=== PATIENT | male | born 1935 | race African-American/Black ===

== ENCOUNTER 2016-05-11 08:54 | Inpatient (IN) ==
--- NOTE | 2016-05-11 09:23 | EKG Report ---
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
[2016-05-11] MEDS ORDERED: FUROSEMIDE 100 MG/10 ML VIAL IV STA (09:38)
[2016-05-11 09:40] LABS: Basophils # 0.1 10*3/uL (0.0-0.2); Basophils % 0.8 % (0.0-0.8); Eosinophils # 0.1 10*3/uL (0.0-0.87); Eosinophils % 1.3 % (0.00-10.9); Hematocrit 25.1 VOL% (42.0-52.0); Hemoglobin 7.2 GM/DL (14.0-18.0); Immature Granulocytes % 0.3 %; Immature Granulocytes Absolute 0.02 #; Lymphocytes # 1.1 10*3/uL (1.4-4.0); Lymphocytes % 13.8 % (21.2-54.2); Mean Corpuscular HGB Conc 28.7 GM/DL (32-36); Mean Corpuscular Hemoglobin 22 PG (27-34); Mean Platelet Volume 9.8 FL (9.6-12.0); Monocytes # 0.7 10*3/uL (0.11-0.8); Monocytes % 9.3 % (1.7-12.7); Neutrophils % 74.5 % (38.7-73.9); Platelet Count 493 T/CUMM (130-400); Red Blood Count 3.22 MC/CUMM (3.8-5.5); Red Cell Distribution Width 18.1 % (9.3-17.3)
--- NOTE | 2016-05-11 09:40 | XRay Report ---
Exam: Chest 2 views Date: May 11, 2016 at 9:31 AM Comparison: Chest 2 views March 19, 2015 Reason: Shortness of breath Findings: The cardiac silhouette is upper normal in size. There are reticulonodular opacities throughout both lungs. This is concerning for pulmonary edema and scarring/fibrosis. Pneumonia is not excluded. No pneumothorax is identified, but there are small bilateral pleural effusions. No acute osseous process is seen. Impression: 1. There are reticulonodular opacities within both lungs. This likely represents a combination of pulmonary edema and scarring/fibrosis. Pneumonia is not excluded. 2. Small bilateral pleural effusions. PROCEDURE INTERPRETED AT [facility] DEPARTMENT OF RADIOLOGY Final Report Signed by: Dr. Kt Gates
[2016-05-11] MEDS: ALBUTEROL 2.5 MG/3 ML NEB RESP TX SCH ×3 (09:48→10:06)
[2016-05-11 09:53] LABS: INR 1.1; PT Patient Result 11.5 SECS; Partial Thromboplastin Time 26.8 SECS (0-40)
[2016-05-11] MEDS ORDERED: FUROSEMIDE 100 MG/10 ML VIAL ONE (09:55)
--- NOTE | 2016-05-11 10:09 | Emergency Department Note ---
Shakir Montelongo Ashley, am scribing for, and in the presence of, Jerod Chau MD 09 :56. Toma Montelongo James D, MD, personally performed the services described in this documentation, ascribed by Summer Schilling in my presence, and it is both accurate and complete . Arrival - Arrival Chief Complaint: Shortness of Breath Stated Complaint: short of breath ED Nursing Triage Note: Pt states that he has been having some SOB Onset x 1 week with worsening this am - pt states that his SOB is worse with excertion. Pt denies any chest pain Mode of Arrival: Wheelchair Limitations: No Limitations Source: Patient, Significant other Time Seen by Provider: 05/11/16 09:25 - History of Present Illness HPI Narrative: Mr. Edmond, an 81 year old AAM with no known history of heart or lung disease , presents with one week history of worsening SOB. He reports being able to walk around yesterday; however, this morning he is unable to walk short distances (i.e. to the bathroom). He denies CP, cough, LE swelling, fever, n/v, OLIVARES, and dizziness. He reports previous tobacco abuse. He smoked ~1.5 packs per day for 40 years, but stopped about 20 years ago. Onset (ago): week(s) (1) Consistency: constant Severity: moderate Quality: other (SOB) Allergies/Adverse Reactions: Allergies Allergy/AdvReac Type Severity Reaction Status Date / Time No Known Allergies Allergy Verified 05/11/16 08:56 Home Medications: Home Medications Medication Instructions Recorded Confirmed Type Brimonidine 0.2% Oph Soln 1 drop BOTH EYES TID 03/19/15 03/19/15 History [Alphagan P 0.2% Oph Soln] Cetirizine HCl [Cetirizine Tab] 5 mg PO DAILY 03/19/15 03/19/15 History Cholecalciferol (Vitamin D3) 2,000 unit PO DAILY 03/19/15 03/19/15 History [Vitamin D3] Ferrous Sulfate [Ferrous Sulfate 325 mg PO TID 03/19/15 03/19/15 History Cap] Hydralazine HCl 50 mg PO Q8HR 03/19/15 03/19/15 History Isosorbide Mononitrate [Imdur] 30 mg PO DAILY 03/19/15 03/19/15 History Magnesium Oxide 420 mg PO DAILY 03/19/15 03/19/15 History Metoprolol Tartrate 25 mg PO BID 03/19/15 03/19/15 History glipiZIDE [Glipizide] 20 mg PO BID W/MEALS 03/19/15 03/19/15 History Review of System - Review of System Constitutional: Absent: chills, fever Eyes: Absent: discharge, vision change Head/Ears/Nose/Throat: Absent: epistaxis, nasal drainage Respiratory: Present: other (SOB). Absent: cough Cardiovascular: Absent: chest pain, palpitations, edema Gastrointestinal: Absent: abdominal pain, nausea, vomiting Genitourinary male: Absent: dysuria, hematuria Musculoskeletal: Absent: back pain, neck pain Skin: Absent: rash, lesions Neurological: Absent: headache, weakness, numbness, paresthesias Psychiatric: Present: as per HPI Endocrine: Present: as per HPI Hematological/Lymphatic: Present: as per HPI Allergic/Immunologic: Present: as per HPI Medical,Surgical,& Family Hx - Medical History Cardio: History of: Hypertension Endocrine: History of: Diabetes Mellitus (NIDDM) - Surgical History Abdominal Surgeries: Surgical HX of: Appendectomy - Family History Family History: Reports;: Family Hypertension - Social History Smoking Status: Never smoker Frequency of Alcohol Use: None Type of Drug Use: None Exam Vital Signs: Vital Signs Temperature 98.1 F 05/11/16 08:56 Pulse Rate 104 H 05/11/16 09:57 Respiratory Rate 20 05/11/16 09:57 Blood Pressure 157/77 05/11/16 08:56 O2 Sat by Pulse Oximetry 98 05/11/16 09:57 - General General appearance: alert, in no apparent distress - Head Head exam: Present: atraumatic, normocephalic, normal inspection - Eye Eye exam: Present: normal appearance, PERRL, EOMI - ENT ENT exam: Present: normal exam, normal oropharynx, mucous membranes moist - Neck Neck exam: Present: full ROM, trachea midline, other (JVD at angle of mandible) - Chest Chest inspection: Present: normal inspection, symmetric chest wall rise, tenderness - Respiratory Respiratory exam: Present: other (Bilateral decreased lung sounds). Absent: rales, respiratory distress, rhonchi, stridor, wheezes - Cardiovascular Cardiovascular exam: Present: regular rate, normal rhythm, JVD (at angle of mandible ) - Abdominal Exam Abdominal exam: Present: soft. Absent: distention, tenderness, ascites - Rectal Exam Rectal exam: Present: normal inspection, normal rectal tone, heme (-) stool. Absent: bloody stool, fecal impaction, hemorrhoids, prostate tenderness, prostate enlargement - Extremities Exam Extremities exam: Present: normal inspection, full ROM. Absent: pedal edema, calf tenderness - Back Exam Back exam: Present: normal inspection, full ROM - Neurological Exam Neurological exam: Present: alert, oriented X3, CN II-XII intact - Psychiatric Psychiatric exam: Present: normal affect, normal mood - Skin Skin exam: Present: warm, dry, intact, normal color Course - Consultations Consultation #1: Discussed with Dr. Curiel. He will see the patient in the CCU and consider left heart cath depending on outcome of stool guaiac. Time: 10:18 Results - Labs CBC & BMP: 05/11/16 09:28 Lab Results: I have reviewed the patients labs Labs: Laboratory Tests 05/11/16 05/11/16 09:28 09:28 WBC 8.0 Hgb 7.2 L Hct 25.1 L Plt Count 493 H INR 1.1 Laboratory Tests 05/11/16 09:28 Troponin I 4.590 H - EKG EKG results: interpreted by ERMD - Impressions EKG: Sinus tachycardia with rate of 104, frequent PVCs, T-wave inversion and ST segment depression laterally consistent with myocardial ischemia. - Diagnostic Findings Procedure: Chest x-ray: image reviewed by me (Increased pulmonary markings bilaterally) Critical Care Time Critical Care Time: No Disposition Clinical Impression: Dyspnea, Anemia, Chronic respiratory failure, Non-ST elevation myocardial infarction (NSTEMI) Case discussed with: patient, patient's family Condition: Stable Time of Disposition: 10:12
[2016-05-11] MEDS ORDERED: ASPIRIN 325 MG TABLET PO STA (10:11)
[2016-05-11] MEDS ORDERED: ENOXAPARIN 80 MG/0.8 ML SYRINGE SUBCUT STA (10:11)
[2016-05-11] MEDS ORDERED: METOPROLOL TARTRATE 5 MG/5 ML VIAL IV STA (10:14)
[2016-05-11] MEDS ORDERED: NITROGLYCERIN 2% OINT 1 INCH/GM PACK TOP STA (10:14)
[2016-05-11] MEDS ORDERED: PANTOPRAZOLE 40 MG VIAL IV STA (10:16)
[2016-05-11 10:19] LABS: Burr Cells Slight; Elliptocytes Few; Hypochromasia Slight; Platelet Estimate Adequate
[2016-05-11] MEDS ORDERED: ENOXAPARIN 100 MG/ML SYRINGE SUBCUT ONE (10:28)
[2016-05-11] MEDS ORDERED: PANTOPRAZOLE 40 MG VIAL IV ONE (10:28)
[2016-05-11] MEDS ORDERED: METOPROLOL TARTRATE 5 MG/5 ML VIAL IV ONE (10:29)
[2016-05-11] MEDS ORDERED: NITROGLYCERIN 2% OINT 1 INCH/GM PACK TOP ONE (10:29)
[2016-05-11] MEDS ORDERED: ASPIRIN 325 MG TABLET ONE (10:29)
[2016-05-11 10:47] LABS: % Iron Saturation 4.6 % (18-50); Ferritin 8.7 ng/ml (26-388)
[2016-05-11 10:59] LABS: Alanine Aminotransferase 35 U/L (16-61); Albumin 3.6 G/DL (3.4-5.0); Alkaline Phosphatase 70 U/L (45-117); Aspartate Amino Transferase 42 U/L (0-37); Bilirubin,Total < 0.39 MG/DL (0.2-1.0); Blood Urea Nitrogen 45 MG/DL (7-18); CKMB % 2.2 %; Calcium 9.3 MG/DL (8.5-10.1); Glucose 179 MG/DL (74-106); Osmolality,Calculated 301.8 MOS/KG (273-304); Potassium 4.1 MMOL/L (3.5-5.1); Sodium 144 MMOL/L (136-145); Total Protein 8.1 G/DL (6.4-8.3)
[2016-05-11 11:06] LABS: Folate 13.4 NG/ML (5.4-24.0)
[2016-05-11 11:39] LABS: ABG Base Excess -9.2 MMOL/L (-2.5-2.5); ABG HCO3 16.9 MMOL/L (20-26); ABG PCO2 25.3 MM HG (35-48); ABG PH 7.381 (7.35-7.45); ABG PO2 69.1 MM HG (80-95); ABG TCO2 14.2 MMOL/L (23-27); Allen Test Positive
--- NOTE | 2016-05-11 12:06 | Cardiology History & Physical ---
<Alejandra Monzon - Last Filed: 05/11/16 11:43> Assessment and Plan - Time spent with patient Time spent with patient: Greater than 30 minutes (due to assessment, plan, and documentation) (1) Non-ST elevation myocardial infarction (NSTEMI) Status: Acute Assessment and plan: 81 y/o BM with hx of hypertension, diabetes. Seen in the Emergency Department today with c/o SOB, worse since yesterday. Found to have NSTEMI, anemia, chronic renal insufficiency with GFR 21, previously 26. -Admit to CCU. -Transfuse 2 units PRBCs slowly over 3-4 hours each unit. 20mg IV Lasix after first unit. -Echocardiogram pending. -Continue to cycle cardiac biomarkers and EKG's. -Given his elevated creatinine, I will hold off on full strength Lovenox and further discuss with Dr. Curiel. -Protonix and ASA daily. -Start Coreg BID. -Monitor daily CBC, BMP, Mg. -Duonebs PRN. -Check heme occult stools. 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 Mr. Edmond is a 81 year old male who denies following regularly with a unloader. We do have records of him seeing Dr. Kingston in the past, but this has been over 3 years ago. He and his are poor historians. Much of his past medical history is obtained from previous records. He has a history of hypertension and diabetes. Risk factors include: diabetes, hypertension, family history of CAD, and former tobacco use. Surgical history includes appendectomy, otherwise noncontributory. 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 He denies a prior history of stroke, MA, or arrhythmia. He presented to the emergency room this morning with complaints of shortness of breath x1 week which worsened last night. He tells me prior to 1 week ago, he had no difficulties performing his daily activities. He denies associated symptoms of chest pain, chest discomfort, jaw pain, neck pain, arm pain, or back pain. Although he tells me he has only felt short of breath for the last week, upon further discussion, he reveals he has home oxygen for the past several months and uses this most afternoons after he arrives home from work. Mr. Edmond tells me last night he was unable to walk from room to room without needing to stop and rest. He continues to have some mild conversational dyspnea. He notes one episode of shortness of breath was accompanied by nausea. He also reports associated epigastric pain with his dyspnea, but is unable to describe this pain further. He also has recent symptoms of leg cramps and episodes where he feels hot and his extremities feel numb. He tells me that he doesn't feel the numbness frequently, but he has to sit down and wait a few minutes before it passes. According to previous records, he has been seen previously for SOB and was found to be in ventricular bigeminy. During workup, a chest x-ray suggested pulmonary fibrosis. He underwent stress testing 12/27/12 which was unremarkable. Previous echocardiogram on 12/26/12 revealed EF 65%, diastolic dysfunction, mild TR, Mild MR, and mild pulmonary hypertension. Echo is currently being done at the bedside. His initial troponin was 4.610 with CPK 463 and CK-MB 10.3. Creatinine 3.6, potassium 4.1. We have one previously documented creatinine of 3.1 in March 2015. Hemoglobin is 7.2, hematocrit is 25.1. Chest x-ray is suggestive of pulmonary edema/scarring/ fibrosis with small bilateral pleural effusions. Mr. Edmond will be admitted to the CCU. Dr. Curiel to see and make further recommendations. Home Medications Medication Instructions Recorded Confirmed Type Brimonidine 0.2% Oph Soln 1 drop BOTH EYES TID 03/19/15 03/19/15 History [Alphagan P 0.2% Oph Soln] Cetirizine HCl [Cetirizine Tab] 5 mg PO DAILY 03/19/15 03/19/15 History Cholecalciferol (Vitamin D3) 2,000 unit PO DAILY 03/19/15 03/19/15 History [Vitamin D3] Ferrous Sulfate [Ferrous Sulfate 325 mg PO TID 03/19/15 03/19/15 History Cap] Hydralazine HCl 50 mg PO Q8HR 03/19/15 03/19/15 History Isosorbide Mononitrate [Imdur] 30 mg PO DAILY 03/19/15 03/19/15 History Magnesium Oxide 420 mg PO DAILY 03/19/15 03/19/15 History Metoprolol Tartrate 25 mg PO BID 03/19/15 03/19/15 History glipiZIDE [Glipizide] 20 mg PO BID W/MEALS 03/19/15 03/19/15 History Allergies Allergy/AdvReac Type Severity Reaction Status Date / Time No Known Allergies Allergy Verified 05/11/16 08:56 Review of systems: - Constitutional: Present: As per HPI. Absent: anorexia, chills, daytime sleepiness, excessive sweating, fever(s), frequent falls, headache(s), increased appetite, lethargy, malaise, night sweats, stops breathing during sleep, weakness, weight gain, weight loss, fatigue. - EENT Eyes: Present: As per HPI. Absent: blurry vision, diplopia, loss of vision Ears: Present: As per HPI. Absent: decreased hearing, ear discharge, ear pain Nose, mouth and throat: Present: As per HPI. Absent: dysphagia, epistaxis, headache(s), hoarseness, lip swelling, nasal congestion, neck mass, neck pain, sinus pressure, sore throat, throat swelling, tongue swelling, vertigo - Cardiovascular: Present: dyspnea, dyspnea on exertion, edema, as per HPI. Absent: chest pain at rest, chest pain with activity, claudication, diaphoresis , radiating jaw, neck or arm pain, lightheadedness, orthopnea, palpitations, PND - Respiratory: Present: dyspnea, dyspnea on exertion, as per HPI. Absent: cough, hemoptysis, wheezing, snoring, pain on inspiration - Gastrointestinal: Present: epigastric pain, As per HPI. Absent: bloating, change in bowel habits, constipation, diarrhea, heartburn, hematemesis, hematochezia, loose stools, melena, nausea, vomiting - Genitourinary: Present: As per HPI. Absent: difficulty urinating, dysuria, flank pain, hematuria, nocturia, urinary frequency, urinary incontinence - Musculoskeletal: Present: As per HPI. Absent: arthralgias, back pain, joint swelling, limited range of motion, muscle cramps, muscle weakness, myalgias - Neurological: Present: As per HPI. Absent: abnormal gait, abnormal speech, behavioral changes, confusion, convulsions, disequilibrium, dizziness, focal weakness, frequent falls, headache(s), memory loss, numbness, paresthesias, radicular pain, syncope, tremor(s) - Psychiatric: Present: As per HPI. Absent: anxiety, confusion, depression, panic attacks - Endocrine: Present: As per HPI. Absent: cold intolerance, fatigue, heat intolerance, polydipsia, polyphagia - Hematologic/Lymphatic: Present: As per HPI. Absent: easy bleeding, easy bruising, lymphadenopathy Medical,Surgical,& Family Hx - Medical History Cardio: History of: Hypertension Endocrine: History of: Diabetes Mellitus (NIDDM) - Surgical History Abdominal Surgeries: Surgical HX of: Appendectomy - Family History Family History: Reports;: Family Hypertension - Social History Smoking Status: Never smoker Frequency of Alcohol Use: None Type of Drug Use: None Marital Status: Lives With:: Spouse Functional capacity: independent ambulation Cardiology Physical Exam - Constitutional Vitals: Vital Signs Temp Pulse Resp BP Pulse Ox 98.1 F 104 H 20 157/77 98 05/11/16 09:10 05/11/16 09:57 05/11/16 09:57 05/11/16 09:10 05/11/16 09:57 Intake and Output 05/10/16 05/11/16 05/11/16 22:59 06:59 14:59 Other: Weight 198 lb Patient Weight 05/12/16 06:59 Weight 198 lb Exam: General appearance: Pleasant and cooperative. Normal weight, Mild conversational dyspnea. - Head Head exam: Present: normal inspection, normocephalic, atraumatic. Absent: hematoma, laceration - Eye Eye exam: Present: EOMI. Absent: conjunctival injection, nystagmus, periorbital swelling, scleral icterus, laceration to eyelids Pupils: Present: PERRL. Absent: constricted, dilated, fixed, irregular, unequal - ENT ENT exam: Present: normal exam, normal external ear exam - Neck Neck exam: Present: normal inspection. Absent: lymphadenopathy, meningismus, tenderness, thyromegaly - Respiratory Respiratory exam: Present: End expiratory wheezes noted more prominently in right lung field, coarse breath sounds with bibasilar crackles posteriorly. Absent: chest wall tenderness - Cardiovascular Cardiovascular exam: Present: regular rate and rhythm. Absent: carotid bruit, gallop, JVD, rubs, murmur - GI/Abdominal GI/Abdominal exam: Present: normal bowel sounds, soft. Absent: distended, firm , guarding, hernia, mass, tenderness, rebound. - Extremities Exam Extremities exam: Present: normal inspection, normal capillary refill. Upper extremity pulses 2+. Diminished peripheral pulses. Absent: calf tenderness, edema - Back Exam Back exam: Present: normal inspection. Absent: muscle spasm, vertebral tenderness - Neurological Exam Neurological exam: Present: alert, oriented X3, grossly intact without resting or essential tremor - Psychiatric Psychiatric exam: Present: normal affect, normal mood - Skin Skin exam: Present: normal color, warm, dry, intact. Absent: cyanosis, diaphoretic, rash, urticaria Result/EKG - Labs CBC & BMP: 05/11/16 09:28 05/11/16 09:28 Lab Results: I have reviewed the past 24 hour labs Labs: Laboratory Results - last 24 hr 05/11/16 05/11/16 05/11/16 09:28 09:28 09:28 WBC 8.0 RBC 3.22 L Hgb 7.2 L Hct 25.1 L MCV 78.0 L MCH 22 L MCHC 28.7 L RDW 18.1 H Plt Count 493 H MPV 9.8 Neut % (Auto) 74.5 H Lymph % (Auto) 13.8 L Greer % (Auto) 9.3 Eos % (Auto) 1.3 Baso % (Auto) 0.8 Neut # (Auto) 6.0 Lymph # (Auto) 1.1 L Greer # (Auto) 0.7 Eos # (Auto) 0.1 Baso # (Auto) 0.1 Immature Gran % 0.3 Nucleated RBC % 0.0 Immature Gran # 0.02 Nucleated RBCs # 0.00 Platelet Estimate Adequate Hypochromasia Slight Carolyn Cells Slight Elliptocytes Few Morphology Comment Absolute Retic Percent Retic Retic Hgb Equivalent INR 1.1 PT Patient/Control Mix 11.5 Circ Anticoag PTT 26.8 ABG pH ABG pCO2 ABG pO2 ABG HCO3 ABG Total CO2 ABG O2 Saturation ABG Base Excess FiO2 Sodium 144 Potassium 4.1 Chloride 114 H Carbon Dioxide 18 L Anion Gap 16.1 H BUN 45 H Creatinine 3.60 H GFR Calculation 21 BUN/Creatinine Ratio 12.00 Glucose 179 H Calculated Osmolality 301.8 Calcium 9.3 Magnesium 2.0 Iron TIBC % Saturation Ferritin Total Bilirubin < 0.39 AST 42 H ALT 35 Alkaline Phosphatase 70 Total Creatine Kinase 463 H CK-MB (CK-2) 10.3 H CK and CKMB Interp 2.2 Troponin I 4.610 H B-Natriuretic Peptide Total Protein 8.1 Albumin 3.6 Globulin 4.5 H Albumin/Globulin Ratio 0.8 L Vitamin B12 Folate Blood Type Antibody Screen 05/11/16 05/11/16 05/11/16 09:28 09:28 09:28 WBC RBC Hgb Hct MCV MCH MCHC RDW Plt Count MPV Neut % (Auto) Lymph % (Auto) Greer % (Auto) Eos % (Auto) Baso % (Auto) Neut # (Auto) Lymph # (Auto) Greer # (Auto) Eos # (Auto) Baso # (Auto) Immature Gran % Nucleated RBC % Immature Gran # Nucleated RBCs # Platelet Estimate Hypochromasia Carolyn Cells Elliptocytes Morphology Comment Absolute Retic 0.1 Percent Retic 1.7 H Retic Hgb Equivalent 19.1 L INR PT Patient/Control Mix Circ Anticoag PTT ABG pH ABG pCO2 ABG pO2 ABG HCO3 ABG Total CO2 ABG O2 Saturation ABG Base Excess FiO2 Sodium Potassium Chloride Carbon Dioxide Anion Gap BUN Creatinine GFR Calculation BUN/Creatinine Ratio Glucose Calculated Osmolality Calcium Magnesium Iron TIBC % Saturation Ferritin Total Bilirubin AST ALT Alkaline Phosphatase Total Creatine Kinase CK-MB (CK-2) CK and CKMB Interp Troponin I 4.590 H B-Natriuretic Peptide 1349 H Total Protein Albumin Globulin Albumin/Globulin Ratio Vitamin B12 Folate Blood Type Antibody Screen 05/11/16 05/11/16 05/11/16 09:28 09:28 11:40 WBC RBC Hgb Hct MCV MCH MCHC RDW Plt Count MPV Neut % (Auto) Lymph % (Auto) Greer % (Auto) Eos % (Auto) Baso % (Auto) Neut # (Auto) Lymph # (Auto) Greer # (Auto) Eos # (Auto) Baso # (Auto) Immature Gran % Nucleated RBC % Immature Gran # Nucleated RBCs # Platelet Estimate Hypochromasia Carolyn Cells Elliptocytes Morphology Comment Absolute Retic Percent Retic Retic Hgb Equivalent INR PT Patient/Control Mix Circ Anticoag PTT ABG pH 7.381 ABG pCO2 25.3 L ABG pO2 69.1 L ABG HCO3 16.9 L ABG Total CO2 14.2 L ABG O2 Saturation 93.0 L ABG Base Excess -9.2 L FiO2 28.00 Sodium Potassium Chloride Carbon Dioxide Anion Gap BUN Creatinine GFR Calculation BUN/Creatinine Ratio Glucose Calculated Osmolality Calcium Magnesium Iron 15 L TIBC 327 % Saturation 4.6 L Ferritin 8.7 L Total Bilirubin AST ALT Alkaline Phosphatase Total Creatine Kinase CK-MB (CK-2) CK and CKMB Interp Troponin I B-Natriuretic Peptide Total Protein Albumin Globulin Albumin/Globulin Ratio Vitamin B12 507 Folate 13.4 Blood Type Antibody Screen 05/11/16 Unknown WBC RBC Hgb Hct MCV MCH MCHC RDW Plt Count MPV Neut % (Auto) Lymph % (Auto) Greer % (Auto) Eos % (Auto) Baso % (Auto) Neut # (Auto) Lymph # (Auto) Greer # (Auto) Eos # (Auto) Baso # (Auto) Immature Gran % Nucleated RBC % Immature Gran # Nucleated RBCs # Platelet Estimate Hypochromasia Howell Cells Elliptocytes Morphology Comment Absolute Retic Percent Retic Retic Hgb Equivalent INR PT Patient/Control Mix Circ Anticoag PTT ABG pH ABG pCO2 ABG pO2 ABG HCO3 ABG Total CO2 ABG O2 Saturation ABG Base Excess FiO2 Sodium Potassium Chloride Carbon Dioxide Anion Gap BUN Creatinine GFR Calculation BUN/Creatinine Ratio Glucose Calculated Osmolality Calcium Magnesium Iron TIBC % Saturation Ferritin Total Bilirubin AST ALT Alkaline Phosphatase Total Creatine Kinase CK-MB (CK-2) CK and CKMB Interp Troponin I B-Natriuretic Peptide Total Protein Albumin Globulin Albumin/Globulin Ratio Vitamin B12 Folate Blood Type O POSITIVE Antibody Screen Negative - EKG EKG results: interpreted by me, sinus rhythm (with frequent PVCs and ST depression. ) <Gilmer Curiel - Last Filed: 05/11/16 16:57> Assessment and Plan (1) Dyspnea Status: Acute Assessment and plan: I, Gilmer Curiel, has seen, examined, and am involved in the evaluation and management of this patient. I've reviewed the note below/above and also see my thoughts below: The dyspnea appears to be multifactorial. It probably is in part related to the non-STEMI, partly from heart failure, possibly worsening renal insufficiency , being a former smoker, multiple causes His acute on chronic renal failure may be due to his NSAID use on a regular basis, ibuprofen/Aleve, but it could be partly due to worsening LV systolic function or other causes His heart rhythm could be systolic or diastolic. His anemia appears to be iron deficiency. It would raise a question of being from some GI blood loss. With him taking NSAIDs, the possibility of an ulcer strongly should be considered Plan/recommendation: Admit to telemetry n.p.o. after midnight in case it is decided to do a heart cath. That is not for sure at this point--will need to assess his renal function, his overall status in the a.m. Dr. Preeti Che, new about getting an order of leuk trase and up to the doctor's name for me if you would on-call would work things G had good gas good Way the risk and benefits with his renal function prior to deciding about a cath Echo/Doppler-done today For back pain-gabapentin, Tylenol, Tylenol and tramadol-no NSAIDs Elevate head of bed Sliding scale insulin Feed patient Cardiac diet Start on iron sulfate 1 twice daily-he says he has been taking it but is not in a while. However he does have black stool. Stool guaiacs 1 Lasix was given. Will hold now. Recheck electrolytes , bun he has a I the junction of right does not have a milk cup talking 2 L it is the read the tomato based we will put okay okay K eat milk so I will do that but I will take the habit the sounds very steak but not extra gravy just to wipe it off but just January state not extubating and then the collar greens and broccoli and light can get a large order fries to go with that right and in good that she had an EBL of the doctors labs for Dr. rachel curiel exam appreciated next 30 minutes like that appreciate and creatinine in the a.m. Can reassess in a.m. and try to time doing a heart cath. May need to wait to allow the renal function improved Aspirin one was given the emergency room Lovenox 90 mg subcu now increased to every 24 hours Some IV Lopressor was given. We will start on carvedilol 6.25 mg p.o. every 6 hours We will hold metoprolol from home. Nitropaste 1 inch now every 6 Protonix 1 now and twice daily EKG every morning 3 and as needed for chest pain/shortness breath We will not use an CHERELLE inhibitor because of renal insufficiency-contraindicated Further decision depending on results of enzymes, EKG and her renal function is renal function. Current Visit: Yes (2) Acute on chronic renal failure Status: Acute Current Visit: Yes (3) NSAID long-term use Status: Acute Current Visit: Yes (4) Heart failure Status: Acute Current Visit: Yes (5) Iron deficiency anemia Status: Acute Current Visit: Yes (6) Anemia Status: Acute Current Visit: Yes (7) Non-ST elevation myocardial infarction (NSTEMI) Status: Acute Current Visit: Yes (8) Chronic renal insufficiency, stage IV (severe) Status: Chronic Current Visit: Yes (9) Diabetes mellitus Status: Chronic Current Visit: Yes (10) Family history of coronary artery disease Status: Chronic Current Visit: Yes (11) Former smoker Status: Chronic Current Visit: Yes (12) Hypertension Status: Chronic Current Visit: Yes History of Present Illness History of present illness: Mr. Edmond is a 81 year old male Cardiology Physical Exam - Constitutional Vitals: Vital Signs Temp Pulse Resp BP Pulse Ox 98.1 F 105 H 20 157/77 99 05/11/16 09:10 05/11/16 10:06 05/11/16 10:06 05/11/16 09:10 05/11/16 10:06 Intake and Output 05/11/16 05/11/16 05/11/16 07:59 15:59 23:59 Other: Weight 89.811 kg Patient Weight 05/11/16 23:59 Weight 89.811 kg Result/EKG - Labs CBC & BMP: 05/11/16 09:28 05/11/16 09:28 Labs: Laboratory Results - last 24 hr 05/11/16 05/11/16 05/11/16 09:28 09:28 09:28 WBC 8.0 RBC 3.22 L Hgb 7.2 L Hct 25.1 L MCV 78.0 L MCH 22 L MCHC 28.7 L RDW 18.1 H Plt Count 493 H MPV 9.8 Neut % (Auto) 74.5 H Lymph % (Auto) 13.8 L Greer % (Auto) 9.3 Eos % (Auto) 1.3 Baso % (Auto) 0.8 Neut # (Auto) 6.0 Lymph # (Auto) 1.1 L Greer # (Auto) 0.7 Eos # (Auto) 0.1 Baso # (Auto) 0.1 Immature Gran % 0.3 Nucleated RBC % 0.0 Immature Gran # 0.02 Nucleated RBCs # 0.00 Platelet Estimate Adequate Hypochromasia Slight Howell Cells Slight Elliptocytes Few Morphology Comment Absolute Retic Percent Retic Retic Hgb Equivalent INR 1.1 PT Patient/Control Mix 11.5 Circ Anticoag PTT 26.8 ABG pH ABG pCO2 ABG pO2 ABG HCO3 ABG Total CO2 ABG O2 Saturation ABG Base Excess FiO2 Sodium 144 Potassium 4.1 Chloride 114 H Carbon Dioxide 18 L Anion Gap 16.1 H BUN 45 H Creatinine 3.60 H GFR Calculation 21 BUN/Creatinine Ratio 12.00 Glucose 179 H Calculated Osmolality 301.8 Calcium 9.3 Magnesium 2.0 Iron TIBC % Saturation Ferritin Total Bilirubin < 0.39 AST 42 H ALT 35 Alkaline Phosphatase 70 Total Creatine Kinase 463 H CK-MB (CK-2) 10.3 H CK and CKMB Interp 2.2 Troponin I 4.610 H B-Natriuretic Peptide Total Protein 8.1 Albumin 3.6 Globulin 4.5 H Albumin/Globulin Ratio 0.8 L Vitamin B12 Folate Blood Type Antibody Screen 05/11/16 05/11/16 05/11/16 09:28 09:28 09:28 WBC RBC Hgb Hct MCV MCH MCHC RDW Plt Count MPV Neut % (Auto) Lymph % (Auto) Greer % (Auto) Eos % (Auto) Baso % (Auto) Neut # (Auto) Lymph # (Auto) Greer # (Auto) Eos # (Auto) Baso # (Auto) Immature Gran % Nucleated RBC % Immature Gran # Nucleated RBCs # Platelet Estimate Hypochromasia Carolyn Cells Elliptocytes Morphology Comment Absolute Retic 0.1 Percent Retic 1.7 H Retic Hgb Equivalent 19.1 L INR PT Patient/Control Mix Circ Anticoag PTT ABG pH ABG pCO2 ABG pO2 ABG HCO3 ABG Total CO2 ABG O2 Saturation ABG Base Excess FiO2 Sodium Potassium Chloride Carbon Dioxide Anion Gap BUN Creatinine GFR Calculation BUN/Creatinine Ratio Glucose Calculated Osmolality Calcium Magnesium Iron TIBC % Saturation Ferritin Total Bilirubin AST ALT Alkaline Phosphatase Total Creatine Kinase CK-MB (CK-2) CK and CKMB Interp Troponin I 4.590 H B-Natriuretic Peptide 1349 H Total Protein Albumin Globulin Albumin/Globulin Ratio Vitamin B12 Folate Blood Type Antibody Screen 05/11/16 05/11/16 05/11/16 09:28 09:28 11:40 WBC RBC Hgb Hct MCV MCH MCHC RDW Plt Count MPV Neut % (Auto) Lymph % (Auto) Greer % (Auto) Eos % (Auto) Baso % (Auto) Neut # (Auto) Lymph # (Auto) Greer # (Auto) Eos # (Auto) Baso # (Auto) Immature Gran % Nucleated RBC % Immature Gran # Nucleated RBCs # Platelet Estimate Hypochromasia Howell Cells Elliptocytes Morphology Comment Absolute Retic Percent Retic Retic Hgb Equivalent INR PT Patient/Control Mix Circ Anticoag PTT ABG pH 7.381 ABG pCO2 25.3 L ABG pO2 69.1 L ABG HCO3 16.9 L ABG Total CO2 14.2 L ABG O2 Saturation 93.0 L ABG Base Excess -9.2 L FiO2 28.00 Sodium Potassium Chloride Carbon Dioxide Anion Gap BUN Creatinine GFR Calculation BUN/Creatinine Ratio Glucose Calculated Osmolality Calcium Magnesium Iron 15 L TIBC 327 % Saturation 4.6 L Ferritin 8.7 L Total Bilirubin AST ALT Alkaline Phosphatase Total Creatine Kinase CK-MB (CK-2) CK and CKMB Interp Troponin I B-Natriuretic Peptide Total Protein Albumin Globulin Albumin/Globulin Ratio Vitamin B12 507 Folate 13.4 Blood Type Antibody Screen 05/11/16 Unknown WBC RBC Hgb Hct MCV MCH MCHC RDW Plt Count MPV Neut % (Auto) Lymph % (Auto) Greer % (Auto) Eos % (Auto) Baso % (Auto) Neut # (Auto) Lymph # (Auto) Greer # (Auto) Eos # (Auto) Baso # (Auto) Immature Gran % Nucleated RBC % Immature Gran # Nucleated RBCs # Platelet Estimate Hypochromasia Howell Cells Elliptocytes Morphology Comment Absolute Retic Percent Retic Retic Hgb Equivalent INR PT Patient/Control Mix Circ Anticoag PTT ABG pH ABG pCO2 ABG pO2 ABG HCO3 ABG Total CO2 ABG O2 Saturation ABG Base Excess FiO2 Sodium Potassium Chloride Carbon Dioxide Anion Gap BUN Creatinine GFR Calculation BUN/Creatinine Ratio Glucose Calculated Osmolality Calcium Magnesium Iron TIBC % Saturation Ferritin Total Bilirubin AST ALT Alkaline Phosphatase Total Creatine Kinase CK-MB (CK-2) CK and CKMB Interp Troponin I B-Natriuretic Peptide Total Protein Albumin Globulin Albumin/Globulin Ratio Vitamin B12 Folate Blood Type O POSITIVE Antibody Screen Negative
[2016-05-11] MEDS ORDERED: ALBUTEROL/IPRATROPIUM 3 ML NEB RESP TX PRN (12:39)
[2016-05-11] MEDS ORDERED: MAGNESIUM SULF RIDER 2 GM in PREMIX 1 EACH IV PRN (14:34)
[2016-05-11] MEDS ORDERED: MAGNESIUM SULF RIDER 4 GM in PREMIX 1 EACH IV PRN (14:34)
[2016-05-11] MEDS ORDERED: ONDANSETRON 4 MG/2 ML VIAL IV PRN (14:34)
[2016-05-11] MEDS ORDERED: CARVEDILOL 3.125 MG TABLET PO SCH (15:00)
[2016-05-11] MEDS ORDERED: GLUCAGON 1 MG VIAL IM PRN (15:42)
[2016-05-11] MEDS ORDERED: DEXTROSE 50% 25 GM/50 ML VIAL IV PRN (15:42)
[2016-05-11] MEDS ORDERED: CARVEDILOL 3.125 MG TABLET ONE (15:54)
--- NOTE | 2016-05-11 17:11 | ECHO Report ---
Chetan Edmond Exam Date: 05/11/2016 11:20 Referring Physician: Technologist: Darline Lyons RDCS Age: 81 Ht (in): 72 Wt (lb): 198 Gender: M Exam Location: [facility] Echo Indications: Non-ST elevation (NSTEMI) myocardial infarction, Shortness of breath, Essential (primary) hypertension, NIDDM BP: 144 / 81 HR: 105 Rhythm: Sinus tach with PVC's Technical Quality: Good IMPRESSIONS Mild left ventricular hypertrophy. Left ventricular ejection fraction is estimated at 20- 25 %. The right atrium is mildly enlarged. The left atrium is 2+ enlarged. Mild mitral valve regurgitation. Aortic valve sclerosis without stenosis or regurgitation. Trace to mild tricuspid valve regurgitation. Tricuspid regurgitation velocities suggest a PAP of 58 mmHg. MEASUREMENTS (Male / Female) Normal Values 2D ECHO LV Diastolic Diameter PLAX 5.3 cm 4.2 - 5.9 / 3.9 - 5.3 cm LV Systolic Diameter PLAX 4.8 cm LV Fractional Shortening PLAX 9.7 % IVS Diastolic Thickness 1.4 cm 0.6 - 1.0 / 0.6 - 0.9 cm LVPW Diastolic Thickness 1.4 cm 0.6 - 1.0 / 0.6 - 0.9 cm RV Internal Dim ED PLAX 3.0 cm Aortic Root Diameter 3.6 cm LA Systolic Diameter LX 4.5 cm 3.0 - 4.0 / 2.7 - 3.8 cm DOPPLER TR Peak Velocity 345.0 cm/s TR Peak Gradient 47.6 mmHg FINDINGS Left Ventricle Normal left ventricular cavity size. Mild left ventricular hypertrophy. Left ventricular ejection fraction is estimated at 20- 25 %. Right Ventricle The right ventricle is normal in size and function. Right Atrium The right atrium is mildly enlarged. Left Atrium The left atrium is 2+ enlarged. Mitral Valve Morphologically normal mitral valve. Mild mitral valve regurgitation. Aortic Valve Aortic valve sclerosis without stenosis or regurgitation. Tricuspid Valve Morphologically normal tricuspid valve. Trace to mild tricuspid valve regurgitation. Tricuspid regurgitation velocities suggest a PAP of 58 mmHg. Pulmonic Valve Morphologically normal pulmonic valve without significant stenosis. There is no pulmonic regurgitation. Pericardium Normal pericardium without effusion. Aorta Normal ascending aorta dimension. Gilmer Curiel MD (Electronically Signed) Final Date: 11 May 2016 17:10
[2016-05-11] MEDS ORDERED: SODIUM CHLORIDE 0.9% 250 ML IV PRN (17:16)
[2016-05-11] MEDS: NITROGLYCERIN 2% OINT 1 INCH/GM PACK TOP SCH ×2 (17:20→17:41)
[2016-05-11] MEDS: glipiZIDE 10 MG TABLET PO SCH (17:41)
[2016-05-11] MEDS: CARVEDILOL 6.25 MG TABLET PO SCH (17:41)
[2016-05-11] MEDS: INSULIN REGULAR 100 UNIT/ML SUBCUT SCH ×2 (17:41→21:27)
[2016-05-11] MEDS: PANTOPRAZOLE 40 MG TABLET PO SCH (17:41)
[2016-05-11] MEDS: ACETAMINOPHEN 325 MG TABLET PO SCH ×2 (17:43→21:27)
--- NOTE | 2016-05-11 17:48 | EKG Report ---
Stationary ECG Study [facility] Test Date: 05/11/2016 5:48:18 PM Pat Name: JAZMIN GRAFF Department: Room: 295 Gender: M Surgical Coordinator: JAQUI : 1935 Requested by: Jerod Ruiz Order Number: [id number] Reading MD: FARSHAD KRAUSE Intervals [place] Rate: 99 P: 85 SD: 184 QRS: 80 QRSD: 108 T: 269 QT: 357 QTc: 413 Interpretive Statements SINUS RHYTHM LEFT VENTRICULAR HYPERTROPHY AND ST-T CHANGE Electronically Signed On 05-15-16 14:27:54 CDT by FARSHAD KRAUSE [email or web address]
[2016-05-11 18:17] LABS: CKMB % 2.3 %
[2016-05-11 18:21] LABS: Troponin I Only 4.12 NG/ML (0.00-0.045)
[2016-05-11] MEDS: GABAPENTIN 100 MG CAPSULE PO SCH (21:26)
[2016-05-11] MEDS: BRIMONIDINE 0.2% OPH SOLN 5 ML BOTTLE BOTH EYES SCH (21:27)
[2016-05-11] MEDS: traMADol 50 MG TABLET PO SCH (21:27)
[2016-05-11] MEDS: IRON (CARBONYL) 45 MG TABLET PO SCH (21:27)
[2016-05-11] MEDS ORDERED: FUROSEMIDE 20 MG/2 ML VIAL IV ONE ×2 (21:30)
[2016-05-11] MEDS: SODIUM CHLORIDE 0.9% 1,000 ML IV SCH (22:01)
[2016-05-11 22:06] LABS: CKMB % 2.1 %
[2016-05-11 22:09] LABS: Troponin I Only 4.36 NG/ML (0.00-0.045)
[2016-05-12] MEDS: CARVEDILOL 6.25 MG TABLET PO SCH ×4 (00:40→16:42)
[2016-05-12] MEDS: NITROGLYCERIN 2% OINT 1 INCH/GM PACK TOP SCH ×4 (00:40→17:07)
[2016-05-12] MEDS: SODIUM CHLORIDE 0.9% 1,000 ML IV SCH (04:22)
[2016-05-12 05:21] LABS: Basophils % 0.5 % (0.0-0.8); Eosinophils # 0.1 10*3/uL (0.0-0.87); Eosinophils % 1.3 % (0.00-10.9); Hematocrit 26.3 VOL% (42.0-52.0); Immature Granulocytes % 0.4 %; Immature Granulocytes Absolute 0.03 #; Lymphocytes # 1.2 10*3/uL (1.4-4.0); Lymphocytes % 14.7 % (21.2-54.2); Mean Corpuscular HGB Conc 30.4 GM/DL (32-36); Mean Corpuscular Hemoglobin 24 PG (27-34); Mean Corpuscular Volume 78.7 FL (87-102); Mean Platelet Volume 10.6 FL (9.6-12.0); Monocytes # 0.8 10*3/uL (0.11-0.8); Monocytes % 10.1 % (1.7-12.7); Neutrophils # 5.7 10*3/uL (1.4-7.4); Platelet Count 339 T/CUMM (130-400); Red Blood Count 3.34 MC/CUMM (3.8-5.5); White Blood Count 7.8 T/CUMM (4-12)
[2016-05-12 05:22] LABS: CKMB % 2.1 %
[2016-05-12 05:31] LABS: Calcium 8.6 MG/DL (8.5-10.1); Magnesium 2.1 MG/DL (1.8-2.4); Osmolality,Calculated 303.6 MOS/KG (273-304); Potassium 4.7 MMOL/L (3.5-5.1)
[2016-05-12 05:32] LABS: Troponin I Only 5.36 NG/ML (0.00-0.045)
[2016-05-12 08:03] LABS: Hematocrit 28.8 VOL% (42.0-52.0); Hemoglobin 8.4 GM/DL (14.0-18.0)
--- NOTE | 2016-05-12 08:08 | EKG Report ---
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
[2016-05-12] MEDS: INSULIN REGULAR 100 UNIT/ML SUBCUT SCH ×4 (08:13→21:04)
[2016-05-12] MEDS: ENOXAPARIN 100 MG/ML SYRINGE SUBCUT SCH (08:53)
[2016-05-12] MEDS: glipiZIDE 10 MG TABLET PO SCH ×2 (08:54→16:42)
[2016-05-12] MEDS: CETIRIZINE 5 MG TABLET PO SCH (08:54)
[2016-05-12] MEDS: GABAPENTIN 100 MG CAPSULE PO SCH ×3 (08:55→21:04)
[2016-05-12] MEDS: traMADol 50 MG TABLET PO SCH ×2 (08:55→21:04)
[2016-05-12] MEDS: PANTOPRAZOLE 40 MG TABLET PO SCH (08:55)
[2016-05-12] MEDS: BRIMONIDINE 0.2% OPH SOLN 5 ML BOTTLE BOTH EYES SCH ×3 (08:55→21:04)
[2016-05-12] MEDS: ACETAMINOPHEN 325 MG TABLET PO SCH ×2 (08:55→21:03)
[2016-05-12] MEDS: CHOLECALCIFEROL 1,000 UNIT TABLET PO SCH (08:55)
[2016-05-12] MEDS: ASPIRIN 325 MG TABLET PO SCH (08:55)
[2016-05-12] MEDS: IRON (CARBONYL) 45 MG TABLET PO SCH ×2 (08:56→21:03)
[2016-05-12] MEDS: MAGNESIUM OXIDE 400 MG TABLET PO SCH (08:56)
[2016-05-12 10:45] LABS: CKMB % 2.1 %
[2016-05-12 10:46] LABS: Troponin I Only 5.3 NG/ML (0.00-0.045)
--- NOTE | 2016-05-12 14:52 | Cardiology Progress Note ---
Assessment and Plan - Time spent with patient Time spent with patient: Less than 30 minutes (1) Non-ST elevation myocardial infarction (NSTEMI) Status: Acute Assessment and plan: 05/12/16: Creatinine further elevated today. Will hold off on heart catheterization for now and continue to monitor renal function. H&H is improved after 2 units of blood. Recheck in AM, may require additional transfusion. Dyspnea much improved today. Will continue to hold off on Lasix. Continue Coreg, he is tolerating this well. Will continue to hold off on CHERELLE inhibitor due to renal insufficiency. Continue combination gabapentin, Tylenol, and Tramadol for back pain. Will further discuss with Dr. Curiel and await further recommendations. Continue current plan of care. BMP, Mg, CBC in AM. 05/11/16 Initial Encounter: 81 y/o BM with hx of hypertension, diabetes. Seen in the Emergency Department today with c/o SOB, worse since yesterday. Found to have NSTEMI, anemia, chronic renal insufficiency with GFR 21, previously 26. The dyspnea appears to be multifactorial. It probably is in part related to the non-STEMI, partly from heart failure, possibly worsening renal insufficiency , being a former smoker, multiple causes. His acute on chronic renal failure may be due to his NSAID use on a regular basis, ibuprofen/Aleve, but it could be partly due to worsening LV systolic function or other causes. His anemia appears to be iron deficiency. It would raise a question of being from some GI blood loss. With him taking NSAIDs, the possibility of an ulcer strongly should be considered. Plan/recommendation: n.p.o. after midnight in case it is decided to do a heart cath. That is not for sure at this point--will need to assess his renal function, his overall status in the a.m. Weigh the risk and benefits with his renal function prior to deciding about a cath Echo/Doppler-done today For back pain-gabapentin, Tylenol, Tylenol and tramadol-no NSAIDs Elevate head of bed Sliding scale insulin Feed patient Cardiac diet Start on iron sulfate 1 twice daily-he says he has been taking it but is not in a while. However he does have black stool. Stool guaiacs 1 Lasix was given. Will hold now. Can reassess in a.m. and try to time doing a heart cath. May need to wait to allow the renal function improved Aspirin one was given the emergency room Lovenox 90 mg subcu now increased to every 24 hours Some IV Lopressor was given. We will start on carvedilol 6.25 mg p.o. every 6 hours We will hold metoprolol from home. Nitropaste 1 inch now every 6 Protonix 1 now and twice daily EKG every morning 3 and as needed for chest pain/shortness breath We will not use an CHERELLE inhibitor because of renal insufficiency-contraindicated Further decision depending on results of enzymes, EKG and her renal function is renal function. 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 Edmond is a 81 year old male who has a history of hypertension and diabetes. He presented to the emergency room on 05/11/16 with complaints of shortness of breath x1 week which worsened the night prior to admission. Chest x-ray on admission was suggestive of pulmonary edema/scarring/ fibrosis with small bilateral pleural effusions. Hemoglobin is 7.2, hematocrit is 25.1 on admission. He received 2 units of blood last night. H&H is up to 8.4 & 28.8 today. Overall, Mr. Edmond reports he is feeling much better today. He still seems to have very mild conversational dyspnea but clinically does seem much improved today. His creatinine is up to 3.8 today. Ideally, we would have liked to proceed with heart catheterization but are unable to do so at this point. He had a large dose of Lasix yesterday. Urine output was suboptimal. Echocardiogram done 05/11/16 revealed mild left ventricular hypertrophy, EF estimated at 20-25%, mildly enlarged right atrium, 2+ enlargement of left atrium , mild mitral regurgitation, aortic sclerosis without stenosis or regurgitation , trace to mild tricuspid regurgitation with velocities suggesting a PAP of 58 mmHg. Exam (Progress Note) - Constitutional Vitals: Period Temp Pulse Resp BP Sys/[place]aldonado Pulse Ox Last 24 Hr 96.8 F-97.9 F 78-111 16-24 107-126/66-104 90-98 Exam: General: Present: Appears Well, No Apparent Distress. Pleasant and cooperative. Appears comfortable. HEENT: Present: PERRL, Normocephaly, atraumatic. Mucus Membranes Moist. No jaundice noted. Conjunctiva moist and clear, sclerae anicteric Neck: Present: Supple Neck, Midline Trachea, No Masses, No Bruit, No tenderness Cardiac: Present: Regular Rate and Rhythm, No Murmur Lungs: Present: Clear to auscultation bilaterally, diminished breath sounds to bilateral bases. Neuro: Present: Awake, alert, and oriented x3. Moves all extremities well without hemiparesis or paralysis. Grossly Intact. Absent: Resting Tremor, Essential Tremor Abdomen: Present: Soft, Active Bowel Sounds, No Masses, Non-Tender, nondistended. No abdominal bruit or thrill noted. Skin: Present: Clear. Absent: Rash, No skin breakdown. Back: Normal inspection, no vertebral tenderness. Musculoskeletal: Present: No Fluid Collection, No Pain, Normal Range of Motion Extremities: Present: Normal Gait, No Clubbing, No Cyanosis, Upper Extr. Pulses 2+, Lower Extr. Pulses 2+, No edema. Capillary refill less than 3 seconds. Result/EKG - Labs CBC & BMP: 05/12/16 07:42 05/12/16 04:35 Lab Results: I have reviewed the past 24 hour labs Labs: Laboratory Results - last 24 hr 05/11/16 05/11/16 05/11/16 16:58 17:06 19:07 WBC RBC Hgb Hct MCV MCH MCHC RDW Plt Count MPV Neut % (Auto) Lymph % (Auto) [place] % (Auto) Eos % (Auto) Baso % (Auto) Neut # (Auto) Lymph # (Auto) [place] # (Auto) Eos # (Auto) Baso # (Auto) Immature Gran % Nucleated RBC % Immature Gran # Nucleated RBCs # Sodium Potassium Chloride Carbon Dioxide Anion Gap BUN Creatinine GFR Calculation BUN/Creatinine Ratio Glucose POC Glucose 226 H 224 H Calculated Osmolality Calcium Magnesium Total Creatine Kinase 436 H CK-MB (CK-2) 9.9 H CK and CKMB Interp 2.3 Troponin I 4.120 H Blood Type Antibody Screen Crossmatch Blood Bank Comment 05/11/16 05/11/16 05/12/16 21:29 Unknown 04:35 WBC RBC Hgb Hct MCV MCH MCHC RDW Plt Count MPV Neut % (Auto) Lymph % (Auto) [place] % (Auto) Eos % (Auto) Baso % (Auto) Neut # (Auto) Lymph # (Auto) [place] # (Auto) Eos # (Auto) Baso # (Auto) Immature Gran % Nucleated RBC % Immature Gran # Nucleated RBCs # Sodium Potassium Chloride Carbon Dioxide Anion Gap BUN Creatinine GFR Calculation BUN/Creatinine Ratio Glucose POC Glucose Calculated Osmolality Calcium Magnesium Total Creatine Kinase 380 H 361 H CK-MB (CK-2) 7.9 H 7.5 H CK and CKMB Interp 2.1 2.1 Troponin I 4.360 H 5.360 H D Blood Type O POSITIVE Antibody Screen Cancelled Crossmatch See Detail Blood Bank Comment Cancelled 05/12/16 05/12/16 05/12/16 04:35 04:35 07:42 WBC 7.8 RBC 3.34 L Hgb 8.0 L 8.4 L Hct 26.3 L 28.8 L MCV 78.7 L MCH 24 L MCHC 30.4 L RDW 18.0 H Plt Count 339 D MPV 10.6 Neut % (Auto) 73.0 Lymph % (Auto) 14.7 L [place] % (Auto) 10.1 Eos % (Auto) 1.3 Baso % (Auto) 0.5 Neut # (Auto) 5.7 Lymph # (Auto) 1.2 L [place] # (Auto) 0.8 Eos # (Auto) 0.1 Baso # (Auto) 0.0 Immature Gran % 0.4 Nucleated RBC % 0.0 Immature Gran # 0.03 Nucleated RBCs # 0.00 Sodium 146 H Potassium 4.7 Chloride 115 H Carbon Dioxide 20 L Anion Gap 15.7 H BUN 53 H Creatinine 3.80 H GFR Calculation 20 BUN/Creatinine Ratio 13.00 Glucose 90 POC Glucose Calculated Osmolality 303.6 Calcium 8.6 Magnesium 2.1 Total Creatine Kinase CK-MB (CK-2) CK and CKMB Interp Troponin I Blood Type Antibody Screen Crossmatch Blood Bank Comment 05/12/16 05/12/16 05/12/16 08:04 09:45 11:23 WBC RBC Hgb Hct MCV MCH MCHC RDW Plt Count MPV Neut % (Auto) Lymph % (Auto) [place] % (Auto) Eos % (Auto) Baso % (Auto) Neut # (Auto) Lymph # (Auto) [place] # (Auto) Eos # (Auto) Baso # (Auto) Immature Gran % Nucleated RBC % Immature Gran # Nucleated RBCs # Sodium Potassium Chloride Carbon Dioxide Anion Gap BUN Creatinine GFR Calculation BUN/Creatinine Ratio Glucose POC Glucose 91 186 H Calculated Osmolality Calcium Magnesium Total Creatine Kinase 338 H CK-MB (CK-2) 7.2 H CK and CKMB Interp 2.1 Troponin I 5.300 H Blood Type Antibody Screen Crossmatch Blood Bank Comment - EKG EKG results: interpreted by me, sinus rhythm Specialty Discharge - Follow Up or Referrals
[2016-05-12] MEDS: CARVEDILOL 12.5 MG TABLET PO SCH (21:04)
[2016-05-13] MEDS: NITROGLYCERIN 2% OINT 1 INCH/GM PACK TOP SCH ×4 (00:47→17:07)
[2016-05-13] MEDS: CARVEDILOL 12.5 MG TABLET PO SCH ×4 (03:22→21:44)
[2016-05-13 07:46] LABS: Basophils # 0.1 10*3/uL (0.0-0.2); Basophils % 0.7 % (0.0-0.8); Eosinophils # 0.6 10*3/uL (0.0-0.87); Hematocrit 27.3 VOL% (42.0-52.0); Immature Granulocytes % 0.4 %; Immature Granulocytes Absolute 0.03 #; Lymphocytes # 1.4 10*3/uL (1.4-4.0); Lymphocytes % 16.8 % (21.2-54.2); Mean Corpuscular HGB Conc 29.3 GM/DL (32-36); Mean Corpuscular Hemoglobin 24 PG (27-34); Mean Corpuscular Volume 80.8 FL (87-102); Mean Platelet Volume 9.6 FL (9.6-12.0); Monocytes # 0.9 10*3/uL (0.11-0.8); Monocytes % 11.3 % (1.7-12.7); Neutrophils # 5.1 10*3/uL (1.4-7.4); Neutrophils % 63.8 % (38.7-73.9); Platelet Count 394 T/CUMM (130-400); Red Blood Count 3.38 MC/CUMM (3.8-5.5); Red Cell Distribution Width 18.5 % (9.3-17.3); White Blood Count 8.1 T/CUMM (4-12)
[2016-05-13 08:09] LABS: Calcium 8.4 MG/DL (8.5-10.1); Magnesium 2.1 MG/DL (1.8-2.4); Potassium 4.2 MMOL/L (3.5-5.1)
--- NOTE | 2016-05-13 08:38 | EKG Report ---
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
[2016-05-13] MEDS: INSULIN REGULAR 100 UNIT/ML SUBCUT SCH ×4 (09:04→23:24)
[2016-05-13] MEDS: glipiZIDE 10 MG TABLET PO SCH ×2 (09:05→16:51)
[2016-05-13] MEDS: CHOLECALCIFEROL 1,000 UNIT TABLET PO SCH (09:05)
[2016-05-13] MEDS: ASPIRIN 325 MG TABLET PO SCH (09:05)
[2016-05-13] MEDS: IRON (CARBONYL) 45 MG TABLET PO SCH ×2 (09:05→21:43)
[2016-05-13] MEDS: traMADol 50 MG TABLET PO SCH ×2 (09:06→21:45)
[2016-05-13] MEDS: GABAPENTIN 100 MG CAPSULE PO SCH ×3 (09:06→21:44)
[2016-05-13] MEDS: MAGNESIUM OXIDE 400 MG TABLET PO SCH (09:06)
[2016-05-13] MEDS: CETIRIZINE 5 MG TABLET PO SCH (09:06)
[2016-05-13] MEDS: PANTOPRAZOLE 40 MG TABLET PO SCH (09:06)
[2016-05-13] MEDS: ENOXAPARIN 100 MG/ML SYRINGE SUBCUT SCH (09:07)
[2016-05-13] MEDS: ACETAMINOPHEN 325 MG TABLET PO SCH ×2 (09:07→21:45)
[2016-05-13] MEDS: BRIMONIDINE 0.2% OPH SOLN 5 ML BOTTLE BOTH EYES SCH ×3 (09:07→21:45)
--- NOTE | 2016-05-13 12:35 | XRay Report ---
XR chest 2V Indication: Shortness of breath. Chest 2 views: Comparison 05/11/2016. Heart size remains upper limits normal with continued hilar prominence. Stable appearing diffuse reticular prominence of the lung guillen noted as well. Hazy posterior costophrenic sulci are present, likely scarring. No focal infiltrate is developed. Impression: No change. PROCEDURE INTERPRETED AT [facility] DEPARTMENT OF RADIOLOGY Final Report Signed by: Pan Landa M.D.
--- NOTE | 2016-05-13 16:42 | Cardiology Progress Note ---
Assessment and Plan (1) Dyspnea Status: Acute Assessment and plan: I, Gilmer Ramos, has seen, examined, and am involved in the evaluation and management of this patient. I've reviewed the note below/above and also see my thoughts below: The dyspnea appears to be multifactorial. It probably is in part related to the non-STEMI, partly from heart failure, possibly worsening renal insufficiency , being a former smoker, multiple causes His acute on chronic renal failure may be due to his NSAID use on a regular basis, ibuprofen/Aleve, but it could be partly due to worsening LV systolic function or other causes His heart rhythm could be systolic or diastolic. His anemia appears to be iron deficiency. It would raise a question of being from some GI blood loss. With him taking NSAIDs, the possibility of an ulcer strongly should be considered Plan/recommendation: Admit to telemetry n.p.o. after midnight in case it is decided to do a heart cath. That is not for sure at this point--will need to assess his renal function, his overall status in the a.m. Dr. Preeti Che, new about getting an order of leuk trase and up to the doctor's name for me if you would on-call would work things G had good gas good Way the risk and benefits with his renal function prior to deciding about a cath Echo/Doppler-done today For back pain-gabapentin, Tylenol, Tylenol and tramadol-no NSAIDs Elevate head of bed Sliding scale insulin Feed patient Cardiac diet Start on iron sulfate 1 twice daily-he says he has been taking it but is not in a while. However he does have black stool. Stool guaiacs 1 Lasix was given. Will hold now. Recheck electrolytes , bun he has a I the junction of right does not have a milk cup talking 2 L it is the read the tomato based we will put okay okay K eat milk so I will do that but I will take the habit the sounds very steak but not extra gravy just to wipe it off but just Julián state not extubating and then the collar greens and broccoli and light can get a large order fries to go with that right and in good that she had an EBL of the doctors labs for Dr. rachel ramos exam appreciated next 30 minutes like that appreciate and creatinine in the a.m. Can reassess in a.m. and try to time doing a heart cath. May need to wait to allow the renal function improved Aspirin one was given the emergency room Lovenox 90 mg subcu now increased to every 24 hours Some IV Lopressor was given. We will start on carvedilol 6.25 mg p.o. every 6 hours We will hold metoprolol from home. Nitropaste 1 inch now every 6 Protonix 1 now and twice daily EKG every morning 3 and as needed for chest pain/shortness breath We will not use an CHERELLE inhibitor because of renal insufficiency-contraindicated Further decision depending on results of enzymes, EKG and her renal function is renal function. 05/13/16: Plan/recommendation: His renal function is slightly worse, but only slightly so. It may peak and then decrease. He is avoiding NSAIDs. It appears to be near peaking but may need to get renal involved if it worsens. No indication for dialysis at this point. I would want to expose him to contrast only when his renal function is back to near normal. An option would be to noninvasively risk stratify him outpatient later. Regarding the nonsustained tachycardia, it could be SVT or V. tach. His electrolytes are good. Will initially not try increasing carvedilol , as his blood pressure is borderline adequate.., could add amiodarone if needed. Chest x-ray did not show much change in his lung findings. This could be pulmonary or cardiac edema. I am reluctant to diurese him more because it will likely make his renal function worse We will check a BMP in the a.m. Continue to monitor his renal function. Get up and out of bed. Try off O2 and recheck O2 sat. The above was discussed with the patient and I conferred care with his nurse, Felix. All voiced understanding and agree with the plan. Current Visit: Yes (2) Acute on chronic renal failure Status: Acute Current Visit: Yes (3) NSAID long-term use Status: Acute Current Visit: Yes (4) Heart failure Status: Acute Current Visit: Yes (5) Iron deficiency anemia Status: Acute Current Visit: Yes (6) Anemia Status: Acute Current Visit: Yes (7) Non-ST elevation myocardial infarction (NSTEMI) Status: Acute Current Visit: Yes (8) Chronic renal insufficiency, stage IV (severe) Status: Chronic Current Visit: Yes (9) Diabetes mellitus Status: Chronic Current Visit: Yes (10) Family history of coronary artery disease Status: Chronic Current Visit: Yes (11) Former smoker Status: Chronic Current Visit: Yes (12) Hypertension Status: Chronic Current Visit: Yes (13) Back pain Status: Acute Current Visit: Yes (14) NSVT (nonsustained ventricular tachycardia) Problem details: With normal potassium and magnesium the same day, 05/11/16, LVEF is reduced, elevated troponins, possible non-STEMI Status: Acute Current Visit: Yes Cardiology - PN: Subj Interval history: No chest pain. Less short of breath. He feels better. No feelings of tachycardia palpitations Exam (Progress Note) - Constitutional Vitals: Period Temp Pulse Resp BP Sys/[place] Pulse Ox Last 24 Hr 97.2 F-98.2 F 72-89 16-20 108-117/69-75 90-94 Exam: HEENT: Pupils equal, reactive to light and accommodation Neck: NoJVD or bruit Lungs clear to auscultation Heart: Regular rhythm rate with normal S1 and S2. Apical S4, 2/6 systolic ejection murmur along right upper sternal border. Abdomen: No hepatosplenomegaly Spine/extremities: No clubbing, cyanosis, or edema Neuro: Nonfocal Psych: No depression or anxiety Result/EKG - Labs CBC & BMP: 05/13/16 07:22 05/13/16 07:22 Lab Results: I have reviewed the past 24 hour labs Labs: Laboratory Results - last 24 hr 05/12/16 05/13/16 05/13/16 20:05 07:22 07:22 WBC 8.1 RBC 3.38 L Hgb 8.0 L Hct 27.3 L MCV 80.8 L MCH 24 L MCHC 29.3 L RDW 18.5 H Plt Count 394 MPV 9.6 Neut % (Auto) 63.8 Lymph % (Auto) 16.8 L [place] % (Auto) 11.3 Eos % (Auto) 7.0 Baso % (Auto) 0.7 Neut # (Auto) 5.1 Lymph # (Auto) 1.4 [place] # (Auto) 0.9 H Eos # (Auto) 0.6 Baso # (Auto) 0.1 Immature Gran % 0.4 Nucleated RBC % 0.0 Immature Gran # 0.03 Nucleated RBCs # 0.00 Sodium 143 Potassium 4.2 Chloride 114 H Carbon Dioxide 22 Anion Gap 11.2 BUN 59 H Creatinine 4.00 H GFR Calculation 18 BUN/Creatinine Ratio 14.00 Glucose 124 H POC Glucose 137 H Calculated Osmolality 302.0 Calcium 8.4 L Magnesium 2.1 05/13/16 05/13/16 08:01 12:14 WBC RBC Hgb Hct MCV MCH MCHC RDW Plt Count MPV Neut % (Auto) Lymph % (Auto) [place] % (Auto) Eos % (Auto) Baso % (Auto) Neut # (Auto) Lymph # (Auto) [place] # (Auto) Eos # (Auto) Baso # (Auto) Immature Gran % Nucleated RBC % Immature Gran # Nucleated RBCs # Sodium Potassium Chloride Carbon Dioxide Anion Gap BUN Creatinine GFR Calculation BUN/Creatinine Ratio Glucose POC Glucose 115 H 150 H Calculated Osmolality Calcium Magnesium - Diagnostic Findings Procedure: Chest x-ray: report reviewed by me - EKG EKG results: interpreted by me Specialty Discharge - Follow Up or Referrals
[2016-05-14] MEDS: NITROGLYCERIN 2% OINT 1 INCH/GM PACK TOP SCH ×4 (02:57→17:22)
[2016-05-14] MEDS: CARVEDILOL 12.5 MG TABLET PO SCH ×4 (03:50→22:06)
[2016-05-14 04:11] LABS: Basophils # 0.1 10*3/uL (0.0-0.2); Basophils % 0.6 % (0.0-0.8); Eosinophils # 0.5 10*3/uL (0.0-0.87); Eosinophils % 6.2 % (0.00-10.9); Hematocrit 27.4 VOL% (42.0-52.0); Hemoglobin 8.1 GM/DL (14.0-18.0); Immature Granulocytes % 0.4 %; Immature Granulocytes Absolute 0.03 #; Lymphocytes # 1.4 10*3/uL (1.4-4.0); Lymphocytes % 18.1 % (21.2-54.2); Mean Corpuscular HGB Conc 29.6 GM/DL (32-36); Mean Corpuscular Hemoglobin 24 PG (27-34); Mean Corpuscular Volume 80.8 FL (87-102); Monocytes # 0.8 10*3/uL (0.11-0.8); Monocytes % 10.3 % (1.7-12.7); Neutrophils # 5.1 10*3/uL (1.4-7.4); Neutrophils % 64.4 % (38.7-73.9); Platelet Count 398 T/CUMM (130-400); Red Blood Count 3.39 MC/CUMM (3.8-5.5); Red Cell Distribution Width 18.8 % (9.3-17.3); White Blood Count 7.9 T/CUMM (4-12)
[2016-05-14 04:52] LABS: Calcium 8.5 MG/DL (8.5-10.1); Magnesium 2.4 MG/DL (1.8-2.4); Potassium 4.5 MMOL/L (3.5-5.1)
--- NOTE | 2016-05-14 08:32 | EKG Report ---
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
[2016-05-14] MEDS: INSULIN REGULAR 100 UNIT/ML SUBCUT SCH ×4 (09:02→22:05)
[2016-05-14] MEDS: ENOXAPARIN 100 MG/ML SYRINGE SUBCUT SCH (09:11)
[2016-05-14] MEDS: glipiZIDE 10 MG TABLET PO SCH ×2 (09:11→17:22)
[2016-05-14] MEDS: IRON (CARBONYL) 45 MG TABLET PO SCH ×2 (09:12→22:06)
[2016-05-14] MEDS: CETIRIZINE 5 MG TABLET PO SCH (09:12)
[2016-05-14] MEDS: ASPIRIN 325 MG TABLET PO SCH (09:12)
[2016-05-14] MEDS: ACETAMINOPHEN 325 MG TABLET PO SCH ×2 (09:12→22:06)
[2016-05-14] MEDS: CHOLECALCIFEROL 1,000 UNIT TABLET PO SCH (09:12)
[2016-05-14] MEDS: traMADol 50 MG TABLET PO SCH ×2 (09:12→22:06)
[2016-05-14] MEDS: PANTOPRAZOLE 40 MG TABLET PO SCH (09:13)
[2016-05-14] MEDS: BRIMONIDINE 0.2% OPH SOLN 5 ML BOTTLE BOTH EYES SCH ×3 (09:13→22:07)
[2016-05-14] MEDS: MAGNESIUM OXIDE 400 MG TABLET PO SCH (09:13)
[2016-05-14] MEDS: GABAPENTIN 100 MG CAPSULE PO SCH ×3 (09:13→22:06)
[2016-05-14] MEDS ORDERED: POTASSIUM CHLORIDE RIDER 10 MEQ in PREMIX 1 EACH IV PRN (20:06)
[2016-05-14] MEDS ORDERED: DIAZEPAM 5 MG TABLET PO ONE (20:06)
[2016-05-14] MEDS ORDERED: diphenhydrAMINE CAP 25 MG CAPSULE PO ONE (20:06)
[2016-05-14] MEDS ORDERED: MAGNESIUM SULF RIDER 2 GM in PREMIX 1 EACH IV PRN (20:06)
--- NOTE | 2016-05-14 20:11 | Cardiology Progress Note ---
Assessment and Plan (1) Dyspnea Status: Acute Assessment and plan: I, Gilmer Ramos, has seen, examined, and am involved in the evaluation and management of this patient. I've reviewed the note below/above and also see my thoughts below: The dyspnea appears to be multifactorial. It probably is in part related to the non-STEMI, partly from heart failure, possibly worsening renal insufficiency , being a former smoker, multiple causes His acute on chronic renal failure may be due to his NSAID use on a regular basis, ibuprofen/Aleve, but it could be partly due to worsening LV systolic function or other causes His heart rhythm could be systolic or diastolic. His anemia appears to be iron deficiency. It would raise a question of being from some GI blood loss. With him taking NSAIDs, the possibility of an ulcer strongly should be considered Plan/recommendation: Admit to telemetry n.p.o. after midnight in case it is decided to do a heart cath. That is not for sure at this point--will need to assess his renal function, his overall status in the a.m. Dr. Preeti Che, new about getting an order of leuk trase and up to the doctor's name for me if you would on-call would work things G had good gas good Way the risk and benefits with his renal function prior to deciding about a cath Echo/Doppler-done today For back pain-gabapentin, Tylenol, Tylenol and tramadol-no NSAIDs Elevate head of bed Sliding scale insulin Feed patient Cardiac diet Start on iron sulfate 1 twice daily-he says he has been taking it but is not in a while. However he does have black stool. Stool guaiacs 1 Lasix was given. Will hold now. Recheck electrolytes , bun he has a I the junction of right does not have a milk cup talking 2 L it is the read the tomato based we will put okay okay K eat milk so I will do that but I will take the habit the sounds very steak but not extra gravy just to wipe it off but just Julián state not extubating and then the collar greens and broccoli and light can get a large order fries to go with that right and in good that she had an EBL of the doctors labs for Dr. rachel ramos exam appreciated next 30 minutes like that appreciate and creatinine in the a.m. Can reassess in a.m. and try to time doing a heart cath. May need to wait to allow the renal function improved Aspirin one was given the emergency room Lovenox 90 mg subcu now increased to every 24 hours Some IV Lopressor was given. We will start on carvedilol 6.25 mg p.o. every 6 hours We will hold metoprolol from home. Nitropaste 1 inch now every 6 Protonix 1 now and twice daily EKG every morning 3 and as needed for chest pain/shortness breath We will not use an CHERELLE inhibitor because of renal insufficiency-contraindicated Further decision depending on results of enzymes, EKG and her renal function is renal function. 05/13/16: Plan/recommendation: His renal function is slightly worse, but only slightly so. It may peak and then decrease. He is avoiding NSAIDs. It appears to be near peaking but may need to get renal involved if it worsens. No indication for dialysis at this point. I would want to expose him to contrast only when his renal function is back to near normal. An option would be to noninvasively risk stratify him outpatient later. Regarding the nonsustained tachycardia, it could be SVT or V. tach. His electrolytes are good. Will initially not try increasing carvedilol , as his blood pressure is borderline adequate.., could add amiodarone if needed. Chest x-ray did not show much change in his lung findings. This could be pulmonary or cardiac edema. I am reluctant to diurese him more because it will likely make his renal function worse We will check a BMP in the a.m. Continue to monitor his renal function. Get up and out of bed. Try off O2 and recheck O2 sat. The above was discussed with the patient and I conferred care with his nurse, Felix. All voiced understanding and agree with the plan. 05/14/16: Assessment/plan/recommendation: His renal function is improving. Will give a trial of low-dose saline. We will consider doing a cath tomorrow if his renal function continues to improve No more nonsustained V. tach We will check BMP in the a.m. and decide about cath. Above was discussed with the patient and his . They agree with the plan. Current Visit: Yes (2) Acute on chronic renal failure Status: Acute Current Visit: Yes (3) NSAID long-term use Status: Acute Current Visit: Yes (4) Heart failure Status: Acute Current Visit: Yes (5) Iron deficiency anemia Status: Acute Current Visit: Yes (6) Anemia Status: Acute Current Visit: Yes (7) Non-ST elevation myocardial infarction (NSTEMI) Status: Acute Current Visit: Yes (8) Chronic renal insufficiency, stage IV (severe) Status: Chronic Current Visit: Yes (9) Diabetes mellitus Status: Chronic Current Visit: Yes (10) Family history of coronary artery disease Status: Chronic Current Visit: Yes (11) Former smoker Status: Chronic Current Visit: Yes (12) Hypertension Status: Chronic Current Visit: Yes (13) Back pain Status: Acute Current Visit: Yes (14) NSVT (nonsustained ventricular tachycardia) Problem details: With normal potassium and magnesium the same day, 05/11/16, LVEF is reduced, elevated troponins, possible non-STEMI Status: Acute Current Visit: Yes Cardiology - PN: Subj Interval history: No chest pain or shortness of breath. Exam (Progress Note) - Constitutional Vitals: Period Temp Pulse Resp BP Sys/[place] Pulse Ox Last 24 Hr 98.3 F-98.6 F 73-85 14-20 110-127/67-77 90-95 Exam: HEENT: Pupils equal, reactive to light and accommodation Neck: NoJVD or bruit Lungs clear to auscultation Heart: Regular rhythm rate with normal S1 and S2. Apical S4, 2/6 systolic ejection murmur along right upper sternal border. Abdomen: No hepatosplenomegaly Spine/extremities: No clubbing, cyanosis, or edema Neuro: Nonfocal Psych: No depression or anxiety Result/EKG - Labs CBC & BMP: 05/14/16 03:34 05/14/16 03:34 Lab Results: I have reviewed the past 24 hour labs Labs: Laboratory Results - last 24 hr 05/13/16 05/14/16 05/14/16 20:00 03:34 03:34 WBC 7.9 RBC 3.39 L Hgb 8.1 L Hct 27.4 L MCV 80.8 L MCH 24 L MCHC 29.6 L RDW 18.8 H Plt Count 398 MPV 10.0 Neut % (Auto) 64.4 Lymph % (Auto) 18.1 L [place] % (Auto) 10.3 Eos % (Auto) 6.2 Baso % (Auto) 0.6 Neut # (Auto) 5.1 Lymph # (Auto) 1.4 [place] # (Auto) 0.8 Eos # (Auto) 0.5 Baso # (Auto) 0.1 Immature Gran % 0.4 Nucleated RBC % 0.0 Immature Gran # 0.03 Nucleated RBCs # 0.00 Sodium 143 Potassium 4.5 Chloride 114 H Carbon Dioxide 20 L Anion Gap 13.5 BUN 64 H Creatinine 3.90 H GFR Calculation 19 BUN/Creatinine Ratio 16.00 Glucose 119 H POC Glucose 129 H Calculated Osmolality 303.0 Calcium 8.5 Magnesium 2.4 Total Creatine Kinase CK-MB (CK-2) Troponin I B-Natriuretic Peptide 05/14/16 05/14/16 05/14/16 03:34 03:34 08:46 WBC RBC Hgb Hct MCV MCH MCHC RDW Plt Count MPV Neut % (Auto) Lymph % (Auto) [place] % (Auto) Eos % (Auto) Baso % (Auto) Neut # (Auto) Lymph # (Auto) [place] # (Auto) Eos # (Auto) Baso # (Auto) Immature Gran % Nucleated RBC % Immature Gran # Nucleated RBCs # Sodium Potassium Chloride Carbon Dioxide Anion Gap BUN Creatinine GFR Calculation BUN/Creatinine Ratio Glucose POC Glucose 169 H Calculated Osmolality Calcium Magnesium Total Creatine Kinase 159 D CK-MB (CK-2) 3.1 Troponin I 2.210 H D B-Natriuretic Peptide 2389 H 05/14/16 05/14/16 05/14/16 09:45 12:37 16:46 WBC RBC Hgb Hct MCV MCH MCHC RDW Plt Count MPV Neut % (Auto) Lymph % (Auto) [place] % (Auto) Eos % (Auto) Baso % (Auto) Neut # (Auto) Lymph # (Auto) [place] # (Auto) Eos # (Auto) Baso # (Auto) Immature Gran % Nucleated RBC % Immature Gran # Nucleated RBCs # Sodium Potassium Chloride Carbon Dioxide Anion Gap BUN Creatinine GFR Calculation BUN/Creatinine Ratio Glucose POC Glucose 175 H Calculated Osmolality Calcium Magnesium Total Creatine Kinase 154 141 CK-MB (CK-2) 2.8 2.4 Troponin I 1.610 H D 1.440 H B-Natriuretic Peptide 05/14/16 17:03 WBC RBC Hgb Hct MCV MCH MCHC RDW Plt Count MPV Neut % (Auto) Lymph % (Auto) [place] % (Auto) Eos % (Auto) Baso % (Auto) Neut # (Auto) Lymph # (Auto) [place] # (Auto) Eos # (Auto) Baso # (Auto) Immature Gran % Nucleated RBC % Immature Gran # Nucleated RBCs # Sodium Potassium Chloride Carbon Dioxide Anion Gap BUN Creatinine GFR Calculation BUN/Creatinine Ratio Glucose POC Glucose 135 H Calculated Osmolality Calcium Magnesium Total Creatine Kinase CK-MB (CK-2) Troponin I B-Natriuretic Peptide Specialty Discharge - Follow Up or Referrals
[2016-05-14] MEDS ORDERED: SODIUM CHLORIDE 0.9% 1,000 ML IV SCH (22:00)
[2016-05-15] MEDS: NITROGLYCERIN 2% OINT 1 INCH/GM PACK TOP SCH ×5 (00:30→23:45)
[2016-05-15] MEDS: CARVEDILOL 12.5 MG TABLET PO SCH ×2 (02:33→08:00)
[2016-05-15 04:43] LABS: Basophils % 0.2 % (0.0-0.8); Eosinophils # 0.4 10*3/uL (0.0-0.87); Eosinophils % 4.2 % (0.00-10.9); Hematocrit 27.2 VOL% (42.0-52.0); Hemoglobin 7.8 GM/DL (14.0-18.0); Immature Granulocytes % 0.4 %; Immature Granulocytes Absolute 0.04 #; Lymphocytes # 0.9 10*3/uL (1.4-4.0); Lymphocytes % 9.4 % (21.2-54.2); Mean Corpuscular HGB Conc 28.7 GM/DL (32-36); Mean Corpuscular Hemoglobin 24 PG (27-34); Mean Corpuscular Volume 81.9 FL (87-102); Mean Platelet Volume 10.5 FL (9.6-12.0); Monocytes # 0.9 10*3/uL (0.11-0.8); Neutrophils # 7.1 10*3/uL (1.4-7.4); Neutrophils % 75.8 % (38.7-73.9); Platelet Count 403 T/CUMM (130-400); Red Blood Count 3.32 MC/CUMM (3.8-5.5); Red Cell Distribution Width 19.6 % (9.3-17.3); White Blood Count 9.3 T/CUMM (4-12)
[2016-05-15 05:13] LABS: Burr Cells Slight; Calcium 8.1 MG/DL (8.5-10.1); Hypochromasia 1+; Osmolality,Calculated 302.1 MOS/KG (273-304); Ovalocytes Slight; Platelet Estimate Adequate; Potassium 4.6 MMOL/L (3.5-5.1)
--- NOTE | 2016-05-15 07:13 | EKG Report ---
Stationary ECG Study [facility] Test Date: 05/15/2016 7:13:59 AM Pat Name: JAZMIN GRAFF Department: Room: 295 Gender: M Website Developer: JESSIKA : 1935 Requested by: Gilmer Curiel Order Number: [id number] Reading MD: STACEY JACINTO Intervals [place] Rate: 71 P: 63 SD: 246 QRS: 65 QRSD: 113 T: 250 QT: 406 QTc: 429 Interpretive Statements SINUS RHYTHM WITH PROLONGED SD INTERVAL LEFT VENTRICULAR HYPERTROPHY AND ST-T CHANGE Electronically Signed On 05-15-16 17:04:06 CDT by STACEY JACINTO [email or web address]
[2016-05-15] MEDS ORDERED: diphenhydrAMINE CAP 25 MG CAPSULE ONE (07:50)
[2016-05-15] MEDS ORDERED: DIAZEPAM 5 MG TABLET ONE (07:50)
[2016-05-15] MEDS: ASPIRIN 325 MG TABLET PO SCH (08:00)
[2016-05-15] MEDS: ENOXAPARIN 100 MG/ML SYRINGE SUBCUT SCH (08:01)
[2016-05-15] MEDS ORDERED: LIDOCAINE 1% 20 ML VIAL ONE (08:35)
[2016-05-15] MEDS ORDERED: MEPERIDINE 25 MG/1 ML VIAL ONE (08:35)
[2016-05-15] MEDS ORDERED: MIDAZOLAM 2 MG/2 ML VIAL ONE (08:35)
--- NOTE | 2016-05-15 08:44 | Cardiology Progress Note ---
Assessment and Plan (1) Dyspnea Status: Acute Assessment and plan: I, Gilmer Ramos, has seen, examined, and am involved in the evaluation and management of this patient. I've reviewed the note below/above and also see my thoughts below: The dyspnea appears to be multifactorial. It probably is in part related to the non-STEMI, partly from heart failure, possibly worsening renal insufficiency , being a former smoker, multiple causes His acute on chronic renal failure may be due to his NSAID use on a regular basis, ibuprofen/Aleve, but it could be partly due to worsening LV systolic function or other causes His heart rhythm could be systolic or diastolic. His anemia appears to be iron deficiency. It would raise a question of being from some GI blood loss. With him taking NSAIDs, the possibility of an ulcer strongly should be considered Plan/recommendation: Admit to telemetry n.p.o. after midnight in case it is decided to do a heart cath. That is not for sure at this point--will need to assess his renal function, his overall status in the a.m. Dr. Preeti Che, new about getting an order of leuk trase and up to the doctor's name for me if you would on-call would work things G had good gas good Way the risk and benefits with his renal function prior to deciding about a cath Echo/Doppler-done today For back pain-gabapentin, Tylenol, Tylenol and tramadol-no NSAIDs Elevate head of bed Sliding scale insulin Feed patient Cardiac diet Start on iron sulfate 1 twice daily-he says he has been taking it but is not in a while. However he does have black stool. Stool guaiacs 1 Lasix was given. Will hold now. Recheck electrolytes , bun he has a I the junction of right does not have a milk cup talking 2 L it is the read the tomato based we will put okay okay K eat milk so I will do that but I will take the habit the sounds very steak but not extra gravy just to wipe it off but just Julián state not extubating and then the collar greens and broccoli and light can get a large order fries to go with that right and in good that she had an EBL of the doctors labs for Dr. rachel ramos exam appreciated next 30 minutes like that appreciate and creatinine in the a.m. Can reassess in a.m. and try to time doing a heart cath. May need to wait to allow the renal function improved Aspirin one was given the emergency room Lovenox 90 mg subcu now increased to every 24 hours Some IV Lopressor was given. We will start on carvedilol 6.25 mg p.o. every 6 hours We will hold metoprolol from home. Nitropaste 1 inch now every 6 Protonix 1 now and twice daily EKG every morning 3 and as needed for chest pain/shortness breath We will not use an CHERELLE inhibitor because of renal insufficiency-contraindicated Further decision depending on results of enzymes, EKG and her renal function is renal function. 05/13/16: Plan/recommendation: His renal function is slightly worse, but only slightly so. It may peak and then decrease. He is avoiding NSAIDs. It appears to be near peaking but may need to get renal involved if it worsens. No indication for dialysis at this point. I would want to expose him to contrast only when his renal function is back to near normal. An option would be to noninvasively risk stratify him outpatient later. Regarding the nonsustained tachycardia, it could be SVT or V. tach. His electrolytes are good. Will initially not try increasing carvedilol , as his blood pressure is borderline adequate.., could add amiodarone if needed. Chest x-ray did not show much change in his lung findings. This could be pulmonary or cardiac edema. I am reluctant to diurese him more because it will likely make his renal function worse We will check a BMP in the a.m. Continue to monitor his renal function. Get up and out of bed. Try off O2 and recheck O2 sat. The above was discussed with the patient and I conferred care with his nurse, Felix. All voiced understanding and agree with the plan. 05/14/16: Assessment/plan/recommendation: His renal function is improving. Will give a trial of low-dose saline. We will consider doing a cath tomorrow if his renal function continues to improve No more nonsustained V. tach We will check BMP in the a.m. and decide about cath. Above was discussed with the patient and his . They agree with the plan. 05/15/16: Assessment/plan/recommendation: Based on him having more chest pain with exertion which he had not had before and dyspnea on exertion which is limiting it is time to proceed with the cath. This was decided today to proceed with the cath. I will increase his saline to 100 cc/h. We will try to minimize the contrast with cardiac swing protocol in the Registered Massage Therapist. He understands the risk and benefits. He agrees to proceed with a cath. Of note, his creatinine has come down slightly to 3.8. Current Visit: Yes (2) Acute on chronic renal failure Status: Acute Current Visit: Yes (3) NSAID long-term use Status: Acute Current Visit: Yes (4) Heart failure Status: Acute Current Visit: Yes (5) Iron deficiency anemia Status: Acute Current Visit: Yes (6) Anemia Status: Acute Current Visit: Yes (7) Non-ST elevation myocardial infarction (NSTEMI) Status: Acute Current Visit: Yes (8) Chronic renal insufficiency, stage IV (severe) Status: Chronic Current Visit: Yes (9) Diabetes mellitus Status: Chronic Current Visit: Yes (10) Family history of coronary artery disease Status: Chronic Current Visit: Yes (11) Former smoker Status: Chronic Current Visit: Yes (12) Hypertension Status: Chronic Current Visit: Yes (13) Back pain Status: Acute Current Visit: Yes (14) NSVT (nonsustained ventricular tachycardia) Problem details: With normal potassium and magnesium the same day, 05/11/16, LVEF is reduced, elevated troponins, possible non-STEMI Status: Acute Current Visit: Yes Cardiology - PN: Subj Interval history: Overnight, with walk to the bathroom and back to bed the patient had significant dyspnea on exertion and also some chest tightness. Exam (Progress Note) - Constitutional Vitals: Period Temp Pulse Resp BP Sys/[place] Pulse Ox Last 24 Hr 97.9 F-98.5 F 75-83 18-20 113-136/67-80 90-95 Exam: HEENT: Pupils equal, reactive to light and accommodation Neck: NoJVD or bruit Lungs clear to auscultation Heart: Regular rhythm rate with normal S1 and S2. Apical S4, 2/6 systolic ejection murmur along right upper sternal border. Abdomen: No hepatosplenomegaly Spine/extremities: No clubbing, cyanosis, or edema Neuro: Nonfocal Psych: No depression or anxiety Result/EKG - Labs CBC & BMP: 05/15/16 03:26 05/15/16 03:26 Lab Results: I have reviewed the past 24 hour labs Labs: Laboratory Results - last 24 hr 05/14/16 05/14/16 05/14/16 08:46 09:45 12:37 WBC RBC Hgb Hct MCV MCH MCHC RDW Plt Count MPV Neut % (Auto) Lymph % (Auto) [place] % (Auto) Eos % (Auto) Baso % (Auto) Neut # (Auto) Lymph # (Auto) [place] # (Auto) Eos # (Auto) Baso # (Auto) Immature Gran % Nucleated RBC % Immature Gran # Nucleated RBCs # Platelet Estimate Hypochromasia Ovalocytes [place] Cells Morphology Comment Sodium Potassium Chloride Carbon Dioxide Anion Gap BUN Creatinine GFR Calculation BUN/Creatinine Ratio Glucose POC Glucose 169 H 175 H Calculated Osmolality Calcium Total Creatine Kinase 154 CK-MB (CK-2) 2.8 Troponin I 1.610 H D 05/14/16 05/14/16 05/14/16 16:46 17:03 21:09 WBC RBC Hgb Hct MCV MCH MCHC RDW Plt Count MPV Neut % (Auto) Lymph % (Auto) [place] % (Auto) Eos % (Auto) Baso % (Auto) Neut # (Auto) Lymph # (Auto) [place] # (Auto) Eos # (Auto) Baso # (Auto) Immature Gran % Nucleated RBC % Immature Gran # Nucleated RBCs # Platelet Estimate Hypochromasia Ovalocytes [place] Cells Morphology Comment Sodium Potassium Chloride Carbon Dioxide Anion Gap BUN Creatinine GFR Calculation BUN/Creatinine Ratio Glucose POC Glucose 135 H 199 H Calculated Osmolality Calcium Total Creatine Kinase 141 CK-MB (CK-2) 2.4 Troponin I 1.440 H 05/15/16 05/15/16 05/15/16 03:26 03:26 07:57 WBC 9.3 RBC 3.32 L Hgb 7.8 L Hct 27.2 L MCV 81.9 L MCH 24 L MCHC 28.7 L RDW 19.6 H Plt Count 403 H MPV 10.5 Neut % (Auto) 75.8 H Lymph % (Auto) 9.4 L [place] % (Auto) 10.0 Eos % (Auto) 4.2 Baso % (Auto) 0.2 Neut # (Auto) 7.1 Lymph # (Auto) 0.9 L [place] # (Auto) 0.9 H Eos # (Auto) 0.4 Baso # (Auto) 0.0 Immature Gran % 0.4 Nucleated RBC % 0.0 Immature Gran # 0.04 Nucleated RBCs # 0.00 Platelet Estimate Adequate Hypochromasia 1+ Ovalocytes Slight [place] Cells Slight Morphology Comment Sodium 142 Potassium 4.6 Chloride 113 H Carbon Dioxide 19 L Anion Gap 14.6 BUN 64 H Creatinine 3.80 H GFR Calculation 19 BUN/Creatinine Ratio 16.00 Glucose 132 H POC Glucose 144 H Calculated Osmolality 302.1 Calcium 8.1 L Total Creatine Kinase CK-MB (CK-2) Troponin I - EKG EKG results: interpreted by me Specialty Discharge - Follow Up or Referrals
--- NOTE | 2016-05-15 09:41 | Operative Note ---
Date of procedure: 05/15/16 Procedure Preformed: Left heart cath Coronary angiography--cardiac swing protocol-total contrast given was 26 cc of Visipaque Angiogram of the right femoral artery Angio-Seal of the right femoral artery-successful Surgeon / Physician: Gilmer Curiel Pedigree Tracer: Pamela Montes Post-op diagnosis: same (Progressive chest pain,, positive troponins and cardiac isoenzymes suggestive of a non-STEMI. 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 The circumflex diseased area is relatively small. Consideration of just doing the LAD -- 2 lesions--and of the circumflex later if needed could be considered. The right cannot be helped, it appears to be an old occlusion. Alternatively, bypass grafting could be considered, particularly given his LV dysfunction and his creatinine 3.8. However, given these 2 factors, he would be at increased risk for this intervention, too. I will get an opinion from an interventionalists, Dr. Jeri Payton. If he feels the patient is not a candidate for intervention, will get an opinion/recommendation from a cardiac surgery. Given he has had anginal with minimal activity post non-STEMI, I believe he likely does need an intervention unless we just try medical therapy and except some increased risk. The patient will have risk factors optimized. The patient will be on antiplatelet medications to include aspirin indefinitely . Follow-up will be scheduled. Addenda: I saw the patient post-cath. the groin puncture site and distal pulse are stable. vital signs are stable and the patient will be observed closely overnight. Specimens: none sent Estimated blood loss: minimal Condition: stable Anesthesia: local, conscious sedation Disposition: floor
[2016-05-15] MEDS: INSULIN REGULAR 100 UNIT/ML SUBCUT SCH ×4 (11:05→21:30)
[2016-05-15] MEDS: glipiZIDE 10 MG TABLET PO SCH ×2 (11:14→17:42)
[2016-05-15] MEDS: GABAPENTIN 100 MG CAPSULE PO SCH ×3 (11:15→21:29)
[2016-05-15 11:23] LABS: Risk Ratio 1.96; VLDL CHOLESTEROL 16.6 MG/DL
[2016-05-15] MEDS: CHOLECALCIFEROL 1,000 UNIT TABLET PO SCH (11:28)
[2016-05-15] MEDS: ROSUVASTATIN 10 MG TABLET PO SCH (11:28)
[2016-05-15] MEDS: CARVEDILOL 25 MG TABLET PO SCH ×3 (11:29→21:29)
[2016-05-15] MEDS: BRIMONIDINE 0.2% OPH SOLN 5 ML BOTTLE BOTH EYES SCH ×3 (11:29→21:30)
[2016-05-15] MEDS: MAGNESIUM OXIDE 400 MG TABLET PO SCH (11:29)
[2016-05-15] MEDS: CETIRIZINE 5 MG TABLET PO SCH (11:29)
[2016-05-15] MEDS: ACETAMINOPHEN 325 MG TABLET PO SCH ×2 (11:29→21:30)
[2016-05-15] MEDS: PANTOPRAZOLE 40 MG TABLET PO SCH (11:29)
[2016-05-15] MEDS: IRON (CARBONYL) 45 MG TABLET PO SCH ×2 (11:29→21:29)
[2016-05-15] MEDS: traMADol 50 MG TABLET PO SCH ×2 (11:29→21:29)
--- NOTE | 2016-05-15 13:41 | Cardiology Progress Note ---
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 EDP 35- 40. Severe proximal LAD and severe proximal circumflex and occluded right coronary with [id number] collaterals. Right groin soft and dry. No bruit or hematoma. Distal pulses 1+. Patient still a little sleepy from the preop Valium but is at bedside. H&H 7.8 and 27.2 with MCV 81 Sodium 142 potassium 4.0 chloride 113 CO2 19 BUN 64 creatinine 3.80. Plan CBC and BMP in a.m. Routine groin precautions discussed. Dr. Payton to review the films Exam (Progress Note) - Constitutional Vitals: Period Temp Pulse Resp BP Sys/[place] Pulse Ox Last 24 Hr 97.0 F-98.5 F 73-83 18-20 113-140/42-94 90-96 Result/EKG - Labs CBC & BMP: 05/15/16 03:26 05/15/16 03:26 Labs: Laboratory Results - last 24 hr 05/14/16 05/14/16 05/14/16 16:46 17:03 21:09 WBC RBC Hgb Hct MCV MCH MCHC RDW Plt Count MPV Neut % (Auto) Lymph % (Auto) [place] % (Auto) Eos % (Auto) Baso % (Auto) Neut # (Auto) Lymph # (Auto) [place] # (Auto) Eos # (Auto) Baso # (Auto) Immature Gran % Nucleated RBC % Immature Gran # Nucleated RBCs # Platelet Estimate Hypochromasia Ovalocytes [place] Cells Morphology Comment Sodium Potassium Chloride Carbon Dioxide Anion Gap BUN Creatinine GFR Calculation BUN/Creatinine Ratio Glucose POC Glucose 135 H 199 H Calculated Osmolality Calcium Total Creatine Kinase 141 CK-MB (CK-2) 2.4 Troponin I 1.440 H Triglycerides Cholesterol LDL Cholesterol VLDL Cholesterol HDL Cholesterol Heart Disease Risk Ratio 05/15/16 05/15/16 05/15/16 03:23 03:26 03:26 WBC 9.3 RBC 3.32 L Hgb 7.8 L Hct 27.2 L MCV 81.9 L MCH 24 L MCHC 28.7 L RDW 19.6 H Plt Count 403 H MPV 10.5 Neut % (Auto) 75.8 H Lymph % (Auto) 9.4 L [place] % (Auto) 10.0 Eos % (Auto) 4.2 Baso % (Auto) 0.2 Neut # (Auto) 7.1 Lymph # (Auto) 0.9 L [place] # (Auto) 0.9 H Eos # (Auto) 0.4 Baso # (Auto) 0.0 Immature Gran % 0.4 Nucleated RBC % 0.0 Immature Gran # 0.04 Nucleated RBCs # 0.00 Platelet Estimate Adequate Hypochromasia 1+ Ovalocytes Slight [place] Cells Slight Morphology Comment Sodium 142 Potassium 4.6 Chloride 113 H Carbon Dioxide 19 L Anion Gap 14.6 BUN 64 H Creatinine 3.80 H GFR Calculation 19 BUN/Creatinine Ratio 16.00 Glucose 132 H POC Glucose Calculated Osmolality 302.1 Calcium 8.1 L Total Creatine Kinase CK-MB (CK-2) Troponin I Triglycerides 83 Cholesterol 98 LDL Cholesterol 41.0 VLDL Cholesterol 16.6 HDL Cholesterol 50 Heart Disease Risk Ratio 1.96 05/15/16 05/15/16 07:57 12:00 WBC RBC Hgb Hct MCV MCH MCHC RDW Plt Count MPV Neut % (Auto) Lymph % (Auto) [place] % (Auto) Eos % (Auto) Baso % (Auto) Neut # (Auto) Lymph # (Auto) [place] # (Auto) Eos # (Auto) Baso # (Auto) Immature Gran % Nucleated RBC % Immature Gran # Nucleated RBCs # Platelet Estimate Hypochromasia Ovalocytes [place] Cells Morphology Comment Sodium Potassium Chloride Carbon Dioxide Anion Gap BUN Creatinine GFR Calculation BUN/Creatinine Ratio Glucose POC Glucose 144 H 158 H Calculated Osmolality Calcium Total Creatine Kinase CK-MB (CK-2) Troponin I Triglycerides Cholesterol LDL Cholesterol VLDL Cholesterol HDL Cholesterol Heart Disease Risk Ratio Quality Measures - VTE Contraindication to Pharmacological VTE Prophylaxis: High Risk of Bleeding Specialty Discharge - Follow Up or Referrals
--- NOTE | 2016-05-15 16:36 | Cardiothoracic Consult ---
Assessment and Plan - Time spent with patient Time spent with patient: Greater than 30 minutes (1) Non-ST elevation myocardial infarction (NSTEMI) Status: Acute Assessment and plan: Risk Model and Variables - STS Adult Cardiac Surgery Database Version 2.81 RISK SCORES About the STS Risk Calculator Procedure: CAB Only Risk of Mortality: 24.628% Morbidity or Mortality: 74.65% Long Length of Stay: 63.049% Short Length of Stay: 1.948% Permanent Stroke: 6.165% Prolonged Ventilation: 58.844% DSW Infection: 4.139% Renal Failure: 53.417% Reoperation: 26.061% 81-year-old gentleman with severe multivessel coronary artery disease, severe cardiomyopathy, complete medical history including COPD, diabetes, stage III renal failure. The patient poses prohibitive risk for surgery as stated by his STS risk score with the risk of mortality 25%, morbidity and mortality almost 75 %. I explained that to the patient, his family, Dr. Cox, and Dr. Payton. Thank you for letting me be part of the decision-making for his care I will be available if any questions arise. Current Visit: Yes History of Present Illness - Data of Consult Patient: new to practice Consult date: 05/15/16 Requesting Physician: Gilmer Curiel - Consult Narrative Reason for consult: SEVERE MULTIVESSEL CORONARY ARTERY DISEASE History of present illness: Mr. Edmond is a 81 year old male who has been having worsening chest pain for the past few months. The patient also has shortness of breath. He came in today with severe chest pain. He was found to have non-Q-wave myocardial infarction. He was taken to the [facility] and he was found to have severe multivessel coronary artery disease. CC: Gilmer Curiel MD - Home Medications and Allergies Home Medications: Home Medications Medication Instructions Recorded Confirmed Type Brimonidine 0.2% Oph Soln 1 drop BOTH EYES BID 03/19/15 05/11/16 History [Alphagan P 0.2% Oph Soln] Cholecalciferol (Vitamin D3) 2,000 unit PO DAILY 03/19/15 05/11/16 History [Vitamin D3] Metoprolol Tartrate 25 mg PO BID 03/19/15 05/11/16 History glipiZIDE [Glipizide] 20 mg PO BID W/MEALS 03/19/15 05/11/16 History HYDROcodone/ACETAMIN 7.5-325 1 tablet PO TID 05/11/16 05/11/16 History [[place] 7.5-325] Allergies/Adverse Reactions: Allergies Allergy/AdvReac Type Severity Reaction Status Date / Time No Known Allergies Allergy Verified 05/11/16 08:56 12 point system: reviewed and no additional remarkable complaints except as stated (hpi) Medical,Surgical,& Family Hx - Medical History Cardio: History of: Hypertension Endocrine: History of: Diabetes Mellitus (NIDDM) - Surgical History Abdominal Surgeries: Surgical HX of: Appendectomy Orthopedic Surgeries: Surgical HX of;: Orthopedic Surgery (right hip 3 pins) - Family History Family History: Reports;: Family Hypertension Denies;: Family Hematology, Family Psychiatric Problems, Family Stroke Comment Only: Family Cancer (sister), Family Diabetes (aunt, cousin), Family Heart Disease (mother) - Social History Smoking Status: Former smoker Frequency of Alcohol Use: None Type of Drug Use: None Physical Examination Vital Signs Temp Pulse Resp BP Pulse Ox 98.1 F 111 H 20 157/77 91 L 05/11/16 08:56 05/11/16 08:56 05/11/16 08:56 05/11/16 08:56 05/11/16 08:56 General: Present: Other (Wheezing and mild distress) HEENT: Present: PERRL Neck: Present: Supple Neck Cardiac: Present: Reg Rate and Rhythm Lungs: Present: Wheezes, Scattered Rhonchi Neuro: Present: Cranial Nerve 2-12 Intact Abdomen: Present: Soft, Active Bowel Sounds Skin: Present: Clear Extremities: Present: Normal Gait Result/EKG - Labs CBC & BMP: 05/15/16 03:26 05/15/16 03:26 Labs: Laboratory Results - last 24 hr 05/14/16 05/14/16 05/14/16 16:46 17:03 21:09 WBC RBC Hgb Hct MCV MCH MCHC RDW Plt Count MPV Neut % (Auto) Lymph % (Auto) [place] % (Auto) Eos % (Auto) Baso % (Auto) Neut # (Auto) Lymph # (Auto) [place] # (Auto) Eos # (Auto) Baso # (Auto) Immature Gran % Nucleated RBC % Immature Gran # Nucleated RBCs # Platelet Estimate Hypochromasia Ovalocytes Carolyn Cells Morphology Comment Sodium Potassium Chloride Carbon Dioxide Anion Gap BUN Creatinine GFR Calculation BUN/Creatinine Ratio Glucose POC Glucose 135 H 199 H Calculated Osmolality Calcium Total Creatine Kinase 141 CK-MB (CK-2) 2.4 Troponin I 1.440 H Triglycerides Cholesterol LDL Cholesterol VLDL Cholesterol HDL Cholesterol Heart Disease Risk Ratio 05/15/16 05/15/16 05/15/16 03:23 03:26 03:26 WBC 9.3 RBC 3.32 L Hgb 7.8 L Hct 27.2 L MCV 81.9 L MCH 24 L MCHC 28.7 L RDW 19.6 H Plt Count 403 H MPV 10.5 Neut % (Auto) 75.8 H Lymph % (Auto) 9.4 L [place] % (Auto) 10.0 Eos % (Auto) 4.2 Baso % (Auto) 0.2 Neut # (Auto) 7.1 Lymph # (Auto) 0.9 L [place] # (Auto) 0.9 H Eos # (Auto) 0.4 Baso # (Auto) 0.0 Immature Gran % 0.4 Nucleated RBC % 0.0 Immature Gran # 0.04 Nucleated RBCs # 0.00 Platelet Estimate Adequate Hypochromasia 1+ Ovalocytes Slight [place] Cells Slight Morphology Comment Sodium 142 Potassium 4.6 Chloride 113 H Carbon Dioxide 19 L Anion Gap 14.6 BUN 64 H Creatinine 3.80 H GFR Calculation 19 BUN/Creatinine Ratio 16.00 Glucose 132 H POC Glucose Calculated Osmolality 302.1 Calcium 8.1 L Total Creatine Kinase CK-MB (CK-2) Troponin I Triglycerides 83 Cholesterol 98 LDL Cholesterol 41.0 VLDL Cholesterol 16.6 HDL Cholesterol 50 Heart Disease Risk Ratio 1.96 05/15/16 05/15/16 07:57 12:00 WBC RBC Hgb Hct MCV MCH MCHC RDW Plt Count MPV Neut % (Auto) Lymph % (Auto) [place] % (Auto) Eos % (Auto) Baso % (Auto) Neut # (Auto) Lymph # (Auto) [place] # (Auto) Eos # (Auto) Baso # (Auto) Immature Gran % Nucleated RBC % Immature Gran # Nucleated RBCs # Platelet Estimate Hypochromasia Ovalocytes [place] Cells Morphology Comment Sodium Potassium Chloride Carbon Dioxide Anion Gap BUN Creatinine GFR Calculation BUN/Creatinine Ratio Glucose POC Glucose 144 H 158 H Calculated Osmolality Calcium Total Creatine Kinase CK-MB (CK-2) Troponin I Triglycerides Cholesterol LDL Cholesterol VLDL Cholesterol HDL Cholesterol Heart Disease Risk Ratio Quality Measures - VTE Contraindication to Pharmacological VTE Prophylaxis: High Risk of Bleeding Specialty Discharge - Follow Up or Referrals
--- NOTE | 2016-05-15 21:19 | Cardiology Operative Report ---
Date of Procedure:: 05/15/16 Post-op diagnosis: same (Progressive chest pain,, positive troponins and cardiac isoenzymes suggestive of a non-STEMI. Patient does have chest wall pain , but it does not explain the rise in cardiac isoenzymes.) Procedure: Date of procedure: 05/15/16 Procedure Preformed: Left heart cath Coronary angiography--cardiac swing protocol-total contrast given was 26 cc of Visipaque Angiogram of the right femoral artery Angio-Seal of the right femoral artery-successful Surgeon / Physician: Gilmer Curiel Take Down Inspector: Pamela Montes Post-op diagnosis: same (Progressive chest pain,, positive troponins and cardiac isoenzymes suggestive of a non-STEMI. Patient does have chest wall pain , but it does not explain the rise in cardiac isoenzymes.) Findings: procedure: The patient was prepped and draped in usual manner. Entered the right femoral artery via the Seldinger technique. I used a sheath and then used a JL4 and engaged left coronary. One injection via The cardiac swing was done. I then exchanged for a JR4. one views of the right coronary were taken. I then placed the RCA catheter in the left ventricle. left ventricular end-diastolic pressures measured. no Left ventriculography was done. Left ventricle pullback was done. The catheters were then removed from the patient. Please see the cath data sheets for the details of catheters used. Complications: None Hemodynamic data: LVEDP was 35-40 mmHg. Angiographic data: The left main coronary was large and had minimal luminal irregularities. The left anterior descending artery was moderate to large. There is a proximal 90% narrowing. Also the junction of the mid and distal segment there was another 90% narrowing. Prior to angiography there is noted to be a moderate amount of coronary calcification. The left circumflex system was moderate to large. There was one obtuse marginal posterolateral branch. After the obtuse marginal, there was a 90% narrowing which supplied a small posterior lateral branch. The mid circumflex had a mild to moderate lesion. The right coronary artery was large in size, dominant vessel with the PDA. He was totally occluded proximally. There were 2 and a grade 3 [id number] collaterals. The total occlusion was long from the proximal vessel to approximately just before the takeoff of the PDA . No left ventriculography was done. Angiogram of the right femoral artery revealed the puncture site to be in a large vessel, above the bifurcation. It was suitable for Angio-Seal. Impression: Significant disease in all 3 vessels The LAD has a proximal and mid lesion which are significant--greater than 80-90 % Left circumflex has a mid circumflex lesion which is critical,, greater than 90% , supplying the post lateral branch Occluded right coronary with HECTOR grade II collaterals from the left system Known severe LV systolic dysfunction, LVEF 20% , by recent echo Severe LV diastolic dysfunction, LVEDP 35-40 mmHg--[I checked the 0 to make sure this was correct, and it was] Known creatinine about 3.8-contrast was minimized with the cardiac swing protocol, 26 cc of Visipaque Plan/recommendations: Based on the patient's anatomy, he has three-vessel disease. The circumflex diseased area is relatively small. Consideration of just doing the LAD -- 2 lesions--and of the circumflex later if needed could be considered. The right cannot be helped, it appears to be an old occlusion. Alternatively, bypass grafting could be considered, particularly given his LV dysfunction and his creatinine 3.8. However, given these 2 factors, he would be at increased risk for this intervention, too. I will get an opinion from an interventionalists, Dr. Jeri Payton. If he feels the patient is not a candidate for intervention, will get an opinion/recommendation from a cardiac surgery. Given he has had anginal with minimal activity post non-STEMI, I believe he likely does need an intervention unless we just try medical therapy and except some increased risk. The patient will have risk factors optimized. The patient will be on antiplatelet medications to include aspirin indefinitely . Follow-up will be scheduled. Addenda: I saw the patient post-cath. the groin puncture site and distal pulse are stable. vital signs are stable and the patient will be observed closely overnight. Specimens: none sent Estimated blood loss: minimal Condition: stable Anesthesia: local, conscious sedation Disposition: floor Additional CC's: Nubia Curiel Anesthesia: local, minimal conscious sedation Surgeon / Physician: Gilmer Curiel Take Down Inspector: other Estimated blood loss: minimal Specimens: none sent Condition: stable Disposition: floor
[2016-05-16] MEDS: CARVEDILOL 25 MG TABLET PO SCH ×4 (03:57→22:58)
[2016-05-16 04:56] LABS: Basophils % 0.1 % (0.0-0.8); Eosinophils % 0.3 % (0.00-10.9); Hemoglobin 8.1 GM/DL (14.0-18.0); Immature Granulocytes % 0.4 %; Immature Granulocytes Absolute 0.04 #; Lymphocytes # 0.8 10*3/uL (1.4-4.0); Mean Corpuscular HGB Conc 28.9 GM/DL (32-36); Mean Corpuscular Hemoglobin 24 PG (27-34); Mean Corpuscular Volume 83.1 FL (87-102); Mean Platelet Volume 10.2 FL (9.6-12.0); Monocytes # 0.8 10*3/uL (0.11-0.8); Monocytes % 7.3 % (1.7-12.7); Neutrophils # 8.8 10*3/uL (1.4-7.4); Neutrophils % 83.9 % (38.7-73.9); Platelet Count 371 T/CUMM (130-400); Red Blood Count 3.37 MC/CUMM (3.8-5.5); Red Cell Distribution Width 20.2 % (9.3-17.3); White Blood Count 10.5 T/CUMM (4-12)
[2016-05-16 05:16] LABS: Hypochromasia 1+; Microcytosis 1+; Ovalocytes Few
[2016-05-16] MEDS: NITROGLYCERIN 2% OINT 1 INCH/GM PACK TOP SCH ×4 (05:16→23:51)
[2016-05-16 05:17] LABS: Acanthocytes Few; Platelet Estimate Normal; Polychromasia Slight
[2016-05-16 05:34] LABS: Calcium 8.4 MG/DL (8.5-10.1); Magnesium 2.7 MG/DL (1.8-2.4); Osmolality,Calculated 311.7 MOS/KG (273-304); Potassium 5.2 MMOL/L (3.5-5.1)
--- NOTE | 2016-05-16 08:23 | Pulmonology Consult Note ---
Assessment and Plan (1) Non-ST elevation myocardial infarction (NSTEMI) Status: Acute Assessment and plan: The patient has triple-vessel coronary artery disease. He is probably not going to be a surgical candidate Current Visit: Yes (2) Hypertension Status: Chronic Assessment and plan: The patient's blood pressure is quite stable now Current Visit: Yes (3) Diabetes mellitus Status: Chronic Assessment and plan: The glucose is 150 today. Current Visit: Yes (4) Former smoker Status: Chronic Assessment and plan: Patient says he quit smoking 40 years ago. Current Visit: Yes (5) Chronic renal insufficiency, stage IV (severe) Status: Chronic Assessment and plan: Patient's creatinine is 3.9 today. Current Visit: Yes (6) COPD (chronic obstructive pulmonary disease) Status: Acute Assessment and plan: The patient probably does have a component of COPD. If he were to have surgery he will need steroids and bronchodilators. Current Visit: Yes History of Present Illness Chief complaint: Shortness of breath History of present illness: Mr. Edmond is a 81 year old black male that came in with shortness of breath and chest pain has been found to have triple-vessel coronary artery disease on catheterization. He has a history of diabetes and chronic renal insufficiency. He says he smoked for 40 years but quit 40 years ago. He never has had a lot of problems with his breathing. He came in with chest pain and was found to have a non-Q-wave UT. His catheterization shows multivessel coronary artery disease. He was given some fluids during the perioperative period and did get a little short of breath. He says he is breathing better now without chest pain or coughing. He says he has never had to take any inhalers for his breathing. He has not required hospitalization very much at all. Home Medications Medication Instructions Recorded Confirmed Type Brimonidine 0.2% Oph Soln 1 drop BOTH EYES BID 03/19/15 05/11/16 History [Al[place] P 0.2% Oph Soln] Cholecalciferol (Vitamin D3) 2,000 unit PO DAILY 03/19/15 05/11/16 History [Vitamin D3] Metoprolol Tartrate 25 mg PO BID 03/19/15 05/11/16 History glipiZIDE [Glipizide] 20 mg PO BID W/MEALS 03/19/15 05/11/16 History HYDROcodone/ACETAMIN 7.5-325 1 tablet PO TID 05/11/16 05/11/16 History [[place] 7.5-325] Allergies Allergy/AdvReac Type Severity Reaction Status Date / Time No Known Allergies Allergy Verified 05/11/16 08:56 - Constitutional Constitutional: Absent: chills, fatigue, fever(s), weight loss - EENT Eyes: Absent: loss of vision Ears: Absent: decreased hearing Nose, mouth and throat: Absent: dysphagia, headache(s), sinus pressure - Cardiovascular Cardiovascular: Present: chest pain with activity, dyspnea on exertion. Absent : orthopnea, palpitations - Respiratory Respiratory: Present: dyspnea on exertion. Absent: cough, hemoptysis, wheezing , change in phlegm color - Gastrointestinal Gastrointestinal: Absent: abdominal pain, dysphagia, nausea, vomiting - Genitourinary Genitourinary: Absent: difficulty urinating, dysuria, hematuria - Musculoskeletal Musculoskeletal: Absent: arthralgias, muscle weakness - Neurological Neurological: Absent: abnormal speech, focal weakness, paresthesias - Psychiatric Psychiatric: Absent: anxiety Exam (Pulmonay) H&P - Constitutional Vitals: Period Temp Pulse Resp BP Sys/[place] Pulse Ox Last 24 Hr 96.2 F-98.1 F 68-82 18-22 101-140/42-94 91-96 General appearance: normal weight, no acute distress - Head Head exam: Present: normal inspection, normocephalic - Eye Eye exam: Present: EOMI. Absent: scleral icterus Pupils: Present: PATRICK - ENT ENT exam: Present: normal exam - Neck Neck exam: Present: normal inspection. Absent: lymphadenopathy, thyromegaly - Respiratory Respiratory exam: Present: decreased breath sounds, rhonchi - Cardiovascular Cardiovascular exam: Present: JVD, regular rate and rhythm. Absent: gallop, systolic murmur - GI/Abdominal GI/Abdominal exam: Present: normal bowel sounds, soft. Absent: ascites, organomegaly, tenderness - Extremities Exam Extremities exam: Absent: calf tenderness, edema - Back Exam Back exam: Present: normal inspection - Neurological Exam Neurological exam: Present: alert, oriented X3, CN II-XII intact - Psychiatric Psychiatric exam: Present: normal affect - Skin Skin exam: Present: warm, dry Medical,Surgical,& Family Hx - Medical History Cardio: History of: Hypertension Endocrine: History of: Diabetes Mellitus (NIDDM) Respiratory: History of: COPD - Surgical History Abdominal Surgeries: Surgical HX of: Appendectomy Orthopedic Surgeries: Surgical HX of;: Orthopedic Surgery (right hip 3 pins) - Family History Family History: Reports;: Family Hypertension Denies;: Family Hematology, Family Psychiatric Problems, Family Stroke Comment Only: Family Cancer (sister), Family Diabetes (aunt, cousin), Family Heart Disease (mother) - Social History Smoking Status: Former smoker Frequency of Alcohol Use: None Type of Drug Use: None Results - Labs CBC & BMP: 05/16/16 04:48 05/16/16 04:48 - Diagnostic Findings Procedure: Chest x-ray: image reviewed by me, report reviewed by me (Chest x- ray does suggest COPD changes. He may have very minimal overload.) Quality Measures - VTE Contraindication to Pharmacological VTE Prophylaxis: High Risk of Bleeding Specialty Discharge - Follow Up or Referrals
[2016-05-16] MEDS: ROSUVASTATIN 10 MG TABLET PO SCH (08:44)
[2016-05-16] MEDS: ACETAMINOPHEN 325 MG TABLET PO SCH ×2 (08:44→20:09)
[2016-05-16] MEDS: glipiZIDE 10 MG TABLET PO SCH ×2 (08:44→17:26)
[2016-05-16] MEDS: CHOLECALCIFEROL 1,000 UNIT TABLET PO SCH (08:44)
[2016-05-16] MEDS: CETIRIZINE 5 MG TABLET PO SCH (08:45)
[2016-05-16] MEDS: ASPIRIN 325 MG TABLET PO SCH (08:45)
[2016-05-16] MEDS: PANTOPRAZOLE 40 MG TABLET PO SCH (08:45)
[2016-05-16] MEDS: traMADol 50 MG TABLET PO SCH ×2 (08:45→20:09)
[2016-05-16] MEDS: MAGNESIUM OXIDE 400 MG TABLET PO SCH (08:46)
[2016-05-16] MEDS: GABAPENTIN 100 MG CAPSULE PO SCH ×3 (08:46→20:09)
[2016-05-16] MEDS: IRON (CARBONYL) 45 MG TABLET PO SCH ×2 (08:46→20:09)
[2016-05-16] MEDS: ENOXAPARIN 30 MG/0.3 ML SYRINGE SUBCUT SCH (08:47)
[2016-05-16] MEDS: INSULIN REGULAR 100 UNIT/ML SUBCUT SCH ×4 (08:47→20:11)
[2016-05-16] MEDS: BRIMONIDINE 0.2% OPH SOLN 5 ML BOTTLE BOTH EYES SCH ×3 (08:48→20:10)
--- NOTE | 2016-05-16 14:36 | Cardiology Progress Note ---
Cardiology - PN: Subj Interval history: Cardiology note Patient review with Dr. Dev Resendez patient is not a candidate for CABG due to multiple comorbidities Telemetry shows sinus rhythm with rare PVC Blood pressure 124/70 O2 sat 96% on 3 L Regular rhythm soft systolic murmur upper right sternal border Decreased breath sounds but fairly clear Abdomen nontender Right groin has 2+ femoral pulse and faint bruit distal pulses 1+ Lab data today Hemoglobin 8.1 hematocrit 28.0 MCV 83 Sodium 145 potassium 5.2 chloride 114 CO2 18 BUN 70 creatinine 3.90 Glucose 160 magnesium 2.7 Impression Ischemic cardiomyopathy EF 20% Severe proximal LAD and circumflex disease and occluded right coronary with left -to-right collaterals Type 2 diabetes Chronic hypertension Chronic renal failure creatinine 3.80 estimated GFR 19 mL/min Microcytic anemia Plan Will discuss with potential coronary intervention in high risk patient. BMP and CBC in a.m. Exam (Progress Note) - Constitutional Vitals: Period Temp Pulse Resp BP Sys/[place] Pulse Ox Last 24 Hr 96.2 F-98.1 F 68-75 18-22 101-125/63-76 91-96 Result/EKG - Labs CBC & BMP: 05/16/16 04:48 05/16/16 04:48 Labs: Laboratory Results - last 24 hr 05/15/16 05/15/16 05/16/16 16:37 21:26 04:48 WBC 10.5 RBC 3.37 L Hgb 8.1 L Hct 28.0 L MCV 83.1 L MCH 24 L MCHC 28.9 L RDW 20.2 H Plt Count 371 MPV 10.2 Neut % (Auto) 83.9 H Lymph % (Auto) 8.0 L [place] % (Auto) 7.3 Eos % (Auto) 0.3 Baso % (Auto) 0.1 Neut # (Auto) 8.8 H Lymph # (Auto) 0.8 L [place] # (Auto) 0.8 Eos # (Auto) 0.0 Baso # (Auto) 0.0 Immature Gran % 0.4 Nucleated RBC % 0.0 Immature Gran # 0.04 Nucleated RBCs # 0.00 Platelet Estimate Normal Polychromasia Slight Hypochromasia 1+ Microcytosis 1+ Ovalocytes Few Acanthocytes (Spur) Few Sodium Potassium Chloride Carbon Dioxide Anion Gap BUN Creatinine GFR Calculation BUN/Creatinine Ratio Glucose POC Glucose 206 H 94 Calculated Osmolality Calcium Magnesium 05/16/16 05/16/16 05/16/16 04:48 07:30 11:56 WBC RBC Hgb Hct MCV MCH MCHC RDW Plt Count MPV Neut % (Auto) Lymph % (Auto) [place] % (Auto) Eos % (Auto) Baso % (Auto) Neut # (Auto) Lymph # (Auto) [place] # (Auto) Eos # (Auto) Baso # (Auto) Immature Gran % Nucleated RBC % Immature Gran # Nucleated RBCs # Platelet Estimate Polychromasia Hypochromasia Microcytosis Ovalocytes Acanthocytes (Spur) Sodium 145 Potassium 5.2 H Chloride 114 H Carbon Dioxide 18 L Anion Gap 18.2 H BUN 70 H Creatinine 3.90 H GFR Calculation 19 BUN/Creatinine Ratio 17.00 Glucose 160 H POC Glucose 150 H 184 H Calculated Osmolality 311.7 H Calcium 8.4 L Magnesium 2.7 H Quality Measures - VTE Contraindication to Pharmacological VTE Prophylaxis: High Risk of Bleeding Specialty Discharge - Follow Up or Referrals
[2016-05-17 03:35] LABS: Basophils % 0.3 % (0.0-0.8); Eosinophils # 0.3 10*3/uL (0.0-0.87); Eosinophils % 4.5 % (0.00-10.9); Hematocrit 24.5 VOL% (42.0-52.0); Hemoglobin 7.3 GM/DL (14.0-18.0); Immature Granulocytes % 0.6 %; Immature Granulocytes Absolute 0.04 #; Lymphocytes # 1.5 10*3/uL (1.4-4.0); Lymphocytes % 20.9 % (21.2-54.2); Mean Corpuscular HGB Conc 29.8 GM/DL (32-36); Mean Corpuscular Hemoglobin 24 PG (27-34); Mean Corpuscular Volume 79.5 FL (87-102); Monocytes # 0.9 10*3/uL (0.11-0.8); Monocytes % 12.4 % (1.7-12.7); Neutrophils # 4.4 10*3/uL (1.4-7.4); Neutrophils % 61.3 % (38.7-73.9); Platelet Count 340 T/CUMM (130-400); Red Blood Count 3.08 MC/CUMM (3.8-5.5); Red Cell Distribution Width 20.8 % (9.3-17.3); White Blood Count 7.2 T/CUMM (4-12)
[2016-05-17 04:10] LABS: Calcium 8.1 MG/DL (8.5-10.1); Osmolality,Calculated 309.1 MOS/KG (273-304); Potassium 4.6 MMOL/L (3.5-5.1)
[2016-05-17] MEDS: CARVEDILOL 25 MG TABLET PO SCH ×3 (06:38→16:22)
[2016-05-17] MEDS: NITROGLYCERIN 2% OINT 1 INCH/GM PACK TOP SCH ×3 (06:39→17:20)
--- NOTE | 2016-05-17 07:50 | Pulmonology Progress Note ---
Pulmonary - PN: Subj Interval history: The patient is an 81-year-old black man that has significant coronary artery disease. He has diabetes and chronic renal insufficiency. He may have some mild COPD. He says he is feeling better and not having any chest pain or shortness of breath now. He said he had a comfortable night. His creatinine did go up to 4.2 after the catheterization. Overall he looks reasonably stable. Exam (Progress Note) - Constitutional Vitals: Period Temp Pulse Resp BP Sys/[place] Pulse Ox Last 24 Hr 97.3 F-98.6 F 71-75 16-20 88-118/35-77 92-100 Exam: General appearance: normal weight, no acute distress, he looks quite comfortable today. - Head Head exam: Present: normal inspection, normocephalic - Eye Eye exam: Present: EOMI. Absent: scleral icterus Pupils: Present: PATRICK - ENT ENT exam: Present: normal exam - Neck Neck exam: Present: normal inspection. Absent: lymphadenopathy, thyromegaly - Respiratory Respiratory exam: Present: He has mild decreased breath sounds but no wheezing or rhonchi. - Cardiovascular Cardiovascular exam: Present: JVD, regular rate and rhythm. Absent: gallop, systolic murmur - GI/Abdominal GI/Abdominal exam: Present: normal bowel sounds, soft. Absent: ascites, organomegaly, tenderness - Extremities Exam Extremities exam: Absent: calf tenderness, edema - Back Exam Back exam: Present: normal inspection - Neurological Exam Neurological exam: Present: alert, oriented X3, CN II-XII intact - Psychiatric Psychiatric exam: Present: normal affect - Skin Skin exam: Present: warm, dry Results - Labs CBC & BMP: 05/17/16 03:22 05/17/16 03:22 Assessment and Plan (1) Non-ST elevation myocardial infarction (NSTEMI) Status: Acute Assessment and plan: The patient has triple-vessel coronary artery disease. He is probably not going to be a surgical candidate. He is not having any angina now. Current Visit: Yes (2) Hypertension Status: Chronic Assessment and plan: The patient's blood pressure is quite stable now. Current Visit: Yes (3) Diabetes mellitus Status: Chronic Assessment and plan: The glucose is 155 today. Current Visit: Yes (4) Former smoker Status: Chronic Assessment and plan: Patient says he quit smoking 40 years ago. Current Visit: Yes (5) Chronic renal insufficiency, stage IV (severe) Status: Chronic Assessment and plan: Patient's creatinine is 4.2 today. Current Visit: Yes (6) COPD (chronic obstructive pulmonary disease) Status: Acute Assessment and plan: The patient probably does have a component of COPD. If he were to have surgery he will need steroids and bronchodilators. His respiratory status is stable at present. Current Visit: Yes Specialty Discharge - Follow Up or Referrals
[2016-05-17] MEDS: INSULIN REGULAR 100 UNIT/ML SUBCUT SCH ×3 (08:53→15:53)
[2016-05-17] MEDS: ENOXAPARIN 30 MG/0.3 ML SYRINGE SUBCUT SCH (09:29)
[2016-05-17] MEDS: ROSUVASTATIN 10 MG TABLET PO SCH (09:30)
[2016-05-17] MEDS: CHOLECALCIFEROL 1,000 UNIT TABLET PO SCH (09:30)
[2016-05-17] MEDS: IRON (CARBONYL) 45 MG TABLET PO SCH (09:30)
[2016-05-17] MEDS: CETIRIZINE 5 MG TABLET PO SCH (09:31)
[2016-05-17] MEDS: ACETAMINOPHEN 325 MG TABLET PO SCH (09:31)
[2016-05-17] MEDS: MAGNESIUM OXIDE 400 MG TABLET PO SCH (09:32)
[2016-05-17] MEDS: traMADol 50 MG TABLET PO SCH (09:32)
[2016-05-17] MEDS: GABAPENTIN 100 MG CAPSULE PO SCH ×2 (09:32→14:17)
[2016-05-17] MEDS: PANTOPRAZOLE 40 MG TABLET PO SCH (09:32)
[2016-05-17] MEDS: BRIMONIDINE 0.2% OPH SOLN 5 ML BOTTLE BOTH EYES SCH ×2 (10:30→14:18)
[2016-05-17] MEDS: ASPIRIN 325 MG TABLET PO SCH (10:30)
[2016-05-17] MEDS: glipiZIDE 10 MG TABLET PO SCH ×2 (10:30→16:22)
--- NOTE | 2016-05-17 10:54 | Cardiology Progress Note ---
<Alejandra Monzon E - Last Filed: 05/17/16 10:51> Assessment and Plan - Time spent with patient Time spent with patient: Less than 30 minutes (1) Non-ST elevation myocardial infarction (NSTEMI) Status: Acute Assessment and plan: Dr. Cox to discuss with Dr. Blue potential coronary intervention in high risk patient. CBC, BMP in AM. H&H low today. D/c lovenox. Type and cross for 2 units PRBCs. Current Visit: Yes (2) Dyspnea Status: Acute Assessment and plan: O2 PRN. Current Visit: Yes (3) Anemia Status: Acute Current Visit: Yes (4) Hypertension Status: Chronic Current Visit: Yes (5) Diabetes mellitus Status: Chronic Current Visit: Yes (6) Former smoker Status: Chronic Current Visit: Yes (7) Family history of coronary artery disease Status: Chronic Current Visit: Yes (8) Chronic renal insufficiency, stage IV (severe) Status: Chronic Current Visit: Yes Cardiology - PN: Subj Interval history: Mr. Edmond is s/p LHC on 05/15/16. He was found to have severe proximal LAD and circumflex disease and occluded right coronary with [id number] collaterals. Dr. Anna was consulted and he was found to not be a candidate for CABG due to multiple comorbidities. Today, Mr. Edmond is doing fairly well. He denies complaints at this time. Dr. Cox to discuss with Dr. Bule potential coronary intervention in high risk patient. Exam (Progress Note) - Constitutional Vitals: Period Temp Pulse Resp BP Sys/Maldonado Pulse Ox Last 24 Hr 97.3 F-98.6 F 71-75 16-20 88-120/35-77 92-100 Exam: General: Present: Appears Well, No Apparent Distress. Pleasant and cooperative. Appears comfortable. HEENT: Present: PERRL, Normocephaly, atraumatic. Mucus Membranes Moist. No jaundice noted. Conjunctiva moist and clear, sclerae anicteric Neck: Present: Supple Neck, Midline Trachea, No Masses, No Bruit, No tenderness Cardiac: Present: Regular Rate and Rhythm Lungs: Present: Clear to auscultation bilaterally, diminished breath sounds to bilateral bases. Neuro: Present: Awake, alert, and oriented x3. Moves all extremities well without hemiparesis or paralysis. Grossly Intact. Absent: Resting Tremor, Essential Tremor Abdomen: Present: Soft, Active Bowel Sounds, No Masses, Non-Tender, nondistended. No abdominal bruit or thrill noted. Skin: Present: Clear. Absent: Rash, No skin breakdown. Back: Normal inspection, no vertebral tenderness. Musculoskeletal: Present: No Fluid Collection, No Pain, Normal Range of Motion Extremities: Present: Normal Gait, No Clubbing, No Cyanosis, Upper Extr. Pulses 2+, Lower Extr. Pulses 2+, No edema. Capillary refill less than 3 seconds. Right groin: Open to air, no bleeding, hematoma, or bruit. Femoral pulse 3+. Peripheral pulses present and palpable. Result/EKG - Labs CBC & BMP: 05/17/16 03:22 05/17/16 03:22 Lab Results: I have reviewed the past 24 hour labs Labs: Laboratory Results - last 24 hr 05/16/16 05/16/16 05/16/16 11:56 15:39 20:11 WBC RBC Hgb Hct MCV MCH MCHC RDW Plt Count MPV Neut % (Auto) Lymph % (Auto) [place] % (Auto) Eos % (Auto) Baso % (Auto) Neut # (Auto) Lymph # (Auto) [place] # (Auto) Eos # (Auto) Baso # (Auto) Immature Gran % Nucleated RBC % Immature Gran # Nucleated RBCs # Sodium Potassium Chloride Carbon Dioxide Anion Gap BUN Creatinine GFR Calculation BUN/Creatinine Ratio Glucose POC Glucose 184 H 155 H 149 H Calculated Osmolality Calcium 05/17/16 05/17/16 05/17/16 03:22 03:22 07:37 WBC 7.2 D RBC 3.08 L Hgb 7.3 L Hct 24.5 L MCV 79.5 L MCH 24 L MCHC 29.8 L RDW 20.8 H Plt Count 340 MPV 10.0 Neut % (Auto) 61.3 Lymph % (Auto) 20.9 L [place] % (Auto) 12.4 Eos % (Auto) 4.5 Baso % (Auto) 0.3 Neut # (Auto) 4.4 Lymph # (Auto) 1.5 [place] # (Auto) 0.9 H Eos # (Auto) 0.3 Baso # (Auto) 0.0 Immature Gran % 0.6 Nucleated RBC % 0.0 Immature Gran # 0.04 Nucleated RBCs # 0.00 Sodium 142 Potassium 4.6 Chloride 113 H Carbon Dioxide 19 L Anion Gap 14.6 BUN 79 H Creatinine 4.20 H GFR Calculation 17 BUN/Creatinine Ratio 18.00 Glucose 155 H POC Glucose 123 H Calculated Osmolality 309.1 H Calcium 8.1 L - EKG EKG results: interpreted by me, sinus rhythm Quality Measures - VTE Contraindication to Pharmacological VTE Prophylaxis: High Risk of Bleeding Specialty Discharge - Follow Up or Referrals <Jose David Cox - Last Filed: 05/17/16 12:17> Cardiology - PN: Subj Interval history: Cardiology addendum. H&H is down to 7.3 and 24.5 respectively. MCV 79. Patient has been receiving Lovenox which has been stopped. 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 Exam (Progress Note) - Constitutional Vitals: Period Temp Pulse Resp BP Sys/Maldonado Pulse Ox Last 24 Hr 96.5 F-98.6 F 72-75 16-20 88-124/35-77 92-100 Result/EKG - Labs CBC & BMP: 05/17/16 03:22 05/17/16 03:22 Labs: Laboratory Results - last 24 hr 05/16/16 05/16/16 05/16/16 11:56 15:39 20:11 WBC RBC Hgb Hct MCV MCH MCHC RDW Plt Count MPV Neut % (Auto) Lymph % (Auto) [place] % (Auto) Eos % (Auto) Baso % (Auto) Neut # (Auto) Lymph # (Auto) [place] # (Auto) Eos # (Auto) Baso # (Auto) Immature Gran % Nucleated RBC % Immature Gran # Nucleated RBCs # Sodium Potassium Chloride Carbon Dioxide Anion Gap BUN Creatinine GFR Calculation BUN/Creatinine Ratio Glucose POC Glucose 184 H 155 H 149 H Calculated Osmolality Calcium 05/17/16 05/17/16 05/17/16 03:22 03:22 07:37 WBC 7.2 D RBC 3.08 L Hgb 7.3 L Hct 24.5 L MCV 79.5 L MCH 24 L MCHC 29.8 L RDW 20.8 H Plt Count 340 MPV 10.0 Neut % (Auto) 61.3 Lymph % (Auto) 20.9 L [place] % (Auto) 12.4 Eos % (Auto) 4.5 Baso % (Auto) 0.3 Neut # (Auto) 4.4 Lymph # (Auto) 1.5 [place] # (Auto) 0.9 H Eos # (Auto) 0.3 Baso # (Auto) 0.0 Immature Gran % 0.6 Nucleated RBC % 0.0 Immature Gran # 0.04 Nucleated RBCs # 0.00 Sodium 142 Potassium 4.6 Chloride 113 H Carbon Dioxide 19 L Anion Gap 14.6 BUN 79 H Creatinine 4.20 H GFR Calculation 17 BUN/Creatinine Ratio 18.00 Glucose 155 H POC Glucose 123 H Calculated Osmolality 309.1 H Calcium 8.1 L 05/17/16 10:51 WBC RBC Hgb Hct MCV MCH MCHC RDW Plt Count MPV Neut % (Auto) Lymph % (Auto) [place] % (Auto) Eos % (Auto) Baso % (Auto) Neut # (Auto) Lymph # (Auto) [place] # (Auto) Eos # (Auto) Baso # (Auto) Immature Gran % Nucleated RBC % Immature Gran # Nucleated RBCs # Sodium Potassium Chloride Carbon Dioxide Anion Gap BUN Creatinine GFR Calculation BUN/Creatinine Ratio Glucose POC Glucose 273 H Calculated Osmolality Calcium
[2016-05-17] MEDS ORDERED: ETOMIDATE 20 MG/10 ML VIAL IV ONE ×2 (21:13→21:59)
[2016-05-17] MEDS ORDERED: VECURONIUM 10 MG VIAL IV ONE (21:59)
[2016-05-17] MEDS ORDERED: SUCCINYLCHOLINE 200 MG/10 ML VIAL ONE (21:59)
[2016-05-17 22:05] LABS: Troponin I Only 0.348 NG/ML (0.00-0.045)
--- NOTE | 2016-05-17 22:11 | EKG Report ---
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
--- NOTE | 2016-05-17 23:04 | XRay Report ---
XR chest 1V portable Indication: Intubated. Chest one view: Endotracheal tube terminates 4 cm cephalad of the bright. Defibrillator pads are now present. Cardiomegaly is worsened since 05/13/2016. Increased interstitial reticular prominence of the lungs noted diffusely. No focal pneumonia shown. Impression: Adequate intubation. CHF decompensation. PROCEDURE INTERPRETED AT [facility] DEPARTMENT OF RADIOLOGY Final Report Signed by: Pan Landa M.D.
[2016-05-18] MEDS: GABAPENTIN 100 MG CAPSULE PO SCH ×4 (00:17→20:38)
[2016-05-18] MEDS: IRON (CARBONYL) 45 MG TABLET PO SCH ×3 (00:17→20:37)
[2016-05-18] MEDS: ACETAMINOPHEN 325 MG TABLET PO SCH ×3 (00:18→20:38)
[2016-05-18] MEDS: CARVEDILOL 25 MG TABLET PO SCH ×5 (00:18→22:30)
[2016-05-18] MEDS: NITROGLYCERIN 2% OINT 1 INCH/GM PACK TOP SCH ×4 (00:19→17:55)
[2016-05-18] MEDS: INSULIN REGULAR 100 UNIT/ML SUBCUT SCH ×3 (01:00→17:56)
[2016-05-18] MEDS: PROPOFOL 1,000 MG/100 ML BOTTLE IV SCH ×4 (03:25→20:41)
[2016-05-18] MEDS: BRIMONIDINE 0.2% OPH SOLN 5 ML BOTTLE BOTH EYES SCH ×4 (03:27→20:38)
[2016-05-18 03:40] LABS: ABG Base Excess -9.3 MMOL/L (-2.5-2.5); ABG HCO3 16.9 MMOL/L (20-26); ABG Oxygen Saturation 97.7 % (95-100); ABG PCO2 38.6 MM HG (35-48); ABG PH 7.257 (7.35-7.45); ABG TCO2 16.1 MMOL/L (23-27); Allen Test Positive; Pt O2 Delivery Device Ventilator
[2016-05-18 04:52] LABS: Basophils % 0.2 % (0.0-0.8); Eosinophils # 0.1 10*3/uL (0.0-0.87); Eosinophils % 0.6 % (0.00-10.9); Hematocrit 31.5 VOL% (42.0-52.0); Hemoglobin 9.2 GM/DL (14.0-18.0); Immature Granulocytes % 0.4 %; Immature Granulocytes Absolute 0.04 #; Lymphocytes # 1.2 10*3/uL (1.4-4.0); Lymphocytes % 13.5 % (21.2-54.2); Mean Corpuscular HGB Conc 29.2 GM/DL (32-36); Mean Corpuscular Hemoglobin 25 PG (27-34); Mean Corpuscular Volume 83.8 FL (87-102); Mean Platelet Volume 10.6 FL (9.6-12.0); Monocytes % 11.5 % (1.7-12.7); NRBC # 0.02 10*3/uL; Neutrophils # 6.6 10*3/uL (1.4-7.4); Neutrophils % 73.8 % (38.7-73.9); Platelet Count 338 T/CUMM (130-400); Red Blood Count 3.76 MC/CUMM (3.8-5.5); Red Cell Distribution Width 20.6 % (9.3-17.3)
[2016-05-18 05:20] LABS: Calcium 8.1 MG/DL (8.5-10.1); Magnesium 2.8 MG/DL (1.8-2.4); Osmolality,Calculated 310.1 MOS/KG (273-304)
[2016-05-18 05:26] LABS: Troponin I Only 0.327 NG/ML (0.00-0.045)
--- NOTE | 2016-05-18 06:41 | EKG Report ---
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
--- NOTE | 2016-05-18 06:46 | XRay Report ---
Referring Physician: Phil Acosta MD Exam: XR chest 1V portable Date: May 18, 2016 at 3:19 AM Reason: Endotracheal tube placement Comparison: Chest one view portable May 17, 2016 Findings: An endotracheal tube is in place with its distal tip projecting at the level of the sternoclavicular junctions, approximately 5.5 cm above the bright. A feeding tube is also in place. Its distal aspect is not well-visualized, but it is likely curled upward within the esophagus. The cardiac silhouette is again enlarged. The interstitial markings are prominent bilaterally, and there are hazy opacities within the mid and lower lung zones bilaterally, mainly on the right. This is concerning for pulmonary edema and atelectasis, but pneumonia is not excluded. No pneumothorax is identified, but there is mild right pleural fluid and likely minimal left pleural fluid left. The osseous structures appear stable. Impression: 1. A feeding tube is in place. Its distal tip is partially obscured, but it is likely curled upward within the esophagus. 2. The interstitial markings are prominent bilaterally, and there are opacities within both lungs, right greater than left. The opacities have increased, especially on the right. This is concerning for pulmonary edema and atelectasis, but pneumonia is not excluded. PROCEDURE INTERPRETED AT [facility] DEPARTMENT OF RADIOLOGY Final Report Signed by: Dr. Kt Gates
--- NOTE | 2016-05-18 07:32 | Cardiology Progress Note ---
Cardiology - PN: Subj Interval history: Cardiology note 81-year-old man with ischemic cardia myopathy and chronic renal failure. Patient had respiratory arrest and junctional rhythm last night requiring intubation. No acute EKG changes. Trivial troponin. O2 sat 100 on 40% FiO2 Blood pressure 106/62 Telemetry shows sinus rhythm in the 60s Regular rhythm soft systolic murmur as before Decreased breath sounds Abdomen soft Right groin soft and dry. No bruit or hematoma Lab data Hemoglobin 9.2 hematocrit 30 1. 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 Type 2 diabetes Hypertension Chronic renal failure Microcytic anemia Plan Wean vent as tolerated Follow H&H Stool guaiacs ordered No family present at this time Exam (Progress Note) - Constitutional Vitals: Period Temp Pulse Resp BP Sys/Maldonado Pulse Ox Last 24 Hr 96.5 F-98.3 F 61-80 12-21 105-146/59-85 95-100 Result/EKG - Labs CBC & BMP: 05/18/16 04:23 05/18/16 04:23 Labs: Laboratory Results - last 24 hr 05/17/16 05/17/16 05/17/16 07:37 10:51 12:44 WBC RBC Hgb Hct MCV MCH MCHC RDW Plt Count MPV Neut % (Auto) Lymph % (Auto) [place] % (Auto) Eos % (Auto) Baso % (Auto) Neut # (Auto) Lymph # (Auto) [place] # (Auto) Eos # (Auto) Baso # (Auto) Immature Gran % Nucleated RBC % Immature Gran # Nucleated RBCs # ABG pH ABG pCO2 ABG pO2 ABG HCO3 ABG Total CO2 ABG O2 Saturation ABG Base Excess FiO2 Sodium Potassium Chloride Carbon Dioxide Anion Gap BUN Creatinine GFR Calculation BUN/Creatinine Ratio Glucose POC Glucose 123 H 273 H Calculated Osmolality Calcium Magnesium Total Creatine Kinase CK-MB (CK-2) Troponin I Blood Type O POSITIVE Antibody Screen Negative Crossmatch See Detail 05/17/16 05/17/16 05/17/16 15:42 21:15 21:20 WBC RBC Hgb Hct MCV MCH MCHC RDW Plt Count MPV Neut % (Auto) Lymph % (Auto) [place] % (Auto) Eos % (Auto) Baso % (Auto) Neut # (Auto) Lymph # (Auto) [place] # (Auto) Eos # (Auto) Baso # (Auto) Immature Gran % Nucleated RBC % Immature Gran # Nucleated RBCs # ABG pH ABG pCO2 ABG pO2 ABG HCO3 ABG Total CO2 ABG O2 Saturation ABG Base Excess FiO2 Sodium Potassium Chloride Carbon Dioxide Anion Gap BUN Creatinine GFR Calculation BUN/Creatinine Ratio Glucose POC Glucose 141 H 206 H Calculated Osmolality Calcium Magnesium Total Creatine Kinase 193 D CK-MB (CK-2) 2.2 Troponin I 0.348 H D Blood Type Antibody Screen Crossmatch 05/18/16 05/18/16 05/18/16 00:30 03:15 04:23 WBC 9.0 RBC 3.76 L D Hgb 9.2 L D Hct 31.5 L MCV 83.8 L MCH 25 L MCHC 29.2 L RDW 20.6 H Plt Count 338 MPV 10.6 Neut % (Auto) 73.8 Lymph % (Auto) 13.5 L [place] % (Auto) 11.5 Eos % (Auto) 0.6 Baso % (Auto) 0.2 Neut # (Auto) 6.6 Lymph # (Auto) 1.2 L [place] # (Auto) 1.0 H Eos # (Auto) 0.1 Baso # (Auto) 0.0 Immature Gran % 0.4 Nucleated RBC % 0.2 Immature Gran # 0.04 Nucleated RBCs # 0.02 ABG pH 7.257 L ABG pCO2 38.6 ABG pO2 103.0 H ABG HCO3 16.9 L ABG Total CO2 16.1 L ABG O2 Saturation 97.7 ABG Base Excess -9.3 L FiO2 40.00 Sodium Potassium Chloride Carbon Dioxide Anion Gap BUN Creatinine GFR Calculation BUN/Creatinine Ratio Glucose POC Glucose 200 H Calculated Osmolality Calcium Magnesium Total Creatine Kinase CK-MB (CK-2) Troponin I Blood Type Antibody Screen Crossmatch 05/18/16 05/18/16 04:23 04:23 WBC RBC Hgb Hct MCV MCH MCHC RDW Plt Count MPV Neut % (Auto) Lymph % (Auto) [place] % (Auto) Eos % (Auto) Baso % (Auto) Neut # (Auto) Lymph # (Auto) [place] # (Auto) Eos # (Auto) Baso # (Auto) Immature Gran % Nucleated RBC % Immature Gran # Nucleated RBCs # ABG pH ABG pCO2 ABG pO2 ABG HCO3 ABG Total CO2 ABG O2 Saturation ABG Base Excess FiO2 Sodium 142 Potassium 5.0 Chloride 114 H Carbon Dioxide 17 L Anion Gap 16.0 H BUN 82 H Creatinine 4.60 H GFR Calculation 15 BUN/Creatinine Ratio 17.00 Glucose 152 H POC Glucose Calculated Osmolality 310.1 H Calcium 8.1 L Magnesium 2.8 H Total Creatine Kinase 175 CK-MB (CK-2) 2.4 Troponin I 0.327 H Blood Type Antibody Screen Crossmatch Quality Measures - VTE Contraindication to Pharmacological VTE Prophylaxis: High Risk of Bleeding Specialty Discharge - Follow Up or Referrals
--- NOTE | 2016-05-18 07:43 | Pulmonology Progress Note ---
Pulmonary - PN: Subj Interval history: The patient is an 81-year-old black man that has significant coronary artery disease. He has diabetes and chronic renal insufficiency. The patient was doing fairly well yesterday not having any chest pain or shortness of breath. He does have significant coronary artery disease. Yesterday evening he apparently went bradycardic and became unresponsive. A code was called and he was quickly intubated. He has been moved to the CCU. He is relatively stable on the ventilator now. He is starting to respond a little better. His chest x- ray does suggest congestive heart failure. Exam (Progress Note) - Constitutional Vitals: Period Temp Pulse Resp BP Sys/Maldonado Pulse Ox Last 24 Hr 96.5 F-98.3 F 61-80 12-21 105-146/59-85 95-100 Exam: General appearance: normal weight, patient is arousable but is comfortable on the ventilator. - Head Head exam: Present: normal inspection, normocephalic - Eye Eye exam: Present: EOMI. Absent: scleral icterus Pupils: Present: PATRICK - ENT ENT exam: Present: normal exam, ET tube is in good position. - Neck Neck exam: Present: normal inspection. Absent: lymphadenopathy, thyromegaly - Respiratory Respiratory exam: Present: He has good breath sounds bilaterally with mild rhonchi bilaterally. - Cardiovascular Cardiovascular exam: Present: JVD, regular rate and rhythm. Absent: gallop, systolic murmur - GI/Abdominal GI/Abdominal exam: Present: normal bowel sounds, soft. Absent: ascites, organomegaly, tenderness - Extremities Exam Extremities exam: Absent: calf tenderness, edema - Back Exam Back exam: Present: normal inspection - Neurological Exam Neurological exam: Present: He is starting to respond a little better now. - Psychiatric Psychiatric exam: Present: normal affect - Skin Skin exam: Present: warm, dry Results - Labs CBC & BMP: 05/18/16 04:23 05/18/16 04:23 Labs: PO2 is 103 with a PCO2 of 38 and a pH of 7.25 - Diagnostic Findings Procedure: Chest x-ray: image reviewed by me, report reviewed by me (Chest x- ray shows cardiomegaly with mild CHF.) Assessment and Plan (1) Non-ST elevation myocardial infarction (NSTEMI) Status: Acute Assessment and plan: The patient has triple-vessel coronary artery disease. He had a cardiac arrest yesterday but is stable on the ventilator now. Current Visit: Yes (2) Hypertension Status: Chronic Assessment and plan: The patient's blood pressure is better at present he is not requiring pressors. Current Visit: Yes (3) Diabetes mellitus Status: Chronic Assessment and plan: The glucose is 152 today. Current Visit: Yes (4) Former smoker Status: Chronic Assessment and plan: Patient says he quit smoking 40 years ago. Current Visit: Yes (5) Chronic renal insufficiency, stage IV (severe) Status: Chronic Assessment and plan: Patient's creatinine is 4.6 today. Current Visit: Yes (6) COPD (chronic obstructive pulmonary disease) Status: Acute Assessment and plan: The patient probably does have a component of COPD. He is stable on the ventilator but will continue with bronchodilators and a short course of steroids. Current Visit: Yes (7) Cardiopulmonary arrest with successful resuscitation Status: Acute Assessment and plan: The patient had a monitored arrest and has been resuscitated successfully. We will continue ventilatory support for now. Current Visit: Yes Specialty Discharge - Follow Up or Referrals
[2016-05-18] MEDS: glipiZIDE 10 MG TABLET PO SCH ×2 (08:49→16:03)
[2016-05-18] MEDS: methylPREDNISolone SOD SUC 40 MG/1 ML VIAL IV SCH ×2 (09:41→17:56)
[2016-05-18] MEDS: PANTOPRAZOLE 40 MG VIAL IV SCH (09:41)
[2016-05-18] MEDS: MAGNESIUM OXIDE 400 MG TABLET PO SCH (09:42)
[2016-05-18] MEDS: ROSUVASTATIN 10 MG TABLET PO SCH (09:42)
[2016-05-18] MEDS: CETIRIZINE 5 MG TABLET PO SCH (09:42)
[2016-05-18] MEDS: CHOLECALCIFEROL 1,000 UNIT TABLET PO SCH (09:42)
[2016-05-18] MEDS: ASPIRIN 325 MG TABLET PO SCH (09:42)
--- NOTE | 2016-05-18 16:33 | Event Note ---
ER note/procedure note Called to telemetry for a CODE BLUE. Patient had agonal breathing with a weak pulse. ACLS protocol already initiated. Patient was intubated with a 7.5 ET tube successfully first attempt without complication. Patient was transferred to the ICU for further management. Patient was in stable condition upon transfer. ET tube is confirming good placement by positive and CO2 color change , auscultation both lung guillen, chest x-ray confirmed proper placement ET tube
[2016-05-19] MEDS: INSULIN REGULAR 100 UNIT/ML SUBCUT SCH ×5 (00:28→23:31)
[2016-05-19] MEDS: NITROGLYCERIN 2% OINT 1 INCH/GM PACK TOP SCH ×5 (00:31→23:36)
[2016-05-19] MEDS: methylPREDNISolone SOD SUC 40 MG/1 ML VIAL IV SCH ×3 (00:31→16:14)
[2016-05-19] MEDS: PROPOFOL 1,000 MG/100 ML BOTTLE IV SCH ×4 (02:30→23:15)
[2016-05-19] MEDS: CARVEDILOL 25 MG TABLET PO SCH ×4 (05:00→23:31)
[2016-05-19 06:05] LABS: Hematocrit 30.3 VOL% (42.0-52.0); Hemoglobin 8.8 GM/DL (14.0-18.0); Immature Granulocytes % 0.8 %; Immature Granulocytes Absolute 0.06 #; Lymphocytes # 0.4 10*3/uL (1.4-4.0); Mean Corpuscular Hemoglobin 25 PG (27-34); Mean Corpuscular Volume 84.4 FL (87-102); Monocytes # 0.2 10*3/uL (0.11-0.8); Monocytes % 1.9 % (1.7-12.7); Neutrophils # 7.4 10*3/uL (1.4-7.4); Neutrophils % 92.3 % (38.7-73.9); Platelet Count 292 T/CUMM (130-400); Red Blood Count 3.59 MC/CUMM (3.8-5.5); Red Cell Distribution Width 20.9 % (9.3-17.3)
[2016-05-19 06:29] LABS: Burr Cells Slight; Elliptocytes Few; Hypochromasia 1+; Lymphocytes 5 % (20-55); Platelet Estimate Adequate; Segmented Neutrophils 95 % (50-85); Total Cells Counted 100
[2016-05-19 06:43] LABS: Calcium 8.1 MG/DL (8.5-10.1); Magnesium 2.9 MG/DL (1.8-2.4); Osmolality,Calculated 314.1 MOS/KG (273-304); Potassium 5.1 MMOL/L (3.5-5.1)
--- NOTE | 2016-05-19 07:38 | Cardiology Progress Note ---
Cardiology - PN: Subj Interval history: Cardiology note 81-year-old man with ischemic cardia myopathy and three-vessel CAD. Status post respiratory arrest with junctional rhythm No evidence for acute [place]. Telemetry shows sinus rhythm in the 70s O2 sat 100 on 40% FiO2 Blood pressure 113/56 Decreased breath sounds few rhonchi in the bases Regular rhythm soft systolic murmur Abdomen benign No leg edema Lab data today White count 8.0 hemoglobin 8.8 hematocrit 30.3 Sodium 142 potassium 5.1 chloride 115 CO2 15 BUN 57 creatinine 4.40 magnesium 2.9 Impression Ischemic cardiomyopathy EF 20% Severe three-vessel CAD Chronic renal failure creatinine today 4.40. Baseline creatinine 3.80 Type 2 diabetes Hypertension Microcytic anemia status post 2 units transfusion Due to multiple comorbidities, patient is not felt to be a candidate for bypass surgery Plan CPAP trials Observe rhythm Labs in a.m. Exam (Progress Note) - Constitutional Vitals: Period Temp Pulse Resp BP Sys/Maldonado Pulse Ox Last 24 Hr 96.8 F-98.6 F 54-77 12-19 94-131/47-83 100-100 Result/EKG - Labs CBC & BMP: 05/19/16 05:00 05/19/16 05:00 Labs: Laboratory Results - last 24 hr 05/18/16 05/18/16 05/19/16 10:58 16:21 00:20 WBC RBC Hgb Hct MCV MCH MCHC RDW Plt Count MPV Neut % (Auto) Lymph % (Auto) [place] % (Auto) Eos % (Auto) Baso % (Auto) Neut # (Auto) Lymph # (Auto) [place] # (Auto) Eos # (Auto) Baso # (Auto) Total Counted Immature Gran % Nucleated RBC % Immature Gran # Segmented Neutrophils Lymphocytes Nucleated RBCs # Platelet Estimate Hypochromasia [place] Cells Elliptocytes Morphology Comment Sodium Potassium Chloride Carbon Dioxide Anion Gap BUN Creatinine GFR Calculation BUN/Creatinine Ratio Glucose POC Glucose 91 135 H 196 H Calculated Osmolality Calcium Magnesium 05/19/16 05/19/16 05/19/16 04:56 05:00 05:00 WBC 8.0 RBC 3.59 L Hgb 8.8 L Hct 30.3 L MCV 84.4 L MCH 25 L MCHC 29.0 L RDW 20.9 H Plt Count 292 MPV 10.0 Neut % (Auto) 92.3 H Lymph % (Auto) 5.0 L [place] % (Auto) 1.9 Eos % (Auto) 0.0 Baso % (Auto) 0.0 Neut # (Auto) 7.4 Lymph # (Auto) 0.4 L [place] # (Auto) 0.2 Eos # (Auto) 0.0 Baso # (Auto) 0.0 Total Counted 100 Immature Gran % 0.8 Nucleated RBC % 0.0 Immature Gran # 0.06 Segmented Neutrophils 95 H Lymphocytes 5 L Nucleated RBCs # 0.00 Platelet Estimate Adequate Hypochromasia 1+ [place] Cells Slight Elliptocytes Few Morphology Comment Sodium 142 Potassium 5.1 Chloride 115 H Carbon Dioxide 15 L Anion Gap 17.1 H BUN 87 H Creatinine 4.40 H GFR Calculation 16 BUN/Creatinine Ratio 19.00 Glucose 184 H POC Glucose 217 H Calculated Osmolality 314.1 H Calcium 8.1 L Magnesium 2.9 H Quality Measures - VTE Contraindication to Pharmacological VTE Prophylaxis: High Risk of Bleeding Specialty Discharge - Follow Up or Referrals
--- NOTE | 2016-05-19 08:11 | Pulmonology Progress Note ---
Pulmonary - PN: Subj Interval history: The patient is an 81-year-old black man that has significant coronary artery disease. He has diabetes and chronic renal insufficiency. The patient was doing fairly well yesterday not having any chest pain or shortness of breath. He does have significant coronary artery disease. Sunday evening he apparently went bradycardic and became unresponsive. A code was called and he was quickly intubated. He has been moved to the CCU. He is relatively stable on the ventilator now. He has done fairly well on the ventilator overnight. His urine output has been fair. His blood pressure and heart rate are stable. His oxygenation has been stable. He probably went into heart failure after transfusions. He has a significant ischemic cardiomyopathy. He also has chronic renal insufficiency. We will start CPAP trials today. Exam (Progress Note) - Constitutional Vitals: Period Temp Pulse Resp BP Sys/[place] Pulse Ox Last 24 Hr 96.8 F-98.6 F 54-77 12-21 94-129/47-77 100-100 Exam: General appearance: normal weight, patient is arousable but is comfortable on the ventilator. He has stable vital signs now. - Head Head exam: Present: normal inspection, normocephalic - Eye Eye exam: Present: EOMI. Absent: scleral icterus Pupils: Present: PATRICK - ENT ENT exam: Present: normal exam, ET tube is in good position. - Neck Neck exam: Present: normal inspection. Absent: lymphadenopathy, thyromegaly - Respiratory Respiratory exam: Present: He has good breath sounds bilaterally with mild rhonchi bilaterally. His lungs sound better today. - Cardiovascular Cardiovascular exam: Present: JVD, regular rate and rhythm. Absent: gallop, systolic murmur - GI/Abdominal GI/Abdominal exam: Present: normal bowel sounds, soft. Absent: ascites, organomegaly, tenderness - Extremities Exam Extremities exam: Absent: calf tenderness, edema - Back Exam Back exam: Present: normal inspection - Neurological Exam Neurological exam: Present: He is starting to respond a little better now. - Psychiatric Psychiatric exam: Present: normal affect - Skin Skin exam: Present: warm, dry Results - Labs CBC & BMP: 05/19/16 05:00 05/19/16 05:00 Assessment and Plan (1) Non-ST elevation myocardial infarction (NSTEMI) Status: Acute Assessment and plan: The patient has triple-vessel coronary artery disease. He had a cardiac arrest yesterday but is stable on the ventilator now. He does have a significant ischemic cardiomyopathy Current Visit: Yes (2) Hypertension Status: Chronic Assessment and plan: The patient's blood pressure is better at present and he is not requiring pressors. Current Visit: Yes (3) Diabetes mellitus Status: Chronic Assessment and plan: The glucose is 217 today. Current Visit: Yes (4) Former smoker Status: Chronic Assessment and plan: Patient says he quit smoking 40 years ago. Current Visit: Yes (5) Chronic renal insufficiency, stage IV (severe) Status: Chronic Assessment and plan: Patient's creatinine is 4.4 today. Current Visit: Yes (6) COPD (chronic obstructive pulmonary disease) Status: Acute Assessment and plan: The patient probably does have a component of COPD. He is stable on the ventilator but will continue with bronchodilators and a short course of steroids. Current Visit: Yes (7) Cardiopulmonary arrest with successful resuscitation Status: Acute Assessment and plan: The patient had a monitored arrest and has been resuscitated successfully. He is stable on the ventilator and does arouse some. Will start weaning trials now. Current Visit: Yes Specialty Discharge - Follow Up or Referrals
[2016-05-19] MEDS: glipiZIDE 10 MG TABLET PO SCH ×2 (08:48→16:10)
[2016-05-19] MEDS: MAGNESIUM OXIDE 400 MG TABLET PO SCH (08:49)
[2016-05-19] MEDS: IRON (CARBONYL) 45 MG TABLET PO SCH ×2 (08:49→20:20)
[2016-05-19] MEDS: ASPIRIN 325 MG TABLET PO SCH (08:50)
[2016-05-19] MEDS: CHOLECALCIFEROL 1,000 UNIT TABLET PO SCH (08:50)
[2016-05-19] MEDS: ROSUVASTATIN 10 MG TABLET PO SCH (08:50)
[2016-05-19] MEDS: CETIRIZINE 5 MG TABLET PO SCH (08:50)
[2016-05-19] MEDS: BRIMONIDINE 0.2% OPH SOLN 5 ML BOTTLE BOTH EYES SCH ×3 (08:51→20:21)
[2016-05-19] MEDS: PANTOPRAZOLE 40 MG VIAL IV SCH (08:51)
[2016-05-19] MEDS: ACETAMINOPHEN 325 MG TABLET PO SCH ×2 (09:00→20:25)
[2016-05-19] MEDS: GABAPENTIN 100 MG CAPSULE PO SCH ×3 (09:02→20:20)
[2016-05-20] MEDS: methylPREDNISolone SOD SUC 40 MG/1 ML VIAL IV SCH ×3 (01:37→16:01)
[2016-05-20] MEDS: PROPOFOL 1,000 MG/100 ML BOTTLE IV SCH ×2 (01:40→04:50)
[2016-05-20 02:36] LABS: ABG Base Excess -10.4 MMOL/L (-2.5-2.5); ABG HCO3 15.1 MMOL/L (20-26); ABG Oxygen Saturation 98.6 % (95-100); ABG PCO2 31.8 MM HG (35-48); ABG PH 7.293 (7.35-7.45); ABG PO2 148.8 MM HG (80-95); Allen Test Positive; Pt O2 Delivery Device Ventilator
[2016-05-20 04:12] LABS: Basophils % 0.1 % (0.0-0.8); Hematocrit 32.7 VOL% (42.0-52.0); Hemoglobin 9.6 GM/DL (14.0-18.0); Immature Granulocytes % 0.3 %; Immature Granulocytes Absolute 0.04 #; Lymphocytes # 0.4 10*3/uL (1.4-4.0); Lymphocytes % 3.6 % (21.2-54.2); Mean Corpuscular HGB Conc 29.4 GM/DL (32-36); Mean Corpuscular Hemoglobin 24 PG (27-34); Mean Corpuscular Volume 82.8 FL (87-102); Mean Platelet Volume 10.4 FL (9.6-12.0); Monocytes # 0.6 10*3/uL (0.11-0.8); Monocytes % 5.1 % (1.7-12.7); NRBC # 0.02 10*3/uL; Neutrophils # 10.8 10*3/uL (1.4-7.4); Neutrophils % 90.9 % (38.7-73.9); Platelet Count 307 T/CUMM (130-400); Red Blood Count 3.95 MC/CUMM (3.8-5.5); Red Cell Distribution Width 21.6 % (9.3-17.3); White Blood Count 11.8 T/CUMM (4-12)
[2016-05-20 04:40] LABS: Calcium 8.4 MG/DL (8.5-10.1); Magnesium 3.1 MG/DL (1.8-2.4); Osmolality,Calculated 311.5 MOS/KG (273-304); Osmolality,Calculated 315.3 MOS/KG (273-304); Potassium 5.2 MMOL/L (3.5-5.1); Potassium 5.3 MMOL/L (3.5-5.1)
[2016-05-20 04:43] LABS: Band Neutrophils 1 % (0-10); Lymphocytes 4 % (20-55); Segmented Neutrophils 90 % (50-85); Total Cells Counted 100
[2016-05-20 04:44] LABS: Platelet Estimate Normal
[2016-05-20] MEDS: CARVEDILOL 25 MG TABLET PO SCH ×4 (04:49→22:22)
[2016-05-20] MEDS: NITROGLYCERIN 2% OINT 1 INCH/GM PACK TOP SCH ×3 (05:21→18:32)
[2016-05-20] MEDS: INSULIN REGULAR 100 UNIT/ML SUBCUT SCH ×3 (05:56→18:32)
--- NOTE | 2016-05-20 07:19 | Cardiology Progress Note ---
Cardiology - PN: Subj Interval history: Cardiology note 81-year-old man status post respiratory arrest and junctional rhythm. No evidence for NE. Completed 4 hours of CPAP yesterday. Telemetry shows sinus rhythm in the 60s Blood pressure 110/55 O2 sat 100 on 40% FiO2 Decreased breath sounds few rhonchi in the left side Regular rhythm no murmur Abdomen benign No leg edema distal pulses 1+ Lab data today Hemoglobin 9.6 hematocrit 32.7 white count 11.8 Sodium 139 potassium 5.2 chloride 114 CO2 16 BUN 96 creatinine 4.50 Glucose 191 Impression Ischemic cardia myopathy, severe three-vessel CAD EF 20% Chronic renal failure baseline creatinine 3.80. Creatinine today is 4.50 Long-standing hypertension Type 2 diabetes Microcytic anemia status post 2 units transfusion Due to multiple comorbidities, patient was not felt to be a candidate for bypass Plan CPAP trials Labs in a.m. Exam (Progress Note) - Constitutional Vitals: Period Temp Pulse Resp BP Sys/M[place]on[place] Pulse Ox Last 24 Hr 97 F-97.8 F 52-80 9-22 99-144/46-80 100-100 Result/EKG - Labs CBC & BMP: 05/20/16 04:02 05/20/16 04:02 Labs: Laboratory Results - last 24 hr 05/19/16 05/19/16 05/19/16 11:23 17:33 23:26 WBC RBC Hgb Hct MCV MCH MCHC RDW Plt Count MPV Neut % (Auto) Lymph % (Auto) [place] % (Auto) Eos % (Auto) Baso % (Auto) Neut # (Auto) Lymph # (Auto) [place] # (Auto) Eos # (Auto) Baso # (Auto) Total Counted Immature Gran % Nucleated RBC % Immature Gran # Segmented Neutrophils Band Neutrophils Lymphocytes Monocytes Nucleated RBCs # Platelet Estimate ABG pH ABG pCO2 ABG pO2 ABG HCO3 ABG Total CO2 ABG O2 Saturation ABG Base Excess FiO2 Sodium Potassium Chloride Carbon Dioxide Anion Gap BUN Creatinine GFR Calculation BUN/Creatinine Ratio Glucose POC Glucose 215 H 185 H 200 H Calculated Osmolality Calcium Magnesium 05/20/16 05/20/16 05/20/16 02:25 04:02 04:02 WBC 11.8 D RBC 3.95 Hgb 9.6 L Hct 32.7 L MCV 82.8 L MCH 24 L MCHC 29.4 L RDW 21.6 H Plt Count 307 MPV 10.4 Neut % (Auto) 90.9 H Lymph % (Auto) 3.6 L [place] % (Auto) 5.1 Eos % (Auto) 0.0 Baso % (Auto) 0.1 Neut # (Auto) 10.8 H Lymph # (Auto) 0.4 L [place] # (Auto) 0.6 Eos # (Auto) 0.0 Baso # (Auto) 0.0 Total Counted 100 Immature Gran % 0.3 Nucleated RBC % 0.2 Immature Gran # 0.04 Segmented Neutrophils 90 H Band Neutrophils 1 Lymphocytes 4 L Monocytes 5 Nucleated RBCs # 0.02 Platelet Estimate Normal ABG pH 7.293 L ABG pCO2 31.8 L ABG pO2 148.8 H ABG HCO3 15.1 L ABG Total CO2 16.0 L ABG O2 Saturation 98.6 ABG Base Excess -10.4 L FiO2 40.00 Sodium 141 Potassium 5.3 H Chloride 114 H Carbon Dioxide 15 L Anion Gap 17.3 H BUN 96 H Creatinine 4.40 H GFR Calculation 16 BUN/Creatinine Ratio 21.00 H Glucose 195 H POC Glucose Calculated Osmolality 315.3 H Calcium 8.4 L Magnesium 05/20/16 05/20/16 04:02 05:48 WBC RBC Hgb Hct MCV MCH MCHC RDW Plt Count MPV Neut % (Auto) Lymph % (Auto) [place] % (Auto) Eos % (Auto) Baso % (Auto) Neut # (Auto) Lymph # (Auto) [place] # (Auto) Eos # (Auto) Baso # (Auto) Total Counted Immature Gran % Nucleated RBC % Immature Gran # Segmented Neutrophils Band Neutrophils Lymphocytes Monocytes Nucleated RBCs # Platelet Estimate ABG pH ABG pCO2 ABG pO2 ABG HCO3 ABG Total CO2 ABG O2 Saturation ABG Base Excess FiO2 Sodium 139 Potassium 5.2 H Chloride 114 H Carbon Dioxide 16 L Anion Gap 14.2 BUN 96 H Creatinine 4.50 H GFR Calculation 16 BUN/Creatinine Ratio 21.00 H Glucose 197 H POC Glucose 191 H Calculated Osmolality 311.5 H Calcium 8.4 L Magnesium 3.1 H Quality Measures - VTE Contraindication to Pharmacological VTE Prophylaxis: High Risk of Bleeding Specialty Discharge - Follow Up or Referrals
[2016-05-20] MEDS: GABAPENTIN 100 MG CAPSULE PO SCH ×3 (08:27→20:13)
[2016-05-20] MEDS: BRIMONIDINE 0.2% OPH SOLN 5 ML BOTTLE BOTH EYES SCH ×3 (08:27→20:14)
[2016-05-20] MEDS: CHOLECALCIFEROL 1,000 UNIT TABLET PO SCH (08:27)
[2016-05-20] MEDS: CETIRIZINE 5 MG TABLET PO SCH (08:27)
[2016-05-20] MEDS: glipiZIDE 10 MG TABLET PO SCH ×2 (08:27→18:32)
[2016-05-20] MEDS: ROSUVASTATIN 10 MG TABLET PO SCH (08:28)
[2016-05-20] MEDS: ASPIRIN 325 MG TABLET PO SCH (08:28)
[2016-05-20] MEDS: IRON (CARBONYL) 45 MG TABLET PO SCH ×2 (08:28→20:13)
[2016-05-20] MEDS: PANTOPRAZOLE 40 MG VIAL IV SCH (08:30)
[2016-05-20] MEDS: ACETAMINOPHEN 325 MG TABLET PO SCH ×2 (08:33→20:13)
[2016-05-20] MEDS: MAGNESIUM OXIDE 400 MG TABLET PO SCH (08:33)
--- NOTE | 2016-05-20 08:42 | XRay Report ---
Portable chest Date: 05/20/2016 Clinical history: Ventilator Comparison: 05/18/2016 Technique: Portable AP sitting chest Findings: The heart is slightly smaller in size with stable support devices. Minimally reduced pleural parenchymal findings bilaterally with stable mediastinum and osseous structures. Impression: Minimally improved CHF/bilateral pneumonia with minimally smaller bilateral pleural effusions. The supportive devices remain in satisfactory position. PROCEDURE INTERPRETED AT [facility] DEPARTMENT OF RADIOLOGY Final Report Signed by: Dr. Jessenia Edge
--- NOTE | 2016-05-20 09:35 | Pulmonology Progress Note ---
Pulmonary - PN: Subj Interval history: Patient wtih severe triple vessel disease. chronic renal failure, had arrest and was intubated. Doing better. Patient passed SBT this morning and awake and following commands. Exam (Progress Note) - Constitutional Vitals: Period Temp Pulse Resp BP Sys/[place] Pulse Ox Last 24 Hr 97 F-97.8 F 52-80 11-22 99-144/46-80 100-100 General appearance: normal weight, no acute distress - ENT ENT exam: Present: normal exam - Respiratory Respiratory exam: Present: clear to auscultation bilaterally - Cardiovascular Cardiovascular exam: Present: regular rate and rhythm - GI/Abdominal GI/Abdominal exam: Present: soft Results - Labs CBC & BMP: 05/20/16 04:02 05/20/16 04:02 Lab Results: I have reviewed the past 24 hour labs Assessment and Plan (1) Cardiopulmonary arrest with successful resuscitation Status: Acute Assessment and plan: Patient intubated after arrest, much better now. No immeadiate plans for surgery so will extubate today as he is meeting all criteria. Current Visit: Yes Specialty Discharge - Follow Up or Referrals
[2016-05-21] MEDS: INSULIN REGULAR 100 UNIT/ML SUBCUT SCH ×4 (00:14→17:24)
[2016-05-21] MEDS: methylPREDNISolone SOD SUC 40 MG/1 ML VIAL IV SCH ×3 (00:14→17:18)
[2016-05-21] MEDS: NITROGLYCERIN 2% OINT 1 INCH/GM PACK TOP SCH ×2 (00:14→05:27)
[2016-05-21] MEDS: PROPOFOL 1,000 MG/100 ML BOTTLE IV SCH (02:33)
[2016-05-21] MEDS: CARVEDILOL 25 MG TABLET PO SCH ×4 (04:49→20:59)
[2016-05-21 05:06] LABS: Hemoglobin 9.6 GM/DL (14.0-18.0); Immature Granulocytes % 0.6 %; Immature Granulocytes Absolute 0.06 #; Lymphocytes # 0.3 10*3/uL (1.4-4.0); Lymphocytes % 2.5 % (21.2-54.2); Mean Corpuscular Hemoglobin 24 PG (27-34); Mean Platelet Volume 10.5 FL (9.6-12.0); Monocytes # 0.4 10*3/uL (0.11-0.8); Monocytes % 3.6 % (1.7-12.7); NRBC # 0.02 10*3/uL; Neutrophils # 9.5 10*3/uL (1.4-7.4); Neutrophils % 93.3 % (38.7-73.9); Platelet Count 340 T/CUMM (130-400); Red Cell Distribution Width 21.6 % (9.3-17.3); White Blood Count 10.2 T/CUMM (4-12)
[2016-05-21 05:35] LABS: Calcium 8.3 MG/DL (8.5-10.1); Magnesium 3.1 MG/DL (1.8-2.4); Osmolality,Calculated 319.4 MOS/KG (273-304); Potassium 5.3 MMOL/L (3.5-5.1)
[2016-05-21 06:37] LABS: Lymphocytes 1 % (20-55); Myelocytes 1 %; Nucleated Red Blood Cells 1 (0-5); Segmented Neutrophils 97 % (50-85); Total Cells Counted 100
[2016-05-21 06:38] LABS: Anisocytosis 1+; Platelet Estimate Normal; Poikilocytosis Slight; Tear Drop Cells Few
--- NOTE | 2016-05-21 07:16 | Cardiology Progress Note ---
Cardiology - PN: Subj Interval history: Cardiology note 81-year-old man with ischemic cardia myopathy and three-vessel CAD. Status post cardiac arrest with junctional rhythm. No evidence for acute MO. Extubated yesterday. Alert and responsive. Telemetry shows sinus rhythm in the 60s O2 sat 90% on room air Blood pressure 130/70 Regular rhythm soft systolic murmur Decreased breath sounds few rhonchi in the right base Abdomen soft benign Trace leg edema lab data today Lab data today White count 10.2 hemoglobin 9.6 hematocrit 32.2 sodium 140 potassium 5.3 chloride 114 CO2 16 BUN 108 creatinine 4.3 Glucose 218 magnesium 3.1 Impression Ischemic cardia myopathy EF 20% Severe three-vessel CAD Chronic renal failure baseline creatinine 3.80. Creatinine today 4.30 Long-standing hypertension Type 2 diabetes Microcytic anemia status post 2 units transfusion last week Due to his multiple comorbidities. Patient was not felt to be a surgical candidate Plan Transfer to telemetry Medical therapy BMP and CBC in a.m. We will get renal consult tomorrow Exam (Progress Note) - Constitutional Vitals: Period Temp Pulse Resp BP Sys/[place] Pulse Ox Last 24 Hr 96.7 F-99.4 F 61-77 12-24 117-142/56-92 98-100 Result/EKG - Labs CBC & BMP: 05/21/16 04:24 05/21/16 04:24 Labs: Laboratory Results - last 24 hr 05/20/16 05/20/16 05/20/16 12:13 17:49 23:32 WBC RBC Hgb Hct MCV MCH MCHC RDW Plt Count MPV Neut % (Auto) Lymph % (Auto) [place] % (Auto) Eos % (Auto) Baso % (Auto) Neut # (Auto) Lymph # (Auto) [place] # (Auto) Eos # (Auto) Baso # (Auto) Total Counted Immature Gran % Nucleated RBC % Immature Gran # Segmented Neutrophils Lymphocytes Monocytes Myelocytes Nucleated RBCs Nucleated RBCs # Platelet Estimate Poikilocytosis Anisocytosis Tear Drop Cells Sodium Potassium Chloride Carbon Dioxide Anion Gap BUN Creatinine GFR Calculation BUN/Creatinine Ratio Glucose POC Glucose 209 H 224 H 290 H Calculated Osmolality Calcium Magnesium 05/21/16 05/21/16 05/21/16 04:24 04:24 05:07 WBC 10.2 RBC 4.00 Hgb 9.6 L Hct 32.0 L MCV 80.0 L MCH 24 L MCHC 30.0 L RDW 21.6 H Plt Count 340 MPV 10.5 Neut % (Auto) 93.3 H Lymph % (Auto) 2.5 L [place] % (Auto) 3.6 Eos % (Auto) 0.0 Baso % (Auto) 0.0 Neut # (Auto) 9.5 H Lymph # (Auto) 0.3 L [place] # (Auto) 0.4 Eos # (Auto) 0.0 Baso # (Auto) 0.0 Total Counted 100 Immature Gran % 0.6 Nucleated RBC % 0.2 Immature Gran # 0.06 Segmented Neutrophils 97 H Lymphocytes 1 L Monocytes 1 L Myelocytes 1 Nucleated RBCs 1 Nucleated RBCs # 0.02 Platelet Estimate Normal Poikilocytosis Slight Anisocytosis 1+ Tear Drop Cells Few Sodium 140 Potassium 5.3 H Chloride 114 H Carbon Dioxide 16 L Anion Gap 15.3 H BUN 108 H Creatinine 4.30 H GFR Calculation 17 BUN/Creatinine Ratio 25.00 H Glucose 218 H POC Glucose 227 H Calculated Osmolality 319.4 H Calcium 8.3 L Magnesium 3.1 H Quality Measures - VTE Contraindication to Pharmacological VTE Prophylaxis: High Risk of Bleeding Specialty Discharge - Follow Up or Referrals
--- NOTE | 2016-05-21 07:23 | Pulmonology Progress Note ---
Pulmonary - PN: Subj Interval history: Patient with severe CAD, successfully extubated yesterday, no issues overnight per nursing Exam (Progress Note) - Constitutional Vitals: Period Temp Pulse Resp BP Sys/[place] Pulse Ox Last 24 Hr 96.7 F-99.4 F 61-77 12-24 117-142/56-92 98-100 General appearance: no acute distress - ENT ENT exam: Present: normal exam - Respiratory Respiratory exam: Present: clear to auscultation bilaterally. Absent: accessory muscle use, wheezes Results - Labs CBC & BMP: 05/21/16 04:24 05/21/16 04:24 Lab Results: I have reviewed the past 24 hour labs - Diagnostic Findings Procedure: Chest x-ray: image reviewed by me (stable) Assessment and Plan (1) Cardiopulmonary arrest with successful resuscitation Status: Acute Assessment and plan: Patient intubated after arrest, much better now. succesfully extubated yesterday , has remained fine from a pulmonary standpoint overnight. No acute pulmonary issues at this time. Please call with any questions Current Visit: Yes Specialty Discharge - Follow Up or Referrals
[2016-05-21] MEDS: ROSUVASTATIN 10 MG TABLET PO SCH (08:47)
[2016-05-21] MEDS: CETIRIZINE 5 MG TABLET PO SCH (08:48)
[2016-05-21] MEDS: ASPIRIN 325 MG TABLET PO SCH (08:48)
[2016-05-21] MEDS: glipiZIDE 10 MG TABLET PO SCH ×2 (08:48→17:24)
[2016-05-21] MEDS: GABAPENTIN 100 MG CAPSULE PO SCH ×3 (08:48→20:55)
[2016-05-21] MEDS: CHOLECALCIFEROL 1,000 UNIT TABLET PO SCH (08:48)
[2016-05-21] MEDS: PANTOPRAZOLE 40 MG VIAL IV SCH (08:51)
[2016-05-21] MEDS: ISOSORBIDE DINITRATE 20 MG TABLET PO SCH ×2 (08:51→20:55)
[2016-05-21] MEDS: ACETAMINOPHEN 325 MG TABLET PO SCH ×2 (08:51→20:55)
[2016-05-21] MEDS: IRON (CARBONYL) 45 MG TABLET PO SCH ×2 (08:53→20:55)
[2016-05-21] MEDS: BRIMONIDINE 0.2% OPH SOLN 5 ML BOTTLE BOTH EYES SCH ×3 (08:53→20:55)
--- NOTE | 2016-05-21 09:10 | XRay Report ---
Portable chest Date: 05/21/2016 Clinical history: Line Comparison: 05/20/2016 Technique: Portable AP sitting chest Findings: Stable cardiomegaly. Progressive diffuse parenchymal findings with small pleural effusions. Removal of the endotracheal tube and nasogastric tube. Stable mediastinum and osseous structures. Impression: Progressive pulmonary edema/bilateral pneumonia with small pleural effusions. Interval removal of the endotracheal tube and nasogastric tube. PROCEDURE INTERPRETED AT [facility] DEPARTMENT OF RADIOLOGY Final Report Signed by: Dr. Jessenia Edge
[2016-05-21] MEDS: MAGNESIUM OXIDE 400 MG TABLET PO SCH (10:55)
[2016-05-22] MEDS: INSULIN REGULAR 100 UNIT/ML SUBCUT SCH ×5 (00:02→22:10)
[2016-05-22] MEDS: methylPREDNISolone SOD SUC 40 MG/1 ML VIAL IV SCH ×2 (00:03→10:18)
[2016-05-22] MEDS: PROPOFOL 1,000 MG/100 ML BOTTLE IV SCH (01:37)
[2016-05-22] MEDS: CARVEDILOL 25 MG TABLET PO SCH ×4 (03:05→21:56)
[2016-05-22 05:25] LABS: Basophils % 0.1 % (0.0-0.8); Hematocrit 29.9 VOL% (42.0-52.0); Hemoglobin 9.1 GM/DL (14.0-18.0); Immature Granulocytes % 0.7 %; Immature Granulocytes Absolute 0.08 #; Lymphocytes # 0.2 10*3/uL (1.4-4.0); Lymphocytes % 1.9 % (21.2-54.2); Mean Corpuscular HGB Conc 30.4 GM/DL (32-36); Mean Corpuscular Hemoglobin 24 PG (27-34); Mean Corpuscular Volume 79.1 FL (87-102); Mean Platelet Volume 11.4 FL (9.6-12.0); Monocytes # 0.5 10*3/uL (0.11-0.8); Monocytes % 4.4 % (1.7-12.7); NRBC # 0.04 10*3/uL; Neutrophils # 10.2 10*3/uL (1.4-7.4); Neutrophils % 92.9 % (38.7-73.9); Platelet Count 325 T/CUMM (130-400); Red Blood Count 3.78 MC/CUMM (3.8-5.5); Red Cell Distribution Width 21.7 % (9.3-17.3); White Blood Count 10.9 T/CUMM (4-12)
[2016-05-22 05:58] LABS: Calcium 7.9 MG/DL (8.5-10.1); Osmolality,Calculated 332.1 MOS/KG (273-304); Potassium 5.2 MMOL/L (3.5-5.1)
[2016-05-22 06:05] LABS: Band Neutrophils 1 % (0-10); Hypochromasia 1+; Lymphocytes 2 % (20-55); Platelet Estimate Adequate; Segmented Neutrophils 95 % (50-85); Total Cells Counted 100
[2016-05-22 06:06] LABS: Burr Cells Slight; Elliptocytes Few
[2016-05-22] MEDS: glipiZIDE 10 MG TABLET PO SCH ×2 (09:23→16:58)
[2016-05-22] MEDS: ASPIRIN 325 MG TABLET PO SCH (09:24)
--- NOTE | 2016-05-22 09:24 | Pulmonology Progress Note ---
Pulmonary - PN: Subj Interval history: The patient is an 81-year-old black man that has significant coronary artery disease. He has diabetes and chronic renal insufficiency. The patient was doing fairly well yesterday not having any chest pain or shortness of breath. He does have significant coronary artery disease. Sunday evening he apparently went bradycardic and became unresponsive. A code was called and he was quickly intubated. He has been moved to the CCU. He is relatively stable on the ventilator now. He has done fairly well on the ventilator overnight. His urine output has been fair. His blood pressure and heart rate are stable. His oxygenation has been stable. He probably went into heart failure after transfusions. He has a significant ischemic cardiomyopathy. He also has chronic renal insufficiency. Over the weekend he was extubated without any problems. He says he is feeling well and is not short of breath. He is not having any chest pain now. His vital signs have been stable. Exam (Progress Note) - Constitutional Vitals: Period Temp Pulse Resp BP Sys/[place] Pulse Ox Last 24 Hr 97.8 F-99.0 F 62-94 12-24 127-157/59-95 93-100 Exam: General appearance: normal weight, patient is alert and looks quite comfortable at present. - Head Head exam: Present: normal inspection, normocephalic - Eye Eye exam: Present: EOMI. Absent: scleral icterus Pupils: Present: PATRICK - ENT ENT exam: Present: normal exam - Neck Neck exam: Present: normal inspection. Absent: lymphadenopathy, thyromegaly - Respiratory Respiratory exam: Present: He has good breath sounds bilaterally with fairly good air movement and no wheezing now. - Cardiovascular Cardiovascular exam: Present: JVD, regular rate and rhythm. Absent: gallop, systolic murmur - GI/Abdominal GI/Abdominal exam: Present: normal bowel sounds, soft. Absent: ascites, organomegaly, tenderness - Extremities Exam Extremities exam: Absent: calf tenderness, edema - Back Exam Back exam: Present: normal inspection - Neurological Exam Neurological exam: Present: He is alert and talking appropriately. - Psychiatric Psychiatric exam: Present: normal affect - Skin Skin exam: Present: warm, dry Results - Labs CBC & BMP: 05/22/16 04:32 05/22/16 04:32 - Diagnostic Findings Procedure: Chest x-ray: image reviewed by me, report reviewed by me (Chest x- ray showed cardiomegaly but the lung guillen have cleared nicely.) Assessment and Plan (1) Non-ST elevation myocardial infarction (NSTEMI) Status: Acute Assessment and plan: The patient has triple-vessel coronary artery disease. He appears to be relatively stable at present. Current Visit: Yes (2) Hypertension Status: Chronic Assessment and plan: The patient's blood pressure is better at present and he is hemodynamically stable Current Visit: Yes (3) Diabetes mellitus Status: Chronic Assessment and plan: The glucose is 321 today. Current Visit: Yes (4) Former smoker Status: Chronic Assessment and plan: Patient says he quit smoking 40 years ago. Current Visit: Yes (5) Chronic renal insufficiency, stage IV (severe) Status: Chronic Assessment and plan: Patient's creatinine is 4.3 today. Current Visit: Yes (6) COPD (chronic obstructive pulmonary disease) Status: Acute Assessment and plan: The patient probably does have a component of COPD. He is breathing comfortably off the ventilator now. Current Visit: Yes (7) Cardiopulmonary arrest with successful resuscitation Status: Acute Assessment and plan: The patient had a monitored arrest and has been resuscitated successfully. He came off the ventilator well over the weekend and is doing well now. Current Visit: Yes Specialty Discharge - Follow Up or Referrals
[2016-05-22] MEDS: MAGNESIUM OXIDE 400 MG TABLET PO SCH (09:25)
[2016-05-22] MEDS: ROSUVASTATIN 10 MG TABLET PO SCH (09:25)
[2016-05-22] MEDS: CETIRIZINE 5 MG TABLET PO SCH (09:26)
[2016-05-22] MEDS: GABAPENTIN 100 MG CAPSULE PO SCH ×3 (09:26→21:55)
[2016-05-22] MEDS: CHOLECALCIFEROL 1,000 UNIT TABLET PO SCH (09:27)
[2016-05-22] MEDS: IRON (CARBONYL) 45 MG TABLET PO SCH ×2 (09:33→21:55)
[2016-05-22] MEDS: BRIMONIDINE 0.2% OPH SOLN 5 ML BOTTLE BOTH EYES SCH ×3 (09:33→22:12)
[2016-05-22] MEDS: ACETAMINOPHEN 325 MG TABLET PO SCH ×2 (09:33→21:56)
[2016-05-22] MEDS: ISOSORBIDE DINITRATE 20 MG TABLET PO SCH ×2 (09:34→21:55)
[2016-05-22] MEDS: PANTOPRAZOLE 40 MG VIAL IV SCH (09:36)
--- NOTE | 2016-05-22 09:55 | Cardiology Progress Note ---
<Alejandra Monzon E - Last Filed: 05/22/16 09:27> Assessment and Plan - Time spent with patient Time spent with patient: Less than 30 minutes (1) Non-ST elevation myocardial infarction (NSTEMI) Status: Acute Assessment and plan: Patient was found ot have ischemic cardiomyopathy and three-vessel CAD. Due to his multiple comorbidities, he was not felt to be a surgical candidate. Will continue medical management. Will further discuss with Dr. Hernandez and may transfer upstairs today if MD agrees. Current Visit: Yes (2) Dyspnea Status: Acute Assessment and plan: O2 PRN. Clinically much improved. Current Visit: Yes (3) Anemia Status: Acute Assessment and plan: Microcytic. Has required a total of 4 units PRBCs. No overt bleeding noted. Heme occult stools have been ordered but not collected. Will continue to monitor. H&H stable today, but decreased from yesterday. Current Visit: Yes (4) Hypertension Status: Chronic Assessment and plan: Improved. Will adjust medications for better optimization of BP. Current Visit: Yes (5) Diabetes mellitus Status: Chronic Assessment and plan: He is on sliding scale insulin. Is receiving PO steroids. Current Visit: Yes (6) Former smoker Status: Chronic Current Visit: Yes (7) Family history of coronary artery disease Status: Chronic Current Visit: Yes (8) Chronic renal insufficiency, stage IV (severe) Status: Chronic Assessment and plan: Will consult nephrology today. Current Visit: Yes (9) COPD (chronic obstructive pulmonary disease) Status: Chronic Assessment and plan: Has been seen by pulmonology and is felt to have a component of COPD. Currently breathing without difficulty. Current Visit: Yes (10) Cardiopulmonary arrest with successful resuscitation Status: Acute Assessment and plan: Has been extubated over the weekend and is doing well. Will discuss with Dr. Hernandez and possibly transfer to telemetry today if a bed is available. 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 Edmond is an 81 y/o BM with ischemic cardiomyopathy and three-vessel CAD. He was not felt to be a surgical candidate due to his multiple comorbidities. He is status post cardiac arrest on 05/19/16 with junctional rhythm. He was extubated over the weekend and has done well. Today, he is alert and responsive. His creatinine remains elevated at 4.3 and has remained elevated throughout admission. We will ask nephrology to come see him. He also has a microcytic anemia which has required blood transfusion on 2 separate occasions. Current H&H is 9.1 and 29.9. Mr. Edmond denies shortness of breath, chest pain , or palpitations. He does complain of not having a bowel movement in several days although his nurse tells me he did have one yesterday. He is also requesting his catheter come out. I believe this can be removed today. We will ask physical therapy to start working with him and help his mobility. We will continue medical therapy for his CAD. Hopefully, he can be moved to telemetry today. Exam (Progress Note) - Constitutional Vitals: Period Temp Pulse Resp BP Sys/[place] Pulse Ox Last 24 Hr 97.8 F-99.0 F 62-94 12-24 127-157/59-95 93-100 Exam: General: Present: Appears Well, No Apparent Distress. Pleasant and cooperative. Appears comfortable. HEENT: Present: PERRL, Normocephaly, atraumatic. Mucus Membranes Moist. No jaundice noted. Conjunctiva moist and clear, sclerae anicteric Neck: Present: Supple Neck, Midline Trachea, No Masses, No Bruit, No tenderness Cardiac: Present: Regular Rate and Rhythm Lungs: Present: Clear to auscultation bilaterally, diminished breath sounds to bilateral bases. Neuro: Present: Awake, alert, and oriented x3. Moves all extremities well without hemiparesis or paralysis. Grossly Intact. Absent: Resting Tremor, Essential Tremor Abdomen: Present: Soft, Active Bowel Sounds, No Masses, Non-Tender, nondistended. No abdominal bruit or thrill noted. Skin: Present: Clear. Absent: Rash, No skin breakdown. Back: Normal inspection, no vertebral tenderness. Musculoskeletal: Present: No Fluid Collection, No Pain, Normal Range of Motion Extremities: Present: Normal Gait, No Clubbing, No Cyanosis, Upper Extr. Pulses 2+, Lower Extr. Pulses 2+, Trace BLE edema. Capillary refill less than 3 seconds. Right groin: Open to air, no bleeding, hematoma, or bruit. Femoral pulse 3+. Peripheral pulses present and palpable. Result/EKG - Labs CBC & BMP: 05/22/16 04:32 05/22/16 04:32 Lab Results: I have reviewed the past 24 hour labs Labs: Laboratory Results - last 24 hr 05/21/16 05/21/16 05/21/16 12:31 17:17 23:56 WBC RBC Hgb Hct MCV MCH MCHC RDW Plt Count MPV Neut % (Auto) Lymph % (Auto) [place] % (Auto) Eos % (Auto) Baso % (Auto) Neut # (Auto) Lymph # (Auto) [place] # (Auto) Eos # (Auto) Baso # (Auto) Total Counted Immature Gran % Nucleated RBC % Immature Gran # Segmented Neutrophils Band Neutrophils Lymphocytes Monocytes Nucleated RBCs # Platelet Estimate Hypochromasia [place] Cells Elliptocytes Morphology Comment Sodium Potassium Chloride Carbon Dioxide Anion Gap BUN Creatinine GFR Calculation BUN/Creatinine Ratio Glucose POC Glucose 359 H 287 H 310 H Calculated Osmolality Calcium 05/22/16 05/22/16 05/22/16 04:32 04:32 05:19 WBC 10.9 RBC 3.78 L Hgb 9.1 L Hct 29.9 L MCV 79.1 L MCH 24 L MCHC 30.4 L RDW 21.7 H Plt Count 325 MPV 11.4 Neut % (Auto) 92.9 H Lymph % (Auto) 1.9 L [place] % (Auto) 4.4 Eos % (Auto) 0.0 Baso % (Auto) 0.1 Neut # (Auto) 10.2 H Lymph # (Auto) 0.2 L [place] # (Auto) 0.5 Eos # (Auto) 0.0 Baso # (Auto) 0.0 Total Counted 100 Immature Gran % 0.7 Nucleated RBC % 0.4 Immature Gran # 0.08 Segmented Neutrophils 95 H Band Neutrophils 1 Lymphocytes 2 L Monocytes 2 Nucleated RBCs # 0.04 Platelet Estimate Adequate Hypochromasia 1+ [place] Cells Slight Elliptocytes Few Morphology Comment Sodium 142 Potassium 5.2 H Chloride 115 H Carbon Dioxide 16 L Anion Gap 16.2 H BUN 115 H Creatinine 4.30 H GFR Calculation 17 BUN/Creatinine Ratio 26.00 H Glucose 325 H POC Glucose 321 H Calculated Osmolality 332.1 H Calcium 7.9 L - EKG EKG results: interpreted by me, sinus rhythm Quality Measures - VTE Contraindication to Pharmacological VTE Prophylaxis: High Risk of Bleeding Specialty Discharge - Follow Up or Referrals <Pan Hernandez - Last Filed: 05/22/16 10:46> Cardiology - PN: Subj Interval history: Patient's chart reviewed and patient examined and interviewed. Reviewed with Alejandra Monzon [employer]. Patient has severe three-vessel coronary disease with ischemic cardiomyopathy and not felt to be a candidate for bypass surgery or apparent intervention. He is being treated medically. He has renal insufficiency is continued problem in issues with diminished H&H's. We'll need to continue his medical therapy and rehabilitation. The question raised is whether or not he may be a candidate for rehabilitation. I think we can move him upstairs to telemetry today. Exam (Progress Note) - Constitutional Vitals: Period Temp Pulse Resp BP Sys/[place] Pulse Ox Last 24 Hr 97.8 F-99.0 F 62-94 12-24 133-157/59-95 93-100 Result/EKG - Labs CBC & BMP: 05/22/16 04:32 05/22/16 04:32 Labs: Laboratory Results - last 24 hr 05/21/16 05/21/16 05/21/16 12:31 17:17 23:56 WBC RBC Hgb Hct MCV MCH MCHC RDW Plt Count MPV Neut % (Auto) Lymph % (Auto) [place] % (Auto) Eos % (Auto) Baso % (Auto) Neut # (Auto) Lymph # (Auto) [place] # (Auto) Eos # (Auto) Baso # (Auto) Total Counted Immature Gran % Nucleated RBC % Immature Gran # Segmented Neutrophils Band Neutrophils Lymphocytes Monocytes Nucleated RBCs # Platelet Estimate Hypochromasia [place] Cells Elliptocytes Morphology Comment Sodium Potassium Chloride Carbon Dioxide Anion Gap BUN Creatinine GFR Calculation BUN/Creatinine Ratio Glucose POC Glucose 359 H 287 H 310 H Calculated Osmolality Calcium 05/22/16 05/22/16 05/22/16 04:32 04:32 05:19 WBC 10.9 RBC 3.78 L Hgb 9.1 L Hct 29.9 L MCV 79.1 L MCH 24 L MCHC 30.4 L RDW 21.7 H Plt Count 325 MPV 11.4 Neut % (Auto) 92.9 H Lymph % (Auto) 1.9 L [place] % (Auto) 4.4 Eos % (Auto) 0.0 Baso % (Auto) 0.1 Neut # (Auto) 10.2 H Lymph # (Auto) 0.2 L [place] # (Auto) 0.5 Eos # (Auto) 0.0 Baso # (Auto) 0.0 Total Counted 100 Immature Gran % 0.7 Nucleated RBC % 0.4 Immature Gran # 0.08 Segmented Neutrophils 95 H Band Neutrophils 1 Lymphocytes 2 L Monocytes 2 Nucleated RBCs # 0.04 Platelet Estimate Adequate Hypochromasia 1+ [place] Cells Slight Elliptocytes Few Morphology Comment Sodium 142 Potassium 5.2 H Chloride 115 H Carbon Dioxide 16 L Anion Gap 16.2 H BUN 115 H Creatinine 4.30 H GFR Calculation 17 BUN/Creatinine Ratio 26.00 H Glucose 325 H POC Glucose 321 H Calculated Osmolality 332.1 H Calcium 7.9 L
[2016-05-22] MEDS ORDERED: MAGNESIUM HYDROXIDE SUSP 30 ML UDCUP PO PRN (10:20)
[2016-05-22] MEDS: POLYETHYLENE GLYCOL POWDER 17 GM PACK PO SCH (10:59)
[2016-05-23] MEDS: CARVEDILOL 25 MG TABLET PO SCH ×4 (03:58→21:50)
[2016-05-23 05:19] LABS: Hematocrit 29.9 VOL% (42.0-52.0); Hemoglobin 9.1 GM/DL (14.0-18.0); Immature Granulocytes % 0.9 %; Immature Granulocytes Absolute 0.11 #; Lymphocytes # 0.6 10*3/uL (1.4-4.0); Lymphocytes % 5.2 % (21.2-54.2); Mean Corpuscular HGB Conc 30.4 GM/DL (32-36); Mean Corpuscular Hemoglobin 24 PG (27-34); Mean Corpuscular Volume 79.5 FL (87-102); Mean Platelet Volume 11.1 FL (9.6-12.0); Monocytes # 1.1 10*3/uL (0.11-0.8); Monocytes % 9.7 % (1.7-12.7); Neutrophils # 9.8 10*3/uL (1.4-7.4); Neutrophils % 84.2 % (38.7-73.9); Platelet Count 291 T/CUMM (130-400); Red Blood Count 3.76 MC/CUMM (3.8-5.5); Red Cell Distribution Width 21.6 % (9.3-17.3); White Blood Count 11.7 T/CUMM (4-12)
[2016-05-23 05:57] LABS: Calcium 7.7 MG/DL (8.5-10.1); Magnesium 2.7 MG/DL (1.8-2.4); Osmolality,Calculated 323.8 MOS/KG (273-304); Potassium 5.1 MMOL/L (3.5-5.1)
--- NOTE | 2016-05-23 08:56 | Pulmonology Progress Note ---
Pulmonary - PN: Subj Interval history: The patient is an 81-year-old black man that has significant coronary artery disease. He has diabetes and chronic renal insufficiency. The patient was doing fairly well yesterday not having any chest pain or shortness of breath. He does have significant coronary artery disease. Sunday evening he apparently went bradycardic and became unresponsive. A code was called and he was quickly intubated. He has been moved to the CCU. He was on the ventilator for several days but came off okay. His breathing has been fairly stable. He was moved to telemetry last night. He does get confused easily and was found on the floor this morning. He did not have any definite injuries. He says is not short of breath or having any chest pain now. He says he is very weak. Exam (Progress Note) - Constitutional Vitals: Period Temp Pulse Resp BP Sys/[place] Pulse Ox Last 24 Hr 98.2 F-99.2 F 72-110 14-21 95-153/60-98 91-100 Exam: General appearance: normal weight, patient is alert and looks quite comfortable at present. He does not have any respiratory distress. - Head Head exam: Present: normal inspection, normocephalic - Eye Eye exam: Present: EOMI. Absent: scleral icterus Pupils: Present: PATRICK - ENT ENT exam: Present: normal exam - Neck Neck exam: Present: normal inspection. Absent: lymphadenopathy, thyromegaly - Respiratory Respiratory exam: Present: He has good breath sounds bilaterally with fairly good air movement and no wheezing now. - Cardiovascular Cardiovascular exam: Present: JVD, regular rate and rhythm. Absent: gallop, systolic murmur - GI/Abdominal GI/Abdominal exam: Present: normal bowel sounds, soft. Absent: ascites, organomegaly, tenderness - Extremities Exam Extremities exam: Absent: calf tenderness, edema - Back Exam Back exam: Present: normal inspection - Neurological Exam Neurological exam: Present: He is alert but does get confused easily. His legs are extremely weak . Psychiatric exam: Present: normal affect - Skin Skin exam: Present: warm, dry Results - Labs CBC & BMP: 05/23/16 04:38 05/23/16 04:38 Assessment and Plan (1) Non-ST elevation myocardial infarction (NSTEMI) Status: Acute Assessment and plan: The patient has triple-vessel coronary artery disease. He is not having any angina at present. Current Visit: Yes (2) Hypertension Status: Chronic Assessment and plan: The patient's blood pressure is better at present and he is hemodynamically stable. Current Visit: Yes (3) Diabetes mellitus Status: Chronic Assessment and plan: The glucose is 188 today. Current Visit: Yes (4) Former smoker Status: Chronic Assessment and plan: Patient says he quit smoking 40 years ago. Current Visit: Yes (5) Chronic renal insufficiency, stage IV (severe) Status: Chronic Assessment and plan: Patient's creatinine is 3.8 today. Current Visit: Yes (6) COPD (chronic obstructive pulmonary disease) Status: Chronic Assessment and plan: The patient probably does have a component of COPD. He is breathing comfortably off the ventilator now. They can continue with bronchodilator therapy. Current Visit: Yes (7) Cardiopulmonary arrest with successful resuscitation Status: Acute Assessment and plan: The patient had a monitored arrest and has been resuscitated successfully. He came off the ventilator well over the weekend and is breathing comfortably. He is very weak and needs physical therapy. Current Visit: Yes Specialty Discharge - Follow Up or Referrals
[2016-05-23] MEDS: glipiZIDE 10 MG TABLET PO SCH ×2 (10:25→17:13)
[2016-05-23] MEDS: CHOLECALCIFEROL 1,000 UNIT TABLET PO SCH (10:25)
[2016-05-23] MEDS: ROSUVASTATIN 10 MG TABLET PO SCH (10:25)
[2016-05-23] MEDS: ASPIRIN 325 MG TABLET PO SCH (10:25)
[2016-05-23] MEDS: GABAPENTIN 100 MG CAPSULE PO SCH ×3 (10:25→21:50)
[2016-05-23] MEDS: ISOSORBIDE DINITRATE 20 MG TABLET PO SCH ×2 (10:26→21:50)
[2016-05-23] MEDS: ACETAMINOPHEN 325 MG TABLET PO SCH ×2 (10:26→21:51)
[2016-05-23] MEDS: CETIRIZINE 5 MG TABLET PO SCH (10:26)
[2016-05-23] MEDS: IRON (CARBONYL) 45 MG TABLET PO SCH ×2 (10:27→21:50)
[2016-05-23] MEDS: POLYETHYLENE GLYCOL POWDER 17 GM PACK PO SCH (10:34)
[2016-05-23] MEDS: predniSONE 10 MG TABLET PO SCH (10:34)
[2016-05-23] MEDS: MAGNESIUM OXIDE 400 MG TABLET PO SCH (10:34)
[2016-05-23] MEDS: PANTOPRAZOLE 40 MG VIAL IV SCH (11:21)
[2016-05-23] MEDS: BRIMONIDINE 0.2% OPH SOLN 5 ML BOTTLE BOTH EYES SCH ×3 (11:21→21:55)
[2016-05-23] MEDS: INSULIN REGULAR 100 UNIT/ML SUBCUT SCH ×4 (11:44→21:51)
[2016-05-23] MEDS: SODIUM BICARB INJ 150 MEQ in STERILE WATER INJ 850 ML IV SCH ×2 (12:20→21:53)
--- NOTE | 2016-05-23 15:06 | Cardiology Progress Note ---
<Alejandra Monzon E - Last Filed: 05/23/16 14:58> Assessment and Plan - Time spent with patient Time spent with patient: Less than 30 minutes (1) Non-ST elevation myocardial infarction (NSTEMI) Status: Acute Assessment and plan: Patient was found to have ischemic cardiomyopathy and three-vessel CAD. Due to his multiple comorbidities, he was not felt to be a surgical candidate. Will continue medical management. Current Visit: Yes (2) Dyspnea Status: Acute Assessment and plan: O2 PRN. Currently on room air. Clinically much improved. Current Visit: Yes (3) Anemia Status: Acute Assessment and plan: Microcytic. Has required a total of 4 units PRBCs. No overt bleeding noted. Heme occult stools have been ordered but not collected. Will continue to monitor. H&H stable today. Current Visit: Yes (4) Hypertension Status: Chronic Assessment and plan: Mildly improved. Will adjust medications for better optimization of BP. Current Visit: Yes (5) Diabetes mellitus Status: Chronic Assessment and plan: He is on sliding scale insulin. Is receiving PO steroids. Current Visit: Yes (6) Former smoker Status: Chronic Current Visit: Yes (7) Family history of coronary artery disease Status: Chronic Current Visit: Yes (8) Chronic renal insufficiency, stage IV (severe) Status: Chronic Assessment and plan: Nephrology has been consulted. Current Visit: Yes (9) COPD (chronic obstructive pulmonary disease) Status: Chronic Assessment and plan: Has been seen by pulmonology and is felt to have a component of COPD. Currently breathing without difficulty. Current Visit: Yes (10) Cardiopulmonary arrest with successful resuscitation Status: Acute Assessment and plan: Has been extubated over the weekend and is doing well. Was transferred to telemetry yesterday. Current Visit: Yes Cardiology - PN: Subj Interval history: GOODS LAYER: DR. HODGES IN THE REMOTE PAST PCP: DANIELLA Mr. Edmond is an 81 y/o BM with ischemic cardiomyopathy and three-vessel CAD. He was not felt to be a surgical candidate due to his multiple comorbidities. He is status post cardiac arrest on 05/19/16 with junctional rhythm. He was extubated over the weekend and has done well. He was transferred to the telemetry floor last night. He remains fairly weak and requires much assistance when getting out of bed. His creatinine remains elevated at 3.8. We have placed a consult with nephrology. H&H remained stable today. He has a microcytic anemia which has required blood transfusion on 2 separate occasions. Mr. Edmond denies shortness of breath, chest pain, or palpitations. We discontinued his catheter yesterday and he has been voiding without difficulty via urinal. Yesterday he was complaining of not having had a bowel movement in several days. We started him on MiraLAX daily and this has helped. Physical therapy has begun working with him. We will continue medical therapy for his CAD. I spoke with the family today about the possibility of home health or swing bed given his weakness. He lives at home with his who is also elderly. His son is in the room and reports he does not live locally. They are agreeable to discussing these options. Will consult older adult social work specialist to help with discharge planning. The patient's son is in the room and tells me that the patient's overalls, wallet, and keys are missing. The nurses are trying to locate these missing items. Exam (Progress Note) - Constitutional Vitals: Period Temp Pulse Resp BP Sys/[place] Pulse Ox Last 24 Hr 98.2 F-99.2 F 72-91 14-20 95-153/60-98 91-98 Exam: General: Present: Appears Well, No Apparent Distress. Pleasant and cooperative. Appears comfortable. HEENT: Present: PERRL, Normocephaly, atraumatic. Mucus Membranes Moist. No jaundice noted. Conjunctiva moist and clear, sclerae anicteric Neck: Present: Supple Neck, Midline Trachea, No Masses, No Bruit, No tenderness Cardiac: Present: Regular Rate and Rhythm Lungs: Present: Clear to auscultation bilaterally, diminished breath sounds to bilateral bases. Neuro: Present: Awake, alert, and oriented x3. Moves all extremities well without hemiparesis or paralysis. Grossly Intact. Absent: Resting Tremor, Essential Tremor Abdomen: Present: Soft, Active Bowel Sounds, No Masses, Non-Tender, nondistended. No abdominal bruit or thrill noted. Skin: Present: Clear. Absent: Rash, No skin breakdown. Back: Normal inspection, no vertebral tenderness. Musculoskeletal: Present: No Fluid Collection, No Pain, Normal Range of Motion Extremities: Present: Normal Gait, No Clubbing, No Cyanosis, Upper Extr. Pulses 2+, Lower Extr. Pulses 2+, Trace BLE edema. Capillary refill less than 3 seconds. Result/EKG - Labs CBC & BMP: 05/23/16 04:38 05/23/16 04:38 Lab Results: I have reviewed the past 24 hour labs Labs: Laboratory Results - last 24 hr 05/22/16 05/22/16 05/23/16 16:22 21:42 04:38 WBC 11.7 RBC 3.76 L Hgb 9.1 L Hct 29.9 L MCV 79.5 L MCH 24 L MCHC 30.4 L RDW 21.6 H Plt Count 291 MPV 11.1 Neut % (Auto) 84.2 H Lymph % (Auto) 5.2 L [place] % (Auto) 9.7 Eos % (Auto) 0.0 Baso % (Auto) 0.0 Neut # (Auto) 9.8 H Lymph # (Auto) 0.6 L [place] # (Auto) 1.1 H Eos # (Auto) 0.0 Baso # (Auto) 0.0 Immature Gran % 0.9 Nucleated RBC % 0.0 Immature Gran # 0.11 Nucleated RBCs # 0.00 Sodium Potassium Chloride Carbon Dioxide Anion Gap BUN Creatinine GFR Calculation BUN/Creatinine Ratio Glucose POC Glucose 294 H 270 H Calculated Osmolality Calcium Magnesium 05/23/16 05/23/16 04:38 12:01 WBC RBC Hgb Hct MCV MCH MCHC RDW Plt Count MPV Neut % (Auto) Lymph % (Auto) [place] % (Auto) Eos % (Auto) Baso % (Auto) Neut # (Auto) Lymph # (Auto) [place] # (Auto) Eos # (Auto) Baso # (Auto) Immature Gran % Nucleated RBC % Immature Gran # Nucleated RBCs # Sodium 144 Potassium 5.1 Chloride 118 H Carbon Dioxide 18 L Anion Gap 13.1 BUN 104 H Creatinine 3.80 H GFR Calculation 20 BUN/Creatinine Ratio 27.00 H Glucose 188 H POC Glucose 228 H Calculated Osmolality 323.8 H Calcium 7.7 L Magnesium 2.7 H - EKG EKG results: interpreted by me, sinus rhythm (With occasional PVC.) Quality Measures - VTE Contraindication to Pharmacological VTE Prophylaxis: High Risk of Bleeding Specialty Discharge - Follow Up or Referrals <Pan Hernandze - Last Filed: 05/23/16 16:42> Cardiology - PN: Subj Interval history: Patient personally interviewed and examined and chart reviewed. Discussed the patient's case with Alejandra Monzon [employer]. I agree with the assessment as well as history and exam. This patient at knees medical therapy for his coronary disease and will need either home health or swing bed therapy. We'll await the decision on where the patient would be going. This time we'll continue his medical therapy. His rhythm remains stable, his vital signs remained stable. Hopefully we'll be able to be discharged soon. Exam (Progress Note) - Constitutional Vitals: Period Temp Pulse Resp BP Sys/[place] Pulse Ox Last 24 Hr 98.2 F-99.2 F 67-91 14-20 95-153/60-98 91-98 Result/EKG - Labs CBC & BMP: 05/23/16 04:38 05/23/16 04:38 Labs: Laboratory Results - last 24 hr 05/22/16 05/23/16 05/23/16 21:42 04:38 04:38 WBC 11.7 RBC 3.76 L Hgb 9.1 L Hct 29.9 L MCV 79.5 L MCH 24 L MCHC 30.4 L RDW 21.6 H Plt Count 291 MPV 11.1 Neut % (Auto) 84.2 H Lymph % (Auto) 5.2 L [place] % (Auto) 9.7 Eos % (Auto) 0.0 Baso % (Auto) 0.0 Neut # (Auto) 9.8 H Lymph # (Auto) 0.6 L [place] # (Auto) 1.1 H Eos # (Auto) 0.0 Baso # (Auto) 0.0 Immature Gran % 0.9 Nucleated RBC % 0.0 Immature Gran # 0.11 Nucleated RBCs # 0.00 Sodium 144 Potassium 5.1 Chloride 118 H Carbon Dioxide 18 L Anion Gap 13.1 BUN 104 H Creatinine 3.80 H GFR Calculation 20 BUN/Creatinine Ratio 27.00 H Glucose 188 H POC Glucose 270 H Calculated Osmolality 323.8 H Calcium 7.7 L Magnesium 2.7 H 05/23/16 05/23/16 12:01 16:02 WBC RBC Hgb Hct MCV MCH MCHC RDW Plt Count MPV Neut % (Auto) Lymph % (Auto) [place] % (Auto) Eos % (Auto) Baso % (Auto) Neut # (Auto) Lymph # (Auto) [place] # (Auto) Eos # (Auto) Baso # (Auto) Immature Gran % Nucleated RBC % Immature Gran # Nucleated RBCs # Sodium Potassium Chloride Carbon Dioxide Anion Gap BUN Creatinine GFR Calculation BUN/Creatinine Ratio Glucose POC Glucose 228 H 329 H Calculated Osmolality Calcium Magnesium
--- NOTE | 2016-05-23 16:14 | Nephrology Consult Note ---
History of Present Illness Chief complaint: Referred for CKD stage 4 History of present illness: Mr. Edmond is a 81 year old male with CKD longstanding. Creatinine 3.1 a year ago in Mar 2015 for eGFR 26cc/min. Presented with one week hx of SOB/GARZA. Found to have NSTEMI. Creatinine up to 4.4 today for eGFR 16cc/min. Coronary angiography revealed severe 3v dz with EF 20%. CT surgery evaluated, found not to be a candidate for CABG due to prohibitive perioperative risk assessment. Metabolic acidosis with CO2 15, causing K+ shift extracellularly 5.1. Severe Fe deficiency with FeSat 4% (>20% required for erythropoiesis). PMHx: HTN, DM2, ASCAD, COPD, anemia, ASCAD. Pt asleep in bed, arouses easily. Denies SOB/pain. Appetite good. Home Medications Medication Instructions Recorded Confirmed Type Brimonidine 0.2% Oph Soln 1 drop BOTH EYES BID 03/19/15 05/11/16 History [Alphagan P 0.2% Oph Soln] Cholecalciferol (Vitamin D3) 2,000 unit PO DAILY 03/19/15 05/11/16 History [Vitamin D3] Metoprolol Tartrate 25 mg PO BID 03/19/15 05/11/16 History glipiZIDE [Glipizide] 20 mg PO BID W/MEALS 03/19/15 05/11/16 History HYDROcodone/ACETAMIN 7.5-325 1 tablet PO TID 05/11/16 05/11/16 History [Bradford 7.5-325] Allergies Allergy/AdvReac Type Severity Reaction Status Date / Time No Known Allergies Allergy Verified 05/11/16 08:56 Medical,Surgical,& Family Hx - Medical History Cardio: History of: Hypertension Endocrine: History of: Diabetes Mellitus (NIDDM) Respiratory: History of: COPD - Surgical History Abdominal Surgeries: Surgical HX of: Appendectomy Orthopedic Surgeries: Surgical HX of;: Orthopedic Surgery (right hip 3 pins) - Family History Family History: Reports;: Family Hypertension Denies;: Family Hematology, Family Psychiatric Problems, Family Stroke Comment Only: Family Cancer (sister), Family Diabetes (aunt, cousin), Family Heart Disease (mother) - Social History Smoking Status: Former smoker Frequency of Alcohol Use: None Type of Drug Use: None Exam - Vital Signs Vital signs: Period Temp Pulse Resp BP Sys/Maldonado Pulse Ox Last 24 Hr 98.2 F-99.2 F 67-91 14-20 95-153/60-98 91-98 - General Appearance General appearance: well-developed, chronically ill EENT: ATNC, PERRL, mucous membranes dry, hearing intact, vision intact Neck: JVD, no thyromegaly, no carotid bruit Cardiology: mid-systolic murmur, no rub, no edema Gastrointestinal: normoactive bowel sounds, no tenderness Integumentary: no rash, warm and dry Neurologic: no asterixis, alert and oriented x3 Musculoskeletal: no deformities, no erythema Psychiatric: mood/affect appropriate, cooperative Results - Labs CBC & BMP: 05/23/16 04:38 05/23/16 04:38 Assessment and Plan (1) Secondary DM with CKD stage 4 and hypertension Problem details: Pt is not a chronic dialysis candidate due to poor one year predicted survival and comorbidities. Conservative management. Status: Acute Assessment and plan: Will sign off case at this time. Please call for any questions or concerns. Current Visit: Yes (2) Metabolic acidosis Problem details: most likely due to renal failure Status: Acute Assessment and plan: Would potentially benefit from oral bicarb 650mg po bid, this is not however without risk of worsening CHF from sodium load. Normalizing his serum CO2 to > 22 would likely shift potassium intracellularly to a serum level around 4.0-4.5. Current Visit: Yes (3) Iron deficiency anemia Problem details: Goal FeSat >20% Status: Acute Assessment and plan: Would give iron sucrose 200mg slow (2-3 min) IVP daily for 3-5 days to replenish iron stores. This should help his anemia correct nicely and replete his iron stores for approx 6 months. Current Visit: Yes Specialty Discharge - Follow Up or Referrals
[2016-05-24 04:49] LABS: Eosinophils # 0.1 10*3/uL (0.0-0.87); Eosinophils % 1.3 % (0.00-10.9); Hematocrit 28.2 VOL% (42.0-52.0); Hemoglobin 8.8 GM/DL (14.0-18.0); Immature Granulocytes % 0.7 %; Immature Granulocytes Absolute 0.07 #; Lymphocytes % 9.6 % (21.2-54.2); Mean Corpuscular HGB Conc 31.2 GM/DL (32-36); Mean Corpuscular Hemoglobin 24 PG (27-34); Mean Corpuscular Volume 77.9 FL (87-102); Mean Platelet Volume 10.6 FL (9.6-12.0); Monocytes # 1.2 10*3/uL (0.11-0.8); Monocytes % 11.4 % (1.7-12.7); NRBC # 0.02 10*3/uL; Neutrophils # 7.8 10*3/uL (1.4-7.4); Platelet Count 267 T/CUMM (130-400); Red Blood Count 3.62 MC/CUMM (3.8-5.5); Red Cell Distribution Width 21.6 % (9.3-17.3); White Blood Count 10.1 T/CUMM (4-12)
[2016-05-24 05:23] LABS: Calcium 7.8 MG/DL (8.5-10.1); Magnesium 2.4 MG/DL (1.8-2.4); Osmolality,Calculated 317.7 MOS/KG (273-304); Potassium 4.5 MMOL/L (3.5-5.1)
[2016-05-24 05:27] LABS: % Iron Saturation 27.5 % (18-50); Uric Acid 11.2 MG/DL (3.5-7.2)
[2016-05-24] MEDS: CARVEDILOL 25 MG TABLET PO SCH ×4 (06:04→21:26)
[2016-05-24 06:51] LABS: Creatinine,Urine Random 56 MG/DL; Total Protein,Urine Random 31 MG/DL; Urea Nitrogen, Urine Random 926 MG/DL
[2016-05-24] MEDS: SODIUM BICARB INJ 150 MEQ in STERILE WATER INJ 850 ML IV SCH ×2 (08:26→19:19)
[2016-05-24] MEDS: glipiZIDE 10 MG TABLET PO SCH ×2 (08:31→16:28)
[2016-05-24] MEDS: ROSUVASTATIN 10 MG TABLET PO SCH (08:32)
[2016-05-24] MEDS: ASPIRIN 325 MG TABLET PO SCH (08:32)
[2016-05-24] MEDS: ISOSORBIDE DINITRATE 20 MG TABLET PO SCH ×2 (08:33→21:26)
[2016-05-24] MEDS: POLYETHYLENE GLYCOL POWDER 17 GM PACK PO SCH (08:33)
[2016-05-24] MEDS: GABAPENTIN 100 MG CAPSULE PO SCH ×3 (08:33→21:27)
[2016-05-24] MEDS: IRON (CARBONYL) 45 MG TABLET PO SCH ×2 (08:33→21:27)
[2016-05-24] MEDS: MAGNESIUM OXIDE 400 MG TABLET PO SCH (08:33)
[2016-05-24] MEDS: ACETAMINOPHEN 325 MG TABLET PO SCH ×2 (08:34→21:27)
[2016-05-24] MEDS: predniSONE 10 MG TABLET PO SCH (08:34)
[2016-05-24] MEDS: CHOLECALCIFEROL 1,000 UNIT TABLET PO SCH (08:34)
[2016-05-24] MEDS: CETIRIZINE 5 MG TABLET PO SCH (08:34)
[2016-05-24] MEDS: PANTOPRAZOLE 40 MG VIAL IV SCH (08:40)
[2016-05-24] MEDS: INSULIN REGULAR 100 UNIT/ML SUBCUT SCH ×4 (08:45→21:29)
[2016-05-24] MEDS: BRIMONIDINE 0.2% OPH SOLN 5 ML BOTTLE BOTH EYES SCH ×3 (08:45→21:25)
--- NOTE | 2016-05-24 13:02 | Pulmonology Progress Note ---
Pulmonary - PN: Subj Interval history: The patient is an 81-year-old black man that has significant coronary artery disease. He has diabetes and chronic renal insufficiency. The patient was doing fairly well yesterday not having any chest pain or shortness of breath. He does have significant coronary artery disease. Sunday evening he apparently went bradycardic and became unresponsive. A code was called and he was quickly intubated. He has been moved to the CCU. He was on the ventilator for several days but came off okay. His breathing has been fairly stable. He said he had a fairly good night and his breathing is better. He is sitting up a little better and more active. He did do some activity with physical therapy. Overall he appears stable Exam (Progress Note) - Constitutional Vitals: Period Temp Pulse Resp BP Sys/Maldonado Pulse Ox Last 24 Hr 98.4 F-98.8 F 64-71 16-20 103-145/57-86 90-98 Exam: General appearance: normal weight, patient is alert and looks quite comfortable at present. He does not have any respiratory distress. - Head Head exam: Present: normal inspection, normocephalic - Eye Eye exam: Present: EOMI. Absent: scleral icterus Pupils: Present: PATRICK - ENT ENT exam: Present: normal exam - Neck Neck exam: Present: normal inspection. Absent: lymphadenopathy, thyromegaly - Respiratory Respiratory exam: Present: He has good breath sounds bilaterally with fairly good air movement and no wheezing now. - Cardiovascular Cardiovascular exam: Present: His heart rate is regular without a definite gallop. His PMI is laterally displaced. - GI/Abdominal GI/Abdominal exam: Present: normal bowel sounds, soft. Absent: ascites, organomegaly, tenderness - Extremities Exam Extremities exam: Absent: calf tenderness, edema - Back Exam Back exam: Present: normal inspection - Neurological Exam Neurological exam: Present: He is more alert today and less confused. Psychiatric exam: Present: normal affect - Skin Skin exam: Present: warm, dry Results - Labs CBC & BMP: 05/24/16 04:23 05/24/16 04:23 Assessment and Plan (1) Non-ST elevation myocardial infarction (NSTEMI) Status: Acute Assessment and plan: The patient has triple-vessel coronary artery disease. He is not having any angina at present. He appears to be stable at present. Current Visit: Yes (2) Hypertension Status: Chronic Assessment and plan: The patient's blood pressure is better at present and he is hemodynamically stable. Current Visit: Yes (3) Diabetes mellitus Status: Chronic Assessment and plan: The glucose is 239 today. Current Visit: Yes (4) Former smoker Status: Chronic Assessment and plan: Patient says he quit smoking 40 years ago. Current Visit: Yes (5) Chronic renal insufficiency, stage IV (severe) Status: Chronic Assessment and plan: Patient's creatinine is 3.1 today. Current Visit: Yes (6) COPD (chronic obstructive pulmonary disease) Status: Chronic Assessment and plan: The patient probably does have a component of COPD. He is breathing comfortably off the ventilator now. They can continue with bronchodilator therapy. It appears to be stable from a cardiopulmonary standpoint. He may need a swing bed. I will drop off at this time. Current Visit: Yes (7) Cardiopulmonary arrest with successful resuscitation Status: Acute Assessment and plan: The patient had a monitored arrest and has been resuscitated successfully. He came off the ventilator well over the weekend and is breathing comfortably. He is very weak and needs physical therapy. Current Visit: Yes Specialty Discharge - Follow Up or Referrals
--- NOTE | 2016-05-24 13:20 | Cardiology Progress Note ---
<Alejandra Monzon E - Last Filed: 05/24/16 13:15> Assessment and Plan - Time spent with patient Time spent with patient: Less than 30 minutes (1) Non-ST elevation myocardial infarction (NSTEMI) Status: Acute Assessment and plan: Patient was found to have ischemic cardiomyopathy and three-vessel CAD. Due to his multiple comorbidities, he was not felt to be a surgical candidate. Will continue medical management. Current Visit: Yes (2) Dyspnea Status: Acute Assessment and plan: O2 PRN. Currently on room air. Clinically much improved. Current Visit: Yes (3) Anemia Status: Acute Assessment and plan: Microcytic. Has required a total of 4 units PRBCs. No overt bleeding noted. Heme occult stools have been ordered but not collected. Will continue to monitor. H&H slightly decreased today from yesterday. Current Visit: Yes (4) Hypertension Status: Chronic Assessment and plan: Overall improved. He has still had some occasional elevated blood pressure readings, however, his blood pressure did drop to 103/57 during the night. We will continue with current therapy. Current Visit: Yes (5) Diabetes mellitus Status: Chronic Assessment and plan: He is on sliding scale insulin. Is receiving PO steroids. Current Visit: Yes (6) Former smoker Status: Chronic Current Visit: Yes (7) Family history of coronary artery disease Status: Chronic Current Visit: Yes (8) Chronic renal insufficiency, stage IV (severe) Status: Chronic Assessment and plan: Nephrology has been consulted and did not have much to add. He was placed on a bicarbonate infusion and his creatinine is 3.1 today. Current Visit: Yes (9) COPD (chronic obstructive pulmonary disease) Status: Chronic Assessment and plan: Has been seen by pulmonology and is felt to have a component of COPD. Currently breathing without difficulty. Current Visit: Yes (10) Cardiopulmonary arrest with successful resuscitation Status: Acute Assessment and plan: Has been extubated over the weekend and is doing well. Has been housed on the telemetry unit for the past couple of days and is making improvements. He should be ready for discharge soon. Current Visit: Yes Cardiology - PN: Subj Interval history: DAIRY QUALITY ASSURANCE OFFICER: DR. HODGES IN THE REMOTE PAST PCP: [place] Mr. Edmond is an 81 y/o BM with ischemic cardiomyopathy and three-vessel CAD. He was not felt to be a surgical candidate due to his multiple comorbidities. He is status post cardiac arrest on 4/14/17 with junctional rhythm. He was extubated over the weekend and has done well. He remains fairly weak and requires much assistance when getting out of bed. He will be ready for discharge soon but is still requiring lots of assistance with ambulation and transfers. He will either need swing bed placement or home health. However, the patient thinks that he will be completely well by the time he goes home. In discussion with his family yesterday about home health or swing bed placement and they were to discuss their preferences. They are not in the room upon exam but we will try to speak with them at some point today to further discuss discharge options. Mr. Edmond's creatinine has been elevated since admission and we consulted nephrology, however they did not have much to add. He was started on bicarbonate infusion to hopefully help with his kidney function. Creatinine is down to 3.1 today. We will continue with medical therapy today and plan on discharge soon. Case management has been consulted to assist us with discharge planning. Exam (Progress Note) - Constitutional Vitals: Period Temp Pulse Resp BP Sys/Maldonado Pulse Ox Last 24 Hr 98.4 F-98.8 F 64-71 16-20 103-145/57-86 90-98 Exam: General: Present: Appears Well, No Apparent Distress. Pleasant and cooperative. Appears comfortable. HEENT: Present: PERRL, Normocephaly, atraumatic. Mucus Membranes Moist. No jaundice noted. Conjunctiva moist and clear, sclerae anicteric Neck: Present: Supple Neck, Midline Trachea, No Masses, No Bruit, No tenderness Cardiac: Present: Regular Rate and Rhythm Lungs: Present: Clear to auscultation bilaterally, diminished breath sounds to bilateral bases. Neuro: Present: Awake, alert, and oriented x3. Moves all extremities well without hemiparesis or paralysis. Grossly Intact. Absent: Resting Tremor, Essential Tremor Abdomen: Present: Soft, Active Bowel Sounds, No Masses, Non-Tender, nondistended. No abdominal bruit or thrill noted. Skin: Present: Clear. Absent: Rash, No skin breakdown. Back: Normal inspection, no vertebral tenderness. Musculoskeletal: Present: No Fluid Collection, No Pain, Normal Range of Motion Extremities: Present: Normal Gait, No Clubbing, No Cyanosis, Upper Extr. Pulses 2+, Lower Extr. Pulses 2+, Trace BLE edema. Capillary refill less than 3 seconds. Result/EKG - Labs CBC & BMP: 05/24/16 04:23 05/24/16 04:23 Lab Results: I have reviewed the past 24 hour labs Labs: Laboratory Results - last 24 hr 05/23/16 05/23/16 05/23/16 04:00 16:02 20:23 WBC RBC Hgb Hct MCV MCH MCHC RDW Plt Count MPV Neut % (Auto) Lymph % (Auto) [place] % (Auto) Eos % (Auto) Baso % (Auto) Neut # (Auto) Lymph # (Auto) [place] # (Auto) Eos # (Auto) Baso # (Auto) Immature Gran % Nucleated RBC % Immature Gran # Nucleated RBCs # Sodium Potassium Chloride Carbon Dioxide Anion Gap BUN Creatinine GFR Calculation BUN/Creatinine Ratio Glucose POC Glucose 329 H 275 H Calculated Osmolality Uric Acid Calcium Magnesium Iron TIBC % Saturation PTH Intact Ur Random Creatinine 56 U Random Total Protein 31 Ur Random Urea Nitrogn 926 05/24/16 05/24/16 05/24/16 04:23 04:23 04:23 WBC 10.1 RBC 3.62 L Hgb 8.8 L Hct 28.2 L MCV 77.9 L MCH 24 L MCHC 31.2 L RDW 21.6 H Plt Count 267 MPV 10.6 Neut % (Auto) 77.0 H Lymph % (Auto) 9.6 L [place] % (Auto) 11.4 Eos % (Auto) 1.3 Baso % (Auto) 0.0 Neut # (Auto) 7.8 H Lymph # (Auto) 1.0 L [place] # (Auto) 1.2 H Eos # (Auto) 0.1 Baso # (Auto) 0.0 Immature Gran % 0.7 Nucleated RBC % 0.2 Immature Gran # 0.07 Nucleated RBCs # 0.02 Sodium 145 Potassium 4.5 Chloride 113 H Carbon Dioxide 22 Anion Gap 14.5 BUN 94 H D Creatinine 3.10 H GFR Calculation 25 BUN/Creatinine Ratio 30.00 H Glucose 112 H POC Glucose Calculated Osmolality 317.7 H Uric Acid 11.2 H Calcium 7.8 L Magnesium 2.4 Iron 60 L TIBC 218 L % Saturation 27.5 PTH Intact Ur Random Creatinine U Random Total Protein Ur Random Urea Nitrogn 05/24/16 05/24/16 05/24/16 04:23 07:57 12:16 WBC RBC Hgb Hct MCV MCH MCHC RDW Plt Count MPV Neut % (Auto) Lymph % (Auto) [place] % (Auto) Eos % (Auto) Baso % (Auto) Neut # (Auto) Lymph # (Auto) [place] # (Auto) Eos # (Auto) Baso # (Auto) Immature Gran % Nucleated RBC % Immature Gran # Nucleated RBCs # Sodium Potassium Chloride Carbon Dioxide Anion Gap BUN Creatinine GFR Calculation BUN/Creatinine Ratio Glucose POC Glucose 104 239 H Calculated Osmolality Uric Acid Calcium Magnesium Iron TIBC % Saturation PTH Intact 714.3 H Ur Random Creatinine U Random Total Protein Ur Random Urea Nitrogn - EKG EKG results: interpreted by me, sinus rhythm Quality Measures - VTE Contraindication to Pharmacological VTE Prophylaxis: High Risk of Bleeding Specialty Discharge - Follow Up or Referrals <Pan Hernandez - Last Filed: 05/24/16 14:40> Cardiology - PN: Subj Interval history: Patient personally interviewed and examined and chart reviewed. Discussed the case with Alejandra Thurman. Agree with the history exam and assessment. The patient states he is ambulating well with physical therapy. He is very resistant to consider swing bed or other outpatient rehabilitation facility. He clinically is making good progress. Hopefully be able to be discharged next day or 2. If he and family agree then we will send him swing bed. We'll continue his therapy as an outpatient he will keep follow up as an outpatient. Exam (Progress Note) - Constitutional Vitals: Period Temp Pulse Resp BP Sys/Maldonado Pulse Ox Last 24 Hr 98.4 F-98.8 F 64-71 16-20 103-145/57-86 90-98 Result/EKG - Labs CBC & BMP: 05/24/16 04:23 05/24/16 04:23 Labs: Laboratory Results - last 24 hr 05/23/16 05/23/16 05/23/16 04:00 16:02 20:23 WBC RBC Hgb Hct MCV MCH MCHC RDW Plt Count MPV Neut % (Auto) Lymph % (Auto) [place] % (Auto) Eos % (Auto) Baso % (Auto) Neut # (Auto) Lymph # (Auto) [place] # (Auto) Eos # (Auto) Baso # (Auto) Immature Gran % Nucleated RBC % Immature Gran # Nucleated RBCs # Sodium Potassium Chloride Carbon Dioxide Anion Gap BUN Creatinine GFR Calculation BUN/Creatinine Ratio Glucose POC Glucose 329 H 275 H Calculated Osmolality Uric Acid Calcium Magnesium Iron TIBC % Saturation PTH Intact Ur Random Creatinine 56 U Random Total Protein 31 Ur Random Urea Nitrogn 926 05/24/16 05/24/16 05/24/16 04:23 04:23 04:23 WBC 10.1 RBC 3.62 L Hgb 8.8 L Hct 28.2 L MCV 77.9 L MCH 24 L MCHC 31.2 L RDW 21.6 H Plt Count 267 MPV 10.6 Neut % (Auto) 77.0 H Lymph % (Auto) 9.6 L [place] % (Auto) 11.4 Eos % (Auto) 1.3 Baso % (Auto) 0.0 Neut # (Auto) 7.8 H Lymph # (Auto) 1.0 L [place] # (Auto) 1.2 H Eos # (Auto) 0.1 Baso # (Auto) 0.0 Immature Gran % 0.7 Nucleated RBC % 0.2 Immature Gran # 0.07 Nucleated RBCs # 0.02 Sodium 145 Potassium 4.5 Chloride 113 H Carbon Dioxide 22 Anion Gap 14.5 BUN 94 H D Creatinine 3.10 H GFR Calculation 25 BUN/Creatinine Ratio 30.00 H Glucose 112 H POC Glucose Calculated Osmolality 317.7 H Uric Acid 11.2 H Calcium 7.8 L Magnesium 2.4 Iron 60 L TIBC 218 L % Saturation 27.5 PTH Intact Ur Random Creatinine U Random Total Protein Ur Random Urea Nitrogn 05/24/16 05/24/16 05/24/16 04:23 07:57 12:16 WBC RBC Hgb Hct MCV MCH MCHC RDW Plt Count MPV Neut % (Auto) Lymph % (Auto) [place] % (Auto) Eos % (Auto) Baso % (Auto) Neut # (Auto) Lymph # (Auto) [place] # (Auto) Eos # (Auto) Baso # (Auto) Immature Gran % Nucleated RBC % Immature Gran # Nucleated RBCs # Sodium Potassium Chloride Carbon Dioxide Anion Gap BUN Creatinine GFR Calculation BUN/Creatinine Ratio Glucose POC Glucose 104 239 H Calculated Osmolality Uric Acid Calcium Magnesium Iron TIBC % Saturation PTH Intact 714.3 H Ur Random Creatinine U Random Total Protein Ur Random Urea Nitrogn
[2016-05-25] MEDS: SODIUM BICARB INJ 150 MEQ in STERILE WATER INJ 850 ML IV SCH (04:14)
[2016-05-25] MEDS: CARVEDILOL 25 MG TABLET PO SCH ×2 (04:16→08:59)
[2016-05-25 04:35] LABS: Calcium 7.6 MG/DL (8.5-10.1); Magnesium 2.2 MG/DL (1.8-2.4); Osmolality,Calculated 317.7 MOS/KG (273-304); Potassium 4.5 MMOL/L (3.5-5.1)
[2016-05-25] MEDS: INSULIN REGULAR 100 UNIT/ML SUBCUT SCH ×2 (08:55→12:39)
[2016-05-25] MEDS: glipiZIDE 10 MG TABLET PO SCH (08:56)
[2016-05-25] MEDS: BRIMONIDINE 0.2% OPH SOLN 5 ML BOTTLE BOTH EYES SCH ×2 (08:57→14:42)
[2016-05-25] MEDS: ROSUVASTATIN 10 MG TABLET PO SCH (08:57)
[2016-05-25] MEDS: ASPIRIN 325 MG TABLET PO SCH (08:57)
[2016-05-25] MEDS: IRON (CARBONYL) 45 MG TABLET PO SCH (08:57)
[2016-05-25] MEDS: ISOSORBIDE DINITRATE 20 MG TABLET PO SCH (08:58)
[2016-05-25] MEDS: CHOLECALCIFEROL 1,000 UNIT TABLET PO SCH (08:58)
[2016-05-25] MEDS: CETIRIZINE 5 MG TABLET PO SCH (08:58)
[2016-05-25] MEDS: predniSONE 10 MG TABLET PO SCH (08:58)
[2016-05-25] MEDS: POLYETHYLENE GLYCOL POWDER 17 GM PACK PO SCH (08:58)
[2016-05-25] MEDS: ACETAMINOPHEN 325 MG TABLET PO SCH (08:58)
[2016-05-25] MEDS: MAGNESIUM OXIDE 400 MG TABLET PO SCH (08:58)
[2016-05-25] MEDS: GABAPENTIN 100 MG CAPSULE PO SCH ×2 (08:58→14:42)
[2016-05-25] MEDS: PANTOPRAZOLE 40 MG VIAL IV SCH (08:59)
--- NOTE | 2016-05-25 12:39 | Discharge Summary ---
<Diego Monzonen E - Last Filed: 05/25/16 13:16> Hospital Course - Hospital Course Hospital Course: LIFTER: DR. KINGSTON Mr. Edmond is an 81 year old male who was admitted to the hospital on 05/11/16 with dyspnea. He has a history of hypertension, diabetes, and former tobacco use. 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 Mr. Edmond presented to the emergency room this morning with complaints of shortness of breath x1 week which worsened last night. He tells me prior to 1 week ago, he had no difficulties performing his daily activities. He denies associated symptoms of chest pain, chest discomfort, jaw pain, neck pain, arm pain, or back pain. He was found to have a non-ST elevation myocardial infarction with initial troponin of 4.610 with CPK 463 and CK-MB 10.3. Due to an elevated creatinine greater than 3, heart catheterization was postponed to minimize damage to his kidneys. Left heart catheterization was performed on 05/15/16 and he was found to have significant disease in all 3 vessels and cardiomyopathy with severe LV systolic dysfunction and EF 20% per recent echo. He was felt to be a poor candidate for coronary artery bypass grafting due to multiple comorbidities and high risk of mortality. He was also felt to be at high risk for further intervention due to his LV function and elevated creatinine. It was decided to proceed with medical management. On the afternoon of 05/18/16, Mr. Edmond went into respiratory arrest with junctional rhythm and required intubation. He was transferred from telemetry to the CCU where he remained on the ventilator for 2 days. He was successfully extubated and subsequently transferred back to the telemetry floor for further management. During the hospitalization, he was found to have a microcytic anemia which required blood transfusion of a total of 4 units PRBCs. Looking back at his records, he has had a chronic anemia dating back to 2004. He did not have any overt bleeding during his stay. Following extubation and transfer to telemetry, he has been weak and has required use of a bedside commode as well as a walker. Physical therapy has been working with him daily. He remains weak, but is requesting to be discharged. We have requested he consider a transfer to [facility] for rehabilitation or home health with physical therapy but he has adamantly refused both of these options on numerous occasions. Today, he tells me that he still occasionally gets dizzy when he stands up, but is still requesting to be discharged home. He was offered an additional night's stay in the hospital but declined. At this time, he has met maximum medical benefit and will be discharged home. We will discharge Mr. Edmond today with home medical equipment to include a bedside commode, walker, and cane. He needs to monitor his blood pressure daily and follow up with his primary care provider within 1 week regarding his blood pressure. He will follow up with Dr. Kingston in 2-3 weeks with an EKG, CBC, BMP w/ Mg. - Time spent with patient Time with patient DS: Greater than 30 minutes (due to discharge planning, discussion, and documentation) Diagnosis - Discharge Diagnosis (1) Non-ST elevation myocardial infarction (NSTEMI) Status: Acute (2) Dyspnea Status: Resolved (3) Anemia Status: Chronic (4) Hypertension Status: Chronic (5) Diabetes mellitus Status: Chronic (6) Former smoker Status: Chronic (7) Family history of coronary artery disease Status: Chronic (8) Chronic renal insufficiency, stage IV (severe) Status: Chronic (9) COPD (chronic obstructive pulmonary disease) Status: Chronic (10) Cardiopulmonary arrest with successful resuscitation Status: Resolved Specialty Discharge - Follow Up or Referrals Follow up with: Nubia Kingston MD [Physician] - 06/15/16 2:00 pm (Follow up with Dr. Kingston in 2-3 weeks with EKG, CBC, BMP w/ Mg. ) Discharge Plan - Discharge Data Disposition: Disch To Home/Self Care Condition at Discharge: Stable Discharge Diet: diabetic diet, heart healthy Activity: ambulate only with your walker, increase activity as tolerated Hygiene: no restrictions (use shower hand rails and non-slip mat in shower) Weight Bearing at Discharge: full weight bearing Contact your physician if you experience:: fever over 101, Difficulty voiding, Redness or swelling, Nausea/Vomiting, Shortness of breath, Bleeding, pain uncontrolled by pain medications - Discharge Medications New Aspirin Tab 325 mg PO DAILY #30 tablet Cetirizine Tab [ZyrTEC Tab] 5 mg PO DAILY #30 tablet Gabapentin Cap/Tab [Neurontin Cap/Tab] 100 mg PO TID #90 capsule Isosorbide Dinitrate [Isordil] 20 mg PO BID #60 tablet Magnesium Oxide 400 mg PO DAILY #30 tablet Rosuvastatin [Crestor] 5 mg PO DAILY #30 tablet hydrALAZINE TAB [Apresoline Tab] 75 mg PO TID #90 tablet predniSONE TAB [PredniSONE] 5 mg PO DAILY #7 tablet Iron (Carbonyl) [Feosol Natural Release Tab] 45 mg PO BID #60 tablet Continue Brimonidine 0.2% Oph Soln [Alphagan P 0.2% Oph Soln] 1 drop BOTH EYES BID glipiZIDE [Glipizide] 20 mg PO BID W/MEALS Cholecalciferol (Vitamin D3) [Vitamin D3] 2,000 unit PO DAILY HYDROcodone/ACETAMIN 7.5-325 [[place] 7.5-325] 1 tablet PO TID Metoprolol Tartrate 25 mg PO BID #60 tablet - Follow Up or Referral Follow Up: Nubia Kingston MD [Physician] - 06/15/16 2:00 pm (Follow up with Dr. Kingston in 2-3 weeks with EKG, CBC, BMP w/ Mg. ) - Forms/Instructions Instructions: Myocardial Infarction (GEN), Heart Healthy Diet (GEN) Additional Discharge Instructions: Monitor blood pressure daily and record. Follow up within 1 week with primary care provider regarding blood pressure and hospital follow up. Follow up with Dr. Kingston within 2-3 weeks with EKG, CBC , BMP w/ Mg. Exam - Constitutional Vitals: Period Temp Pulse Resp BP Sys/[place] Pulse Ox Last 24 Hr 98 F-99.3 F 65-75 16-20 121-151/66-80 92-97 Exam: General: Present: Appears Well, No Apparent Distress. Pleasant and cooperative. Appears comfortable. HEENT: Present: PERRL, Normocephaly, atraumatic. Mucus Membranes Moist. No jaundice noted. Conjunctiva moist and clear, sclerae anicteric Neck: Present: Supple Neck, Midline Trachea, No Masses, No Bruit, No tenderness Cardiac: Present: Regular Rate and Rhythm Lungs: Present: Clear to auscultation bilaterally, diminished breath sounds to bilateral bases. Neuro: Present: Awake, alert, and oriented x3. Moves all extremities well without hemiparesis or paralysis. Grossly Intact. Absent: Resting Tremor, Essential Tremor Abdomen: Present: Soft, Active Bowel Sounds, No Masses, Non-Tender, nondistended. No abdominal bruit or thrill noted. Skin: Present: Clear. Absent: Rash, No skin breakdown. Back: Normal inspection, no vertebral tenderness. Musculoskeletal: Present: No Fluid Collection, No Pain, Normal Range of Motion Extremities: Present: Normal Gait, No Clubbing, No Cyanosis, Upper Extr. Pulses 2+, Lower Extr. Pulses 2+, Trace BLE edema. Capillary refill less than 3 seconds. Discharge Results Procedures and tests throughout hospitalization: Left heart catheterization 05/15/16: Angiographic data: The left main coronary was large and had minimal luminal irregularities. The left anterior descending artery was moderate to large. There is a proximal 90% narrowing. Also the junction of the mid and distal segment there was another 90% narrowing. Prior to angiography there is noted to be a moderate amount of coronary calcification. The left circumflex system was moderate to large. There was one obtuse marginal posterolateral branch. After the obtuse marginal, there was a 90% narrowing which supplied a small posterior lateral branch. The mid circumflex had a mild to moderate lesion. The right coronary artery was large in size, dominant vessel with the PDA. He was totally occluded proximally. There were 2 and a grade 3 [id number] collaterals. The total occlusion was long from the proximal vessel to approximately just before the takeoff of the PDA Impression: Significant disease in all 3 vessels The LAD has a proximal and mid lesion which are significant--greater than 80-90 % Left circumflex has a mid circumflex lesion which is critical,, greater than 90% , supplying the post lateral branch Occluded right coronary with HECTOR grade II collaterals from the left system Known severe LV systolic dysfunction, LVEF 20% , by recent echo Severe LV diastolic dysfunction, LVEDP 35-40 mmHg--[I checked the 0 to make sure this was correct, and it was] Known creatinine about 3.8-contrast was minimized with the cardiac swing protocol, 26 cc of [place] Labs on day of discharge: Labs from last 24 hours 05/25/16 05/25/16 05/25/16 12:03 08:05 03:32 Sodium 145 Potassium 4.5 Chloride 108 H Carbon Dioxide 28 Anion Gap 13.5 BUN 76 H D Creatinine 2.90 H GFR Calculation 27 BUN/Creatinine Ratio 26.00 H Glucose 225 H POC Glucose 258 H 202 H Calculated Osmolality 317.7 H Calcium 7.6 L Magnesium 2.2 05/24/16 05/24/16 19:58 15:30 Sodium Potassium Chloride Carbon Dioxide Anion Gap BUN Creatinine GFR Calculation BUN/Creatinine Ratio Glucose POC Glucose 334 H 297 H Calculated Osmolality Calcium Magnesium DS: Provider Date of admission: 05/11/16 10:24 Primary care physician: . No PCP Attending physician on admission: Gilmer Curiel MD Consults: 05/11/16 14:38 Consult to Pharmacy [CONS] Routine Reason for Pharmacy Consult: Adjust Meds Renal Funct 05/12/16 06:36 Consult to Cardiac Rehabilitation [CONS] Routine Reason for Cardiac Rehabilitation: Risk Factor Modification 05/15/16 13:41 Consult to Physician [CONS] Routine Comment: positive cath, EF 20, Cr 3.8 Consulting Provider: Andres Anna When should Consulting Provider be notified: Now Person Notified: Jess Date Notified: 05/15/16 Time Notified: 13:45 05/15/16 21:22 Consult to Physician [CONS] Routine Comment: Consulting Provider: Phil Acosta Consulting Provider Notified: No When should Consulting Provider be notified: In am Consult Notification Comment: 81+-year-old man with three-vessel coronary disease, severe LV dysfunction, high LVEDP, and wheezing. He has diabetes. This may be cardiac asthma but may be pulmonary related. Please assess and optimize what you can. Thank you. If Dr. Acosta is not available, it could be Dr. Dunn or Dr. Shaikh. 05/22/16 09:51 Consult to Physical Therapy [CONS] Routine Reason for Physical Therapy: Evaluate and Treat Gait Training Weakness Consult Comment: s/p cardiac arrest, extubated over the weekend 05/22/16 10:02 Consult to Physician [CONS] Routine Comment: Chronic renal failure. Creatinine 4.3. Consulting Provider: Carl Mccray Consult to Specialist Group: Nephrology Person Notified: SISSY Date Notified: 05/23/16 Time Notified: 09:40 05/23/16 15:07 Consult to Case Mgmt/Social Srvs [CONS] Routine Reason for Case Mgmt/Social Srvs: Discharge Planning Home Health Swingbed/SNF/Residential Consult Comment: Please help set up home health or swingbed at discharge. 05/25/16 12:02 Consult to Case Mgmt/Social Srvs [CONS] Routine Reason for Case Mgmt/Social Srvs: Equipment Consult Comment: bedside ch[employer] walker Discharging clinician: CLAUDIA Colin- Expected date of discharge: 05/25/16 <Pan Hernandez Phil - Last Filed: 05/25/16 14:58> Hospital Course - Hospital Course Hospital Course: Patient personally interviewed and examined and chart reviewed. I discussed this case with Alejandra Monzon VP [employer]. I agree with the history and exam as well as assessment. This patient will be discharged to follow up as an outpatient with Dr. Kingston. I answered all of his questions. He is agreeable and desires to be discharged.
[2016-05-25 12:46] VITALS: BP 151/73
== END 2016-05-25 15:30 | disposition home or self-care (01) | DRG 280 ==
LOC: N.ED 08:54 → N.EDINP 10:24 → N.TELEN 16:52 → N.CC 05-17 22:00 → N.TELES 05-22 19:03
PROVIDERS: ADMIT Internal Medicine Cardiovascular Disease; ATTEND Internal Medicine Cardiovascular Disease
PROC: CLCCHCL (ICD-10-PCS; 2016-05-15 09:15)

== ENCOUNTER 2016-09-17 05:42 | Inpatient (IN) ==
[2016-09-17 06:01] LABS: Basophils # 0.1 10*3/uL (0.0-0.2); Basophils % 0.7 % (0.0-0.8); Eosinophils # 0.2 10*3/uL (0.0-0.87); Eosinophils % 1.8 % (0.00-10.9); Hematocrit 28.9 VOL% (42.0-52.0); Hemoglobin 9.1 GM/DL (14.0-18.0); Immature Granulocytes % 0.5 %; Immature Granulocytes Absolute 0.04 #; Lymphocytes # 1.2 10*3/uL (1.4-4.0); Lymphocytes % 14.3 % (21.2-54.2); Mean Corpuscular HGB Conc 31.5 GM/DL (32-36); Mean Corpuscular Hemoglobin 28 PG (27-34); Mean Corpuscular Volume 87.8 FL (87-102); Mean Platelet Volume 9.7 FL (9.6-12.0); Monocytes # 0.8 10*3/uL (0.11-0.8); Neutrophils # 6.1 10*3/uL (1.4-7.4); Neutrophils % 72.7 % (38.7-73.9); Platelet Count 386 T/CUMM (130-400); Red Blood Count 3.29 MC/CUMM (3.8-5.5); Red Cell Distribution Width 15.6 % (9.3-17.3); White Blood Count 8.4 T/CUMM (4-12)
[2016-09-17] MEDS ORDERED: MORPHINE 2 MG/1 ML SYRINGE IV STA (06:04)
[2016-09-17] MEDS ORDERED: FUROSEMIDE 40 MG/4 ML VIAL IV STA ×2 (06:04→06:35)
[2016-09-17] MEDS ORDERED: ASPIRIN 325 MG TABLET PO STA (06:04)
[2016-09-17] MEDS ORDERED: ASPIRIN 325 MG TABLET ONE (06:06)
[2016-09-17] MEDS ORDERED: MORPHINE 2 MG/1 ML SYRINGE ONE ×2 (06:11→08:14)
[2016-09-17] MEDS ORDERED: FUROSEMIDE 40 MG/4 ML VIAL ONE ×2 (06:11→06:36)
[2016-09-17 06:36] LABS: Albumin 3.4 G/DL (3.4-5.0); Bilirubin,Total 0.5 MG/DL (0.2-1.0); Calcium 9.2 MG/DL (8.5-10.1); Osmolality,Calculated 297.8 MOS/KG (273-304); Potassium 4.6 MMOL/L (3.5-5.1); Total Protein 7.6 G/DL (6.4-8.3)
[2016-09-17 06:40] LABS: Troponin I Only 2.12 NG/ML (0.00-0.045)
[2016-09-17] MEDS ORDERED: NITROGLYCERIN 2% OINT 1 INCH/GM PACK TOP STA (07:00)
--- NOTE | 2016-09-17 07:18 | Emergency Department Note ---
Adam Montelongo Brittany, am scribing for, and in the presence of, Jose Hawk MD 06:05. Kenn Montelongo Doug C, MD, personally performed the services described in this documentation, ascribed by Doreen Medina in my presence, and it is both accurate and complete . Arrival - Arrival Chief Complaint: Shortness of Breath Stated Complaint: sob ED Nursing Triage Note: Pt complaint of shortness of breath for the past 2 days that has progressively worsened. States the sob is worse with exertion. Denies respiratory history. Mode of Arrival: Stretcher Limitations: No Limitations Source: Patient, RN Notes Reviewed - History of Present Illness HPI Narrative: Patient is 81-year-old black male presents emergency room complaining of increasing shortness of breath and dyspnea on exertion is been going on for the last 3 days. Patient's been experiencing orthopnea and PND. He has a past medical history of ischemic cardiomyopathy with EF of 20%. Patient did have a left heart catheterization in May of this year that revealed three-vessel disease but he is not a surgical candidate. He does have chronic renal failure with creatinine approaching 4. Patient denies any chest pain associated with this and has not had any nausea, vomiting or diaphoresis. Denies any neck, shoulder or arm discomfort. Patient states he cannot walk across the room without becoming dyspneic. Onset (ago): day(s) (3) Consistency: constant Allergies/Adverse Reactions: Allergies Allergy/AdvReac Type Severity Reaction Status Date / Time No Known Allergies Allergy Verified 09/17/16 05:51 Home Medications: Home Medications Medication Instructions Recorded Confirmed Type Brimonidine 0.2% Oph Soln 1 drop BOTH EYES BID 03/19/15 06/01/16 History [Alphagan P 0.2% Oph Soln] Cholecalciferol (Vitamin D3) 2,000 unit PO DAILY 03/19/15 06/01/16 History [Vitamin D3] glipiZIDE [Glipizide] 20 mg PO BID W/MEALS 03/19/15 06/01/16 History HYDROcodone/ACETAMIN 7.5-325 1 tablet PO TID 05/11/16 06/01/16 History [[place] 7.5-325] Aspirin Tab 325 mg PO DAILY #30 tablet 05/25/16 06/01/16 Rx Cetirizine Tab [ZyrTEC Tab] 5 mg PO DAILY #30 tablet 05/25/16 06/01/16 Rx Gabapentin Cap/Tab [Neurontin 100 mg PO TID #90 capsule 05/25/16 06/01/16 Rx Cap/Tab] Iron (Carbonyl) [Feosol Natural 45 mg PO BID #60 tablet 05/25/16 06/01/16 Rx Release Tab] Isosorbide Dinitrate [Isordil] 20 mg PO BID #60 tablet 05/25/16 06/01/16 Rx Magnesium Oxide 400 mg PO DAILY #30 tablet 05/25/16 06/01/16 Rx Metoprolol Tartrate 25 mg PO BID #60 tablet 05/25/16 06/01/16 Rx hydrALAZINE TAB [Apresoline Tab] 75 mg PO TID #90 tablet 05/25/16 06/01/16 Rx Rosuvastatin Calcium [Crestor] 5 mg PO DAILY 06/01/16 06/01/16 History predniSONE TAB [PredniSONE] 5 mg PO DAILY 06/01/16 06/01/16 History traMADol TAB [Ultram] 50 mg PO Q6H #20 tablet 08/29/16 Rx Review of System - Review of System 12 point system: reviewed and no additional remarkable complaints except as stated - Review of System Constitutional: Absent: chills, diaphoresis, fever Eyes: Absent: vision change Head/Ears/Nose/Throat: Absent: nasal drainage, sore throat Respiratory: Present: respiratory distress (SOB) Cardiovascular: Present: dyspnea on exertion, orthopnea. Absent: chest pain Gastrointestinal: Absent: abdominal pain, nausea, vomiting, diarrhea, constipation, melena, hematochezia Genitourinary male: Absent: urgency, dysuria, frequency Musculoskeletal: Absent: arm pain, back pain, leg pain, neck pain Skin: Absent: rash Neurological: Absent: headache Psychiatric: Absent: anxiety, depression Hematological/Lymphatic: Absent: easy bleeding, easy bruising Medical,Surgical,& Family Hx - Medical History Cardio: History of: Hypertension, OR Endocrine: History of: Diabetes Mellitus (IDDM), Diabetes Mellitus (NIDDM) Respiratory: History of: COPD - Surgical History Cardiac Surgeries: Sugical HX of: Cardiac Catheterization Abdominal Surgeries: Surgical HX of: Appendectomy Orthopedic Surgeries: Surgical HX of;: Orthopedic Surgery (right hip 3 pins) - Family History Family History: Reports;: Family Heart Disease (Mother and Brother passed of an OR), Family Hypertension Denies;: Family Psychiatric Problems, Family Stroke Comment Only: Family Cancer (sister), Family Diabetes (aunt, cousin) - Social History Smoking Status: Former smoker (40 years) Exam Vital Signs: Vital Signs Temperature 97.5 F L 09/17/16 05:46 Pulse Rate 121 H 09/17/16 05:46 Respiratory Rate 18 09/17/16 06:19 Blood Pressure 170/138 09/17/16 05:46 O2 Sat by Pulse Oximetry 90 L 09/17/16 05:46 - General General appearance: alert, in no apparent distress - Head Head exam: Present: atraumatic, normocephalic, normal inspection - Eye Eye exam: Present: normal appearance, PERRL, EOMI - ENT ENT exam: Present: normal exam, normal oropharynx - Neck Neck exam: Present: normal inspection, full ROM, trachea midline - Chest Chest inspection: Present: normal inspection, symmetric chest wall rise - Respiratory Respiratory exam: Present: rales (Minimal wet rales to the right base posteriorly). Absent: normal lung sounds bilaterally - Cardiovascular Cardiovascular exam: Present: regular rate, normal rhythm, normal heart sounds. Absent: murmur, rubs, gallop - Abdominal Exam Abdominal exam: Present: soft, normal bowel sounds. Absent: distention, tenderness - Extremities Exam Extremities exam: Present: normal inspection - Back Exam Back exam: Present: normal inspection - Neurological Exam Neurological exam: Present: alert, oriented X3, CN II-XII intact. Absent: motor sensory deficit - Psychiatric Psychiatric exam: Present: normal affect, normal mood - Skin Skin exam: Present: warm, dry Course Course Narrative: Patient was given IV morphine, Lasix and nitroglycerin paste. He had no pain he states his dyspnea was much improved. Chest x-ray revealed evidence of congestive failure and his BNP and troponin were both elevated. I discussed his clinical presentation, laboratory and radiograph findings with Dr. Ceballos. Patient will be admitted to telemetry unit and medical management will be continued. Patient is not a candidate for intervention or bypass. Results - Labs CBC & BMP: 09/17/16 05:55 09/17/16 05:55 Lab Results: I have reviewed the patients labs Labs: Laboratory Tests 09/17/16 05:55 WBC 8.4 RBC 3.29 L Hgb 9.1 L Hct 28.9 L MCHC 31.5 L Plt Count 386 Lymph % (Auto) 14.3 L Lymph # (Auto) 1.2 L Laboratory Tests 09/17/16 05:55 Sodium 144 Potassium 4.6 Chloride 115 H Carbon Dioxide 19 L BUN 42 H Creatinine 3.00 H Glucose 117 H ALT 14 L Troponin I 2.120 H Globulin 4.2 H Albumin/Globulin Ratio 0.8 L Laboratory Tests 09/17/16 05:55 VBG pH 7.364 Laboratory Tests 09/17/16 05:55 B-Natriuretic Peptide 2356 H - EKG EKG results: interpreted by ERMD EKG shows: tachycardia (Sinus tachycardia with heart rate 119 bpm.) - Impressions Patient's noted to have ST depression and T-wave inversion in 2 3 aVF V5 and V6. - Diagnostic Findings Procedure: Chest x-ray: report reviewed by me (Congestive heart failure with pulmonary edema) Critical Care Time Critical Care Time: Yes Total Critical Care Time: 30 Attestation: Patient presented emergency room with severe dyspnea. Patient was noted be tachycardic and found to have inspiratory rales. Patient was found to have congestive heart failure which responded to IV morphine, IV Lasix and nitroglycerin. Patient will be admitted to telemetry unit after discussion with cardiology. Disposition Clinical Impression: Non-STEMI (non-ST elevated myocardial infarction), Ischemic cardiomyopathy, CHF exacerbation Case discussed with: patient Disposition: Still a Patient Condition: Critical Time of Disposition: 07:17
[2016-09-17] MEDS ORDERED: MAGNESIUM SULF RIDER 4 GM in PREMIX 1 EACH IV PRN (07:19)
[2016-09-17] MEDS ORDERED: MAGNESIUM SULF RIDER 2 GM in PREMIX 1 EACH IV PRN (07:19)
[2016-09-17] MEDS ORDERED: ACETAMINOPHEN 325 MG TABLET PO PRN (07:19)
[2016-09-17] MEDS ORDERED: MORPHINE 2 MG/1 ML SYRINGE IV PRN (07:19)
[2016-09-17] MEDS ORDERED: POTASSIUM CHLORIDE 20 MEQ/15 ML UDCUP PER TUBE PRN (07:19)
[2016-09-17] MEDS ORDERED: NITROGLYCERIN 2% OINT 1 INCH/GM PACK TOP ONE (07:41)
[2016-09-17] MEDS: MORPHINE 2 MG/1 ML SYRINGE IV STA ×2 (07:41→08:23)
--- NOTE | 2016-09-17 08:00 | EKG Report ---
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
--- NOTE | 2016-09-17 08:42 | XRay Report ---
Exam: XR chest 1V Date: 09/17/2016 5:54 AM Comparison: 08/29/2016 Indication: Shortness of breath Technique:[Portable AP sitting chest] Findings: The heart is minimally enlarged with more prominent pulmonary vasculature. Progressive diffuse parenchymal findings are noted with small pleural effusions. Underlying bullous emphysema. Increased hilar density with degenerative changes. 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 It is difficult to exclude superimposed pneumonitis with associated atelectasis. PROCEDURE INTERPRETED AT [facility] DEPARTMENT OF RADIOLOGY Final Report Signed by: Dr. Jessenia Edge
[2016-09-17] MEDS ORDERED: METOPROLOL TARTRATE 25 MG TABLET PO SCH (09:00)
[2016-09-17] MEDS: FUROSEMIDE 40 MG/4 ML VIAL IV SCH ×2 (09:50→15:53)
--- NOTE | 2016-09-17 10:17 | EKG Report ---
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
[2016-09-17] MEDS: glipiZIDE 10 MG TABLET PO SCH ×2 (11:03→18:25)
[2016-09-17] MEDS: MAGNESIUM OXIDE 400 MG TABLET PO SCH (11:03)
[2016-09-17] MEDS: BRIMONIDINE 0.2% OPH SOLN 5 ML BOTTLE BOTH EYES SCH ×2 (11:03→21:42)
[2016-09-17] MEDS: ISOSORBIDE DINITRATE 20 MG TABLET PO SCH ×2 (11:03→21:41)
[2016-09-17] MEDS: ASPIRIN 325 MG TABLET PO SCH (11:04)
[2016-09-17] MEDS: CHOLECALCIFEROL 1,000 UNIT TABLET PO SCH (11:04)
[2016-09-17] MEDS: ROSUVASTATIN 10 MG TABLET PO SCH (11:05)
[2016-09-17] MEDS: GABAPENTIN 100 MG CAPSULE PO SCH ×3 (11:05→21:41)
[2016-09-17] MEDS: PANTOPRAZOLE 40 MG TABLET PO SCH (11:05)
[2016-09-17] MEDS: IRON (CARBONYL) 45 MG TABLET PO SCH ×2 (11:06→21:41)
[2016-09-17] MEDS: ENOXAPARIN 30 MG/0.3 ML SYRINGE SUBCUT SCH (11:07)
--- NOTE | 2016-09-17 11:33 | Cardiology History & Physical ---
Assessment and Plan (1) CHF exacerbation Status: Acute Assessment and plan: 81-year-old male, followed by Dr. Kingston. History of ischemic cardiomyopathy , ejection fraction 20%, three-vessel disease with RCA occlusion, [facility] 2017. Severe CKD, creatinine trending around 3. During his last hospital stay, CTS consult was obtained for revascularization, he was deemed to be too high risk and medical management was pursued. Hypertension, type 2 diabetes mellitus, hyperlipidemia. Subacutely worsened CHF, demand ischemia. ICM, CHF, stage IV CKD, IVCD QRS 115 ms. -Continue IV diuresis, Lasix 80 mg IV twice daily. Symptoms improved -Blood pressure, heart rate still elevated. Increase metoprolol to 50 mg twice daily. -Prominent ischemic EKG changes, underlying severe CAD. He is currently not having any angina. Doubt acute thrombotic occlusion. Continue aspirin, may de- escalate full anticoagulation tomorrow, if enzyme trend remains stable. We can consider nitroglycerin drip, if blood pressure remains elevated after diuresis or has angina -Follow renal function closely, severe CKD -ICM, 3VD. In the past, he was deemed to be too high risk for CABG. we can proceed with a viability study, and based on the results, surgical option may need to be reconsidered, his medical regimen is optimized, as allowed by his comorbidities. I doubt multivessel PCI would be a safe option, given his severe renal dysfunction -He is a candidate for ICD for primary prevention. No indication for INTERNATIONAL ACCOUNTANT -Continue statin. Current Visit: Yes (2) Ischemic cardiomyopathy Status: Acute Current Visit: Yes (3) Non-STEMI (non-ST elevated myocardial infarction) Status: Acute Current Visit: Yes (4) Acute on chronic renal failure Status: Acute Current Visit: No (5) Heart failure Status: Acute Current Visit: No (6) Iron deficiency anemia Problem details: Goal FeSat >20% Status: Acute Current Visit: No History of Present Illness Chief complaint: CHF, ICM History of present illness: 81-year-old BM, followed by Dr. Kingston. History of ischemic cardiomyopathy, ejection fraction 20%, three-vessel disease with RCA occlusion, [facility] 2017. Severe CKD, creatinine trending around 3. During his last hospital stay, CTS consult was obtained for revascularization, he was deemed to be too high risk and medical management was pursued. Hypertension, type 2 diabetes mellitus, hyperlipidemia. Several days ago, he developed progressive orthopnea, was unable to sleep well or lay down. This progressed to a point, when he had to come to the emergency room. He denies chest pain got mild discomfort. Initial EKG showed sinus tachycardia, prominent diffuse ST depression. Borderline elevated cardiac biomarkers. He improved relatively promptly, with IV Lasix and diuresis. Creatinine is around his baseline is 3. The blood pressure was elevated. On exam, he is adequately perfused and now looks more comfortable. He is compliant with medications and had no issues with diet. Home Medications Medication Instructions Recorded Confirmed Type Brimonidine 0.2% Oph Soln 1 drop BOTH EYES BID 03/19/15 06/01/16 History [Alphagan P 0.2% Oph Soln] Cholecalciferol (Vitamin D3) 2,000 unit PO DAILY 03/19/15 06/01/16 History [Vitamin D3] glipiZIDE [Glipizide] 20 mg PO BID W/MEALS 03/19/15 06/01/16 History HYDROcodone/ACETAMIN 7.5-325 1 tablet PO TID 05/11/16 06/01/16 History [[place] 7.5-325] Aspirin Tab 325 mg PO DAILY #30 tablet 05/25/16 06/01/16 Rx Cetirizine Tab [ZyrTEC Tab] 5 mg PO DAILY #30 tablet 05/25/16 06/01/16 Rx Gabapentin Cap/Tab [Neurontin 100 mg PO TID #90 capsule 05/25/16 06/01/16 Rx Cap/Tab] Iron (Carbonyl) [Feosol Natural 45 mg PO BID #60 tablet 05/25/16 06/01/16 Rx Release Tab] Isosorbide Dinitrate [Isordil] 20 mg PO BID #60 tablet 05/25/16 06/01/16 Rx Magnesium Oxide 400 mg PO DAILY #30 tablet 05/25/16 06/01/16 Rx Metoprolol Tartrate 25 mg PO BID #60 tablet 05/25/16 06/01/16 Rx hydrALAZINE TAB [Apresoline Tab] 75 mg PO TID #90 tablet 05/25/16 06/01/16 Rx Rosuvastatin Calcium [Crestor] 5 mg PO DAILY 06/01/16 06/01/16 History predniSONE TAB [PredniSONE] 5 mg PO DAILY 06/01/16 06/01/16 History traMADol TAB [Ultram] 50 mg PO Q6H #20 tablet 08/29/16 Rx Allergies Allergy/AdvReac Type Severity Reaction Status Date / Time No Known Allergies Allergy Verified 09/17/16 05:51 12 point system: reviewed and no additional remarkable complaints except as stated Medical,Surgical,& Family Hx - Medical History Cardio: History of: Hypertension, [place] Endocrine: History of: Diabetes Mellitus (IDDM), Diabetes Mellitus (NIDDM) Respiratory: History of: COPD Musculoskeletal: History of: Back/Neck Problems - Surgical History Cardiac Surgeries: Sugical HX of: Cardiac Catheterization Abdominal Surgeries: Surgical HX of: Appendectomy Orthopedic Surgeries: Surgical HX of;: Orthopedic Surgery (right hip 3 pins) - Family History Family History: Reports;: Family Heart Disease (Mother and Brother passed of an [place]), Family Hypertension Denies;: Family Psychiatric Problems, Family Stroke Comment Only: Family Cancer (sister), Family Diabetes (aunt, cousin) - Social History Smoking Status: Former smoker Frequency of Alcohol Use: None Type of Drug Use: None Cardiology Physical Exam - Constitutional Vitals: Vital Signs Temp Pulse Resp BP Pulse Ox 97.7 F 115 H 21 160/98 89 L 09/17/16 08:46 09/17/16 08:46 09/17/16 08:46 09/17/16 08:46 09/17/16 08:46 Intake and Output 09/16/16 09/17/16 09/17/16 23:59 07:59 15:59 Other: Weight 86.183 kg 83.574 kg Patient Weight 09/17/16 23:59 Weight 83.574 kg General appearance: normal weight, no acute distress - Head Head exam: Present: normal inspection, normocephalic - Eye Eye exam: Absent: conjunctival injection, scleral icterus Pupils: Absent: dilated - ENT ENT exam: Present: normal external ear exam - Neck Neck exam: Present: normal inspection - Respiratory Respiratory exam: Present: decreased breath sounds, rhonchi. Absent: wheezes - Cardiovascular Cardiovascular exam: Present: regular rate and rhythm, systolic murmur, other ( Elevated JVP) - GI/Abdominal GI/Abdominal exam: Present: normal bowel sounds. Absent: distended - Extremities Exam Extremities exam: Present: normal inspection, normal capillary refill, edema (1+ ) - Back Exam Back exam: Present: normal inspection - Neurological Exam Neurological exam: Present: alert, oriented X3 - Psychiatric Psychiatric exam: Present: normal affect, normal mood - Skin Skin exam: Present: normal color, warm. Absent: cyanosis Result/EKG - Labs CBC & BMP: 09/17/16 05:55 09/17/16 05:55 Lab Results: I have reviewed the past 24 hour labs Labs: Laboratory Results - last 24 hr 09/17/16 09/17/16 09/17/16 05:55 05:55 05:55 WBC 8.4 RBC 3.29 L Hgb 9.1 L Hct 28.9 L MCV 87.8 MCH 28 MCHC 31.5 L RDW 15.6 Plt Count 386 MPV 9.7 Neut % (Auto) 72.7 Lymph % (Auto) 14.3 L [place] % (Auto) 10.0 Eos % (Auto) 1.8 Baso % (Auto) 0.7 Neut # (Auto) 6.1 Lymph # (Auto) 1.2 L [place] # (Auto) 0.8 Eos # (Auto) 0.2 Baso # (Auto) 0.1 Immature Gran % 0.5 Nucleated RBC % 0.0 Immature Gran # 0.04 Nucleated RBCs # 0.00 Immature Plt Fraction 0.0 VBG pH Sodium 144 Potassium 4.6 Chloride 115 H Carbon Dioxide 19 L Anion Gap 14.6 BUN 42 H Creatinine 3.00 H GFR Calculation 26 BUN/Creatinine Ratio 14.00 Glucose 117 H Calculated Osmolality 297.8 Calcium 9.2 Total Bilirubin 0.50 AST 27 ALT 14 L Alkaline Phosphatase 98 Troponin I 2.120 H B-Natriuretic Peptide 2356 H Total Protein 7.6 Albumin 3.4 Globulin 4.2 H Albumin/Globulin Ratio 0.8 L TSH 3rd Generation 09/17/16 09/17/16 09/17/16 05:55 05:55 10:34 WBC RBC Hgb Hct MCV MCH MCHC RDW Plt Count MPV Neut % (Auto) Lymph % (Auto) [place] % (Auto) Eos % (Auto) Baso % (Auto) Neut # (Auto) Lymph # (Auto) [place] # (Auto) Eos # (Auto) Baso # (Auto) Immature Gran % Nucleated RBC % Immature Gran # Nucleated RBCs # Immature Plt Fraction VBG pH 7.364 Sodium Potassium Chloride Carbon Dioxide Anion Gap BUN Creatinine GFR Calculation BUN/Creatinine Ratio Glucose Calculated Osmolality Calcium Total Bilirubin AST ALT Alkaline Phosphatase Troponin I 2.450 H B-Natriuretic Peptide Total Protein Albumin Globulin Albumin/Globulin Ratio TSH 3rd Generation 6.940 H - EKG EKG results: interpreted by me
--- NOTE | 2016-09-17 13:20 | EKG Report ---
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
[2016-09-17] MEDS: METOPROLOL TARTRATE 50 MG TABLET PO SCH (21:42)
[2016-09-18 04:42] LABS: Basophils % 0.7 % (0.0-0.8); Eosinophils # 0.4 10*3/uL (0.0-0.87); Eosinophils % 6.9 % (0.00-10.9); Hematocrit 24.8 VOL% (42.0-52.0); Hemoglobin 7.7 GM/DL (14.0-18.0); Immature Granulocytes % 0.2 %; Immature Granulocytes Absolute 0.01 #; Lymphocytes # 1.5 10*3/uL (1.4-4.0); Lymphocytes % 27.6 % (21.2-54.2); Mean Corpuscular Hemoglobin 28 PG (27-34); Mean Corpuscular Volume 88.6 FL (87-102); Mean Platelet Volume 10.1 FL (9.6-12.0); Monocytes # 0.8 10*3/uL (0.11-0.8); Neutrophils # 2.7 10*3/uL (1.4-7.4); Neutrophils % 49.6 % (38.7-73.9); Platelet Count 322 T/CUMM (130-400); Red Cell Distribution Width 15.5 % (9.3-17.3); White Blood Count 5.5 T/CUMM (4-12)
[2016-09-18 05:31] LABS: Calcium 8.8 MG/DL (8.5-10.1); Magnesium 2.2 MG/DL (1.8-2.4); Osmolality,Calculated 297.8 MOS/KG (273-304); Potassium 4.7 MMOL/L (3.5-5.1)
--- NOTE | 2016-09-18 07:00 | XRay Report ---
XR chest 1V Indication: Shortness of breath. Chest one view: Comparison yesterday. Mild cardiomegaly, normal mediastinal contour, course and interstitial markings of the lungs, and hazy obscuration of the right lung base are stable. No new infiltrates are otherwise seen. Impression: No significant change. PROCEDURE INTERPRETED AT [facility] DEPARTMENT OF RADIOLOGY Final Report Signed by: Pan Landa M.D.
[2016-09-18] MEDS ORDERED: GLUCAGON 1 MG VIAL IM PRN (08:17)
[2016-09-18] MEDS ORDERED: DEXTROSE 50% 25 GM/50 ML SYRINGE IV PRN (08:17)
[2016-09-18] MEDS: ENOXAPARIN 30 MG/0.3 ML SYRINGE SUBCUT SCH ×2 (08:21→12:07)
[2016-09-18 08:41] LABS: Hematocrit 27.3 VOL% (42.0-52.0); Hemoglobin 8.6 GM/DL (14.0-18.0)
[2016-09-18] MEDS: ISOSORBIDE DINITRATE 20 MG TABLET PO SCH ×2 (08:54→21:29)
[2016-09-18] MEDS: glipiZIDE 10 MG TABLET PO SCH ×2 (08:54→16:43)
[2016-09-18] MEDS: PANTOPRAZOLE 40 MG TABLET PO SCH (08:55)
[2016-09-18] MEDS: METOPROLOL TARTRATE 50 MG TABLET PO SCH ×2 (08:55→21:29)
[2016-09-18] MEDS: MAGNESIUM OXIDE 400 MG TABLET PO SCH (08:55)
[2016-09-18] MEDS: ASPIRIN 325 MG TABLET PO SCH (08:55)
[2016-09-18] MEDS: ROSUVASTATIN 10 MG TABLET PO SCH (08:55)
[2016-09-18] MEDS: CHOLECALCIFEROL 1,000 UNIT TABLET PO SCH (08:55)
[2016-09-18] MEDS: GABAPENTIN 100 MG CAPSULE PO SCH ×3 (08:55→21:29)
[2016-09-18] MEDS: IRON (CARBONYL) 45 MG TABLET PO SCH ×2 (08:55→21:29)
[2016-09-18] MEDS: FUROSEMIDE 40 MG/4 ML VIAL IV SCH ×2 (08:58→16:44)
[2016-09-18] MEDS: BRIMONIDINE 0.2% OPH SOLN 5 ML BOTTLE BOTH EYES SCH ×2 (08:58→21:31)
[2016-09-18] MEDS: INSULIN REGULAR 100 UNIT/ML SUBCUT SCH ×3 (12:06→21:25)
--- NOTE | 2016-09-18 16:24 | Cardiology Progress Note ---
I, Aleah Peraza, ZOHREH, am scribing for, and in the presence of, Gilmer Curiel MD 16:23. Assessment and Plan - Time spent with patient Time spent with patient: Greater than 30 minutes (1) Anemia Status: Acute Assessment and plan: SEE PLAN OF CARE LISTED BELOW 09/18/16 His troponin is gone up from about 2.1-3.1. It was suggest some ischemia, so we will need to monitor for arrhythmias His creatinine may be up slightly over his baseline His hematocrit is dropped. With all of these findings will change him to an admit. Is it is at least moderate chance of having a major problem. He has a known cardiomyopathy. Treat him medically for now. When he sees Dr. Kingston back she can get an echo to assess improvement are not and if the patient needs an ICD or not. TSH is elevated. Will start a low-dose of levothyroxine or increase the dose slightly Current Visit: No (2) Non-ST elevation myocardial infarction (NSTEMI) Status: Acute Assessment and plan: SEE PLAN OF CARE LISTED BELOW Current Visit: No (3) Hypertension Status: Chronic Assessment and plan: SEE PLAN OF CARE LISTED BELOW Current Visit: No (4) Diabetes mellitus Status: Chronic Assessment and plan: SEE PLAN OF CARE LISTED BELOW Current Visit: No (5) Chronic renal insufficiency, stage IV (severe) Status: Chronic Assessment and plan: SEE PLAN OF CARE LISTED BELOW Current Visit: No (6) Heart failure Status: Chronic Assessment and plan: SEE PLAN OF CARE LISTED BELOW Current Visit: No (7) Ischemic cardiomyopathy Status: Chronic Assessment and plan: SEE PLAN OF CARE LISTED BELOW Current Visit: Yes (8) CHF exacerbation Status: Acute Assessment and plan: SEE PLAN OF CARE LISTED BELOW Current Visit: Yes Cardiology - PN: Subj Interval history: STUDENT DEVELOPMENT DEAN: Dr. Kingston Summary: 81-year-old male, with a history of ischemic cardiomyopathy, ejection fraction 20%, three-vessel disease with RCA occlusion, [place] 2017. Severe CKD, creatinine trending around 3. During his last hospital stay, CTS consult was obtained for revascularization, he was deemed to be too high risk and medical management was pursued. Cardiac risk factors hypertension, type 2 diabetes mellitus, hyperlipidemia, CAD, age. Subacutely worsened CHF, demand ischemia. ICM, CHF, stage IV CKD, IVCD QRS 115 ms. SEPTEMBER 18, 2016: The patient did well overnight. He reports improvement in his shortness of breath, and also reports that he slept well. Patient is diuresing well. He denies chest pain, tightness, and shortness of breath. Vital signs reveal his systolic blood pressure around 110, diastolic in the 60s. This is much improved. Heart rate remains in the 60s, after medication adjustment. Chest x-ray reviewed and is stable with mild cardiomegaly, coarse and interstitial markings of the lungs, hazy right lung base and no new infiltrates. Labs reviewed and his H&H is noted to have dropped several points , patient does have a chronic anemia noted after reviewing previous records, we will plan to repeat H&H today. The patient denies any signs of bleeding, including melena, hematemesis. Creatinine is stable at 3.4, which is near baseline. Glucose appears stable, will add sliding scale. Will discuss with Dr. Curiel for further recommendations. 1. CHF exacerbation -Continue IV diuresis, Lasix 80 mg IV twice daily. Symptoms improving. 2. Ischemic cardiomyopathy -Continue medications, blood pressure and heart rate improved on the metoprolol 50 mg twice daily. 3. Non-STEMI -Continue aspirin, beta-sujatha, hydralazine, isosorbide. Renal function will not allow an CHERELLE inhibitor. 4. Acute on chronic renal failure -Continue IV Lasix, and continue to monitor creatinine closely. 5. Chronic anemia -Etiology unknown for drop in hemoglobin and hematocrit, plan to repeat lab today. Patient denies signs of bleeding. 6. Dyslipidemia -Continue Statin. 7. Diabetes type 2 -Continue Glyburide, Accu-Cheks, and added sliding scale. 8. Hypertension -Metoprolol increased to 50 mg twice daily, improved, continue to monitor closely. Exam (Progress Note) - Constitutional Vitals: Period Temp Pulse Resp BP Sys/[place] Pulse Ox Last 24 Hr 97.2 F-98.3 F 55-115 14-21 104-160/63-98 89-98 Exam: General: [Appears well with no apparent distress.] [Pleasant and cooperative. ] [Appears comfortable.] HEENT: [PERRL, normocephalic, atraumatic]. [Mucous membranes moist.] [No jaundice noted.] [Conjunctiva moist and clear, sclerae anicteric.] Neck: [No JVD/HJR, no thyromegaly or lymphadenopathy noted.] [ No carotid bruit appreciated.] Cardiac: [Irregular rate and rhythm.] [No murmur rub or gallop.] [PMI is nondisplaced.] Lungs: [Clear to auscultation in upper lobes bilaterally, decreased breath sounds in bilateral lower lobes without accessory muscle use to assist the respiratory pattern.] [No oxygen required.] Abdomen: [Soft, bowel sounds normoactive.] [Nontender and nondistended.] [No abdominal bruit or thrill noted.] [No masses noted.] Musculoskeletal: [No fluid collection.] [Decreased range of motion is noted.] Extremities: [No clubbing, cyanosis noted.] [ No edema noted.] [Upper extremity pulses 2+.] [Lower extremity pulses 1 +.] [Capillary refill less than 3 seconds.] Skin: [No unusual lesions or rashes.] [No skin breakdown appreciated.] Neuro: [Awake, alert and oriented 3.] [Moves all extremities well without hemiparesis or paralysis.] [No essential tremor is appreciated.] Result/EKG - Labs CBC & BMP: 09/18/16 08:36 09/18/16 04:06 Lab Results: I have reviewed the past 24 hour labs Labs: Laboratory Results - last 24 hr 09/17/16 09/17/16 09/17/16 09:15 10:34 10:59 WBC RBC Hgb Hct MCV MCH MCHC RDW Plt Count MPV Neut % (Auto) Lymph % (Auto) [place] % (Auto) Eos % (Auto) Baso % (Auto) Neut # (Auto) Lymph # (Auto) [place] # (Auto) Eos # (Auto) Baso # (Auto) Immature Gran % Nucleated RBC % Immature Gran # Nucleated RBCs # Immature Plt Fraction Sodium Potassium Chloride Carbon Dioxide Anion Gap BUN Creatinine GFR Calculation BUN/Creatinine Ratio Glucose POC Glucose 128 H 186 H Calculated Osmolality Calcium Magnesium Troponin I 2.450 H 09/17/16 09/17/16 09/18/16 13:45 16:38 04:06 WBC 5.5 D RBC 2.80 L Hgb 7.7 L Hct 24.8 L MCV 88.6 MCH 28 MCHC 31.0 L RDW 15.5 Plt Count 322 MPV 10.1 Neut % (Auto) 49.6 Lymph % (Auto) 27.6 [place] % (Auto) 15.0 H Eos % (Auto) 6.9 Baso % (Auto) 0.7 Neut # (Auto) 2.7 Lymph # (Auto) 1.5 [place] # (Auto) 0.8 Eos # (Auto) 0.4 Baso # (Auto) 0.0 Immature Gran % 0.2 Nucleated RBC % 0.0 Immature Gran # 0.01 Nucleated RBCs # 0.00 Immature Plt Fraction 0.0 Sodium Potassium Chloride Carbon Dioxide Anion Gap BUN Creatinine GFR Calculation BUN/Creatinine Ratio Glucose POC Glucose 114 H Calculated Osmolality Calcium Magnesium Troponin I 3.060 H D 09/18/16 09/18/16 04:06 07:43 WBC RBC Hgb Hct MCV MCH MCHC RDW Plt Count MPV Neut % (Auto) Lymph % (Auto) [place] % (Auto) Eos % (Auto) Baso % (Auto) Neut # (Auto) Lymph # (Auto) [place] # (Auto) Eos # (Auto) Baso # (Auto) Immature Gran % Nucleated RBC % Immature Gran # Nucleated RBCs # Immature Plt Fraction Sodium 144 Potassium 4.7 Chloride 112 H Carbon Dioxide 23 Anion Gap 13.7 BUN 48 H Creatinine 3.40 H GFR Calculation 22 BUN/Creatinine Ratio 14.00 Glucose 74 POC Glucose 73 L Calculated Osmolality 297.8 Calcium 8.8 Magnesium 2.2 Troponin I - Diagnostic Findings Procedure: Chest x-ray: report reviewed by me - EKG EKG results: interpreted by me, sinus rhythm Specialty Discharge - Follow Up or Referrals IVeena Dale, MD, personally performed the services described in this documentation, ascribed by Aleah Peraza NP in my presence, and it is both accurate and complete 623 .
[2016-09-18 17:41] LABS: CKMB % 3.3 %
[2016-09-18 17:44] LABS: Troponin I Only 3.09 NG/ML (0.00-0.045)
[2016-09-19 05:19] LABS: Basophils % 0.3 % (0.0-0.8); Eosinophils # 0.4 10*3/uL (0.0-0.87); Eosinophils % 6.5 % (0.00-10.9); Hematocrit 27.6 VOL% (42.0-52.0); Hemoglobin 8.7 GM/DL (14.0-18.0); Immature Granulocytes % 0.3 %; Immature Granulocytes Absolute 0.02 #; Lymphocytes # 1.4 10*3/uL (1.4-4.0); Lymphocytes % 20.7 % (21.2-54.2); Mean Corpuscular HGB Conc 31.5 GM/DL (32-36); Mean Corpuscular Hemoglobin 28 PG (27-34); Mean Corpuscular Volume 88.5 FL (87-102); Mean Platelet Volume 10.2 FL (9.6-12.0); Monocytes # 0.9 10*3/uL (0.11-0.8); Monocytes % 12.8 % (1.7-12.7); Neutrophils # 3.9 10*3/uL (1.4-7.4); Neutrophils % 59.4 % (38.7-73.9); Platelet Count 379 T/CUMM (130-400); Red Blood Count 3.12 MC/CUMM (3.8-5.5); Red Cell Distribution Width 15.6 % (9.3-17.3); White Blood Count 6.6 T/CUMM (4-12)
[2016-09-19 05:43] LABS: Calcium 9.1 MG/DL (8.5-10.1); Osmolality,Calculated 300.1 MOS/KG (273-304); Potassium 4.2 MMOL/L (3.5-5.1)
[2016-09-19] MEDS: LEVOTHYROXINE 25 MCG TABLET PO SCH (06:50)
[2016-09-19] MEDS: INSULIN REGULAR 100 UNIT/ML SUBCUT SCH ×4 (08:52→20:40)
[2016-09-19] MEDS: CHOLECALCIFEROL 1,000 UNIT TABLET PO SCH (09:00)
[2016-09-19] MEDS: ROSUVASTATIN 10 MG TABLET PO SCH (09:00)
[2016-09-19] MEDS: ENOXAPARIN 30 MG/0.3 ML SYRINGE SUBCUT SCH (09:01)
[2016-09-19] MEDS: GABAPENTIN 100 MG CAPSULE PO SCH ×3 (09:01→20:38)
[2016-09-19] MEDS: ISOSORBIDE DINITRATE 20 MG TABLET PO SCH ×2 (09:01→20:40)
[2016-09-19] MEDS: MAGNESIUM OXIDE 400 MG TABLET PO SCH (09:01)
[2016-09-19] MEDS: glipiZIDE 10 MG TABLET PO SCH ×2 (09:01→17:22)
[2016-09-19] MEDS: ASPIRIN 325 MG TABLET PO SCH (09:01)
[2016-09-19] MEDS: PANTOPRAZOLE 40 MG TABLET PO SCH (09:02)
[2016-09-19] MEDS: IRON (CARBONYL) 45 MG TABLET PO SCH ×2 (09:02→20:38)
[2016-09-19] MEDS: METOPROLOL TARTRATE 50 MG TABLET PO SCH ×2 (09:02→20:38)
[2016-09-19] MEDS: FUROSEMIDE 40 MG/4 ML VIAL IV SCH (09:02)
[2016-09-19] MEDS: BRIMONIDINE 0.2% OPH SOLN 5 ML BOTTLE BOTH EYES SCH ×2 (09:07→20:39)
--- NOTE | 2016-09-19 13:47 | Cardiology Progress Note ---
Reginald, Aleah Peraza, ZOHREH, am scribing for, and in the presence of, Gilmer Curiel MD 13:46. Assessment and Plan (1) Anemia Status: Acute Assessment and plan: 09/19/16 Troponins are now trending down. Possibly had a small non-STEMI Monitoring for arrhythmias Creatinine is increasing. Holding Lasix He has been considered inoperable from the standpoint of his CAD Anemia is chronic Changed to an admit Up and out of bed Possibly home tomorrow. May need to be slightly dry to keep out of heart failure. The patient will follow-up with Dr. Kingston soon after discharge to reassess. Current Visit: No (2) Non-ST elevation myocardial infarction (NSTEMI) Status: Acute Assessment and plan: SEE PLAN OF CARE LISTED BELOW Current Visit: No (3) Hypertension Status: Chronic Assessment and plan: SEE PLAN OF CARE LISTED BELOW Current Visit: No (4) Diabetes mellitus Status: Chronic Assessment and plan: SEE PLAN OF CARE LISTED BELOW Current Visit: No (5) Chronic renal insufficiency, stage IV (severe) Status: Chronic Assessment and plan: SEE PLAN OF CARE LISTED BELOW Current Visit: No (6) Heart failure Status: Chronic Assessment and plan: SEE PLAN OF CARE LISTED BELOW Current Visit: No (7) Ischemic cardiomyopathy Status: Chronic Assessment and plan: SEE PLAN OF CARE LISTED BELOW Current Visit: Yes (8) CHF exacerbation Status: Acute Assessment and plan: SEE PLAN OF CARE LISTED BELOW Current Visit: Yes (9) Hypothyroidism Status: Chronic Assessment and plan: SEE PLAN OF CARE LISTED BELOW Current Visit: Yes Cardiology - PN: 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 Severe CKD, creatinine trending around 3. During his last hospital stay, CTS consult was obtained for revascularization, he was deemed to be too high risk and medical management was pursued. Cardiac risk factors hypertension, type 2 diabetes mellitus, hyperlipidemia, CAD, age. Subacutely worsened CHF, demand ischemia. ICM, CHF, stage IV CKD, IVCD QRS 115 ms. SEPTEMBER 18, 2016: The patient did well overnight. He reports improvement in his shortness of breath, and also reports that he slept well. Patient is diuresing well. He denies chest pain, tightness, and shortness of breath. Vital signs reveal his systolic blood pressure around 110, diastolic in the 60s. This is much improved. Heart rate remains in the 60s, after medication adjustment. Chest x-ray reviewed and is stable with mild cardiomegaly, coarse and interstitial markings of the lungs, hazy right lung base and no new infiltrates. Labs reviewed and his H&H is noted to have dropped several points , patient does have a chronic anemia noted after reviewing previous records, we will plan to repeat H&H today. The patient denies any signs of bleeding, including melena, hematemesis. Creatinine is stable at 3.4, which is near baseline. Glucose appears stable, will add sliding scale. Will discuss with Dr. Curiel for further recommendations. SEPTEMBER 19, 2016: The patient is doing well. He reports shortness of breath is resolved and denies chest pain. Vital signs remained stable. His heart rate is 50s-60s with the increase of beta-sujatha, as well as his blood pressure is well controlled. Sinus bradycardia noted on telemetry. Hemoglobin and hematocrit stable at 8.7 and 27.6. Although troponins did trend to 3.1, it is 1.6 today. Creatinine is increased to 4 today from 3.4, which was baseline. Plan to stop IV Lasix today and continue to monitor the patient closely. Will continue medical management given the patient's chronic kidney disease. Levothyroxine started for new onset hypothyroidism. Will discuss with Dr. Curiel and await further recommendations. 1. CHF exacerbation - Symptoms improving. 2. Ischemic cardiomyopathy -Continue medications, blood pressure and heart rate improved on the metoprolol 50 mg twice daily. 3. Non-STEMI -Continue aspirin, beta-sujatha, hydralazine, isosorbide. Renal function will not allow an CHERELLE inhibitor. 4. Acute on chronic renal failure -stop Lasix. We will plan to switch to oral once creatinine returns to baseline. Continue to monitor closely. 5. Chronic anemia -anemia stable and chronic. Patient denies signs of bleeding. 6. Dyslipidemia -Continue Statin. 7. Diabetes type 2 -Continue Glyburide, Accu-Cheks, and sliding scale. 8. Hypertension -improved with increased beta-sujatha, continue to monitor closely. 9. Hypothyroidism -TSH mildly elevated, level will need to be repeated after starting levothyroxine in 4-6 weeks. Exam (Progress Note) - Constitutional Vitals: Period Temp Pulse Resp BP Sys/Maldonado Pulse Ox Last 24 Hr 97.1 F-98.3 F 54-65 18-20 91-121/56-63 92-96 Exam: General: Appears well with no apparent distress. Pleasant and cooperative. Appears comfortable. HEENT: PERRL, normocephalic, atraumatic. Mucous membranes moist. No jaundice noted. Conjunctiva moist and clear, sclerae anicteric. Neck: No JVD/HJR, no thyromegaly or lymphadenopathy noted. No carotid bruit appreciated. Cardiac: Regular rate and rhythm. No murmur rub or gallop. PMI is nondisplaced. Lungs: Clear to auscultation without accessory muscle use to assist the respiratory pattern. No oxygen required Abdomen: Soft, bowel sounds normoactive. Nontender and nondistended. No abdominal bruit or thrill noted. No masses noted. Musculoskeletal: No fluid collection. Decreased range of motion is noted. Extremities: No clubbing, cyanosis noted. No edema noted. Upper extremity pulses 2+. Lower extremity pulses 2+. Capillary refill less than 3 seconds. Skin: No unusual lesions or rashes. No skin breakdown appreciated. Neuro: Awake, alert and oriented 3. Moves all extremities well without hemiparesis or paralysis. Result/EKG - Labs CBC & BMP: 09/19/16 04:32 09/19/16 04:32 Lab Results: I have reviewed the past 24 hour labs Labs: Laboratory Results - last 24 hr 09/18/16 09/18/16 09/18/16 04:04 11:15 16:12 WBC RBC Hgb Hct MCV MCH MCHC RDW Plt Count MPV Neut % (Auto) Lymph % (Auto) [place] % (Auto) Eos % (Auto) Baso % (Auto) Neut # (Auto) Lymph # (Auto) [place] # (Auto) Eos # (Auto) Baso # (Auto) Immature Gran % Nucleated RBC % Immature Gran # Nucleated RBCs # Immature Plt Fraction Sodium Potassium Chloride Carbon Dioxide Anion Gap BUN Creatinine GFR Calculation BUN/Creatinine Ratio Glucose POC Glucose 192 H 137 H Calculated Osmolality Calcium Total Creatine Kinase 163 CK-MB (CK-2) 5.3 H CK and CKMB Interp 3.3 Troponin I 3.090 H 09/18/16 09/18/16 09/18/16 20:10 20:32 20:34 WBC RBC Hgb Hct MCV MCH MCHC RDW Plt Count MPV Neut % (Auto) Lymph % (Auto) [place] % (Auto) Eos % (Auto) Baso % (Auto) Neut # (Auto) Lymph # (Auto) [place] # (Auto) Eos # (Auto) Baso # (Auto) Immature Gran % Nucleated RBC % Immature Gran # Nucleated RBCs # Immature Plt Fraction Sodium Potassium Chloride Carbon Dioxide Anion Gap BUN Creatinine GFR Calculation BUN/Creatinine Ratio Glucose POC Glucose 68 L < 20 L* 69 L Calculated Osmolality Calcium Total Creatine Kinase CK-MB (CK-2) CK and CKMB Interp Troponin I 09/19/16 09/19/16 09/19/16 02:15 04:32 04:32 WBC RBC Hgb Hct MCV MCH MCHC RDW Plt Count MPV Neut % (Auto) Lymph % (Auto) [place] % (Auto) Eos % (Auto) Baso % (Auto) Neut # (Auto) Lymph # (Auto) [place] # (Auto) Eos # (Auto) Baso # (Auto) Immature Gran % Nucleated RBC % Immature Gran # Nucleated RBCs # Immature Plt Fraction Sodium 142 Potassium 4.2 Chloride 108 H Carbon Dioxide 26 Anion Gap 12.2 BUN 54 H Creatinine 4.00 H GFR Calculation 18 BUN/Creatinine Ratio 13.00 Glucose 145 H POC Glucose 129 H Calculated Osmolality 300.1 Calcium 9.1 Total Creatine Kinase 122 D CK-MB (CK-2) 2.8 CK and CKMB Interp Troponin I 1.610 H D 09/19/16 09/19/16 04:32 08:06 WBC 6.6 RBC 3.12 L Hgb 8.7 L Hct 27.6 L MCV 88.5 MCH 28 MCHC 31.5 L RDW 15.6 Plt Count 379 MPV 10.2 Neut % (Auto) 59.4 Lymph % (Auto) 20.7 L [place] % (Auto) 12.8 H Eos % (Auto) 6.5 Baso % (Auto) 0.3 Neut # (Auto) 3.9 Lymph # (Auto) 1.4 [place] # (Auto) 0.9 H Eos # (Auto) 0.4 Baso # (Auto) 0.0 Immature Gran % 0.3 Nucleated RBC % 0.0 Immature Gran # 0.02 Nucleated RBCs # 0.00 Immature Plt Fraction 0.0 Sodium Potassium Chloride Carbon Dioxide Anion Gap BUN Creatinine GFR Calculation BUN/Creatinine Ratio Glucose POC Glucose 181 H Calculated Osmolality Calcium Total Creatine Kinase CK-MB (CK-2) CK and CKMB Interp Troponin I - EKG EKG results: interpreted by me, sinus rhythm EKG shows: bradycardia Specialty Discharge - Follow Up or Referrals IVeena Dale, MD, personally performed the services described in this documentation, ascribed by Aleah Peraza NP in my presence, and it is both accurate and complete [id number] .
--- NOTE | 2016-09-19 13:48 | Physician Query Form ---
CLICK EDIT DOCUMENT TO SELECT QUERY ANSWER --> OK --> SIGN Suzanne Castillo RN Clinical [employer] W) [phone] (f) [phone] [email or web address]: Make your selection(s) from the choices in EACH section by typing an "x" and enter comments in the comment section. Please use your independent medical judgment in providing your response. This request does not imply that any particular answer is desired or expected. CLINICAL INDICATORS: (Providers should not edit this section) Based on documentation of "acute CHF exacerbation",[id number], Echo done 05/11/16 showed EF of 20 - 25%. Pt. treated with IV Lasix. Please provide further specificity regarding CHF. TYPE: ( x) Systolic (HFrEF - heart failure with reduced systolic function/EF) ( ) Diastolic (HFpEF - heart failure with preserved systolic function/EF) ( ) Combined Systolic/Diastolic ( ) Other, please specify: ( ) Clinically unable to determine COMMENTS: PLEASE ALSO DOCUMENT RESPONSE IN PROGRESS NOTES AND/OR DISCHARGE SUMMARY Use of terms such as suspected, likely, or probable (associated with a specific diagnosis that is being evaluated, monitored, or treated as if it exists) are acceptable and can be restated in the discharge summary if not ruled out. MTDD
[2016-09-19] MEDS ORDERED: DOCUSATE SODIUM 100 MG CAPSULE PO PRN (13:51)
[2016-09-20 05:06] LABS: Basophils % 0.3 % (0.0-0.8); Eosinophils # 0.4 10*3/uL (0.0-0.87); Eosinophils % 5.1 % (0.00-10.9); Hematocrit 25.7 VOL% (42.0-52.0); Hemoglobin 8.2 GM/DL (14.0-18.0); Immature Granulocytes % 0.4 %; Immature Granulocytes Absolute 0.03 #; Lymphocytes # 1.4 10*3/uL (1.4-4.0); Lymphocytes % 17.7 % (21.2-54.2); Mean Corpuscular HGB Conc 31.9 GM/DL (32-36); Mean Corpuscular Hemoglobin 27 PG (27-34); Mean Platelet Volume 10.2 FL (9.6-12.0); Monocytes % 12.7 % (1.7-12.7); Neutrophils # 4.9 10*3/uL (1.4-7.4); Neutrophils % 63.8 % (38.7-73.9); Platelet Count 347 T/CUMM (130-400); Red Blood Count 2.99 MC/CUMM (3.8-5.5); Red Cell Distribution Width 15.6 % (9.3-17.3); White Blood Count 7.6 T/CUMM (4-12)
[2016-09-20 05:40] LABS: Calcium 8.2 MG/DL (8.5-10.1); Magnesium 2.1 MG/DL (1.8-2.4); Osmolality,Calculated 296.4 MOS/KG (273-304)
[2016-09-20 05:57] LABS: Calcium 8.6 MG/DL (8.5-10.1); Osmolality,Calculated 295.4 MOS/KG (273-304)
[2016-09-20] MEDS: LEVOTHYROXINE 25 MCG TABLET PO SCH (07:06)
[2016-09-20] MEDS: glipiZIDE 10 MG TABLET PO SCH (09:41)
[2016-09-20] MEDS: ISOSORBIDE DINITRATE 20 MG TABLET PO SCH (09:41)
[2016-09-20] MEDS: METOPROLOL TARTRATE 50 MG TABLET PO SCH (09:42)
[2016-09-20] MEDS: MAGNESIUM OXIDE 400 MG TABLET PO SCH (09:42)
[2016-09-20] MEDS: CHOLECALCIFEROL 1,000 UNIT TABLET PO SCH (09:42)
[2016-09-20] MEDS: PANTOPRAZOLE 40 MG TABLET PO SCH (09:43)
[2016-09-20] MEDS: GABAPENTIN 100 MG CAPSULE PO SCH (09:43)
[2016-09-20] MEDS: ROSUVASTATIN 10 MG TABLET PO SCH (09:43)
[2016-09-20] MEDS: IRON (CARBONYL) 45 MG TABLET PO SCH (09:43)
[2016-09-20] MEDS: ENOXAPARIN 30 MG/0.3 ML SYRINGE SUBCUT SCH (09:44)
[2016-09-20] MEDS: ASPIRIN 325 MG TABLET PO SCH (09:44)
[2016-09-20] MEDS: INSULIN REGULAR 100 UNIT/ML SUBCUT SCH ×2 (09:44→12:37)
[2016-09-20] MEDS ORDERED: FUROSEMIDE 40 MG/4 ML VIAL IV ONE (11:50)
--- NOTE | 2016-09-20 13:47 | Discharge Summary ---
I, Aleah Peraza, ZOHREH, am scribing for, and in the presence of, Gilmer Curiel MD 13:47. 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 Kingston Summary: 81-year-old male, with a history of ischemic cardiomyopathy, ejection fraction 20%, three-vessel disease with RCA occlusion, [facility] 2017. Severe CKD, creatinine trending around 3. During his last hospital stay, CTS consult was obtained for revascularization, he was deemed to be too high risk and medical management was pursued. Cardiac risk factors include hypertension, type 2 diabetes mellitus, hyperlipidemia, CAD, age. Anemia is chronic and stable, hemoglobin 8.2 and hematocrit 25.7 at discharge. Chest x-ray shows mild cardiomegaly, coarse interstitial markings of the lungs, hazy right lung base and no new infiltrates. Dyspnea resolved with diuresis. Metoprolol was increased to 50 mg twice daily, heart rate and blood pressure better controlled with this. The patient was monitored for arrhythmias, currently in sinus rhythm with a rate in the 60s. low-dose levothyroxine was started for mildly elevated TSH. Will need to be rechecked in 4-6 weeks. IV Lasix was stopped due to elevated creatinine at 4.0, the patient's baseline is around 3.4. SEPTEMBER 19, 2016: Patient is requesting to be discharged home today. He is mildly dyspneic with conversation. His Lasix has been stopped due to an elevated creatinine which is stable at 4.0 today. I have educated the patient on monitoring daily weights and keeping his oral intake at 1.5-2 L daily. I suspect some noncompliance with daily weights and daily intake, as well as medications. He does request a prescription for furosemide today and denies being out of the medication prior to hospital admission. We will give him a one -time dose of furosemide 40 mg IV today and restart his usual. The patient denies chest pain. The patient will follow up with Dr. Kingston in 2 weeks with CBC, BMP with mag, and EKG prior to visit. 09/20/16 The patient has had no arrhythmias which is with his presumed small non-STEMI. His troponins are now trending down. His creatinine is increased slightly, but he may have to be slightly dry to keep from it heart failure. It is now plateaued. He will follow-up with Dr. Kingston in a few weeks. She will check labs. She may want to check an echo at [facility], if it is been long enough to see if his LV dysfunction remains low and --he may need an ICD. Also, considered changing his metoprolol to carvedilol but that may be a reason Dr. Smith wants him to stay on the metoprolol. I think carvedilol might be better for his LV systolic dysfunction, but there may be a problem with using it in the past. I will defer that choice to Dr. Kingston. DISCHARGE MEDICATIONS: Aspirin 325 mg p.o. daily Hydralazine 50 mg p.o. 3 times daily Isosorbide 20 mg p.o. twice daily Metoprolol 50 mg p.o. twice daily Crestor 5 mg p.o. daily Lasix 40 mg p.o. daily - Time spent with patient Time with patient DS: Greater than 30 minutes Diagnosis - Discharge Diagnosis (1) Anemia Status: Acute (2) Non-ST elevation myocardial infarction (NSTEMI) Status: Acute (3) Hypertension Status: Chronic (4) Diabetes mellitus Status: Chronic (5) Chronic renal insufficiency, stage IV (severe) Status: Chronic (6) Heart failure Status: Chronic (7) Ischemic cardiomyopathy Status: Chronic (8) CHF exacerbation Status: Acute (9) Hypothyroidism Status: Chronic Specialty Discharge - Follow Up or Referrals Follow up with: Nubia Kingston MD [Physician] - 2 Weeks (Labs to include CBC, BMP with mag , Hgb A1C, EKG,) Discharge Plan - Discharge Data Disposition: Disch To Home/Self Care Condition at Discharge: Stable Discharge Diet: heart healthy, low salt diet Activity: resume usual activities as tolerated Hygiene: no restrictions Weight Bearing at Discharge: full weight bearing Driving: no restrictions Contact your physician if you experience:: Shortness of breath - Discharge Medications New hydrALAZINE TAB [Apresoline Tab] 50 mg PO TID #90 tablet HYDROcodone/ACETAMIN 7.5-325 [[place] 7.5-325] 1 tablet PO TID tablet Levothyroxine Tab [Synthroid Tab] 25 mcg PO DAILY@0700 #30 tablet Metoprolol Tartrate Tab [Lopressor Tab] 50 mg PO BID #60 tablet Pantoprazole Tab [Protonix Tab] 40 mg PO DAILY tablet Rosuvastatin [Crestor] 5 mg PO DAILY #30 tablet Brimonidine 0.2% Oph Soln [Alphagan P 0.2% Oph Soln] 1 drop BOTH EYES BID bottle Cholecalciferol [Vitamin D3] 2,000 unit PO DAILY tablet Isosorbide Dinitrate [Isordil] 20 mg PO BID tablet Continue glipiZIDE [Glipizide] 20 mg PO BID W/MEALS Aspirin Tab 325 mg PO DAILY #30 tablet Cetirizine Tab [ZyrTEC Tab] 5 mg PO DAILY #30 tablet Gabapentin Cap/Tab [Neurontin Cap/Tab] 100 mg PO TID #90 capsule Isosorbide Dinitrate [Isordil] 20 mg PO BID #60 tablet Magnesium Oxide 400 mg PO DAILY #30 tablet Iron (Carbonyl) [Feosol Natural Release Tab] 45 mg PO BID #60 tablet hydrALAZINE TAB [Apresoline Tab] 50 mg PO TID Furosemide Tab [Lasix Tab] 40 mg PO DAILY PRN #30 PRN Reason: WEIGHT GAIN Discontinued Brimonidine 0.2% Oph Soln [Alphagan P 0.2% Oph Soln] 1 drop BOTH EYES BID Cholecalciferol (Vitamin D3) [Vitamin D3] 2,000 unit PO DAILY Metoprolol Tartrate 25 mg PO BID #60 tablet Rosuvastatin Calcium [Crestor] 5 mg PO BEDTIME - Follow Up or Referral Follow Up: Nubia Kingston MD [Physician] - 2 Weeks (Labs to include CBC, BMP with mag , Hgb A1C, EKG,) - Forms/Instructions Instructions: Myocardial Infarction (GEN), Hypertrophic Cardiomyopathy (GEN), Heart Healthy Diet (GEN) Exam - Constitutional Vitals: Period Temp Pulse Resp BP Sys/Maldonado Pulse Ox Last 24 Hr 97.2 F-98.5 F 61-66 18-20 86-122/46-89 91-98 Exam: General: Appears well with no apparent distress. Pleasant and cooperative. Appears comfortable. HEENT: PERRL, normocephalic, atraumatic. Mucous membranes moist. No jaundice noted. Conjunctiva moist and clear, sclerae anicteric. Neck: No JVD/HJR, no thyromegaly or lymphadenopathy noted. No carotid bruit appreciated. Cardiac: Regular rate and rhythm. No murmur rub or gallop. PMI is nondisplaced. Lungs: Clear to auscultation without accessory muscle use to assist the respiratory pattern, mild dyspnea noted with conversation. No oxygen requirement] Abdomen: Soft, bowel sounds normoactive. Nontender and nondistended. No abdominal bruit or thrill noted. No masses noted. Musculoskeletal: No fluid collection. Decreased range of motion is noted. Extremities: No clubbing, cyanosis noted. No edema noted. Upper extremity pulses 2+. Lower extremity pulses 2+. Capillary refill less than 3 seconds. Skin: No unusual lesions or rashes. No skin breakdown appreciated. Neuro: Awake, alert and oriented 3. Moves all extremities well without hemiparesis or paralysis. No essential tremor is appreciated. Discharge Results Procedures and tests throughout hospitalization: Pending Orders 09/21/16 04:00 BMP w/ Mg [Basic Metabolic Panel w/Mg] IN AM 09/22/16 04:00 BMP w/ Mg [Basic Metabolic Panel w/Mg] IN AM Labs on day of discharge: Labs from last 24 hours 09/20/16 09/20/16 09/20/16 07:56 03:59 03:59 WBC RBC Hgb Hct MCV MCH MCHC RDW Plt Count MPV Neut % (Auto) Lymph % (Auto) [place] % (Auto) Eos % (Auto) Baso % (Auto) Neut # (Auto) Lymph # (Auto) [place] # (Auto) Eos # (Auto) Baso # (Auto) Immature Gran % Nucleated RBC % Immature Gran # Nucleated RBCs # Immature Plt Fraction Sodium 140 140 Potassium 4.0 4.0 Chloride 108 H 107 Carbon Dioxide 23 22 Anion Gap 13.0 15.0 BUN 60 H 57 H Creatinine 4.00 H 4.00 H GFR Calculation 18 214 BUN/Creatinine Ratio 15.00 14.00 Glucose 116 H 122 H POC Glucose 101 Calculated Osmolality 296.4 295.4 Calcium 8.2 L 8.6 Magnesium 2.1 09/20/16 09/19/16 09/19/16 03:58 17:22 11:24 WBC 7.6 RBC 2.99 L Hgb 8.2 L Hct 25.7 L MCV 86.0 L MCH 27 MCHC 31.9 L RDW 15.6 Plt Count 347 MPV 10.2 Neut % (Auto) 63.8 Lymph % (Auto) 17.7 L [place] % (Auto) 12.7 Eos % (Auto) 5.1 Baso % (Auto) 0.3 Neut # (Auto) 4.9 Lymph # (Auto) 1.4 [place] # (Auto) 1.0 H Eos # (Auto) 0.4 Baso # (Auto) 0.0 Immature Gran % 0.4 Nucleated RBC % 0.0 Immature Gran # 0.03 Nucleated RBCs # 0.00 Immature Plt Fraction 0.0 Sodium Potassium Chloride Carbon Dioxide Anion Gap BUN Creatinine GFR Calculation BUN/Creatinine Ratio Glucose POC Glucose 145 H 225 H Calculated Osmolality Calcium Magnesium DS: Provider Consults: 09/18/16 06:21 Consult to Cardiac Rehabilitation [CONS] Routine Reason for Cardiac Rehabilitation: Risk Factor Modification Expected date of discharge: 09/20/16 Veena Montelongo Dale, MD, personally performed the services described in this documentation, ascribed by Aleah Peraza NP in my presence, and it is both accurate and complete [id number] .
[2016-09-20 17:15] VITALS: BP 119/56
== END 2016-09-20 16:56 | disposition home or self-care (01) | DRG 280 ==
LOC: EDBD → EDUNIT# → N.ED 05:42 → N.EDINP 07:19 → N.TELEN 08:25
PROVIDERS: ADMIT Internal Medicine Cardiovascular Disease; ATTEND Internal Medicine Cardiovascular Disease

== ENCOUNTER 2016-10-12 08:26 | Observation (INO) ==
[2016-10-12] MEDS ORDERED: FUROSEMIDE 100 MG/10 ML VIAL IV STA (09:06)
--- NOTE | 2016-10-12 09:10 | EKG Report ---
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
[2016-10-12] MEDS ORDERED: FUROSEMIDE 20 MG/2 ML VIAL ONE (09:24)
[2016-10-12] MEDS ORDERED: FUROSEMIDE 40 MG/4 ML VIAL ONE (09:24)
[2016-10-12 09:27] LABS: Basophils % 0.5 % (0.0-0.8); Eosinophils # 0.2 10*3/uL (0.0-0.87); Eosinophils % 3.5 % (0.00-10.9); Hematocrit 26.4 VOL% (42.0-52.0); Hemoglobin 8.4 GM/DL (14.0-18.0); Immature Granulocytes % 0.3 %; Immature Granulocytes Absolute 0.02 #; Lymphocytes # 1.2 10*3/uL (1.4-4.0); Lymphocytes % 21.3 % (21.2-54.2); Mean Corpuscular HGB Conc 31.8 GM/DL (32-36); Mean Corpuscular Hemoglobin 28 PG (27-34); Mean Corpuscular Volume 86.3 FL (87-102); Mean Platelet Volume 9.8 FL (9.6-12.0); Monocytes # 0.6 10*3/uL (0.11-0.8); Monocytes % 10.5 % (1.7-12.7); Neutrophils # 3.7 10*3/uL (1.4-7.4); Neutrophils % 63.9 % (38.7-73.9); Platelet Count 352 T/CUMM (130-400); Red Blood Count 3.06 MC/CUMM (3.8-5.5); Red Cell Distribution Width 16.3 % (9.3-17.3); White Blood Count 5.7 T/CUMM (4-12)
--- NOTE | 2016-10-12 09:42 | XRay Report ---
Exam: XR chest 1V portable Date: 10/12/2016 9:07 AM Indication: Shortness of breath Comparison: 09/18/2016 Technical: AP Findings: Cardiomegaly is present with mild interstitial edema or infiltrates present in the perihilar regions. Tiny low volume effusions. External cardiac leads oxygen tubing are present. ASVD is present. Mediastinum is unremarkable. No pneumothorax. Impression: 1. Cardiomegaly with component of shunt vascularity interstitial edema and tiny effusions slightly worse when compared to the previous examination. Question CHF PROCEDURE INTERPRETED AT [facility] DEPARTMENT OF RADIOLOGY Final Report Signed by: Dr. Taiwo Brown
[2016-10-12 10:11] LABS: Alanine Aminotransferase 9 U/L (16-61); Albumin 3.4 G/DL (3.4-5.0); Alkaline Phosphatase 65 U/L (45-117); Aspartate Amino Transferase 11 U/L (0-37); Bilirubin,Total < 0.39 MG/DL (0.2-1.0); Blood Urea Nitrogen 48 MG/DL (7-18); Glucose 101 MG/DL (74-106); Magnesium 1.8 MG/DL (1.8-2.4); Potassium 4.8 MMOL/L (3.5-5.1); Sodium 143 MMOL/L (136-145); Total Protein 7.4 G/DL (6.4-8.3)
--- NOTE | 2016-10-12 10:19 | Emergency Department Note ---
Mayuri Montelongo Emily, am scribing for, and in the presence of, Jabier Bonner MD 09:18. Ha Montelongo Phillip K, MD, personally performed the services described in this documentation, ascribed by Joelle Messina in my presence, and it is both accurate and complete . Arrival - Arrival Chief Complaint: Shortness of Breath Stated Complaint: shortness of breath ED Nursing Triage Note: increased sob with exertion over the past three days. reports gets sob when getting up to bathroom. denies chest pain Mode of Arrival: Wheelchair Limitations: No Limitations Source: Patient Time Seen by Provider: 10/12/16 08:57 - History of Present Illness HPI Narrative: Pt is a 81 y/o male who came to ED with c/o SOB that has been ongoing for 3 days now. Pt admits to having GARZA, but denies cough, chest pain, chills, sweating, leg pain, tingling/numbness. He states he has had sxs like this previously but has not sought out medical attention. PMHx of NIDDM, HTN, anemic. Pt sees Dr. Kingston. Pt was in hospitalized on Sep 19, 2016, for exacerbation of CHF, ischemic cardiomyopathy, ejection fraction 20%, three- vessel disease with RCA occlusion, [facility] 2017. Onset (ago): day(s) Consistency: constant Severity: moderate Severity scale (1-10): 5 Quality: aching Allergies/Adverse Reactions: Allergies Allergy/AdvReac Type Severity Reaction Status Date / Time No Known Allergies Allergy Verified 09/17/16 05:51 Home Medications: Home Medications Medication Instructions Recorded Confirmed Type glipiZIDE [Glipizide] 20 mg PO BID W/MEALS 03/19/15 09/18/16 History Aspirin Tab 325 mg PO DAILY #30 tablet 05/25/16 09/18/16 Rx Cetirizine Tab [ZyrTEC Tab] 5 mg PO DAILY #30 tablet 05/25/16 09/18/16 Rx Gabapentin Cap/Tab [Neurontin 100 mg PO TID #90 capsule 05/25/16 09/18/16 Rx Cap/Tab] Iron (Carbonyl) [Feosol Natural 45 mg PO BID #60 tablet 05/25/16 09/18/16 Rx Release Tab] Isosorbide Dinitrate [Isordil] 20 mg PO BID #60 tablet 05/25/16 09/18/16 Rx Magnesium Oxide 400 mg PO DAILY #30 tablet 05/25/16 09/18/16 Rx hydrALAZINE TAB [Apresoline Tab] 50 mg PO TID 09/18/16 09/18/16 History Brimonidine 0.2% Oph Soln 1 drop BOTH EYES BID bottle 09/20/16 Rx [Alphagan P 0.2% Oph Soln] Cholecalciferol [Vitamin D3] 2,000 unit PO DAILY tablet 09/20/16 Rx Furosemide Tab [Lasix Tab] 40 mg PO DAILY PRN #30 09/20/16 Rx HYDROcodone/ACETAMIN 7.5-325 1 tablet PO TID tablet 09/20/16 Rx [[place] 7.5-325] Isosorbide Dinitrate [Isordil] 20 mg PO BID tablet 09/20/16 Rx Levothyroxine Tab [Synthroid Tab] 25 mcg PO DAILY@0700 #30 tablet 09/20/16 Rx Metoprolol Tartrate Tab [Lopressor 50 mg PO BID #60 tablet 09/20/16 Rx Tab] Pantoprazole Tab [Protonix Tab] 40 mg PO DAILY tablet 09/20/16 Rx Rosuvastatin [Crestor] 5 mg PO DAILY #30 tablet 09/20/16 Rx hydrALAZINE TAB [Apresoline Tab] 50 mg PO TID #90 tablet 09/20/16 Rx Review of System - Review of System 12 point system: reviewed and no additional remarkable complaints except as stated - Review of System Constitutional: Absent: chills, fever Respiratory: Present: respiratory distress (SOB). Absent: cough Cardiovascular: Present: dyspnea on exertion. Absent: chest pain, orthopnea Gastrointestinal: Absent: abdominal pain, nausea Musculoskeletal: Absent: arm pain, leg pain, neck pain Skin: Absent: rash Neurological: Absent: headache, numbness, paresthesias Medical,Surgical,& Family Hx - Medical History Cardio: History of: Hypertension Endocrine: History of: Diabetes Mellitus (NIDDM) Respiratory: History of: COPD Musculoskeletal: History of: Back/Neck Problems - Surgical History Cardiac Surgeries: Sugical HX of: Cardiac Catheterization Abdominal Surgeries: Surgical HX of: Appendectomy Orthopedic Surgeries: Surgical HX of;: Orthopedic Surgery (right hip 3 pins) - Family History Family History: Reports;: Family Heart Disease (Mother and Brother passed of an AL), Family Hypertension Denies;: Family Psychiatric Problems, Family Stroke Comment Only: Family Cancer (sister), Family Diabetes (aunt, cousin) - Social History Smoking Status: Former smoker Marital Status: Single Lives With:: Alone Functional capacity: independent ambulation Exam Vital Signs: Vital Signs Temperature 98.2 F 10/12/16 08:44 Pulse Rate 64 10/12/16 08:44 Respiratory Rate 20 10/12/16 09:15 Blood Pressure 117/68 10/12/16 08:44 O2 Sat by Pulse Oximetry 96 10/12/16 08:44 - General General appearance: alert, in no apparent distress - Head Head exam: Present: atraumatic, normocephalic - Eye Eye exam: Present: PERRL, EOMI - ENT ENT exam: Present: mucous membranes moist. Absent: mucous membranes dry - Neck Neck exam: Present: full ROM, trachea midline - Chest Chest inspection: Present: symmetric chest wall rise. Absent: tenderness - Respiratory Respiratory exam: Present: rales (few rales in left base). Absent: accessory muscle use, respiratory distress, wheezes - Cardiovascular Cardiovascular exam: Present: regular rate, normal rhythm, normal heart sounds - Abdominal Exam Abdominal exam: Present: soft. Absent: tenderness - Extremities Exam Extremities exam: Present: full ROM. Absent: pedal edema - Neurological Exam Neurological exam: Present: alert, oriented X3, CN II-XII intact. Absent: motor sensory deficit - Psychiatric Psychiatric exam: Present: normal affect, normal mood - Skin Skin exam: Present: warm, dry Course Course Narrative: Patient discussed with Dr. Kingston Results - Labs CBC & BMP: 10/12/16 09:20 10/12/16 09:20 Lab Results: I have reviewed the patients labs Labs: Laboratory Tests 10/12/16 09:20 WBC 5.7 RBC 3.06 L Hgb 8.4 L Hct 26.4 L MCV 86.3 L MCHC 31.8 L Lymph # (Auto) 1.2 L Laboratory Tests 10/12/16 09:20 B-Natriuretic Peptide 2947 H - Diagnostic Findings Procedure: Chest x-ray: report reviewed by me (Cardiomegaly with component of shunt vascularity interstitial edema and tiny effusions slightly worse when compared to the previous examination. Question CHF.) Disposition Clinical Impression: Congestive heart failure, Chronic renal insufficiency, stage IV (severe) Case discussed with: patient Disposition: Still a Patient Condition: Guarded Additional Instructions: Admit to Dr. Kingston
[2016-10-12] MEDS ORDERED: MAGNESIUM SULF RIDER 4 GM in PREMIX 1 EACH IV PRN (10:21)
[2016-10-12] MEDS ORDERED: MAGNESIUM SULF RIDER 2 GM in PREMIX 1 EACH IV PRN (10:21)
[2016-10-12] MEDS ORDERED: DEXTROSE 50% 25 GM/50 ML SYRINGE IV PRN (17:20)
[2016-10-12] MEDS ORDERED: GLUCAGON 1 MG VIAL IM PRN (17:20)
--- NOTE | 2016-10-12 18:54 | Cardiology History & Physical ---
García Montelongo April, RN, am scribing for, and in the presence of, Nubia Kingston MD 18:53. Assessment and Plan - Time spent with patient Time spent with patient: Greater than 30 minutes (Due to assessment, planning, documentation, medication review) (1) Congestive heart failure Status: Acute Current Visit: Yes Qualifiers: Congestive heart failure type: systolic Congestive heart failure chronicity : acute on chronic Qualified Code(s): I50.23 - Acute on chronic systolic ( congestive) heart failure (2) CAD (coronary artery disease) Status: Chronic Current Visit: Yes (3) COPD (chronic obstructive pulmonary disease) Status: Chronic Current Visit: Yes (4) Diabetes mellitus Status: Chronic Current Visit: Yes (5) Hypertension Status: Chronic Current Visit: Yes (6) Ischemic cardiomyopathy Status: Chronic Current Visit: Yes (7) Anemia Status: Chronic Current Visit: Yes History of Present Illness Chief complaint: Shortness of breath 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 Edmond is a 81 year old male with a history of CAD, ischemic cardiomyopathy, cardiac arrest, COPD, diabetes, hypertension, chronic kidney disease, and anemia. In May 2016 he was admitted with a non-STEMI. Cardiac catheterization was performed by Dr. Curiel and revealed three-vessel coronary artery disease-serial 90% lesions in the LAD, 100% occluded RCA collateralized, 90% obtuse marginal lesion. He was felt to be too high risk to be surgery or interventional candidate and is being managed medically. He required 4 units of blood during that admission. Echocardiogram at that time with ejection fraction of 20-25%. He has a family history of early CAD in his parents. Mr. Edmond reports he has been short of breath for about a week, stating it got worse in the last 3 days. He also reports having orthopnea as well as a nonproductive cough. He is not sure if he has been experiencing lower extremity edema. He has not been sleeping well for unclear reasons, and also reports that he has been losing weight. He is not having any chest pain, fevers , chills. He was given Lasix IV in the emergency department. Hematocrit is 8.4 and 26.4, looking back at past admissions this is stable for him. His creatinine is 2.90, this is actually improved from previous admissions. Troponin is 0.170, this as well is improved from previous admissions. His BNP is 2947. His EKG did show some LVH with associated ST changes, this was unchanged from his previous admission. Chest x-ray with cardiomegaly and questionable CHF. He denies any other acute illnesses, denies melena, bright red blood per rectum , hematuria. Assessment and plan: 1. CHF-this is acute on chronic secondary to systolic dysfunction. We will diurese him and optimize his hemodynamics. 2. CAD-clinically stable. 3. COPD-clinically stable. 4. Diabetes mellitus-chronic, stable. 5. Hypertension-chronic, stable. 6. Ischemic cardiomyopathy-chronic. 7. Anemia-chronic, stable. Home Medications Medication Instructions Recorded Confirmed Type glipiZIDE [Glipizide] 20 mg PO BID W/MEALS 03/19/15 10/12/16 History Gabapentin Cap/Tab [Neurontin 100 mg PO TID #90 capsule 05/25/16 10/12/16 Rx Cap/Tab] Brimonidine 0.2% Oph Soln 1 drop BOTH EYES BID bottle 09/20/16 10/12/16 Rx [Alphagan P 0.2% Oph Soln] Isosorbide Dinitrate [Isordil] 20 mg PO BID tablet 09/20/16 10/12/16 Rx Metoprolol Tartrate Tab [Lopressor 50 mg PO BID #60 tablet 09/20/16 10/12/16 Rx Tab] hydrALAZINE TAB [Apresoline Tab] 50 mg PO TID #90 tablet 09/20/16 10/12/16 Rx Aspirin Tab 325 mg PO QAM 10/12/16 10/12/16 History Cetirizine Tab [ZyrTEC Tab] 5 mg PO QAM 10/12/16 10/12/16 History Cholecalciferol [Vitamin D3] 2,000 unit PO QAM 10/12/16 10/12/16 History Levothyroxine Tab [Synthroid Tab] 25 mcg PO QAM 10/12/16 10/12/16 History Pantoprazole Tab [Protonix Tab] 40 mg PO QAM 10/12/16 10/12/16 History Rosuvastatin [Crestor] 5 mg PO QAM 10/12/16 10/12/16 History Allergies Allergy/AdvReac Type Severity Reaction Status Date / Time No Known Allergies Allergy Verified 09/17/16 05:51 12 point system: reviewed and no additional remarkable complaints except as stated - Constitutional Constitutional: Present: daytime sleepiness, fatigue, weight loss - Cardiovascular Cardiovascular: Present: dyspnea, dyspnea on exertion, orthopnea. Absent: chest pain at rest, chest pain with activity, edema, radiating jaw, neck or arm pain, lightheadedness, palpitations - Respiratory Respiratory: Present: cough, dyspnea, dyspnea on exertion. Absent: hemoptysis, wheezing - Gastrointestinal Gastrointestinal: Absent: abdominal pain, constipation, diarrhea, hematemesis, hematochezia, melena, nausea, vomiting - Genitourinary Genitourinary: Absent: dysuria, hematuria - Musculoskeletal Musculoskeletal: Present: limited range of motion, muscle weakness - Neurological Neurological: Absent: confusion, dizziness - Psychiatric Psychiatric: Absent: anxiety, confusion, depression - Endocrine Endocrine: Present: fatigue - Hematologic/Lymphatic Hematologic/Lymphatic: Absent: easy bleeding, easy bruising Medical,Surgical,& Family Hx - Medical History Cardio: History of: CAD, Hypertension, AL Endocrine: History of: Diabetes Mellitus (NIDDM) Respiratory: History of: COPD Musculoskeletal: History of: Back/Neck Problems - Surgical History Cardiac Surgeries: Sugical HX of: Cardiac Catheterization Abdominal Surgeries: Surgical HX of: Appendectomy Orthopedic Surgeries: Surgical HX of;: Orthopedic Surgery (right hip 3 pins) - Family History Family History: Reports;: Family Heart Disease (Mother and Brother passed of an AL) - Social History Smoking Status: Former smoker Frequency of Alcohol Use: None Type of Drug Use: None Cardiology Physical Exam - Constitutional Vitals: Vital Signs Temp Pulse Resp BP Pulse Ox 97.1 F L 71 18 142/74 96 10/12/16 15:34 10/12/16 15:34 10/12/16 15:34 10/12/16 15:34 10/12/16 15:34 Intake and Output 10/12/16 10/12/16 10/12/16 06:59 14:59 22:59 Other: Weight 187 lb Patient Weight 10/13/16 06:59 Weight 187 lb General appearance: normal weight, no acute distress - Head Head exam: Present: normocephalic, atraumatic. Absent: abrasion, contusion, hematoma, laceration - Eye Eye exam: Present: EOMI. Absent: conjunctival injection, periorbital swelling, laceration to eyelids Pupils: Present: PATRICK. Absent: dilated, fixed, irregular, unequal - ENT ENT exam: Present: normal exam, normal external ear exam - Neck Neck exam: Present: normal inspection. Absent: lymphadenopathy, tenderness, thyromegaly - Respiratory Respiratory exam: Present: rales, other (Bilateral bibasilar crackles, right worse than the left). Absent: accessory muscle use, chest wall tenderness - Cardiovascular Cardiovascular exam: Present: JVD (1 cm), regular rate and rhythm. Absent: diastolic murmur, systolic murmur - GI/Abdominal GI/Abdominal exam: Present: normal bowel sounds, soft. Absent: distended, mass , tenderness - Extremities Exam Extremities exam: Present: normal capillary refill. Absent: calf tenderness, edema - Back Exam Back exam: Absent: CVA tenderness (L), CVA tenderness (R), muscle spasm, vertebral tenderness - Neurological Exam Neurological exam: Present: alert, oriented X3 - Psychiatric Psychiatric exam: Present: normal affect, normal mood - Skin Skin exam: Present: normal color, warm, dry Result/EKG - Labs CBC & BMP: 10/12/16 09:20 10/12/16 09:20 Lab Results: I have reviewed the past 24 hour labs Labs: Laboratory Results - last 24 hr 10/12/16 10/12/16 10/12/16 09:20 09:20 09:20 WBC 5.7 RBC 3.06 L Hgb 8.4 L Hct 26.4 L MCV 86.3 L MCH 28 MCHC 31.8 L RDW 16.3 Plt Count 352 MPV 9.8 Neut % (Auto) 63.9 Lymph % (Auto) 21.3 [place] % (Auto) 10.5 Eos % (Auto) 3.5 Baso % (Auto) 0.5 Neut # (Auto) 3.7 Lymph # (Auto) 1.2 L [place] # (Auto) 0.6 Eos # (Auto) 0.2 Baso # (Auto) 0.0 Immature Gran % 0.3 Nucleated RBC % 0.0 Immature Gran # 0.02 Nucleated RBCs # 0.00 Immature Plt Fraction 0.0 Sodium 143 Potassium 4.8 Chloride 116 H Carbon Dioxide 18 L Anion Gap 13.8 BUN 48 H Creatinine 2.90 H GFR Calculation 27 BUN/Creatinine Ratio 16.00 Glucose 101 Calculated Osmolality 297.0 Calcium 9.0 Magnesium 1.8 Total Bilirubin < 0.39 AST 11 ALT 9 L Alkaline Phosphatase 65 Troponin I 0.170 H B-Natriuretic Peptide 2947 H Total Protein 7.4 Albumin 3.4 Globulin 4.0 H Albumin/Globulin Ratio 0.8 L - Diagnostic Findings Procedure: Chest x-ray: report reviewed by me - EKG EKG results: interpreted by me EKG shows: sinus rhythm (LVH with associated ST changes) Thee Montelongo Jennifer, MD, personally performed the services described in this documentation, ascribed by Ana Mariano RN in my presence, and it is both accurate and complete [id number] .
[2016-10-12] MEDS ORDERED: FUROSEMIDE 40 MG/4 ML VIAL IV ONE (18:56)
[2016-10-12] MEDS: ISOSORBIDE DINITRATE 20 MG TABLET PO SCH (20:39)
[2016-10-12] MEDS: BRIMONIDINE 0.2% OPH SOLN 5 ML BOTTLE BOTH EYES SCH (20:40)
[2016-10-12] MEDS: METOPROLOL TARTRATE 50 MG TABLET PO SCH (20:40)
[2016-10-12] MEDS: GABAPENTIN 100 MG CAPSULE PO SCH (20:40)
[2016-10-12] MEDS: INSULIN REGULAR 100 UNIT/ML SUBCUT SCH (20:41)
[2016-10-13 05:42] LABS: Basophils # 0.1 10*3/uL (0.0-0.2); Basophils % 0.9 % (0.0-0.8); Eosinophils # 0.4 10*3/uL (0.0-0.87); Eosinophils % 6.4 % (0.00-10.9); Hematocrit 26.5 VOL% (42.0-52.0); Hemoglobin 8.2 GM/DL (14.0-18.0); Immature Granulocytes % 0.4 %; Immature Granulocytes Absolute 0.02 #; Lymphocytes # 1.4 10*3/uL (1.4-4.0); Lymphocytes % 25.6 % (21.2-54.2); Mean Corpuscular HGB Conc 30.9 GM/DL (32-36); Mean Corpuscular Hemoglobin 27 PG (27-34); Mean Corpuscular Volume 86.6 FL (87-102); Mean Platelet Volume 10.1 FL (9.6-12.0); Monocytes # 0.8 10*3/uL (0.11-0.8); Neutrophils # 2.9 10*3/uL (1.4-7.4); Neutrophils % 52.7 % (38.7-73.9); Platelet Count 362 T/CUMM (130-400); Red Blood Count 3.06 MC/CUMM (3.8-5.5); Red Cell Distribution Width 16.4 % (9.3-17.3); White Blood Count 5.5 T/CUMM (4-12)
[2016-10-13 06:17] LABS: Calcium 9.1 MG/DL (8.5-10.1); Osmolality,Calculated 302.7 MOS/KG (273-304); Potassium 5.1 MMOL/L (3.5-5.1)
[2016-10-13] MEDS ORDERED: glipiZIDE 10 MG TABLET PO SCH (08:00)
[2016-10-13] MEDS ORDERED: FUROSEMIDE 40 MG/4 ML VIAL IV SCH (08:00)
[2016-10-13] MEDS ORDERED: CETIRIZINE 5 MG TABLET PO SCH (09:00)
[2016-10-13] MEDS ORDERED: PANTOPRAZOLE 40 MG TABLET PO SCH (09:00)
[2016-10-13] MEDS ORDERED: LEVOTHYROXINE 25 MCG TABLET PO SCH (09:00)
[2016-10-13] MEDS ORDERED: CHOLECALCIFEROL 1,000 UNIT TABLET PO SCH (09:00)
[2016-10-13] MEDS ORDERED: ROSUVASTATIN 10 MG TABLET PO SCH (09:00)
[2016-10-13] MEDS ORDERED: ASPIRIN 325 MG TABLET PO SCH (09:00)
[2016-10-13] MEDS: ISOSORBIDE DINITRATE 20 MG TABLET PO SCH (09:12)
[2016-10-13] MEDS: GABAPENTIN 100 MG CAPSULE PO SCH (09:15)
[2016-10-13] MEDS: METOPROLOL TARTRATE 50 MG TABLET PO SCH (09:16)
[2016-10-13] MEDS: BRIMONIDINE 0.2% OPH SOLN 5 ML BOTTLE BOTH EYES SCH (09:23)
[2016-10-13] MEDS: INSULIN REGULAR 100 UNIT/ML SUBCUT SCH ×2 (09:51→12:38)
[2016-10-13 12:04] VITALS: BP 108/54
--- NOTE | 2016-10-13 13:09 | Discharge Summary ---
García Montelongo April, RN, am scribing for, and in the presence of, Nubia Kingston MD 13:09. 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 Edmond is a 81 year old male with a history of CAD, ischemic cardiomyopathy, cardiac arrest, COPD, diabetes, hypertension, chronic kidney disease, and anemia. In May 2016 he was admitted with a non-STEMI. Cardiac catheterization was performed by Dr. Curiel and revealed three-vessel coronary artery disease-serial 90% lesions in the LAD, 100% occluded RCA collateralized, 90% obtuse marginal lesion. He was felt to be too high risk to be surgery or interventional candidate and is being managed medically. Echocardiogram at that time with ejection fraction of 20-25%. Mr. Edmond presented to the emergency department yesterday with complaints of shortness of breath for about a week that it got worse the last 3 days as well as orthopnea. He was given Lasix IV in the emergency department. Hematocrit is 8.4 and 26.4 , looking back at past admissions this is stable for him. His creatinine is 2.90, this is actually improved from previous admissions. Troponin is 0.170, this as well is improved from previous admissions. His BNP is 2947. His EKG did show some LVH with associated ST changes, this was unchanged from his previous admission. Chest x-ray with cardiomegaly and questionable CHF. This morning he feels he is back to his normal state of health. He denies any chest pain or shortness of breath at this time. He diuresed well overnight. Vital signs have been stable. His creatinine is 3.4 today, but his creatinine is chronically elevated. 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 He has met maximum benefit from hospitalization and will be discharged home. He will be discharged on his home medications as well as Lasix 40 mg daily. We will check electrolytes in the office in 1 week and schedule follow-up with Dr. Kingston in 1 month. - Time spent with patient Time with patient DS: Greater than 30 minutes Diagnosis - Discharge Diagnosis (1) Congestive heart failure Status: Chronic (2) CAD (coronary artery disease) Status: Chronic (3) COPD (chronic obstructive pulmonary disease) Status: Chronic (4) Diabetes mellitus Status: Chronic (5) Hypertension Status: Chronic (6) Ischemic cardiomyopathy Status: Chronic (7) Anemia Status: Chronic Specialty Discharge - Follow Up or Referrals Follow up with: Nubia Kingston MD [Physician] - 1 Month (Scheduled for Dr. Kingston in 1 month, patient needs a BMP with mag in 1 week) Discharge Plan - Discharge Data Disposition: Disch To Home/Self Care Condition at Discharge: Stable Discharge Diet: diabetic diet, heart healthy Activity: resume usual activities as tolerated Hygiene: no restrictions Weight Bearing at Discharge: weight bear as tolerated Driving: no restrictions Contact your physician if you experience:: fever over 101, Difficulty voiding, Redness or swelling, Nausea/Vomiting, Shortness of breath, Bleeding, pain uncontrolled by pain medications - Discharge Medications New Furosemide Tab [Lasix Tab] 40 mg PO DAILY #30 tablet Continue glipiZIDE [Glipizide] 20 mg PO BID W/MEALS Gabapentin Cap/Tab [Neurontin Cap/Tab] 100 mg PO TID #90 capsule hydrALAZINE TAB [Apresoline Tab] 50 mg PO TID #90 tablet Metoprolol Tartrate Tab [Lopressor Tab] 50 mg PO BID #60 tablet Aspirin Tab 325 mg PO QAM Cetirizine Tab [ZyrTEC Tab] 5 mg PO QAM Brimonidine 0.2% Oph Soln [Alphagan P 0.2% Oph Soln] 1 drop BOTH EYES BID bottle Isosorbide Dinitrate [Isordil] 20 mg PO BID tablet Rosuvastatin [Crestor] 5 mg PO QAM Pantoprazole Tab [Protonix Tab] 40 mg PO QAM Levothyroxine Tab [Synthroid Tab] 25 mcg PO QAM Cholecalciferol [Vitamin D3] 2,000 unit PO QAM - Follow Up or Referral Follow Up: Nubia Kingston MD [Physician] - 1 Month (Scheduled for Dr. Kingston in 1 month, patient needs a BMP with mag in 1 week) - Forms/Instructions Additional Discharge Instructions: Weigh daily. If you gain >3 lbs in one day or >5 lbs in one week, take additional Lasix at lunch time until your baseline weight is achieved. Exam - Constitutional Vitals: Period Temp Pulse Resp BP Sys/[place] Pulse Ox Last 24 Hr 97.1 F-98 F 53-87 16-20 109-177/58-78 90-99 Exam: General appearance: normal weight, no acute distress - Head Head exam: Present: normocephalic, atraumatic. Absent: abrasion, contusion, hematoma, laceration - Eye Eye exam: Present: EOMI. Absent: conjunctival injection, periorbital swelling, laceration to eyelids Pupils: Present: PATRICK. Absent: dilated, fixed, irregular, unequal - ENT ENT exam: Present: normal exam, normal external ear exam - Neck Neck exam: Present: normal inspection. Absent: lymphadenopathy, tenderness, thyromegaly - Respiratory Respiratory exam: Present: rales, other (crackles on the left). Absent: accessory muscle use, chest wall tenderness - Cardiovascular Cardiovascular exam: Present:regular rate and rhythm. Absent: diastolic murmur , systolic murmur, JVD - GI/Abdominal GI/Abdominal exam: Present: normal bowel sounds, soft. Absent: distended, mass , tenderness - Extremities Exam Extremities exam: Present: normal capillary refill. Absent: calf tenderness, edema - Back Exam Back exam: Absent: CVA tenderness (L), CVA tenderness (R), muscle spasm, vertebral tenderness - Neurological Exam Neurological exam: Present: alert, oriented X3 - Psychiatric Psychiatric exam: Present: normal affect, normal mood - Skin Skin exam: Present: normal color, warm, dry Discharge Results Procedures and tests throughout hospitalization: Pending Orders 10/14/16 04:00 B-Type Natriuretic Peptide IN AM Basic Metabolic Panel w/Mg IN AM Comp Blood Count Auto Diff IN AM 10/15/16 04:00 B-Type Natriuretic Peptide IN AM Basic Metabolic Panel w/Mg IN AM Comp Blood Count Auto Diff IN AM Labs on day of discharge: Labs from last 24 hours 10/13/16 10/13/16 10/13/16 08:05 04:32 04:32 WBC RBC Hgb Hct MCV MCH MCHC RDW Plt Count MPV Neut % (Auto) Lymph % (Auto) [place] % (Auto) Eos % (Auto) Baso % (Auto) Neut # (Auto) Lymph # (Auto) [place] # (Auto) Eos # (Auto) Baso # (Auto) Immature Gran % Nucleated RBC % Immature Gran # Nucleated RBCs # Immature Plt Fraction Sodium 145 Potassium 5.1 Chloride 116 H Carbon Dioxide 21 Anion Gap 13.1 BUN 55 H Creatinine 3.40 H GFR Calculation 22 BUN/Creatinine Ratio 16.00 Glucose 92 POC Glucose 105 Calculated Osmolality 302.7 Calcium 9.1 Magnesium 2.0 B-Natriuretic Peptide 2456 H 10/13/16 10/12/16 10/12/16 04:32 18:36 16:46 WBC 5.5 RBC 3.06 L Hgb 8.2 L Hct 26.5 L MCV 86.6 L MCH 27 MCHC 30.9 L RDW 16.4 Plt Count 362 MPV 10.1 Neut % (Auto) 52.7 Lymph % (Auto) 25.6 [place] % (Auto) 14.0 H Eos % (Auto) 6.4 Baso % (Auto) 0.9 H Neut # (Auto) 2.9 Lymph # (Auto) 1.4 [place] # (Auto) 0.8 Eos # (Auto) 0.4 Baso # (Auto) 0.1 Immature Gran % 0.4 Nucleated RBC % 0.0 Immature Gran # 0.02 Nucleated RBCs # 0.00 Immature Plt Fraction 0.0 Sodium Potassium Chloride Carbon Dioxide Anion Gap BUN Creatinine GFR Calculation BUN/Creatinine Ratio Glucose POC Glucose 191 H 145 H Calculated Osmolality Calcium Magnesium B-Natriuretic Peptide - Imaging and Cardiology Procedure: Chest x-ray: report reviewed by me DS: Provider Expected date of discharge: 10/13/16 Thee Montelongo Jennifer, MD, personally performed the services described in this documentation, ascribed by Ana Mariano RN in my presence, and it is both accurate and complete .
== END 2016-10-13 14:23 | disposition home or self-care (01) ==
LOC: N.EDINP 08:26 → N.ED 08:26 → N.TELES 13:50
PROVIDERS: ADMIT Internal Medicine Cardiovascular Disease; ATTEND Internal Medicine Cardiovascular Disease

== ENCOUNTER 2016-11-22 12:18 | Inpatient (IN) ==
[2016-11-22] MEDS ORDERED: ASPIRIN CHEW 81 MG TABLET PO STA (12:51)
--- NOTE | 2016-11-22 13:03 | Emergency Department Note ---
Barrington Montelongo Manpreet, am scribing for, and in the presence of, Jerod Chua MD 12: 54. Toma Montelongo James D, MD, personally performed the services described in this documentation, ascribed by Nathanael Ferris in my presence, and it is both accurate and complete . Arrival - Arrival Chief Complaint: Shortness of Breath Stated Complaint: sob heart patient ED Nursing Triage Note: PT C/O SHORTNESS OF BREATH, WORSE WITH EXERTION, SINCE LAST WEEK. PT DENIES UPPER RESP S/S Mode of Arrival: Wheelchair Limitations: No Limitations Source: Patient, Old Records Reviewed, RN Notes Reviewed Time Seen by Provider: 11/22/16 12:42 - History of Present Illness HPI Narrative: Pt is a 81 y/o male, with PMHx of HTN, CAD, [place], and NIDDM, who presents to the ED with CC of SOB and GARZA onset last week. Pt had an appointment with Dr. Kingston last week at [facility] after which he walked down some stairs that caused him to get SOB. Pt states he has been SOB ever since and has had GARZA that causes him to be SOB. Pt denies any CP with the SOB but reports of having a prior cardiac stents by Dr. Kingston. Pt states he had similar episodes of SOB and GARZA before his stents. Pt also denies any fever, chills, N/V /D, diaphoresis, hematochezia, melana, or OLIVARES. No other pains/complaints reported to the ED. Onset (ago): week(s) (Last week) Consistency: constant Severity: moderate Severity scale (1-10): 4 Allergies/Adverse Reactions: Allergies Allergy/AdvReac Type Severity Reaction Status Date / Time No Known Allergies Allergy Verified 11/22/16 12:29 Home Medications: Home Medications Medication Instructions Recorded Confirmed Type glipiZIDE [Glipizide] 20 mg PO BID W/MEALS 03/19/15 11/22/16 History Gabapentin Cap/Tab [Neurontin 100 mg PO TID #90 capsule 05/25/16 11/22/16 Rx Cap/Tab] Brimonidine 0.2% Oph Soln 1 drop BOTH EYES BID bottle 09/20/16 11/22/16 Rx [Alphagan P 0.2% Oph Soln] hydrALAZINE TAB [Apresoline Tab] 50 mg PO TID #90 tablet 09/20/16 11/22/16 Rx Aspirin Tab 325 mg PO QAM 10/12/16 11/22/16 History Atorvastatin Calcium 40 mg PO BEDTIME 11/22/16 11/22/16 History Ferrous Sulfate 324 mg PO TID 11/22/16 11/22/16 History Furosemide [Furosemide] 40 mg PO DAILY 11/22/16 11/22/16 History Isosorbide Mononitrate [Isosorbide 30 mg PO QAM 11/22/16 11/22/16 History Mononitrate ER] Lidocaine 5% Patch [Lidoderm 5% 1 patch TRANSDERM DAILY 11/22/16 11/22/16 History Patch] Magnesium Oxide 420 mg PO BID 11/22/16 11/22/16 History Metoprolol Tartrate [Metoprolol 12.5 mg PO BID 11/22/16 11/22/16 History Tartrate] Review of System - Review of System 12 point system: reviewed and no additional remarkable complaints except as stated - Review of System Constitutional: Absent: chills, diaphoresis, fever Respiratory: Present: respiratory distress. Absent: wheezing Cardiovascular: Present: dyspnea on exertion. Absent: chest pain Gastrointestinal: Absent: abdominal pain, nausea, vomiting, diarrhea, melena, hematochezia Genitourinary male: Absent: dysuria Musculoskeletal: Absent: arm pain, back pain, lower back pain, leg pain, neck pain Neurological: Absent: headache, weakness, numbness, paresthesias Medical,Surgical,& Family Hx - Medical History Cardio: History of: CAD, Hypertension, [place] Endocrine: History of: Diabetes Mellitus (NIDDM) Respiratory: History of: COPD Musculoskeletal: History of: Back/Neck Problems - Surgical History Cardiac Surgeries: Sugical HX of: Cardiac Catheterization Abdominal Surgeries: Surgical HX of: Appendectomy Orthopedic Surgeries: Surgical HX of;: Orthopedic Surgery (right hip 3 pins) - Family History Family History: Reports;: Family Heart Disease (Mother and Brother passed of an [place]), Family Hypertension Denies;: Family Psychiatric Problems, Family Stroke Comment Only: Family Cancer (sister), Family Diabetes (aunt, cousin) - Social History Smoking Status: Former smoker Frequency of Alcohol Use: None Type of Drug Use: None Exam Vital Signs: Vital Signs Temperature 97.8 F 11/22/16 13:43 Pulse Rate 34 L 10/18/17 15:25 Respiratory Rate 20 11/22/16 15:25 Blood Pressure 98/70 11/22/16 15:25 O2 Sat by Pulse Oximetry 96 11/22/16 15:25 GENERAL: This is a well-nourished well-developed black male slightly pale in no apparent distress. VITAL SIGNS: Reviewed HEENT: Head is atraumatic and normocephalic. Pupils are equal round react to light. Extraocular movements are intact. Oropharynx is benign with moist mucous membranes. NECK: Neck is soft and supple without tenderness. There are no masses. There is no lymphadenopathy. LUNGS: Lungs are clear to auscultation. Chest rises symmetrically. There is no chest wall tenderness. CV: Heart is slow rate regular rhythm without murmurs rubs or gallops. ABDOMEN: Abdomen is soft, nontender to palpation. There are no abdominal abnormal masses palpated. There is no organomegaly. Bowel sounds are present and active. SKIN: Skin is warm and dry. No rash. EXTREMITIES: Patient has full range of motion without tenderness. There is no pedal edema. NEUROLOGIC: Awake alert and oriented 4. Cranial nerves II through XII are grossly intact. Motor is 5 over 5 in all extremities bilaterally. Course - Consultations Consultation #1: Discussed with Dr. Ceballos. Patient will be admitted to his service. Time: 14:28 Results - Labs CBC & BMP: 11/22/16 13:14 11/22/16 13:14 Lab Results: I have reviewed the patients labs Labs: Laboratory Tests 11/22/16 13:14 WBC 8.8 RBC 2.99 L Hgb 7.6 L Hct 24.4 L MCV 81.6 L MCH 25 L MCHC 31.1 L RDW 17.1 Plt Count 458 H MPV 10.0 Neut % (Auto) 63.8 Lymph % (Auto) 20.4 L [place] % (Auto) 12.1 Eos % (Auto) 2.4 Baso % (Auto) 0.6 Neut # (Auto) 5.6 Lymph # (Auto) 1.8 [place] # (Auto) 1.1 H Eos # (Auto) 0.2 Baso # (Auto) 0.1 Immature Gran % 0.7 Nucleated RBC % 0.2 Immature Gran # 0.06 Nucleated RBCs # 0.02 Immature Plt Fraction 0.0 Laboratory Tests 11/22/16 13:14 INR 1.0 PT Patient/Control Mix 10.7 Circ Anticoag PTT 24.7 Laboratory Tests 11/22/16 13:14 Sodium 136 Potassium 4.5 Chloride 109 H Carbon Dioxide 15 L Anion Gap 16.5 H BUN 105 H Creatinine 5.40 H GFR Calculation 12 BUN/Creatinine Ratio 19.00 Glucose 149 H Calculated Osmolality 307.0 H Calcium 8.6 Total Bilirubin < 0.39 AST 36 ALT 46 Alkaline Phosphatase 101 Troponin I 0.077 H Total Protein 8.1 Albumin 3.7 Globulin 4.4 H Albumin/Globulin Ratio 0.8 L Laboratory Tests 11/22/16 11/22/16 11/22/16 13:14 13:14 13:14 Absolute Retic 0.1 Percent Retic 1.8 H Retic Hgb Equivalent 18.3 L Iron 20 L TIBC 342 % Saturation 5.8 L Ferritin 13.2 L Urine Color Yellow Urine Appearance Slightly hazy Urine pH 5.0 Ur Specific [place] 1.014 Urine Protein 30 Urine Glucose (UA) Negative Urine Ketones Negative Urine Blood Negative Urine Nitrate Negative Urine Bilirubin Negative Urine Urobilinogen < 2.0 H Urine Leukocytes Negative Urine RBC 1 Urine WBC 1 Ur Squamous Epith Cells Occasional Hyaline Casts 22 Ur Culture Indicated? Not indicated Laboratory Tests 11/22/16 13:14 Vitamin B12 581 Folate 13.5 Laboratory Tests 11/22/16 11/22/16 16:16 16:22 POC Glucose 208 H Blood Type O POSITIVE Antibody Screen Negative Crossmatch See Detail - EKG EKG results: interpreted by ERMD - Impressions EKG: Sinus bradycardia with a rate of 47, LVH with repolarization abnormality. - Diagnostic Findings Procedure: Chest x-ray: image reviewed by me ("CXR: Moderate cardiomegaly without yoni pulmonary edema.") Disposition Clinical Impression: Dyspnea, Coronary artery disease, Essential hypertension, Anemia Case discussed with: patient Disposition: Still a Patient Condition: Stable Time of Disposition: 14:23
[2016-11-22 13:26] LABS: Basophils # 0.1 10*3/uL (0.0-0.2); Basophils % 0.6 % (0.0-0.8); Eosinophils # 0.2 10*3/uL (0.0-0.87); Eosinophils % 2.4 % (0.00-10.9); Hematocrit 24.4 VOL% (42.0-52.0); Hemoglobin 7.6 GM/DL (14.0-18.0); Immature Granulocytes % 0.7 %; Immature Granulocytes Absolute 0.06 #; Lymphocytes # 1.8 10*3/uL (1.4-4.0); Lymphocytes % 20.4 % (21.2-54.2); Mean Corpuscular HGB Conc 31.1 GM/DL (32-36); Mean Corpuscular Hemoglobin 25 PG (27-34); Mean Corpuscular Volume 81.6 FL (87-102); Monocytes # 1.1 10*3/uL (0.11-0.8); Monocytes % 12.1 % (1.7-12.7); NRBC # 0.02 10*3/uL; Neutrophils # 5.6 10*3/uL (1.4-7.4); Neutrophils % 63.8 % (38.7-73.9); Platelet Count 458 T/CUMM (130-400); Red Blood Count 2.99 MC/CUMM (3.8-5.5); Red Cell Distribution Width 17.1 % (9.3-17.3); White Blood Count 8.8 T/CUMM (4-12)
--- NOTE | 2016-11-22 13:28 | XRay Report ---
XR chest 2V Indication: SOB Comparison: Chest x-ray dated October 12, 2016 Technique: 2 view Findings: Moderate cardiomegaly. Chronic change of the lungs without focal consolidation, pleural effusion, or pneumothorax. Visualized osseous and surrounding soft tissue structures appear grossly unchanged. IMPRESSION: Moderate cardiomegaly without yoni pulmonary edema. PROCEDURE INTERPRETED AT [facility] DEPARTMENT OF RADIOLOGY Final Report Signed by: Dr Jason Avalos
[2016-11-22 13:44] LABS: PT Patient Result 10.7 SECS; Partial Thromboplastin Time 24.7 SECS (0-40)
[2016-11-22] MEDS ORDERED: ASPIRIN 325 MG TABLET ONE (13:49)
[2016-11-22 14:03] LABS: Alanine Aminotransferase 46 U/L (16-61); Albumin 3.7 G/DL (3.4-5.0); Alkaline Phosphatase 101 U/L (45-117); Aspartate Amino Transferase 36 U/L (0-37); Bilirubin,Total < 0.39 MG/DL (0.2-1.0); Blood Urea Nitrogen 105 MG/DL (7-18); Calcium 8.6 MG/DL (8.5-10.1); Glucose 149 MG/DL (74-106); Potassium 4.5 MMOL/L (3.5-5.1); Sodium 136 MMOL/L (136-145); Total Protein 8.1 G/DL (6.4-8.3)
[2016-11-22 14:04] LABS: Troponin I Only 0.077 NG/ML (0.00-0.045)
[2016-11-22] MEDS ORDERED: SODIUM CHLORIDE 0.9% 500 ML IV STA (14:24)
[2016-11-22 14:33] LABS: Apearance,Urine Slightly Hazy (Clear); Bilirubin,Urine Negative (Negative); Blood, Urine Negative (Negative); Glucose,Urine (UA) Negative (Negative); Hyaline Casts,Urine 22 /LPF (0-3); Ketones,Urine Negative (Negative); Nitrite,Urine Negative (Negative); Protein,Urine 30 MG/DL; RBC,Urine 1 /HPF (0-4); Squamous Epithelial Cell,Urine Occasional /HPF (0-10); Urine Color Yellow (Yellow); Urine Specific Gravity 1.014 (1.001-1.035); Urine Urobilinogen < 2.0 EU/DL (0.2-1.0); WBC,Urine 1 /HPF (0-6)
[2016-11-22 14:43] LABS: % Iron Saturation 5.8 % (18-50); Ferritin 13.2 ng/ml (26-388)
[2016-11-22 14:56] LABS: Folate 13.5 NG/ML (5.4-24.0)
--- NOTE | 2016-11-22 15:04 | Cardiology History & Physical ---
Assessment and Plan (1) Anemia Status: Acute Assessment and plan: 81-year-old black male, followed by Dr. Kingston. Admitted with worsening dyspnea and exertion, which is likely due to chronic severe ischemic cardiomyopathy, ejection fraction 20%, worsened anemia, hematocrit 24, acute kidney injury on chronic kidney disease, bradycardia, which is junctional around 30 bpm. History of type 2 diabetes mellitus, hypertension, hyperlipidemia. He was not a candidate for furhter revascularization when he was evaluated invasively after a non-STEMI. -Bradycardia. Given his comorbidities, this is high risk. Will monitor in the ICU. No indications for pacing at this time. We will address potential contributing factors. If not improving, he will be a candidate for a permanent device. -Anemia. Severe underlying CAD, CMP. Will transfuse, aim for hematocrit greater than 27. Start anemia workup -Acute kidney injury on CKD. Renal consult. He is being hydrated. Hold diuretic -He appears to be adequately perfused on exam, blood pressure normal. -Monitor and treat blood sugar closely -DVT prophylaxis Current Visit: Yes (2) Coronary artery disease Status: Acute Current Visit: Yes (3) Dyspnea Status: Acute Current Visit: Yes (4) Essential hypertension Status: Acute Current Visit: Yes History of Present Illness Chief complaint: GARZA History of present illness: Mr. Edmond is a 81 year old male, followed by Dr. Kingston. History of CAD, ischemic cardiomyopathy LVEF 20-25%, cardiac arrest, COPD, diabetes, hypertension, chronic kidney disease, and anemia. In May 2016 he was admitted with a non-STEMI. Cardiac catheterization was performed by Dr. Curiel and revealed three-vessel coronary artery disease-serial 90% lesions in the LAD, 100% occluded RCA collateralized, 90% obtuse marginal lesion. He was felt to be too high risk to be surgery or interventional candidate and is being managed medically. Echocardiogram at that time with ejection fraction of 20-25%. He presented to the emergency department 10/2016 with complaints of shortness of breath for about a week. Hematocrit was 26, creatinine was 2.9. He had borderline elevated troponin and markedly elevated BNP. He was diuresed, which increased his creatinine to 3.4, heart rate remained in the 60s. Once he felt better, he was sent home, on Lasix 40 mg daily. For the past week or so, he noted more prominent dyspnea on exertion, now with minimal activity. No edema or orthostatic symptoms. Denies chest pain. No syncope or palpitation He does not recall prior renal evaluation. He does not follow-up with a hat liner. He is compliant with medications EKG shows prominent sinus bradycardia in the low 30s, on telemetry, currently is in a junctional escape rhythm, 30 bpm, with occasional bigeminy and PVCs. No sustained VT so far Creatinine 5.4, he is actually more anemic, hematocrit 24. There is no peripheral edema. EKG LVH, with nonspecific ST-T changes. Home Medications Medication Instructions Recorded Confirmed Type glipiZIDE [Glipizide] 20 mg PO BID W/MEALS 03/19/15 11/22/16 History Gabapentin Cap/Tab [Neurontin 100 mg PO TID #90 capsule 05/25/16 11/22/16 Rx Cap/Tab] Brimonidine 0.2% Oph Soln 1 drop BOTH EYES BID bottle 09/20/16 11/22/16 Rx [Alphagan P 0.2% Oph Soln] hydrALAZINE TAB [Apresoline Tab] 50 mg PO TID #90 tablet 09/20/16 11/22/16 Rx Aspirin Tab 325 mg PO QAM 10/12/16 11/22/16 History Atorvastatin Calcium 40 mg PO BEDTIME 11/22/16 11/22/16 History Ferrous Sulfate 324 mg PO TID 11/22/16 11/22/16 History Isosorbide Mononitrate [Isosorbide 30 mg PO QAM 11/22/16 11/22/16 History Mononitrate ER] Lidocaine 5% Patch [Lidoderm 5% 1 patch TRANSDERM DAILY 11/22/16 11/22/16 History Patch] Magnesium Oxide 420 mg PO BID 11/22/16 11/22/16 History Metoprolol Tartrate [Metoprolol 12.5 mg PO BID 11/22/16 11/22/16 History Tartrate] Allergies Allergy/AdvReac Type Severity Reaction Status Date / Time No Known Allergies Allergy Verified 11/22/16 12:29 12 point system: reviewed and no additional remarkable complaints except as stated Medical,Surgical,& Family Hx - Medical History Cardio: History of: CAD, Hypertension, [place] Endocrine: History of: Diabetes Mellitus (NIDDM) Respiratory: History of: COPD Musculoskeletal: History of: Back/Neck Problems - Surgical History Cardiac Surgeries: Sugical HX of: Cardiac Catheterization Abdominal Surgeries: Surgical HX of: Appendectomy Orthopedic Surgeries: Surgical HX of;: Orthopedic Surgery (right hip 3 pins) - Family History Family History: Reports;: Family Heart Disease (Mother and Brother passed of an [place]), Family Hypertension Denies;: Family Psychiatric Problems, Family Stroke Comment Only: Family Cancer (sister), Family Diabetes (aunt, cousin) - Social History Smoking Status: Former smoker Frequency of Alcohol Use: None Type of Drug Use: None Cardiology Physical Exam - Constitutional Vitals: Vital Signs Temp Pulse Resp BP Pulse Ox 97.8 F 46 L 18 95/47 94 L 11/22/16 13:43 11/22/16 13:43 11/22/16 13:43 11/22/16 13:43 11/22/16 12:43 Intake and Output 11/21/16 11/22/16 11/22/16 23:59 07:59 15:59 Other: Weight 81.647 kg Patient Weight 11/22/16 23:59 Weight 81.647 kg General appearance: normal weight, no acute distress - Head Head exam: Present: normal inspection, normocephalic. Absent: contusion - Eye Eye exam: Absent: conjunctival injection, periorbital swelling, scleral icterus Pupils: Absent: dilated - ENT ENT exam: Present: normal exam - Neck Neck exam: Present: normal inspection - Respiratory Respiratory exam: Present: clear to auscultation bilaterally. Absent: accessory muscle use, decreased breath sounds - Cardiovascular Cardiovascular exam: Present: bradycardia, irregular rhythm, systolic murmur. Absent: JVD - GI/Abdominal GI/Abdominal exam: Present: normal bowel sounds - Extremities Exam Extremities exam: Present: normal inspection, normal capillary refill. Absent: edema - Back Exam Back exam: Present: normal inspection - Neurological Exam Neurological exam: Present: alert, oriented X3 - Psychiatric Psychiatric exam: Present: normal affect, normal mood - Skin Skin exam: Present: normal color, warm. Absent: cyanosis Result/EKG - Labs CBC & BMP: 11/22/16 13:14 11/22/16 13:14 Lab Results: I have reviewed the past 24 hour labs Labs: Laboratory Results - last 24 hr 11/22/16 11/22/16 11/22/16 13:14 13:14 13:14 WBC 8.8 RBC 2.99 L Hgb 7.6 L Hct 24.4 L MCV 81.6 L MCH 25 L MCHC 31.1 L RDW 17.1 Plt Count 458 H MPV 10.0 Neut % (Auto) 63.8 Lymph % (Auto) 20.4 L [place] % (Auto) 12.1 Eos % (Auto) 2.4 Baso % (Auto) 0.6 Neut # (Auto) 5.6 Lymph # (Auto) 1.8 [place] # (Auto) 1.1 H Eos # (Auto) 0.2 Baso # (Auto) 0.1 Immature Gran % 0.7 Nucleated RBC % 0.2 Immature Gran # 0.06 Nucleated RBCs # 0.02 Immature Plt Fraction 0.0 Absolute Retic Percent Retic Retic Hgb Equivalent INR 1.0 PT Patient/Control Mix 10.7 Circ Anticoag PTT 24.7 Sodium 136 Potassium 4.5 Chloride 109 H Carbon Dioxide 15 L Anion Gap 16.5 H BUN 105 H Creatinine 5.40 H GFR Calculation 12 BUN/Creatinine Ratio 19.00 Glucose 149 H Calculated Osmolality 307.0 H Calcium 8.6 Iron TIBC % Saturation Ferritin Total Bilirubin < 0.39 AST 36 ALT 46 Alkaline Phosphatase 101 Troponin I 0.077 H Total Protein 8.1 Albumin 3.7 Globulin 4.4 H Albumin/Globulin Ratio 0.8 L Vitamin B12 Folate Urine Color Urine Appearance Urine pH Ur Specific [place] Urine Protein Urine Glucose (UA) Urine Ketones Urine Blood Urine Nitrate Urine Bilirubin Urine Urobilinogen Urine Leukocytes Urine RBC Urine WBC Ur Squamous Epith Cells Hyaline Casts Ur Culture Indicated? 11/22/16 11/22/16 11/22/16 13:14 13:14 13:14 WBC RBC Hgb Hct MCV MCH MCHC RDW Plt Count MPV Neut % (Auto) Lymph % (Auto) [place] % (Auto) Eos % (Auto) Baso % (Auto) Neut # (Auto) Lymph # (Auto) [place] # (Auto) Eos # (Auto) Baso # (Auto) Immature Gran % Nucleated RBC % Immature Gran # Nucleated RBCs # Immature Plt Fraction Absolute Retic 0.1 Percent Retic 1.8 H Retic Hgb Equivalent 18.3 L INR PT Patient/Control Mix Circ Anticoag PTT Sodium Potassium Chloride Carbon Dioxide Anion Gap BUN Creatinine GFR Calculation BUN/Creatinine Ratio Glucose Calculated Osmolality Calcium Iron 20 L TIBC 342 % Saturation 5.8 L Ferritin 13.2 L Total Bilirubin AST ALT Alkaline Phosphatase Troponin I Total Protein Albumin Globulin Albumin/Globulin Ratio Vitamin B12 Folate Urine Color Yellow Urine Appearance Slightly hazy Urine pH 5.0 Ur Specific [place] 1.014 Urine Protein 30 Urine Glucose (UA) Negative Urine Ketones Negative Urine Blood Negative Urine Nitrate Negative Urine Bilirubin Negative Urine Urobilinogen < 2.0 H Urine Leukocytes Negative Urine RBC 1 Urine WBC 1 Ur Squamous Epith Cells Occasional Hyaline Casts 22 Ur Culture Indicated? Not indicated 11/22/16 13:14 WBC RBC Hgb Hct MCV MCH MCHC RDW Plt Count MPV Neut % (Auto) Lymph % (Auto) [place] % (Auto) Eos % (Auto) Baso % (Auto) Neut # (Auto) Lymph # (Auto) [place] # (Auto) Eos # (Auto) Baso # (Auto) Immature Gran % Nucleated RBC % Immature Gran # Nucleated RBCs # Immature Plt Fraction Absolute Retic Percent Retic Retic Hgb Equivalent INR PT Patient/Control Mix Circ Anticoag PTT Sodium Potassium Chloride Carbon Dioxide Anion Gap BUN Creatinine GFR Calculation BUN/Creatinine Ratio Glucose Calculated Osmolality Calcium Iron TIBC % Saturation Ferritin Total Bilirubin AST ALT Alkaline Phosphatase Troponin I Total Protein Albumin Globulin Albumin/Globulin Ratio Vitamin B12 581 Folate 13.5 Urine Color Urine Appearance Urine pH Ur Specific [place] Urine Protein Urine Glucose (UA) Urine Ketones Urine Blood Urine Nitrate Urine Bilirubin Urine Urobilinogen Urine Leukocytes Urine RBC Urine WBC Ur Squamous Epith Cells Hyaline Casts Ur Culture Indicated? - EKG EKG results: interpreted by me
[2016-11-22] MEDS ORDERED: DEXTROSE 50% 25 GM/50 ML VIAL IV PRN (15:11)
[2016-11-22] MEDS ORDERED: ACETAMINOPHEN 325 MG TABLET PO PRN (15:11)
[2016-11-22] MEDS ORDERED: ZALEPLON 5 MG CAPSULE PO PRN (15:11)
[2016-11-22] MEDS ORDERED: DOCUSATE SODIUM 100 MG CAPSULE PO PRN (15:11)
[2016-11-22] MEDS ORDERED: MAGNESIUM SULF RIDER 2 GM in PREMIX 1 EACH IV PRN (15:11)
[2016-11-22] MEDS ORDERED: MAGNESIUM SULF RIDER 4 GM in PREMIX 1 EACH IV PRN (15:11)
[2016-11-22] MEDS ORDERED: ONDANSETRON 4 MG/2 ML VIAL IV PRN (15:11)
[2016-11-22] MEDS ORDERED: GLUCAGON 1 MG VIAL IM PRN (15:11)
[2016-11-22] MEDS ORDERED: SODIUM CHLORIDE 0.9% 250 ML IV PRN (15:22)
--- NOTE | 2016-11-22 16:00 | Order Completion Report ---
See report scanned to EMR
--- NOTE | 2016-11-22 16:12 | Internal Medicine Consult Note ---
Assessment and Plan (1) Acute on chronic renal failure Status: Acute Assessment and plan: Impression: 1. Acute on chronic kidney disease injury 2. Type II DM 3. Hypertension Recommendations: I reviewed his home medications. Will make adjustments as necessary, and use insulin sliding scale while in the hospital. Follow kidney function expectantly. Thanks for asking us to see the patient. We will be glad to follow along if you wish. This note was completed using Front[employer] voice recognition software. There may be convertible top installer errors as a result. Current Visit: No Qualifiers: Acute renal failure type: unspecified History of Present Illness - Data of Consult Patient: new to practice Consult date: 11/22/16 Requesting Physician: Anand Ceballos - Consult Narrative Reason for consult: Assist with management of medical problems History of present illness: Mr. Edmond is a 81 year old male The patient presented to the emergency room for evaluation of worsening dyspnea. He was found to be bradycardic with a heart rate of about 30, and has been admitted to the cardiology service. The patient reports a long history of hypertension and type II DM. He says his blood sugars at home are usually around 120. He is not aware of any endorgan damage. He recently was admitted for evaluation of dyspnea, and was found to have coronary disease. He says that he received a stent. He says that he has never had a myocardial infarction or congestive heart failure. He went to the cardiology office last week, and his medications were titrated. He is now back with worsening dyspnea , and was found to have a heart rate of around 35, with worsening kidney function. He was admitted to the cardiology service, and they have requested hospitalist consultation for management of medical problems. CC: Shortness of breath for about a week - Home Medications and Allergies Home Medications: Home Medications Medication Instructions Recorded Confirmed Type glipiZIDE [Glipizide] 20 mg PO BID W/MEALS 03/19/15 11/22/16 History Gabapentin Cap/Tab [Neurontin 100 mg PO TID #90 capsule 05/25/16 11/22/16 Rx Cap/Tab] Brimonidine 0.2% Oph Soln 1 drop BOTH EYES BID bottle 09/20/16 11/22/16 Rx [Alphagan P 0.2% Oph Soln] hydrALAZINE TAB [Apresoline Tab] 50 mg PO TID #90 tablet 09/20/16 11/22/16 Rx Aspirin Tab 325 mg PO QAM 10/12/16 11/22/16 History Atorvastatin Calcium 40 mg PO BEDTIME 11/22/16 11/22/16 History Ferrous Sulfate 324 mg PO TID 11/22/16 11/22/16 History Furosemide [Furosemide] 40 mg PO DAILY 11/22/16 11/22/16 History Isosorbide Mononitrate [Isosorbide 30 mg PO QAM 11/22/16 11/22/16 History Mononitrate ER] Lidocaine 5% Patch [Lidoderm 5% 1 patch TRANSDERM DAILY 11/22/16 11/22/16 History Patch] Magnesium Oxide 420 mg PO BID 11/22/16 11/22/16 History Metoprolol Tartrate [Metoprolol 12.5 mg PO BID 11/22/16 11/22/16 History Tartrate] Allergies/Adverse Reactions: Allergies Allergy/AdvReac Type Severity Reaction Status Date / Time No Known Allergies Allergy Verified 11/22/16 12:29 Review of systems: Gen.: No weight loss or gain over the past year. Eyes: Recent change in vision. Ears nose and throat: No change in auditory acuity, sinus problems, nasal allergies, or sore throat. Lungs: Dyspnea as described above, but no intrinsic lung disease. Cardiac: See history of present illness. GI: No liver disease, nausea, vomiting, or diarrhea. : Chronic kidney disease. He apparently is followed [facility] for [facility]. Neurologic: No seizures. Endocrine: No thyroid disease. Hematologic: No anemia or blood dyscrasias. Skin: No rashes or lesions. Musculoskeletal: Only age-related arthritic complaints. Medical,Surgical,& Family Hx - Medical History Cardio: History of: CAD, Hypertension, [place] Endocrine: History of: Diabetes Mellitus (NIDDM) Respiratory: History of: COPD Musculoskeletal: History of: Back/Neck Problems - Surgical History Cardiac Surgeries: Sugical HX of: Cardiac Catheterization Abdominal Surgeries: Surgical HX of: Appendectomy Orthopedic Surgeries: Surgical HX of;: Orthopedic Surgery (right hip 3 pins) - Family History Family History: Reports;: Family Heart Disease (Mother and Brother passed of an [place]), Family Hypertension Denies;: Family Psychiatric Problems, Family Stroke Comment Only: Family Cancer (sister), Family Diabetes (aunt, cousin) - Social History Smoking Status: Former smoker Frequency of Alcohol Use: None Type of Drug Use: None Exam (Progress Note) - Constitutional Vitals: Period Temp Pulse Resp BP Sys/[place] Pulse Ox Last 24 Hr 97.8 F-97.8 F 46-46 18-18 95-95/47-47 94-99 General: He is a pleasant black man in no distress. HEENT: Pupils are round and reactive. Extraocular muscles are normal. Gaze is conjugate. Fundi were not examined. There is no nasal discharge. Mucous membranes are moist. Neck: Supple, without mass, bruit, or venous distention. Cardiac: Rhythm is slow and irregular. The carotids are normal. I don't hear murmur gallop or rub. Peripheral pulses are intact. Lungs: Clear without rales, wheezes, or rubs. Abdomen: Soft and nontender. Bowel sounds are present. Abdominal aorta is palpable but not tender. Rectal: Not done. Extremities: No cyanosis, clubbing, or edema. Skin: No significant rash or lesion. Neurologic: He is awake and alert. He moves all 4 extremities. Cranial nerves appear to be intact. No pathologic reflexes are elicited. Results - Labs CBC & BMP: 11/22/16 13:14 11/22/16 13:14 Lab Results: I have reviewed the past 24 hour labs
[2016-11-22] MEDS ORDERED: PANTOPRAZOLE 40 MG TABLET PO ONE (16:53)
[2016-11-22] MEDS: PANTOPRAZOLE 40 MG TABLET PO SCH (17:02)
[2016-11-22] MEDS ORDERED: INSULIN REGULAR 100 UNIT/ML ONE (17:26)
[2016-11-22] MEDS: INSULIN REGULAR 100 UNIT/ML SUBCUT SCH ×2 (17:31→21:26)
[2016-11-22] MEDS ORDERED: GABAPENTIN 100 MG CAPSULE ONE (20:38)
[2016-11-22] MEDS ORDERED: ATORVASTATIN 40 MG TABLET ONE (20:38)
[2016-11-22] MEDS: ATORVASTATIN 80 MG TABLET PO SCH (21:21)
[2016-11-22] MEDS: GABAPENTIN 100 MG CAPSULE PO SCH (21:22)
[2016-11-22] MEDS: FERROUS SULFATE 325 MG TABLET PO SCH (21:26)
[2016-11-23 06:14] LABS: Basophils # 0.1 10*3/uL (0.0-0.2); Basophils % 0.7 % (0.0-0.8); Eosinophils # 0.2 10*3/uL (0.0-0.87); Eosinophils % 2.1 % (0.00-10.9); Hematocrit 25.9 VOL% (42.0-52.0); Hemoglobin 8.3 GM/DL (14.0-18.0); Immature Granulocytes % 0.4 %; Immature Granulocytes Absolute 0.03 #; Lymphocytes % 27.1 % (21.2-54.2); Mean Corpuscular Hemoglobin 26 PG (27-34); Mean Platelet Volume 10.6 FL (9.6-12.0); Monocytes # 1.3 10*3/uL (0.11-0.8); NRBC # 0.02 10*3/uL; Neutrophils # 3.8 10*3/uL (1.4-7.4); Neutrophils % 51.7 % (38.7-73.9); Platelet Count 422 T/CUMM (130-400); Red Blood Count 3.16 MC/CUMM (3.8-5.5); Red Cell Distribution Width 16.6 % (9.3-17.3); White Blood Count 7.2 T/CUMM (4-12)
[2016-11-23 06:22] LABS: Calcium 8.5 MG/DL (8.5-10.1); Magnesium 2.3 MG/DL (1.8-2.4); Osmolality,Calculated 309.4 MOS/KG (273-304); Potassium 4.7 MMOL/L (3.5-5.1)
[2016-11-23 06:50] LABS: Acanthocytes Few; Anisocytosis 1+; Band Neutrophils 3 % (0-10); Eosinophils 3 % (0-10); Lymphocytes 26 % (20-55); Macrocytosis 1+; Ovalocytes Few; Platelet Estimate Increased; Polychromasia Few; Segmented Neutrophils 49 % (50-85); Total Cells Counted 100
[2016-11-23] MEDS ORDERED: DEXTROSE 50% 25 GM/50 ML SYRINGE IV ONE ×2 (07:28→07:30)
[2016-11-23] MEDS: INSULIN REGULAR 100 UNIT/ML SUBCUT SCH ×4 (08:00→21:14)
--- NOTE | 2016-11-23 10:24 | Cardiology Progress Note ---
Assessment and Plan (1) Anemia Status: Acute Assessment and plan: 81-year-old black male, followed by Dr. Kingston. Admitted with worsening dyspnea and exertion, which is likely due to chronic severe ischemic cardiomyopathy, ejection fraction 20%, worsened anemia, hematocrit 24, acute kidney injury on chronic kidney disease, bradycardia, which is junctional around 30 bpm. History of type 2 diabetes mellitus, hypertension, hyperlipidemia. He was not a candidate for furhter revascularization when he was evaluated invasively after a non-STEMI. -Bradycardia. Resolved. Could have been related to metabolic issues, or a demand ischemia from underlying severe CAD, cardiomyopathy. He remains high risk for symptomatic arrhythmia, continue to monitor on telemetry. Even if he remains stable, will plan to discharge with an event recorder, he will be a candidate for a dual-chamber ICD, if the arrhythmia recurs -Anemia. Improved with transfusion, doubt active bleeding. Iron deficiency, continue supplement. -Acute kidney injury on CKD. Renal consult pending. He got volume with transfusion yesterday, diuretic is on hold. -He appears to be adequately perfused on exam, blood pressure normal. -Monitor and treat blood sugar closely. Hospitalist following -DVT prophylaxis -He may go to a telemetry bed. If remains stable today, and no inpatient renal workup is needed, he may be ready for discharge tomorrow Current Visit: Yes (2) Coronary artery disease Status: Acute Current Visit: Yes (3) Dyspnea Status: Acute Current Visit: Yes (4) Essential hypertension Status: Acute Current Visit: Yes Cardiology - PN: Subj Interval history: He is feeling better, the junctional bradycardia resolved, now, he is in sinus rhythm, with occasional PVCs. Blood pressure stable. Still, creatinine around 5. Hematocrit improved to 25 after transfusion. Denies chest pain shortness of breath. Stool occult blood was negative Exam (Progress Note) - Constitutional Vitals: Period Temp Pulse Resp BP Sys/Maldonado Pulse Ox Last 24 Hr 97.2 F-98.0 F 31-59 16-20 90-199/35-82 94-100 General appearance: normal weight, no acute distress - Head Head exam: Present: normal inspection. Absent: contusion - Eye Eye exam: Absent: conjunctival injection, scleral icterus Pupils: Absent: dilated - ENT ENT exam: Present: normal external ear exam - Neck Neck exam: Present: normal inspection - Respiratory Respiratory exam: Present: clear to auscultation bilaterally. Absent: chest wall tenderness - Cardiovascular Cardiovascular exam: Present: irregular rhythm, systolic murmur. Absent: JVD, tachycardia - GI/Abdominal GI/Abdominal exam: Present: normal bowel sounds. Absent: distended - Extremities Exam Extremities exam: Present: normal inspection, normal capillary refill. Absent: edema - Back Exam Back exam: Present: normal inspection - Neurological Exam Neurological exam: Present: alert, oriented X3 - Psychiatric Psychiatric exam: Present: normal affect, normal mood - Skin Skin exam: Present: normal color, warm. Absent: cyanosis Result/EKG - Labs CBC & BMP: 11/23/16 04:00 11/23/16 04:10 Lab Results: I have reviewed the past 24 hour labs Labs: Laboratory Results - last 24 hr 11/22/16 11/22/16 11/22/16 13:14 13:14 13:14 WBC 8.8 RBC 2.99 L Hgb 7.6 L Hct 24.4 L MCV 81.6 L MCH 25 L MCHC 31.1 L RDW 17.1 Plt Count 458 H MPV 10.0 Neut % (Auto) 63.8 Lymph % (Auto) 20.4 L [place] % (Auto) 12.1 Eos % (Auto) 2.4 Baso % (Auto) 0.6 Neut # (Auto) 5.6 Lymph # (Auto) 1.8 [place] # (Auto) 1.1 H Eos # (Auto) 0.2 Baso # (Auto) 0.1 Total Counted Immature Gran % 0.7 Nucleated RBC % 0.2 Immature Gran # 0.06 Segmented Neutrophils Band Neutrophils Lymphocytes Monocytes Eosinophils Nucleated RBCs # 0.02 Platelet Estimate Immature Plt Fraction 0.0 Polychromasia Anisocytosis Macrocytosis Ovalocytes Acanthocytes (Spur) Absolute Retic Percent Retic Retic Hgb Equivalent INR 1.0 PT Patient/Control Mix 10.7 Circ Anticoag PTT 24.7 Sodium 136 Potassium 4.5 Chloride 109 H Carbon Dioxide 15 L Anion Gap 16.5 H BUN 105 H Creatinine 5.40 H GFR Calculation 12 BUN/Creatinine Ratio 19.00 Glucose 149 H POC Glucose Calculated Osmolality 307.0 H Calcium 8.6 Magnesium Iron TIBC % Saturation Ferritin Total Bilirubin < 0.39 AST 36 ALT 46 Alkaline Phosphatase 101 Troponin I 0.077 H Total Protein 8.1 Albumin 3.7 Globulin 4.4 H Albumin/Globulin Ratio 0.8 L Vitamin B12 Folate Urine Color Urine Appearance Urine pH Ur Specific [place] Urine Protein Urine Glucose (UA) Urine Ketones Urine Blood Urine Nitrate Urine Bilirubin Urine Urobilinogen Urine Leukocytes Urine RBC Urine WBC Ur Squamous Epith Cells Hyaline Casts Ur Culture Indicated? Blood Type Antibody Screen Crossmatch 11/22/16 11/22/16 11/22/16 13:14 13:14 13:14 WBC RBC Hgb Hct MCV MCH MCHC RDW Plt Count MPV Neut % (Auto) Lymph % (Auto) [place] % (Auto) Eos % (Auto) Baso % (Auto) Neut # (Auto) Lymph # (Auto) [place] # (Auto) Eos # (Auto) Baso # (Auto) Total Counted Immature Gran % Nucleated RBC % Immature Gran # Segmented Neutrophils Band Neutrophils Lymphocytes Monocytes Eosinophils Nucleated RBCs # Platelet Estimate Immature Plt Fraction Polychromasia Anisocytosis Macrocytosis Ovalocytes Acanthocytes (Spur) Absolute Retic 0.1 Percent Retic 1.8 H Retic Hgb Equivalent 18.3 L INR PT Patient/Control Mix Circ Anticoag PTT Sodium Potassium Chloride Carbon Dioxide Anion Gap BUN Creatinine GFR Calculation BUN/Creatinine Ratio Glucose POC Glucose Calculated Osmolality Calcium Magnesium Iron 20 L TIBC 342 % Saturation 5.8 L Ferritin 13.2 L Total Bilirubin AST ALT Alkaline Phosphatase Troponin I Total Protein Albumin Globulin Albumin/Globulin Ratio Vitamin B12 Folate Urine Color Yellow Urine Appearance Slightly hazy Urine pH 5.0 Ur Specific [place] 1.014 Urine Protein 30 Urine Glucose (UA) Negative Urine Ketones Negative Urine Blood Negative Urine Nitrate Negative Urine Bilirubin Negative Urine Urobilinogen < 2.0 H Urine Leukocytes Negative Urine RBC 1 Urine WBC 1 Ur Squamous Epith Cells Occasional Hyaline Casts 22 Ur Culture Indicated? Not indicated Blood Type Antibody Screen Crossmatch 11/22/16 11/22/16 11/22/16 13:14 16:16 16:22 WBC RBC Hgb Hct MCV MCH MCHC RDW Plt Count MPV Neut % (Auto) Lymph % (Auto) [place] % (Auto) Eos % (Auto) Baso % (Auto) Neut # (Auto) Lymph # (Auto) [place] # (Auto) Eos # (Auto) Baso # (Auto) Total Counted Immature Gran % Nucleated RBC % Immature Gran # Segmented Neutrophils Band Neutrophils Lymphocytes Monocytes Eosinophils Nucleated RBCs # Platelet Estimate Immature Plt Fraction Polychromasia Anisocytosis Macrocytosis Ovalocytes Acanthocytes (Spur) Absolute Retic Percent Retic Retic Hgb Equivalent INR PT Patient/Control Mix Circ Anticoag PTT Sodium Potassium Chloride Carbon Dioxide Anion Gap BUN Creatinine GFR Calculation BUN/Creatinine Ratio Glucose POC Glucose 208 H Calculated Osmolality Calcium Magnesium Iron TIBC % Saturation Ferritin Total Bilirubin AST ALT Alkaline Phosphatase Troponin I Total Protein Albumin Globulin Albumin/Globulin Ratio Vitamin B12 581 Folate 13.5 Urine Color Urine Appearance Urine pH Ur Specific [place] Urine Protein Urine Glucose (UA) Urine Ketones Urine Blood Urine Nitrate Urine Bilirubin Urine Urobilinogen Urine Leukocytes Urine RBC Urine WBC Ur Squamous Epith Cells Hyaline Casts Ur Culture Indicated? Blood Type O POSITIVE Antibody Screen Negative Crossmatch See Detail 11/22/16 11/23/16 11/23/16 20:45 04:00 04:10 WBC 7.2 RBC 3.16 L Hgb 8.3 L Hct 25.9 L MCV 82.0 L MCH 26 L MCHC 32.0 RDW 16.6 Plt Count 422 H MPV 10.6 Neut % (Auto) 51.7 Lymph % (Auto) 27.1 [place] % (Auto) 18.0 H Eos % (Auto) 2.1 Baso % (Auto) 0.7 Neut # (Auto) 3.8 Lymph # (Auto) 2.0 [place] # (Auto) 1.3 H Eos # (Auto) 0.2 Baso # (Auto) 0.1 Total Counted 100 Immature Gran % 0.4 Nucleated RBC % 0.3 Immature Gran # 0.03 Segmented Neutrophils 49 L Band Neutrophils 3 Lymphocytes 26 Monocytes 19 H Eosinophils 3 Nucleated RBCs # 0.02 Platelet Estimate Increased Immature Plt Fraction 0.0 Polychromasia Few Anisocytosis 1+ Macrocytosis 1+ Ovalocytes Few Acanthocytes (Spur) Few Absolute Retic Percent Retic Retic Hgb Equivalent INR PT Patient/Control Mix Circ Anticoag PTT Sodium 140 Potassium 4.7 Chloride 111 H Carbon Dioxide 14 L Anion Gap 19.7 H BUN 107 H Creatinine 5.20 H GFR Calculation 13 BUN/Creatinine Ratio 20.00 Glucose 41 L POC Glucose 158 H Calculated Osmolality 309.4 H Calcium 8.5 Magnesium 2.3 Iron TIBC % Saturation Ferritin Total Bilirubin AST ALT Alkaline Phosphatase Troponin I Total Protein Albumin Globulin Albumin/Globulin Ratio Vitamin B12 Folate Urine Color Urine Appearance Urine pH Ur Specific [place] Urine Protein Urine Glucose (UA) Urine Ketones Urine Blood Urine Nitrate Urine Bilirubin Urine Urobilinogen Urine Leukocytes Urine RBC Urine WBC Ur Squamous Epith Cells Hyaline Casts Ur Culture Indicated? Blood Type Antibody Screen Crossmatch 11/23/16 11/23/16 11/23/16 04:10 07:21 08:10 WBC RBC Hgb Hct MCV MCH MCHC RDW Plt Count MPV Neut % (Auto) Lymph % (Auto) [place] % (Auto) Eos % (Auto) Baso % (Auto) Neut # (Auto) Lymph # (Auto) [place] # (Auto) Eos # (Auto) Baso # (Auto) Total Counted Immature Gran % Nucleated RBC % Immature Gran # Segmented Neutrophils Band Neutrophils Lymphocytes Monocytes Eosinophils Nucleated RBCs # Platelet Estimate Immature Plt Fraction Polychromasia Anisocytosis Macrocytosis Ovalocytes Acanthocytes (Spur) Absolute Retic Percent Retic Retic Hgb Equivalent INR PT Patient/Control Mix Circ Anticoag PTT Sodium Potassium Chloride Carbon Dioxide Anion Gap BUN Creatinine GFR Calculation BUN/Creatinine Ratio Glucose POC Glucose 48 L* 113 H Calculated Osmolality Calcium Magnesium Iron TIBC % Saturation Ferritin Total Bilirubin AST ALT Alkaline Phosphatase Troponin I 0.244 H D Total Protein Albumin Globulin Albumin/Globulin Ratio Vitamin B12 Folate Urine Color Urine Appearance Urine pH Ur Specific [place] Urine Protein Urine Glucose (UA) Urine Ketones Urine Blood Urine Nitrate Urine Bilirubin Urine Urobilinogen Urine Leukocytes Urine RBC Urine WBC Ur Squamous Epith Cells Hyaline Casts Ur Culture Indicated? Blood Type Antibody Screen Crossmatch - EKG EKG results: interpreted by me Quality Measures - VTE Contraindication to Pharmacological VTE Prophylaxis: High Risk of Bleeding
[2016-11-23] MEDS ORDERED: GABAPENTIN 100 MG CAPSULE ONE (11:45)
[2016-11-23] MEDS ORDERED: PANTOPRAZOLE 40 MG TABLET PO ONE (11:45)
[2016-11-23] MEDS ORDERED: ASPIRIN 325 MG TABLET ONE (11:45)
[2016-11-23] MEDS: LIDOCAINE 5% PATCH TRANSDERM SCH (11:51)
[2016-11-23] MEDS: GABAPENTIN 100 MG CAPSULE PO SCH ×3 (11:51→22:02)
[2016-11-23] MEDS: PANTOPRAZOLE 40 MG TABLET PO SCH (11:51)
[2016-11-23] MEDS: BRIMONIDINE 0.2% OPH SOLN 5 ML BOTTLE BOTH EYES SCH ×2 (11:51→21:59)
[2016-11-23] MEDS: ASPIRIN 325 MG TABLET PO SCH (11:51)
[2016-11-23] MEDS: FERROUS SULFATE 325 MG TABLET PO SCH ×3 (11:51→22:02)
[2016-11-23] MEDS ORDERED: ISOSORBIDE MONONITRATE 30 MG TABLET PO ONE (12:00)
--- NOTE | 2016-11-23 12:14 | Hospitalist Progress Note ---
Assessment and Plan (1) Acute on chronic renal failure Status: Acute Assessment and plan: Impression: 1. Acute on chronic kidney disease injury 2. Type II DM 3. Hypertension Recommendations: Cardiac rhythm disturbance looks better. I think he can be discharged home once cleared by nephrology. This note was completed using [employer] voice recognition software. There may be experimental worker errors as a result. Current Visit: No Qualifiers: Acute renal failure type: unspecified Hospitalist: Subjective Interval history: Follow-up hypertension, diabetes, acute on chronic kidney disease. The patient says that he had the best night sleep in several months on the stretcher in the emergency room. His bradycardia has resolved, and he is now back in a sinus mechanism. Cardiology is about ready to let him go home. We are waiting to see if nephrology is going to suggest anything further. The patient's creatinine is down a bit. He tells me that he already has nephrology care at the [facility]. Exam - Constitutional Vitals: Period Temp Pulse Resp BP Sys/Maldonado Pulse Ox Last 24 Hr 97.2 F-98.0 F 31-59 16-20 90-199/35-82 94-100 Heart is regular with no murmur. Lungs are clear with no rales or wheezes. Abdomen is soft. He is awake and alert. Results - Labs CBC & BMP: 11/23/16 04:00 11/23/16 04:10 Lab Results: I have reviewed the past 24 hour labs (Creatinine is down a bit.) Quality Measures - VTE Contraindication to Pharmacological VTE Prophylaxis: High Risk of Bleeding
[2016-11-23] MEDS: ISOSORBIDE MONONITRATE 30 MG TABLET PO SCH (13:12)
--- NOTE | 2016-11-23 14:25 | Nephrology Consult Note ---
History of Present Illness Chief complaint: Admitted for SOB, CKD stage 4 History of present illness: Mr. Edmond is a 81 year old male admitted for SOB, transfused 2u pRBCs. Previously evaluated by me, see full consult dated 05/23/2016. He was profoundly iron deficient at that time, given iron sucrose IV and his anemia improved. He presents now with microcytic anemia and FeSat 5% (>20% required for erythropoiesis). He denies melena, BRPBR. He feels well and wants to go home. His creatinine has ranged from 3.08 Mar 2016, 3.11 May 2016 and averaged around 4- 5.4 according to volume status since then for eGFR 12-18cc/min. He has severe ischemic cardiomyopathy (EF 20% at last check 6 months ago) with angiographically proven multivessel dz, not amenable to surgical or other intervention. He states he responds to the 40mg of lasix once daily after about 2 hours. I would expect he would need at least 80mg lasix dosed bid with his degree of renal dysfunction. Longstanding diabetic, COPD (80pkyr smoker, quit approx 25yrs). Home Medications Medication Instructions Recorded Confirmed Type glipiZIDE [Glipizide] 20 mg PO BID W/MEALS 03/19/15 11/22/16 History Gabapentin Cap/Tab [Neurontin 100 mg PO TID #90 capsule 05/25/16 11/22/16 Rx Cap/Tab] Brimonidine 0.2% Oph Soln 1 drop BOTH EYES BID bottle 09/20/16 11/22/16 Rx [Alphagan P 0.2% Oph Soln] hydrALAZINE TAB [Apresoline Tab] 50 mg PO TID #90 tablet 09/20/16 11/22/16 Rx Aspirin Tab 325 mg PO QAM 10/12/16 11/22/16 History Atorvastatin Calcium 40 mg PO BEDTIME 11/22/16 11/22/16 History Ferrous Sulfate 324 mg PO TID 11/22/16 11/22/16 History Furosemide [Furosemide] 40 mg PO DAILY 11/22/16 11/22/16 History Isosorbide Mononitrate [Isosorbide 30 mg PO QAM 11/22/16 11/22/16 History Mononitrate ER] Lidocaine 5% Patch [Lidoderm 5% 1 patch TRANSDERM DAILY 11/22/16 11/22/16 History Patch] Magnesium Oxide 420 mg PO BID 11/22/16 11/22/16 History Metoprolol Tartrate [Metoprolol 12.5 mg PO BID 11/22/16 11/22/16 History Tartrate] Allergies Allergy/AdvReac Type Severity Reaction Status Date / Time No Known Allergies Allergy Verified 11/22/16 12:29 Medical,Surgical,& Family Hx - Medical History Cardio: History of: CAD, Hypertension, GA Endocrine: History of: Diabetes Mellitus (NIDDM) Respiratory: History of: COPD Musculoskeletal: History of: Back/Neck Problems - Surgical History Cardiac Surgeries: Sugical HX of: Cardiac Catheterization Abdominal Surgeries: Surgical HX of: Appendectomy Orthopedic Surgeries: Surgical HX of;: Orthopedic Surgery (right hip 3 pins) - Family History Family History: Reports;: Family Heart Disease (Mother and Brother passed of an GA), Family Hypertension Denies;: Family Psychiatric Problems, Family Stroke Comment Only: Family Cancer (sister), Family Diabetes (aunt, cousin) - Social History Smoking Status: Former smoker Frequency of Alcohol Use: None Type of Drug Use: None Exam - Vital Signs Vital signs: Period Temp Pulse Resp BP Sys/Maldonado Pulse Ox Last 24 Hr 97.2 F-98.0 F 31-66 16-20 90-199/35-82 93-100 - General Appearance General appearance: well-developed, chronically ill EENT: ATNC, PERRL, mucous membranes dry, hearing intact, vision intact Neck: no JVD, no thyromegaly Respiratory: no kyphosis, clear Cardiology: no murmurs, no rub, edema (1+) Gastrointestinal: normoactive bowel sounds, no tenderness Integumentary: no rash, warm and dry Neurologic: no focal deficit, no asterixis, alert and oriented x3 Musculoskeletal: no deformities, no erythema Psychiatric: mood/affect appropriate, cooperative Results - Labs CBC & BMP: 11/23/16 04:00 11/23/16 04:10 Assessment and Plan (1) Cardiorenal syndrome with renal failure Problem details: He has cardiorenal syndrome and is not a candidate for renal replacement therapy due to his severe untreatreatable cardiomyopathy and poor predicted one year survival. He asks if there is any medicine to take for his kidneys. Has never been evaluated by Nephrology at [facility] and would like to be seen by Nephrology at [facility] [place]. Status: Acute Current Visit: Yes (2) Iron deficiency anemia Problem details: He would not respond to erythropoietic stimulation therapy without adequate iron stores. Would give 200mg iron sucrose slow IVP daily for 5 days. Can be given in the infusion clinic as outpt. Goal FeSat >20%. Status : Acute Current Visit: No (3) CKD stage 4 due to type 2 diabetes mellitus Problem details: No indication for renal replacement therapy. He is not a candidate for chronic hemodialysis due to end stage untreatable ischemic heart dz and poor predicted one year survival. Status: Acute Assessment and plan: Continue conservative management. Renally dose all meds for eGFR 15-20cc/min. Avoid hypotension, overdiuresis. Consider dosing lasix bid at 8am and 3pm, 40- 80mg po. Stable for d/c home from nephrology standpoint. Would dose him with 200mg IV iron sucrose before discharge and set him up for infusion clinic dosing of 200mg slow IVP daily for an additional 4 doses, total 1gm. Reassess in one month , if still anemic and making RBCs, consider epogen dosing, 10k unit sq or IV once a month. Current Visit: Yes
[2016-11-23] MEDS ORDERED: IRON SUCROSE 200 MG in SODIUM CHLORIDE 0.9% 100 ML IV ONE (17:01)
--- NOTE | 2016-11-23 17:07 | Order Completion Report ---
See report scanned to EMR
[2016-11-23] MEDS: ATORVASTATIN 80 MG TABLET PO SCH (22:01)
[2016-11-24 05:38] LABS: Basophils # 0.1 10*3/uL (0.0-0.2); Basophils % 0.6 % (0.0-0.8); Eosinophils # 0.5 10*3/uL (0.0-0.87); Eosinophils % 5.9 % (0.00-10.9); Hematocrit 25.5 VOL% (42.0-52.0); Hemoglobin 8.2 GM/DL (14.0-18.0); Immature Granulocytes % 0.7 %; Immature Granulocytes Absolute 0.06 #; Lymphocytes # 1.5 10*3/uL (1.4-4.0); Lymphocytes % 18.4 % (21.2-54.2); Mean Corpuscular HGB Conc 32.2 GM/DL (32-36); Mean Corpuscular Hemoglobin 26 PG (27-34); Mean Corpuscular Volume 81.7 FL (87-102); Mean Platelet Volume 10.5 FL (9.6-12.0); Monocytes # 1.1 10*3/uL (0.11-0.8); Monocytes % 13.6 % (1.7-12.7); Neutrophils # 4.9 10*3/uL (1.4-7.4); Neutrophils % 60.8 % (38.7-73.9); Platelet Count 433 T/CUMM (130-400); Red Blood Count 3.12 MC/CUMM (3.8-5.5); Red Cell Distribution Width 16.6 % (9.3-17.3)
[2016-11-24 05:48] LABS: Magnesium 2.3 MG/DL (1.8-2.4); Osmolality,Calculated 311.4 MOS/KG (273-304); Potassium 4.7 MMOL/L (3.5-5.1)
--- NOTE | 2016-11-24 09:34 | Discharge Summary ---
Hospital Course - Hospital Course Hospital Course: 81-year-old black male, followed by Dr. Kingston. Admitted November 22, 2016 with worsening dyspnea and exertion, likely due to chronic severe ischemic cardiomyopathy, ejection fraction 20%, worsened anemia, hematocrit 24, acute kidney injury on chronic kidney disease, bradycardia, which was junctional around 30 bpm. History of type 2 diabetes mellitus, hypertension, hyperlipidemia. He was not a candidate for furhter revascularization when he was evaluated invasively after a non-STEMI. Required 2 units packed red blood cells while hospitalized. His bradycardia resolved. That may be related to metabolic issues, demand ischemia from underlying severe CAD, cardiomyopathy. Nephrology saw patient has acute kidney injury on CKD. Recommended 80 mg Lasix daily. Transfused IV iron during hospital stay. At discharge she is being sent for infusion in the clinic of 200 mg slow IV push daily for an additional 4 doses for a total of 1 g per he will be reassessing nephrology clinic in 1 month and if still anemic and making RBCs, could consider Epogen dosing of 10 K units subcu or IV once a month. Creatinine during last admission average 3.1-3.6. On admission November 22, 2016 creatinine 5.4. This morning it is 4.4 He is anxious for release home. We had difficulty keeping him last night as he wanted to leave last evening. This morning we will allow for discharge. We will order a 30 day event monitor and if arrhythmias recur he may be a candidate for dual-chamber ICD. Patient is requesting a second opinion from cardiology and nephrology at [facility]. I will have him follow-up with the [place] center here in [place], [place] on Sunday, November 27, 2016 for labs to be rechecked and to discuss second opinions with his primary care provider peer Discharge medications include the following: Aspirin 325 mg 1 p.o. daily Atorvastatin 40 mg orally each evening Ferrous sulfate 325 mg p.o. 3 times daily Hydralazine 50 mg 1 p.o. 3 times daily Isosorbide mononitrate 30 mg 1 p.o. daily Lasix 80 mg orally twice daily He will resume his other, noncardiac admission medications. Obviously, patient is not a candidate for beta blockade or an CHERELLE inhibitor. He will be given a 2-3 week follow-up appoint with Dr. Kingston as well. - Time spent with patient Time with patient DS: Greater than 30 minutes Diagnosis - Discharge Diagnosis (1) Bradycardia Status: Resolved (2) Anemia Status: Chronic (3) Hypertension Status: Chronic (4) Diabetes mellitus Status: Chronic (5) Former smoker Status: Chronic (6) Chronic renal insufficiency, stage IV (severe) Status: Chronic (7) Acute on chronic renal failure Status: Acute Specialty Discharge - Follow Up or Referrals Follow up with: Nubia Kingston MD [Physician] - (2-3 weeks. BMP, Mg, CBC, EKG) Nubia Shah M.D. [Physician] - (November 27, 2016 BMP, Mg, CBC, EKG) Carl Mccray MD [Physician] - (1 month. Please arrange clinic infusion per Dr. Mccray (in infusion clinic) of 200mg Iron Sucrose slow IVP daily for 5 days. ) Discharge Plan - Discharge Data Disposition: Disch To Home/Self Care Condition at Discharge: Stable Discharge Diet: heart healthy Activity: resume usual activities as tolerated Hygiene: no restrictions Weight Bearing at Discharge: full weight bearing Driving: no restrictions Contact your physician if you experience:: fever over 101, Difficulty voiding, Redness or swelling, Nausea/Vomiting, Shortness of breath, Bleeding, pain uncontrolled by pain medications - Discharge Medications New Furosemide Tab [Lasix Tab] 80 mg PO BID DIURETIC #60 tablet Continue glipiZIDE [Glipizide] 20 mg PO BID W/MEALS Gabapentin Cap/Tab [Neurontin Cap/Tab] 100 mg PO TID #90 capsule hydrALAZINE TAB [Apresoline Tab] 50 mg PO TID #90 tablet Aspirin Tab 325 mg PO QAM Isosorbide Mononitrate [Isosorbide Mononitrate ER] 30 mg PO QAM Atorvastatin Calcium 40 mg PO BEDTIME Magnesium Oxide 420 mg PO BID Brimonidine 0.2% Oph Soln [Alphagan P 0.2% Oph Soln] 1 drop BOTH EYES BID bottle Lidocaine 5% Patch [Lidoderm 5% Patch] 1 patch TRANSDERM DAILY Ferrous Sulfate 324 mg PO TID Discontinued Metoprolol Tartrate [Metoprolol Tartrate] 12.5 mg PO BID Furosemide [Furosemide] 40 mg PO DAILY - Follow Up or Referral Follow Up: Nubia Shah M.D. [Physician] - (November 27, 2016 BMP, Mg, CBC, EKG) Carl Mccray MD [Physician] - (1 month. Please arrange clinic infusion per Dr. Mccray (in infusion clinic) of 200mg Iron Sucrose slow IVP daily for 5 days. ) Nubia Kingston MD [Physician] - (2-3 weeks. BMP, Mg, CBC, EKG) - Forms/Instructions Additional Discharge Instructions: Patient may be discharged home. Exam - Constitutional Vitals: Period Temp Pulse Resp BP Sys/Maldonado Pulse Ox Last 24 Hr 97 F-99.0 F 55-72 16-20 127-156/60-74 93-99 Exam: General: [Appears well with no apparent distress.] [Pleasant and cooperative. ] [Appears comfortable.] HEENT: [PERRL, normocephalic, atraumatic. Mucous membranes moist. No jaundice noted. Conjunctiva moist and clear, sclerae anicteric] Neck: No JVD/HJR, no thyromegaly or lymphadenopathy noted. No carotid bruit appreciated Cardiac: [Regular rate and rhythm.] [No murmur rub or gallop.] Lungs: [Clear to auscultation without accessory muscle use to assist the respiratory pattern.] Not requiring oxygen Abdomen: Soft, bowel sounds normoactive. Nontender and nondistended. No abdominal bruit or thrill noted. No masses noted. Musculoskeletal: No fluid collection. Decreased range of motion is noted. Extremities: No clubbing, cyanosis noted. [Trace bilateral lower extremity edema noted.] Upper extremity pulses 1+. Lower extremity pulses 2+. Capillary refill less than 3 seconds. Skin: No unusual lesions or rashes. No skin breakdown appreciated. Neuro: Awake, alert and oriented 3. Moves all extremities well without hemiparesis or paralysis. No essential tremor is appreciated. Discharge Results Procedures and tests throughout hospitalization: Pending Orders 11/23/16 08:06 Urinalysis Stat 11/25/16 04:00 Basic Metabolic Panel IN AM Comp Blood Count Auto Diff IN AM Magnesium IN AM Labs on day of discharge: Labs from last 24 hours 11/24/16 11/24/16 11/24/16 07:52 03:51 03:51 WBC 8.0 RBC 3.12 L Hgb 8.2 L Hct 25.5 L MCV 81.7 L MCH 26 L MCHC 32.2 RDW 16.6 Plt Count 433 H MPV 10.5 Neut % (Auto) 60.8 Lymph % (Auto) 18.4 L [place] % (Auto) 13.6 H Eos % (Auto) 5.9 Baso % (Auto) 0.6 Neut # (Auto) 4.9 Lymph # (Auto) 1.5 [place] # (Auto) 1.1 H Eos # (Auto) 0.5 Baso # (Auto) 0.1 Immature Gran % 0.7 Nucleated RBC % 0.0 Immature Gran # 0.06 Nucleated RBCs # 0.00 Immature Plt Fraction 0.0 Sodium 140 Potassium 4.7 Chloride 111 H Carbon Dioxide 14 L Anion Gap 19.7 H BUN 94 H D Creatinine 4.40 H GFR Calculation 16 BUN/Creatinine Ratio 21.00 H Glucose 167 H POC Glucose 161 H Calculated Osmolality 311.4 H Calcium 8.0 L Magnesium 2.3 11/23/16 11/23/16 11/23/16 20:10 15:31 11:00 WBC RBC Hgb Hct MCV MCH MCHC RDW Plt Count MPV Neut % (Auto) Lymph % (Auto) [place] % (Auto) Eos % (Auto) Baso % (Auto) Neut # (Auto) Lymph # (Auto) [place] # (Auto) Eos # (Auto) Baso # (Auto) Immature Gran % Nucleated RBC % Immature Gran # Nucleated RBCs # Immature Plt Fraction Sodium Potassium Chloride Carbon Dioxide Anion Gap BUN Creatinine GFR Calculation BUN/Creatinine Ratio Glucose POC Glucose 184 H 169 H 138 H Calculated Osmolality Calcium Magnesium - Imaging and Cardiology Cardiology Procedure: report reviewed by me DS: Provider Date of admission: 11/22/16 15:01 Primary care physician: Nonstaff Physician Attending physician on admission: Anand Ceballos MD Consults: 11/22/16 15:16 Consult to Physician [CONS] Routine Comment: Consulting Provider: Consult to Specialist Group: Nephrology When should Consulting Provider be notified: Now 11/22/16 15:21 Consult to Physician [CONS] Routine Comment: Consulting Provider: Consult to Specialist Group: Hospitalist When should Consulting Provider be notified: Now Consult Notification Comment: DM Already seeing pt. while in er 11/23/16 07:59 Consult to Physician [CONS] Routine Comment: ARF, bradycardia Consulting Provider: Carl Mccray Consult to Specialist Group: Nephrology Person Notified: Derek Date Notified: 11/23/16 Time Notified: 13:35 Consult Notification Comment: (If no inpatient work-up necessary, please let me know and we will possibly consider DC home today.) 11/23/16 13:53 Consult to Dietitian [CONS] Routine Reason for Dietitian: Other Discharging clinician: Aurelia Kellogg NP Expected date of discharge: 11/24/16
--- NOTE | 2016-11-24 09:38 | Event Note ---
Nephrology saw the patient yesterday, and cleared him for discharge. Glucoses are adequate. He may be discharged from our standpoint.
[2016-11-24] MEDS ORDERED: FUROSEMIDE 80 MG TABLET PO SCH (09:41)
[2016-11-24] MEDS ORDERED: IRON SUCROSE 200 MG in SODIUM CHLORIDE 0.9% 100 ML IV ONE (10:19)
[2016-11-24] MEDS: GABAPENTIN 100 MG CAPSULE PO SCH (10:20)
[2016-11-24] MEDS: ASPIRIN 325 MG TABLET PO SCH (10:21)
[2016-11-24] MEDS: LIDOCAINE 5% PATCH TRANSDERM SCH (10:21)
[2016-11-24] MEDS: BRIMONIDINE 0.2% OPH SOLN 5 ML BOTTLE BOTH EYES SCH (10:21)
[2016-11-24] MEDS: FERROUS SULFATE 325 MG TABLET PO SCH (10:21)
[2016-11-24] MEDS: ISOSORBIDE MONONITRATE 30 MG TABLET PO SCH (10:21)
[2016-11-24] MEDS: PANTOPRAZOLE 40 MG TABLET PO SCH (10:21)
[2016-11-24] MEDS: INSULIN REGULAR 100 UNIT/ML SUBCUT SCH ×2 (10:21→13:07)
[2016-11-24] MEDS ORDERED: SODIUM BICARBONATE 650 MG TABLET PO SCH (10:30)
--- NOTE | 2016-11-24 10:45 | Nephrology Progress Note ---
Nephrology - PN: Subj Interval history: Creatinine down to 4.4 from 5.2. States "I feel good". Started on ferrous sulfate tid, poorly absorbed, for FeSat of 5%. No significant side effects from iron sucrose 200mg IVP yesterday. Neurontin started 100mg tid, 100% renally cleared. Max dose 200-700mg once daily. CO2 14. Exam (PN)-Nephrology - Vital Signs Vital signs: Period Temp Pulse Resp BP Sys/Maldonado Pulse Ox Last 24 Hr 97 F-99.0 F 55-72 16-20 127-156/60-74 93-99 - General Appearance General appearance: well-developed, chronically ill EENT: ATNC, PERRL, hearing intact, vision intact Neck: JVD, no carotid bruit Respiratory: no kyphosis, clear Cardiology: no rub, edema Gastrointestinal: normoactive bowel sounds, no tenderness Integumentary: no rash, warm and dry Neurologic: no focal deficit, no asterixis, alert and oriented x3 Musculoskeletal: no deformities, no erythema Psychiatric: mood/affect appropriate, cooperative - Lab 11/24/16 03:51 11/24/16 03:51 Most recent lab results Calcium 8.0 MG/DL (8.5-10.1) L 11/24/16 03:51 Magnesium 2.3 MG/DL (1.8-2.4) 11/24/16 03:51 Assessment and Plan (1) Cardiorenal syndrome with renal failure Problem details: He has cardiorenal syndrome and is not a candidate for renal replacement therapy due to his severe untreatreatable cardiomyopathy and poor predicted one year survival. Status: Acute Current Visit: Yes (2) Iron deficiency anemia Problem details: He would not respond to erythropoietic stimulation therapy without adequate iron stores. Would give 200mg iron sucrose slow IVP daily for 5 days. Can be given in the infusion clinic as outpt. Goal FeSat >20%. Oral iron more than twice daily is not absorbed. Give another dose IV iron sucrose today. Would schedule 3 more doses (total 1gm) as outpt in infusion center, can give daily, slow IVP 200mg daily. Status: Acute Current Visit: No (3) CKD stage 4 due to type 2 diabetes mellitus Problem details: No indication for renal replacement therapy. He is not a candidate for chronic hemodialysis due to end stage untreatable ischemic heart dz and poor predicted one year survival. Status: Acute Assessment and plan: Continue conservative management. Renally dose all meds for eGFR 15-20cc/min. Avoid hypotension, overdiuresis. Consider dosing lasix bid at 8am and 3pm, 40- 80mg po. Stable for d/c home from nephrology standpoint. Current Visit: Yes (4) Metabolic acidosis Problem details: most likely due to renal failure Status: Acute Assessment and plan: Started bicarb 650mg po bid. Goal serum CO2 >20 <24. Current Visit: No Specialty Discharge - Follow Up or Referrals Follow up with: Nubia Shah M.D. [Physician] - (November 27, 2016 BMP, Mg, CBC, EKG) Carl Mccray MD [Physician] - 01/09/17 10:15 am (1 month. Please arrange clinic infusion per Dr. Mccray (in infusion clinic) of 200mg Iron Sucrose slow IVP daily for 5 days. ) Nubia Kingston MD [Physician] - 12/14/16 9:00 am (2-3 weeks. BMP, Mg, CBC , EKG)
[2016-11-24 12:59] VITALS: BP 154/69
--- NOTE | 2016-11-24 18:25 | Order Completion Report ---
See report scanned to EMR
--- NOTE | 2016-11-24 18:25 | Order Completion Report ---
See report scanned to EMR
[2016-11-24] MEDS ORDERED: GABAPENTIN 300 MG CAPSULE PO SCH (21:00)
== END 2016-11-24 14:41 | disposition home or self-care (01) | DRG 309 ==
LOC: SUATTDRO → N.ED 12:18 → N.TELEN 15:02 → N.TELES 11-23 12:55 → N.EDINP 11-23 12:57 → N.TELES 11-23 12:57
PROVIDERS: ADMIT Internal Medicine Clinical Cardiac Electrophysiology; ATTEND Internal Medicine Clinical Cardiac Electrophysiology